=== PATIENT | male | born 1955 | race Caucasian/White ===

== ENCOUNTER 2021-01-30 14:49 | Emergency (ER) | payer BC, OTHER ==
--- OUTSIDE RECORDS SUMMARY | 2021-01-30 15:04 | XMS REPORT | Continuity of Care Document ---
:1955 Author Organization [facility] Address [address] [place] [address] Dr. Morelos. [address] [place] [address] Care Team Providers Name Role Phone Ethan Ellis MD Attending Clinician Problems This patient has no known problems. Allergies, Adverse Reactions, Alerts This patient has no known allergies or adverse reactions. Medications This patient has no known medications. Procedures This patient has no known procedures. Encounters Start End Encounter Admission Attending Care Care Encounter Source Date/Time Date/Time Type Type Clinicians Facility Department ID 2020-11-05 2020-11-05 Office JOYCE Ellis [id number] 09:14:24 10:44:16 Visit Sal Galvan [id number] Marie [id number] Ruy [id number] nal 092 Building Results This patient has no known results.
[2021-01-30 16:33] LABS: Absolute Lymphocytes (CBC) 1.1 K/uL (0.7-4.9); Basophils % 1.2 % (0-1.3); Hematocrit 33.5 % (39.6-49.0); Lymphocytes % 16.2 % (15.3-44.8); RBC Red Blood Cell Count 4.12 M/uL (4.33-5.43)
[2021-01-30 16:49] LABS: Bilirubin Direct 0.2 mg/dL (0-0.2); Bilirubin Total 0.4 mg/dL (0.2-1.0); Potassium 4.2 mmol/L (3.5-5.1); Protein, Total 7.8 g/dL (6.4-8.2)
[2021-01-30 17:05] LABS: Urine Blood Negative (Negative); Urine Glucose 2+ (Negative); Urine Protein 2+ (Negative); Urine Specific Gravity 1.015 (1.005-1.030)
--- NOTE | 2021-01-30 19:53 | RAD REPORT ---
EXAM DESCRIPTION: CT - Abdomen Pelvis Wo Contrast - 01/30/2021 6:47 pm CLINICAL HISTORY: ABD PAIN Left-side COMPARISON: CT CHEST ABD PELVIS W CONTRAST dated 11/21/2011 TECHNIQUE: Axial [address] imaging of the abdomen and pelvis was performed without IV contrast. No IV contrast was given because of allergy, abnormal renal function, patient refusal or physician re quest. Oral contrast was given. All CT scans are performed using dose optimization technique as appropriate and may include automated exposure control or mA/KV adjustment according to patient size. FINDINGS: No suspicious findings in the lung bases. The liver, spleen and pancreas show no suspicious findings on non-contrast imaging. Gallbladder and b iliary tree are also without suspicious finding. No hydronephrosis or suspicious mass of the right kidney. No right-sided calculi. A small cyst is pre sent posterior upper pole right kidney. Left kidney is grossly abnormal. There is a large 11 centimet er x 8 centimeter soft tissue mass along the medial margin of the liver with poor demarcation between this mass and the remaining normal renal parenchyma. Detail is limited in the absence of contrast. N o hydronephrosis or obstructing calculus. Single most likely etiology is a large renal cell carcinoma with bulky periaortic metastatic lymphadenopathy. Patient has numerous ipsilateral and contralateral periaortic lymph nodes at the renal vascular level. Perinephric stranding is present. Numerous lymph nodes are present along the anterior renal fascia on the left. No significant adrenal finding. The urinary bladder is without significant finding. No dilated bowel loops or bowel wall thickening. No free air, free fluid or pneumatosis. No hernia, mass or bulky lymphadenopathy. No suspicious bony findings. IMPRESSION: Large bulky 11 x 8 centimeter left renal mass most likely a primary renal cell carcinoma . There is abnormal ipsilateral and contralateral periaortic lymphadenopathy and numerous small abnorma l lymph nodes along the left anterior renal fascia. Full assessment is limited is the absence of IV contrast.
--- NOTE | 2021-01-30 21:30 | EDPHYS ---
Physician Documentation [facility] Name: Torey Pritchard Age: 65 yrs Sex: Male : 1955 Arrival Date: 01/30/2021 Time: 15:01 Bed 14 Private MD: ED Physician Lam Aleman HPI: 01/30 18:53 This 65 yrs old Male presents to ER via Ambulatory with complaints of jr8 Abdominal pain DRCarmen SIMONS FOR KIDNEY PAIN. 18:53 The patient presents with abdominal pain in the left upper quadrant, in the left lower jr8 quadrant. Onset: The symptoms/episode began/occurred gradually. The symptoms radiate to left back. Associated signs and symptoms: none. The symptoms are described as burning, steady. Modifying factors: The symptoms are alleviated by sitting up or laying supine. the symptoms are aggravated by rolling onto his sides. Severity of pain: At its worst the pain was moderate in the emergency department the pain has improved moderately. The patient has not experienced similar symptoms in the past. The patient has been recently seen by a physician: Saw his supervisor twisting department today and was referred to ED for further evaluation . Historical: - Allergies: 15:32 Haloperidol; ph - PMHx: 15:32 neuropathy; PVD; Diabetes - NIDDM; ph - Immunization history:: Client reports receiving the 2nd dose of the Covid vaccine. - Social history:: Smoking status: Patient denies any tobacco usage or history of. ROS: 18:53 Eyes: Negative for injury, pain, redness, and discharge, ENT: Negative for injury, jr8 pain, and discharge, Neck: Negative for injury, pain, and swelling, Cardiovascular: Negative for chest pain, palpitations, and edema, Respiratory: Negative for shortness of breath, cough, wheezing, and pleuritic chest pain, Back: Negative for injury and pain, MS/Extremity: Negative for injury and deformity, Skin: Negative for injury, rash, and discoloration, Neuro: Negative for headache, weakness, numbness, tingling, and seizure. 18:53 Abdomen/GI: Positive for abdominal pain, Negative for nausea, vomiting, and diarrhea, abdominal distension, hematemesis, black/tarry stool, rectal pain, rectal bleeding, bowel incontinence, flatulence. Exam: 18:53 Constitutional: This is a well developed, well nourished patient who is awake, alert, jr8 and in no acute distress. Cardiovascular: Regular rate and rhythm with a normal S1 and S2. No gallops, murmurs, or rubs. Normal PMI, no JVD. No pulse deficits. Respiratory: Lungs have equal breath sounds bilaterally, clear to auscultation and percussion. No rales, rhonchi or wheezes noted. No increased work of breathing, no retractions or nasal flaring. Abdomen/GI: Soft with mild tenderness to left mid abdomen with normal bowel sounds. No distension or tympany. No guarding or rebound. Back: No spinal tenderness. No costovertebral tenderness. Full range of motion. Skin: Warm, dry with normal turgor. Normal color with no rashes, no lesions, and no evidence of cellulitis. MS/ Extremity: Pulses equal, no cyanosis. Neurovascular intact. Full, normal range of motion. Neuro: Awake and alert, GCS 15, oriented to person, place, time, and situation. Cranial nerves II-XII grossly intact. Motor strength 5/5 in all extremities. Sensory grossly intact. Cerebellar exam normal. Normal gait. Vital Signs: 15:28 BP 161 / 84; Pulse 83; Resp 18; Temp 98.1; Pulse Ox 99% on R/A; ph 17:00 BP 139 / 97; tr6 21:02 BP 163 / 87; Pulse 88; Resp 16; Temp 98; Pulse Ox 100% on R/A; jm8 21:49 BP 132 / 98; Pulse 89; Resp 16; Pulse Ox 100% on R/A; jm8 MDM: 15:42 Patient medically screened. [facility] 21:12 Data reviewed: vital signs, nurses notes, lab test result(s), radiologic studies, [facility] scan. Data interpreted: Pulse oximetry: on room air is 100 %. Interpretation: normal. Counseling: I had a detailed discussion with the patient and/or guardian regarding: the historical points, exam findings, and any diagnostic results supporting the discharge/admit diagnosis, lab results, radiology results. ED course: Discussed findings with Dr. Petty. Would like to see if we could get him into [facility] for further evaluation . 21:26 ED course: MD Aleman contacted and cannot accept transfer as it is non emergent. I donnell was able to get a employment case manager number for patient to call tomorrow morning to start outpatient process. Was attempting [facility] as well but patient does not want to be transferred tonight due to family constraints. 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 21:31 ED course: Tx [employer] reviewed. No indication not to give pain meds . 8 01/30 16:03 Order name: Basic Metabolic Panel; Complete Time: 16:59 8 01/30 16:03 Order name: CBC with Diff; Complete Time: 16:59 8 01/30 16:03 Order name: Hepatic Function; Complete Time: 16:59 8 01/30 16:03 Order name: Lipase; Complete Time: 16:59 8 01/30 17:06 Order name: Urine Dipstick-Ancillary; Complete Time: 18:27 EDMS 01/30 16:03 Order name: IV Saline Lock; Complete Time: 16:35 01/30 16:03 Order name: Labs collected and sent; Complete Time: 16:35 8 01/30 17:22 Order name: Abdomen ; Complete Time: 19:54 EDMS Administered Medications: 21:26 Not Given (Patient Refused): morphine 4 mg IVP once; RASS on ADMIN: Combtv4, Very jm8 Agttd3, Agttd2, Rstlss1, AlertClm0, Drwsy-1, Lt Sdtn-2, Mod Sdtn-3, Dp Sdtn-4, UnArsble-5 21:26 Not Given (Patient Refused): Zofran (Ondansetron) 4 mg IVP once; over 2 minutes jm8 Disposition: 01/31 07:36 Co-signature as Attending Physician, Lam Aleman MD I agree with the assessment and roderick plan of care. 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 jr8 Followup: jr8 - With: Private Physician - When: 1 - 2 days - Reason: Recheck today's complaints, Continuance of care, Re-evaluation by your physician Discharge Instructions: - Discharge Summary Sheet jr8 - Kidney Cancer jr8 Forms: - Medication Reconciliation Form jr8 - Thank You Letter jr8 - Antibiotic Education jr8 - Prescription Opioid Use jr8 Prescriptions: - acetaminophen-codeine 300-15 mg Oral tablet - take 2 tablet by ORAL route every 4-6 hours As needed; 30 tablet; Refills: 0, jr8 Product Selection Permitted Signatures: Dispatcher [employer] EDMS Lam Aleman MD MD cha Roszak, Josh, PA PA jr8 Mima Arrieta RN RN Carlos Callahan RN jm8 Corrections: (The following items were deleted from the chart) 01/30 17:21 17:00 Abdomen Pelvis W Con+CT.RAD.BRZ ordered. EDWV EDWV
--- NOTE | 2021-01-30 21:30 | ER ---
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 Coronavirus screen: At this time, the client does not indicate any symptoms associated with coronavirus-19. Ebola Screen: No symptoms or risks identified at this time. Initial Sepsis Screen: Does the patient meet any 2 criteria? No. Patient's initial sepsis screen is negative. Does the patient have a suspected source of infection? No. Patient's initial sepsis screen is negative. Risk Assessment: Do you want to hurt yourself or someone else? Patient reports no desire to harm self or others. Onset of symptoms was January 30, 2021. 15:28 Method Of Arrival: Ambulatory ph 15:28 Acuity: MARNI 3 ph Historical: - Allergies: 15:32 Haloperidol; ph - PMHx: 15:32 neuropathy; PVD; Diabetes - NIDDM; ph - Immunization history:: Client reports receiving the 2nd dose of the Covid vaccine. - Social history:: Smoking status: Patient denies any tobacco usage or history of. Screenin:00 Abuse screen: Denies threats or abuse. Denies injuries from another. Nutritional tr6 screening: No deficits noted. Tuberculosis screening: No symptoms or risk factors identified. Fall Risk None identified. Assessment: 16:57 General: Appears in no apparent distress. comfortable, Behavior is calm, cooperative, ph appropriate for age. Pain: Complains of pain in left sided abdomen pain. 16:57 Pain: Pain radiates to left lower back. Neuro: No deficits noted. Cardiovascular: No ph deficits noted. Respiratory: No deficits noted. GI: Abdomen is round distended, Bowel sounds Abd is soft Abd is non tender. : No deficits noted. EENT: No deficits noted. Derm: No deficits noted. Musculoskeletal: No deficits noted. 19:00 Reassessment: Patient appears in no apparent distress at this time. No changes from jm8 previously documented assessment. Patient and/or family updated on plan of care and expected duration. Pain level reassessed. Patient is alert, oriented x 3, equal unlabored respirations, skin warm/dry/pink. 20:00 Reassessment: Patient appears in no apparent distress at this time. No changes from jm8 previously documented assessment. Patient and/or family updated on plan of care and expected duration. Pain level reassessed. Patient is alert, oriented x 3, equal unlabored respirations, skin warm/dry/pink. 21:04 Reassessment: No changes from previously documented assessment. Patient and/or family jm8 updated on plan of care and expected duration. Pain level reassessed. Patient is alert, oriented x 3, equal unlabored respirations, skin warm/dry/pink. Vital Signs: 15:28 BP 161 / 84; Pulse 83; Resp 18; Temp 98.1; Pulse Ox 99% on R/A; ph 17:00 BP 139 / 97; tr6 21:02 BP 163 / 87; Pulse 88; Resp 16; Temp 98; Pulse Ox 100% on R/A; jm8 21:49 BP 132 / 98; Pulse 89; Resp 16; Pulse Ox 100% on R/A; jm8 ED Course: 15:01 Patient arrived in ED. wm 15:13 Dev Pinedo PA is PHCP. jr8 15:13 Lam Aleman MD is Attending Physician. jr8 15:32 Triage completed. ph 15:32 Arm band placed on. ph 15:40 Luisa Lopez, CHRISTIAN is Primary Nurse. tr6 16:35 Inserted saline lock: 18 gauge in right forearm, using aseptic technique. ph 17:00 Patient has correct armband on for positive identification. Bed in low position. Call tr6 light in reach. Side rails up X 1. 17:00 No provider procedures requiring assistance completed. tr6 18:47 Abdomen In Process Unspecified. EDMS 20:25 initiated a transfer with Vanessa from [facility]. mw2 21:16 connected Dev LYON with the Doctor at [facility]. mw2 21:49 IV discontinued, intact, bleeding controlled, No redness/swelling at site. jm8 Administered Medications: 21:26 Not Given (Patient Refused): morphine 4 mg IVP once; RASS on ADMIN: Combtv4, Very jm8 Agttd3, Agttd2, Rstlss1, AlertClm0, Drwsy-1, Lt Sdtn-2, Mod Sdtn-3, Dp Sdtn-4, UnArsble-5 21:26 Not Given (Patient Refused): Zofran (Ondansetron) 4 mg IVP once; over 2 minutes alex Outcome: 21:29 Discharge ordered by . donnell 21:49 Discharged to home ambulatory. alex 21:49 Condition: good 21:49 Discharge instructions given to patient, Instructed on discharge instructions, follow up and referral plans. medication usage, Demonstrated understanding of instructions, follow-up care, medications, Prescriptions given X 1. 21:50 Patient left the ED. alex Signatures: Dispatcher [employer] EDMS Dev Pinedo PA PA jr8 Mima Arrieta, RN RN Virgen Bradford 2 Carlos Callahan RN RN 8 Luisa Lopez, CHRISTIAN RN tr6 Lydia Norton
[2021-01-30] MEDS ORDERED: ONDANSETRON 4 MG/2 ML VIAL ONE (21:40)
[2021-01-30] MEDS ORDERED: MORPHINE 4 MG/ML SYR ONE (21:40)
[2021-01-30 22:20] VITALS: TEMP 98; O2SAT 100
[2021-01-30 22:22] VITALS: BP 132/98
== END 2021-01-30 21:50 | disposition home or self-care (01) ==
LOC: ER 14:49
DX: D41.12 Neoplasm of uncertain behavior of left renal pelvis (principal); Z88.8 Allergy status to other drugs, medicaments and biological substances
CPT/HCPCS: 85025; 80048; 36415; 80076; 81003; 83690; 74176; 99283; J2405

== ENCOUNTER 2021-08-05 13:45 | Observation (INO) | payer OTHER ==
--- OUTSIDE RECORDS SUMMARY | 2021-08-05 13:48 | XMS REPORT | Clinical Summary ---
:1955 Author Organization [facility] Address [facility] [place] [address] Care Team Providers Name Role Phone Unavailable Primary Care Provider Unavailable Allergies Not on File Medications Not on file Active Problems Not on file Encounters Date Type Specialty Care Team Description 02/07/2021 Travel after 08/05/2020 Social History Tobacco Use Types Packs/Day Years Used Date Never Assessed Sex Assigned at Date Recorded Not on file Job Start Date Occupation Industry Not on file Not on file Not on file Last Filed Vital Signs Not on file Plan of Treatment Not on file Results Not on fileafter 08/05/2020 Insurance Payer Benefit Plan / Subscriber ID Effective Dates Phone Addre ss Type Group [employer] MEDICARE AETNA MEDICARE [id number] 2020-Prese [id number] [place] [address]
--- OUTSIDE RECORDS SUMMARY | 2021-08-05 13:49 | XMS REPORT | Continuity of Care Document ---
:1955 Author Organization [facility] t Address [address] [place] [address] [address]. [address] [place] [address] Care Team Providers Name Role Phone MADHU Attending Clinician Unavailable ISABEL Attending Clinician Unavailable MD ISABEL Attending Clinician Unavailable MARSHALL Attending Clinician Unavailable ROD Attending Clinician Unavailable MD SRI Attending Clinician Unavailable MD ABBI EDMOND Attending Clinician Unavailable ARMAND GO Attending Clinician Unavailable MD ROMINA VELASCO Attending Clinician Unavailable SRI Attending Clinician Unavailable ROQUE Attending Clinician Unavailable Radha Ellis MD Attending Clinician RADHA ELLIS Attending Clinician Unavailable RADHA ELLIS Attending Clinician Unavailable ISABEL Admitting Clinician Unavailable MD ISABEL Admitting Clinician Unavailable SRI Admitting Clinician Unavailable MD SRI Admitting Clinician Unavailable ROD Admitting Clinician Unavailable MD ROMINA VELASCO Admitting Clinician Unavailable Payers Payer Name Policy Type Policy Effective Date Expiration Date Sour ce Number AETNA MEDICAREAETNA [id number] 2020 MD Aleman MEDICARE 00:00:00 [id number], [place] [address]Medicare Problems Condition Condition Condition Status Onset Resolution Last Treating Co mments Source Name Details Category Date Date Treatment Clinician Date No known No known Disease Unive rs active active ity of problems problems [facility] Allergies, Adverse Reactions, Alerts Allergy Allergy Status Severity Reaction(s) Onset Inactive Treating Comm ents Source Name Type Date Date Clinician [place] Drug Active Anaphylaxis 2014-08 Cardiac Un olvin dol Allergy 08-22 arrestcod ity of 00:00: ed [address] HALOPERI DRUG Active High Anaphylaxis 2014-08 Uni vers DOL INGREDI 08-22 ity of 00:00: [address] CEFTRIAX DRUG Active Low N/V 2014-08 Univers ONE INGREDI 08-22 ity of 00:00: [address] Ceftriax Propensi Active Nausea 2014-08 High Univer s one ty to and/or 08-22 blood ity of adverse Vomiting 00:00: sugar, [place] reaction blacked [facility] ed by other hospital. Per patient his blood glucose "went alice high" NO KNOWN Drug Active Univers ALLERGIE Class ity of [facility] Social History Social Habit Start Date Stop Date Quantity Comments Source Exposure to Not sure [facility] SARS-CoV-2 (event) [facility] Sex Assigned At [birth year] MD Morgan on 00:00:00 00:00:00 Smoking Status Start Date Stop Date Source Unknown if ever smoked [facility] Medications Ordered Filled Start Stop Current Ordering Indication Dosage Frequency Signature Comments Components Source Medication Medication Date Date Medication? Clinician (SIG) Name Name Chromium Yes 800mg Take 800 Univ ers Picolinate 4-06 mg by ity of 400 mcg Tab 15:00: mouth. [address] Cinnamon Yes 1000mg Take 1,000 U nivers Bark 500 mg 4-06 mg by ity of Cap 15:00: mouth. [address] Garlic Yes 1{capsu Take 1 Univer s (GARLIC 4-06 le} capsule by ity of OIL) 1,000 15:00: mouth. [place] mg [address] Chromium Yes 800mg Take 800 Univ ers Picolinate 4-06 mg by ity of 400 mcg Tab 15:00: mouth. [address] Cinnamon Yes 1000mg Take 1,000 U nivers Bark 500 mg 4-06 mg by ity of Cap 15:00: mouth. [address] Garlic Yes 1{capsu Take 1 Univer s (GARLIC 4-06 le} capsule by ity of OIL) 1,000 15:00: mouth. [place] mg Cap 42 [facility] metoprolol Yes Univers succinate 4-05 ity of XL 50 mg 24 00:00: [place] hr tablet 00 Medical [facility] metoprolol 0 Yes Univers succinate 4-05 ity of XL 50 mg 24 00:00: [place] hr tablet 00 [facility] Yes Univers mg tablet 3-31 ity of 00:00: [place] 00 Medical Branch [facility] 10 0 Yes Univers mg tablet 3-31 ity of 00:00: [place] 00 Medical Branch metformin 0 Yes 750mg Take 750 Uni vers ER 750 mg 3-26 mg by ity of 24 hr 00:00: mouth 2 [place] tablet 00 (two) Medical times Branch daily. metformin Yes 750mg Take 750 Uni vers ER 750 mg 3-26 mg by ity of 24 hr 00:00: mouth 2 [place] tablet 00 (two) Medical times Branch daily. VASCEPA 1 Yes TAKE 2 Univer s gram 3-08 CAPSULES ity of capsule 00:00: BY MOUTH [place] 00 TWICE A Medical DAY Branch VASCEPA 1 Yes TAKE 2 Univer s gram 3-08 CAPSULES ity of capsule 00:00: BY MOUTH [place] 00 TWICE A Medical DAY Branch atorvastati Yes 80mg Take 80 mg Univers n 80 mg 2-08 by mouth ity of tablet 00:00: every [place] 00 evening. Medical Branch clopidogreL Yes 75mg Take 75 mg Univers 75 mg 2-08 by mouth ity of tablet 00:00: every [place] 00 morning. Medical Branch losartan 25 Yes 25mg Take 25 mg Univers mg tablet 2-08 by mouth ity of 00:00: every [place] 00 morning. Medical Branch atorvastati Yes 80mg Take 80 mg Univers n 80 mg 2-08 by mouth ity of tablet 00:00: every [place] 00 evening. Medical Branch clopidogreL 0 Yes 75mg Take 75 mg Univers 75 mg 2-08 by mouth ity of tablet 00:00: every [place] 00 morning. Medical Branch losartan 25 0 Yes 25mg Take 25 mg Univers mg tablet 2-08 by mouth ity of 00:00: every [place] 00 morning. Medical Branch gabapentin 0 Yes 600mg Take 600 Un olvin 600 mg 1-14 mg by ity of tablet 00:00: mouth at [place] 00 bedtime. Medical Branch gabapentin 2020- Yes 600mg Take 600 Un olvin 600 mg 1-14 mg by ity of tablet 00:00: mouth at [place] [address] bedtime. Medical Branch Vital Signs Vital Name Observation Time Observation Value Comments Source Systolic blood 2020-11-05 15:00:00 170 mm[Hg] Univer sity [facility] Diastolic blood 2020-11-05 15:00:00 68 [facility] 2020-11-05 15:00:00 70 /min Universi ty [facility] Body height 2020-11-05 14:58:00 182.9 cm [address]i [address] [facility] Body weight 2020-11-05 14:58:00 91.[address] [facility] BMI 2020-11-05 14:58:00 27.40 kg/m2 Universi ty [facility] Oxygen saturation 2020-11-05 14:58:00 100 /min Uni versity of [place] in Arterial blood Medical Br anch by Pulse oximetry Systolic blood 2020-11-05 15:00:00 170 [facility]Hg[facility] 2020-11-05 15:00:00 68 mm[facility]Hg[facility] 2020-11-05 15:00:00 70 /min Universi ty [facility] Body height 2020-11-05 14:58:00 182.9 cm [address]i [address] [facility] Body weight 2020-11-05 14:58:00 91.627 [address] [facility] BMI 2020-11-05 14:58:00 27.40 kg/m2 Universi ty [facility] Oxygen saturation 2020-11-05 14:58:00 100 /min Uni versity [facility] in Arterial blood Medical Br anch by Pulse oximetry Procedures This patient has no known procedures. Encounters Start End Encounter Admission Attending Care Care Encounter Source Date/Time Date/Time Type Type Clinicians Facility Department ID 2021-07-09 2021-07-09 Outpatient MADHU [facility] [id number] [place] 00:00:00 00:00:00 FREDI [address] 2021-07-09 2021-07-09 Outpatient MADHU, [facility] [id number] [place] 00:00:00 00:00:00 FREDI [address] 2021-07-09 2021-07-09 Outpatient MADHU, [facility] [id number] [place] 00:00:00 00:00:00 FREDI [address] 2021-06-19 2021-06-20 Outpatient NUNU HALL [facility] [id number] [place] 00:00:00 00:00:[address] 2021-06-19 2021-06-19 Outpatient MADHU, [facility] [id number] [place] 00:00:00 00:00:00 FREDI 176 Met [facility] 2021-06-10 2021-06-10 Outpatient OLIVARES, [facility] [id number] [place] 00:00:00 00:00:00 SHILPAN [address] 2021-06-05 2021-06-05 Outpatient OLIVARES, [facility] [id number] [place] 00:00:00 00:00:00 SHILPAN 014 Method i 2021-05-29 2021-05-31 Inpatient DINAKAR, [facility] [id number] [place] 00:00:00 00:00:00 SUAD [address] 2021-05-29 2021-05-29 Outpatient MADHU, [facility] [id number] [place] 00:00:00 00:00:00 FREDI 946 Met [facility] 2021-05-29 2021-05-29 Outpatient MAHDU, [facility] [id number] [place] 00:00:00 00:00:00 FREDI 043 Met [facility] 2021-05-22 2021-05-22 Outpatient MADHU, [facility] [id number] [place] 00:00:00 00:00:00 FREDI [address] 2021-05-08 2021-05-16 Inpatient ARMAND [facility] [id number] [place] 00:00:00 00:00:00 Seda GO Method i QING 2021-05-012021-05-01 Outpatient MADHU, [facility] [id number] [place] 00:00:00 00:00:00 FREDI 114 Met [facility] 2021-05-01 2021-05-01 Outpatient MADHU, [facility] [id number] [place] 00:00:00 00:00:00 FREDI 925 Met [facility] 2021-04-24 2021-04-24 Outpatient MADHU, [facility] [id number] [place] 00:00:00 00:00:00 FREDI 743 Met [facility] 2021-04-24 2021-04-24 Outpatient MADHU, [facility] [id number] [place] 00:00:00 00:00:00 FREDI 572 Met [facility] 2021-04-17 2021-04-18 Outpatient ARMAND [facility] [id number] [place] 00:00:00 00:00:00 ABBI, 669 Method i [facility] 2021-04-10 2021-04-10 Outpatient MADHU, [facility] [id number] [place] 00:00:00 00:00:00 FREDI 343 Met [facility] 2021-04-10 2021-04-10 Outpatient MADHU, [facility] [id number] [place] 00:00:00 00:00:00 FREDI 045 Met [facility] 2021-04-10 2021-04-10 Outpatient MADHU, [facility] [id number] [place] 00:00:00 00:00:00 FREDI 574 Met [facility] 2021-04-03 2021-04-03 Outpatient OLIVARES, [facility] [id number] [place] 00:00:00 00:00:00 SHILPAN [address] 2021-04-03 2021-04-03 Outpatient MADHU, [facility] [id number] [place] 00:00:00 00:00:00 FREDI 526 Met [facility] 2021-03-27 2021-03-30 Inpatient NUNU HALL [facility] [id number] [place] 00:00:00 00:00:[address] 2021-03-20 2021-03-20 Outpatient MADHU, [facility] [id number] [place] 00:00:00 00:00:00 FREDI 141 Met hodi 2021-02-25 2021-03-14 Inpatient SRI, [facility] [id number] [place] 00:00:00 00:00:00 PONCHO 559 Method i 2021-02-25 2021-02-25 Outpatient JILL NEVAREZ [facility] [id number] [place] 00:00:00 00:00:00 967 Method i 2021-02-25 2021-02-25 Outpatient ROQUE COUNT [facility] [id number] [place] 00:00:00 00:00:00 970 Method i 2021-02-25 2021-02-25 Outpatient ROQUE COUNT INCLUDES THE [facility] [id number] [place] 00:00:00 00:00:00 183 Method i 2021-02-25 2021-02-25 Outpatient ROQUE COUNT INCLUDES THE [facility] [id number] [place] 00:00:00 00:00:00 964 Method i 2021-02-19 2021-02-19 Outpatient ROQUE COUNT INCLUDES THE [facility] [id number] [place] 00:00:00 00:00:00 211 Method i 2021-02-18 2021-02-18 Outpatient ROQUE COUNT INCLUDES THE [facility] [id number] [place] 00:00:00 00:00:00 562 Method i 2021-02-18 2021-02-18 Outpatient ROQUE COUNT INCLUDES THE [facility] [id number] [place] 00:00:00 00:00:00 323 Method i 2020-11-05 2020-11-05 Office [facility] [id number] [facility] 09:14:24 10:44:16 Visit Sal Galvan [id number] Sina [id number] Mic sims Professio [id number] Nd dical [address] 2020-11-05 2020-11-05 [facility] [id number] 09:14:24 10:44:16 Visit Sal Galvan [id number] Marie [id number] Ruy [id number] nal 092 [facility] 2020-11-05 2020-11-05 Outpatient SAL [facility] [id number] [facility] 10:00:00 10:00:00 SAL ELLIS [facility] Results Test Description Test Time Test Comments Results Result Comments Source SARS-CoV-2 (COVID-19) RNA [Presence] in Respiratory sp ecimen by 2021-06-19 20:30:15 ELDA with probe detection Test Item Value Reference Range Interpretation Comme nts SARS-CoV-2 (COVID-19) RNA [Presence] in Respiratory Not detected No t-Detected specimen by ELDA with probe detection (test code = 60767-3) Whether patient is employed in a healthcare setting (test code = 44181-3) Whether the patient has symptoms related to condition of interest (test code = 53625-3) Patient was hospitalized because of this condition (test code = 68436-0) Whether the patient was admitted to intensive care unit (ICU) for condition of interest (test code = 33366-5) Whether patient resides in a congregate care setting (test code = 41235-1) SARS-CoV-2 (COVID-19) RNA [Presence] in Respiratory specimen by ELDA with probe [id number] 20:44:43 Test Item Value Reference Range Interpretation Comments SARS-CoV-2 (COVID-19) RNA Not detected Not-Detected [Presence] in Respiratory specimen by ELDA with probe detection (test code = 78901-0) Whether patient is employed in a healthcare setting (test code = 46008-2) Whether the patient has symptoms related to condition of interest (test code = 37020-0) Patient was hospitalized because of this condition (test code = 59745-6) Whether the patient was admitted to intensive care unit (ICU) for condition of interest (test code = 43519-8) Whether patient resides in a congregate care setting (test code = 72441-9) SARS-CoV-2 (COVID-19) RNA [Presence] in Respiratory specimen by ELDA with probe [id number] 19:51:11 Test Item Value Reference Range Interpretation Comments SARS-CoV-2 (COVID-19) RNA Not detected Not-Detected [Presence] in Respiratory specimen by ELDA with probe detection (test code = 58479-5) Whether patient is employed in a healthcare setting (test code = 64403-6) Whether the patient has symptoms related to condition of interest (test code = 45878-0) Patient was hospitalized because of this condition (test code = 68160-8) Whether the patient was admitted to intensive care unit (ICU) for condition of interest (test code = 39638-8) Whether patient resides in a congregate care setting (test code = 08109-6) SARS-CoV-2 (COVID-19) RNA [Presence] in Respiratory specimen by ELDA with probe [id number] 20:11:44 Test Item Value Reference Range Interpretation Comments SARS-CoV-2 (COVID-19) RNA Not detected Not-Detected [Presence] in Respiratory specimen by ELDA with probe detection (test code = 03669-0) Whether patient is employed in a healthcare setting (test code = 42320-5) Whether the patient has symptoms related to condition of interest (test code = 91606-1) Patient was hospitalized because of this condition (test code = 58981-1) Whether the patient was admitted to intensive care unit (ICU) for condition of interest (test code = 82827-8) Whether patient resides in a congregate care setting (test code = 99205-8) SARS-CoV-2 (COVID-19) RNA [Presence] in Respiratory specimen by ELDA with probe [id number] 14:04:47 Test Item Value Reference Range Interpretation Comments SARS-CoV-2 (COVID-19) RNA Not detected Not-Detected [Presence] in Respiratory specimen by ELDA with probe detection (test code = 77157-1) Whether patient is employed in a healthcare setting (test code = 82275-6) Whether the patient has symptoms related to condition of interest (test code = 01245-6) Patient was hospitalized because of this condition (test code = 14377-4) Whether the patient was admitted to intensive care unit (ICU) for condition of interest (test code = 86459-5) Whether patient resides in a congregate care setting (test code = 02300-2) SARS-CoV-2 (COVID-19) RNA [Presence] in Respiratory specimen by ELDA with probe [id number] 17:43:38 Test Item Value Reference Range Interpretation Comments SARS-CoV-2 (COVID-19) RNA Not detected Not-Detected [Presence] in Respiratory specimen by ELDA with probe detection (test code = 64110-1) Whether patient is employed in a healthcare setting (test code = 11512-1) Whether the patient has symptoms related to condition of interest (test code = 25312-2) Patient was hospitalized because of this condition (test code = 90954-2) Whether the patient was admitted to intensive care unit (ICU) for condition of interest (test code = 46977-1) Whether patient resides in a congregate care setting (test code = 25804-2) SARS-CoV-2 (COVID-19) RNA [Presence] in Respiratory specimen by ELDA with probe [id number] 17:43:48 Test Item Value Reference Range Interpretation Comments SARS-CoV-2 (COVID-19) RNA Not detected Not-Detected [Presence] in Respiratory specimen by ELDA with probe detection (test code = 02115-5) Whether patient is employed in a healthcare setting (test code = 25225-1) Whether the patient has symptoms related to condition of interest (test code = 31189-7) Patient was hospitalized because of this condition (test code = 43542-5) Whether the patient was admitted to intensive care unit (ICU) for condition of interest (test code = 57534-0) Whether patient resides in a congregate care setting (test code = 53665-6) SARS-CoV-2 (COVID-19) RNA [Presence] in Respiratory specimen by ELDA with probe [id number] 21:23:33 Test Item Value Reference Range Interpretation Comments SARS-CoV-2 (COVID-19) RNA Not detected Not-Detected [Presence] in Respiratory specimen by ELDA with probe detection (test code = 02402-6) Whether patient is employed in a healthcare setting (test code = 91093-9) Whether the patient has symptoms related to condition of interest (test code = 48662-5) Patient was hospitalized because of this condition (test code = 25938-0) Whether the patient was admitted to intensive care unit (ICU) for condition of interest (test code = 59988-1) Whether patient resides in a congregate care setting (test code = 37246-1)
--- NOTE | 2021-08-05 14:50 | RAD REPORT ---
EXAM DESCRIPTION: RAD - Chest Single View - 08/05/2021 2:41 pm CLINICAL HISTORY: SOB COMPARISON: CHEST PA AND LAT 2 VIEW dated 08/07/2014; CHEST SINGLE VIEW dated 11/21/2011 FINDINGS: Lines: None. Lungs: No evidence of edema or pneumonia. Pleural: No significant pleural effusions or pneumothorax. Cardiac: The heart size is within normal limits. Bones: No acute fractures. Other: IMPRESSION: No acute cardiopulmonary disease.
[2021-08-05] MEDS ORDERED: FUROSEMIDE 20 MG/ 2ML VIAL ONE (15:09)
[2021-08-05 15:11] LABS: Absolute Lymphocytes (CBC) 0.9 K/uL (0.7-4.9); Hematocrit 34.8 % (39.6-49.0); Lymphocytes % 14.3 % (15.3-44.8); MPV 8.4 fL (7.6-11.3); RBC Red Blood Cell Count 4.15 M/uL (4.33-5.43)
[2021-08-05 15:13] LABS: Protime INR 1.09
[2021-08-05 15:31] LABS: Albumin 3.3 g/dL (3.4-5.0); Bilirubin Direct 0.2 mg/dL (0-0.2); Bilirubin Total 0.4 mg/dL (0.2-1.0); Magnesium 2.6 mg/dL (1.8-2.4); Potassium 4.1 mmol/L (3.5-5.1); Troponin (Emerg Dept Use Only) 0.06 ng/mL (0.0-0.045)
[2021-08-05] MEDS ORDERED: FUROSEMIDE 40 MG TABLET ONE (17:17)
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
--- NOTE | 2021-08-05 17:20 | ER ---
Nurse's Notes [facility] Name: Torey Pritchard Age: 66 yrs Sex: Male : 1955 Arrival Date: 08/05/2021 Time: 13:49 Bed 23 Private MD: Elbert Pang T Diagnosis: Unspecified combined systolic (congestive) and diastolic (congestive) heart failure;Dyspnea Presentation: 08/05 13:57 Chief complaint: Patient states: SOB since last night. States he has been retaining ll1 more fluid than usual. no fevers. Coronavirus screen: Vaccine status: Patient reports receiving the 2nd dose of the covid vaccine. Client denies travel out of the [place] in the last 14 days. difficulty breathing, shortness of breath, Client presents with at least one sign or symptom that may indicate coronavirus-19. Standard/surgical mask placed on the client. Ebola Screen: Patient denies travel to an Ebola-affected area in the 21 days before illness onset. Initial Sepsis Screen: Does the patient meet any 2 criteria? No. Patient's initial sepsis screen is negative. Risk Assessment: Do you want to hurt yourself or someone else? Patient reports no desire to harm self or others. Onset of symptoms was August 04, 2021. 13:57 Method Of Arrival: Wheelchair ll1 13:57 Acuity: MARNI 3 ll1 15:51 Initial Sepsis Screen: Does the patient have a suspected source of infection? No. jd3 Patient's initial sepsis screen is negative. Historical: - Allergies: 13:57 Haloperidol; ll1 - Home Meds: 15:37 gabapentin 300 mg oral cap [Active]; allopurinol 300 mg Oral tab [Active]; hydralazine jd3 100 mg Oral tab [Active]; nifedipine 30 mg Oral TbER [Active]; atorvastatin 80 mg oral tab [Active]; pantoprazole 40 mg oral TbEC [Active]; 19:19 insulin glargine 100 unit/mL (3 mL) subcutaneous inpn 24 units BID PRN (per pt if BG is mk above 110 in the AM or 'very high' in the PM but is unable to state a cut off) [Active]; - PMHx: 13:57 Diabetes - NIDDM; neuropathy; PVD; ll1 - Immunization history:: Client reports receiving the 2nd dose of the Covid vaccine. - Social history:: Smoking status: Patient denies any tobacco usage or history of. Screenin:51 Abuse screen: Denies threats or abuse. Nutritional screening: No deficits noted. jd3 Tuberculosis screening: No symptoms or risk factors identified. Fall Risk Ambulatory Aid- None/Bed Rest/Nurse Assist (0 pts). Gait- Normal/Bed Rest/Wheelchair (0 pts) Mental Status- Oriented to own ability (0 pts). Total Turner Fall Scale indicates No Risk (0-24 pts). Assessment: 15:44 General: Appears in no apparent distress. uncomfortable, Behavior is calm, cooperative, jd3 appropriate for age. Pain: Complains of pain in chest Quality of pain is described as aching, tender. Neuro: Level of Consciousness is awake, alert, obeys commands, Oriented to person, place, time, situation. Cardiovascular: Capillary refill < 3 seconds Patient's skin is warm and dry. Edema is 3+ to FRANKLIN legs Rhythm is regular. Respiratory: Reports shortness of breath at rest Airway is patent Respiratory effort is even, unlabored, Respiratory pattern is regular, symmetrical. GI: No signs and/or symptoms were reported involving the gastrointestinal system. : No signs and/or symptoms were reported regarding the genitourinary system. EENT: No signs and/or symptoms were reported regarding the EENT system. Derm: No signs and/or symptoms reported regarding the dermatologic system. 16:43 Reassessment: Patient appears in no apparent distress at this time. Patient and/or jd3 family updated on plan of care and expected duration. Pain level reassessed. Patient is alert, oriented x 3, equal unlabored respirations, skin warm/dry/pink. Patient states feeling better. 17:10 Reassessment: pt reporting to want to leave AMA. jd3 17:10 Reassessment: pt decided to stay in hospital. provider notified. AMA to be canceled. jd3 18:30 Reassessment: Patient appears in no apparent distress at this time. Patient and/or jd3 family updated on plan of care and expected duration. Pain level reassessed. Patient is alert, oriented x 3, equal unlabored respirations, skin warm/dry/pink. awaiting admission. 19:30 General: Appears in no apparent distress. Behavior is calm, cooperative, appropriate mk for age. Pain: Denies pain. Neuro: Level of Consciousness is awake, alert, obeys commands, Oriented to person, place, time, situation. Cardiovascular: Capillary refill < 3 seconds Clubbing of nail beds is absent JVD is absent Patient's skin is warm and dry. Pulses are 2+ in right radial artery, right dorsalis pedis artery, left radial artery and left dorsalis pedis artery Edema is 2+ to left midcalf, left ankle, right midcalf and right ankle Rhythm is sinus rhythm. Respiratory: Airway is patent Respiratory effort is even, unlabored, Respiratory pattern is regular, symmetrical, Breath sounds are clear. GI: Abdomen is distended, Bowel sounds. : Urine is. Derm: Skin is intact, is healthy with good turgor. Musculoskeletal: Capillary refill < 3 seconds, Range of motion: intact in all extremities. 20:30 Reassessment: Patient appears in no apparent distress at this time. Patient and/or mk family updated on plan of care and expected duration. Pain level reassessed. Patient is alert, oriented x 3, equal unlabored respirations, skin warm/dry/pink. 21:30 Reassessment: No changes from previously documented assessment. Patient and/or family mk updated on plan of care and expected duration. Pain level reassessed. Patient is alert, oriented x 3, equal unlabored respirations, skin warm/dry/pink. 08/06 02:00 Reassessment: Received the patient no acute distress noted. The patient is voiding sv1 well. . Vital Signs: 08/05 13:57 BP 158 / 68; Pulse 105; Resp 22; Temp 97.4; Pulse Ox 100% ; Weight 88.45 kg; Height 5 ll1 ft. 11 in. (180.34 cm); Pain 0/10; 19:00 Pulse 100; Resp 20 S; Pulse Ox 100% on R/A; jd3 19:30 BP 143 / 87; Pulse 87; Resp 18; Pulse Ox 98% on R/A; mk 20:32 BP 147 / 76; Pulse 88; Resp 18; Pulse Ox 98% on R/A; mk 13:57 Body Mass Index 27.20 (88.45 kg, 180.34 cm) ll1 Sha Coma Score: 19:30 Eye Response: spontaneous(4). Verbal Response: oriented(5). Motor Response: obeys commands(6). Total: 15. 20:32 Eye Response: spontaneous(4). Verbal Response: oriented(5). Motor Response: obeys mk commands(6). Total: 15. ED Course: 13:49 Patient arrived in ED. mr 13:49 Elbert Pang MD is Private Physician. mr 13:57 Arm band placed on. ll1 14:00 Triage completed. ll1 14:01 Duke Garcia RN is Primary Nurse. jd3 14:07 Trell Raya NP is PHCP. pm1 14:07 Francisco Monique MD is Attending Physician. pm1 14:41 XRAY Chest (1 view) In Process Unspecified. EDMS 15:51 Patient has correct armband on for positive identification. Bed in low position. Call jd3 light in reach. Side rails up X 1. Adult w/ patient. regional account executive on. Pulse ox on. NIBP on. 17:23 Rony Dey MD is Hospitalizing Provider. pm1 19:54 Troponin I Sent. mk 19:54 Troponin I Sent. mk 19:54 Magnesium Sent. mk 19:54 Magnesium Sent. mk 19:54 Magnesium Sent. mk 19:54 CBC with Automated Diff Sent. mk 19:54 Comprehensive Metabolic Panel Sent. mk 19:54 Comprehensive Metabolic Panel Sent. mk 19:54 Magnesium Sent. mk 19:54 Thyroid Stimulating Hormone Sent. mk 19:54 UR CREAT Sent. mk 19:54 UR SODIUM Sent. mk 19:55 CBC with Automated Diff Sent. mk 21:34 No provider procedures requiring assistance completed. Patient admitted, IV remains in mk place. Administered Medications: 15:10 Drug: Lasix (furosemide) 20 mg Route: IVP; Site: left antecubital; jd3 16:10 Follow up: Response: No adverse reaction jd3 17:21 Not Given (Patient Refused): Lasix (furosemide) 40 mg IVP once; give over 2 minutes jd3 17:21 Drug: LaSIX (furosemide) 40 mg Route: PO; jd3 19:55 Follow up: Response: No adverse reaction Outcome: 17:26 Decision to Hospitalize by Provider. pm1 08/06 14:21 Patient left the ED. Signatures: Dispatcher [facility] Betzaida Enriquez mr Yadi Briones RN RN ss Trell Raya NP SUPERVISOR DIE CASTING pm1 Duke Garcia RN RN jd3 Renea Medina RN RN ll1 Robbie Perez RN RN sv1 Staci Laureano RN RN mk Corrections: (The following items were deleted from the chart) 08/05 15:50 15:44 Cardiovascular: Capillary refill < 3 seconds Patient's skin is warm and dry. jd3 Rhythm is regular jd3 19:19 15:37 Home Meds: doxycycline hyclate 100 mg Oral cap 1 cap every 12 hours [Inactive]; jd3 jd3 19:19 15:37 Home Meds: [place] 10-325 mg Oral tab 1 tab every 6 hours [Inactive]; jd3 jd3
--- NOTE | 2021-08-05 19:09 | P.HP ---
Certification for Inpatient Patient admitted to: Observation With expected LOS: <2 Midnights Patient will require the following post-hospital care: None Practitioner: I am a practitioner with admitting privileges, knowledge of patient current condition, hospital course, and medical plan of care. Services: Services provided to patient in accordance with Admission requirements found in Title 42 Section 412.3 of the Code of Federal Regulations Patient History Date of Service: 08/05/21 Reason for admission: Shortness of breath History of Present Illness: 6-year-old male with past medical history of hypertension, diabetes mellitus, PVD, chronic lower extremity edema with leg wounds on outpatient wound care, recent diagnosis of right perinephric cancer causing right obstruction treated with ablation and chemo at [facility] but developed prolonged acute kidney injury requiring dialysis use for about 3 months before being weaned off dialysis about 4 weeks ago. He is unsure what his creatinine was at the time of being weaned off dialysis. He states he was having recurrent fluid retention during the time of dialysis. Since of dialysis he was not started on any diuretics. He admits to increasing lower extremity swelling as well as increasing abdominal gait. He developed shortness of breath last p.m. while at rest associated with exertional dyspnea. Presents on to the emergency room today he was reportedly markedly dyspneic initially. He was given IV Lasix 40 mg with subsequent diuresis of about 1 L and improvement in patient shortness of breath. He feels much better now. He is ambulating around the room without oxygen. She denies any chest pain no palpitation. EKG shows diffuse T wave inversion in lateral leads, chest x-ray shows no acute pulmonary edema or pleural effusion. His BNP was elevated at 1152 and creatinine of 2.02. He has been admitted for overnight stay for presumed CHF in setting of renal impairment Allergies haloperidol Allergy (Severe, Verified 11/21/11 12:00) Shortness of breath Home Medications: Acyclovir 200 mg PO BID 05/10/21 Atorvastatin Calcium [Lipitor] 80 mg PO BEDTIME 05/10/21 Clotrimazole [Mycelex Yassine] 10 mg MM TID 05/10/21 Doxycycline Hyclate 100 mg PO BID 05/10/21 Entecavir 0.5 mg PO EVERY 7TH DAY 05/10/21 Gabapentin 100 mg PO BEDTIME 05/10/21 Hydralazine HCl 50 mg PO TID 05/10/21 Insulin Glargine,Hum.rec.anlog [Lantus] 12 unit SQ BID 05/10/21 Ondansetron [Ondansetron Odt] 4 mg PO Q8HP PRN 05/10/21 Pantoprazole [Protonix Tab] 40 mg PO DAILY 05/10/21 Trazodone [Desyrel] 50 mg PO BEDTIME 05/10/21 - Past Medical/Surgical History Diabetic: Yes -: Melanoma -: HTN -: DM -: Hyperlipidemia -: Depression -: GERD -: Neuropathy -: Prolonged acute kidney failure in setting of chemo -: Right perinephric mass status post treated with chemo/ablation -: History of TIA -: History of chronic lower extremity edema with recurrent wounds -: Status post right toe amputation - Family History Mother -: Cancer (breast) - Social History Smoking Status: Never smoker Smoking therapy provided: No Alcohol use: No Place of Residence: Home Review of Systems 10-point ROS is otherwise unremarkable Respiratory: Shortness of Breath Cardiovascular: Edema Physical Examination - Physical Exam General: Alert, In no apparent distress, Oriented x3, Cooperative HEENT: Atraumatic, Normocephalic, PERRLA Neck: Supple, 2+ carotid pulse no bruit, JVD not distended Respiratory: Clear to auscultation bilaterally, Normal air movement Cardiovascular: Regular rate/rhythm, Normal S1 S2, Edema Capillary refill: <2 Seconds Gastrointestinal: Normal bowel sounds, Soft and benign, Distended Musculoskeletal: Swelling (KWAME wraps in place b/l LE ) Neurological: Normal speech, Normal strength at 5/5 x4 extr, Normal tone, Sensation intact, Cranial nerves 3-12 intact External genitalia: No edema, No lesions - Studies Laboratory Data (last 24 hrs) 08/05/21 15:02: PT 12.6 H, INR 1.09 08/05/21 15:02: WBC 6.20, Hgb 11.5 L, Hct 34.8 L, Plt Count 123 L 08/05/21 15:02: Sodium 139, Potassium 4.1, BUN 50 H, Creatinine 2.02 H, Glucose 196 H, Magnesium 2.6 H, Total Bilirubin 0.4, AST 22, ALT 37, Alkaline Phosphatase 336 H Imagings Data: Chest x-ray independently reviewed by margy significant pulmonary congestion, no pleural effusion Assessment and Plan - Problems (Diagnosis) (1) ARF (acute renal failure) Current Visit: Yes Status: Acute (2) CHF (congestive heart failure) Current Visit: Yes Status: Acute (3) Hyperlipidemia Current Visit: No Status: Acute (4) Hypertension Current Visit: No Status: Acute (5) Diabetic ulcer of right foot Current Visit: No Status: Chronic (6) Lymphedema Current Visit: No Status: Chronic - Plan Presumed CHF with exacerbationlikely diastolic dysfunction Acute kidney injurydue to resolving probable obstructive uropathyoff dialysis now Hypertension Diabetes mellitus Chronic lower extremity edema-on LE wraps History of PVD History of neuropathy Plan -Unclear etiology for acute dyspnea, may be due to fluid overload status given body swelling -Possibility of PE given recent tessie-renal cancer considered but patient is non- tachycardic at this time and improvement of symptoms with Lasix We will admit patient to observation Continue IV Lasix to continue diuresis Will need discharge home with diuretic since he is slowly recovering renal function We will obtain echocardiogram in a.m. to assess for diastolic dysfunction prior to discharge Continue blood pressure regimen with hydralazine/nifedipine Continue insulin regimenresume Levemir 24 units twice daily with insulin sliding scale DVT prophylaxis with Lovenox Advanced directive discussed with patientfull code - Advance Directives Does patient have a Living Will: No Does patient have a Durable POA for Healthcare: No Physician Review: Patient Assessed, Agree with Above Assessment and Plan Time Spent Managing Pts Care (In Minutes): 65
[2021-08-05] MEDS ORDERED: ACETAMINOPHEN 500 MG TAB PO PRN (19:14)
[2021-08-05] MEDS ORDERED: ALBUTEROL 2.5 MG/3 ML NEB SOL NEB PRN (19:14)
[2021-08-05] MEDS ORDERED: MORPHINE 2 MG/ML SYR IV PRN (19:14)
[2021-08-05] MEDS ORDERED: HYDRALAZINE HCL 20 MG/ML VIAL IV PRN (19:15)
[2021-08-05] MEDS: INSULIN GLARGINE 100 UNIT/ML SQ SCH (20:00)
[2021-08-05 20:26] LABS: Absolute Lymphocytes (CBC) 0.9 K/uL (0.7-4.9); Hematocrit 35.9 % (39.6-49.0); Lymphocytes % 13.9 % (15.3-44.8); MPV 8.5 fL (7.6-11.3); RBC Red Blood Cell Count 4.31 M/uL (4.33-5.43)
[2021-08-05 20:59] LABS: Magnesium 2.6 mg/dL (1.8-2.4); Thyroid Stimulating Hormone 2.74 uIU/mL (0.360-3.740)
[2021-08-05] MEDS: BUMETANIDE 1 MG/4 ML VIAL IV SCH (21:00)
[2021-08-05] MEDS: INSULIN -REGULAR HUMAN 50 UNIT/0.5 ML ML SQ SCH (21:00)
[2021-08-05] MEDS ORDERED: ATORVASTATIN 80 MG TAB PO SCH (21:00)
[2021-08-05 21:18] LABS: Albumin 3.4 g/dL (3.4-5.0); Bilirubin Total 0.4 mg/dL (0.2-1.0); Potassium 3.9 mmol/L (3.5-5.1); Protein, Total 7.2 g/dL (6.4-8.2); Troponin (Emerg Dept Use Only) 0.06 ng/mL (0.0-0.045)
[2021-08-06] MEDS ORDERED: ATORVASTATIN 20 MG TAB ONE (00:19)
[2021-08-06] MEDS ORDERED: INSULIN GLARGINE 100 UNIT/ML SQ ONE ×2 (00:19→11:30)
[2021-08-06] MEDS ORDERED: BUMETANIDE 1 MG/4 ML VIAL ONE (00:56)
[2021-08-06 02:55] LABS: Absolute Lymphocytes (CBC) 0.9 K/uL (0.7-4.9); Hematocrit 34.9 % (39.6-49.0); Lymphocytes % 17.8 % (15.3-44.8); MPV 8.6 fL (7.6-11.3); RBC Red Blood Cell Count 4.15 M/uL (4.33-5.43)
[2021-08-06 03:10] LABS: Albumin 3.2 g/dL (3.4-5.0); Bilirubin Total 0.4 mg/dL (0.2-1.0); Potassium 3.8 mmol/L (3.5-5.1); Protein, Total 6.8 g/dL (6.4-8.2); Troponin I 0.06 ng/mL (0.0-0.045)
[2021-08-06 04:09] VITALS: TEMP 98.4
[2021-08-06] MEDS ORDERED: METOPROLOL TAR 25 MG TAB PO SCH ×2 (06:00→18:00)
[2021-08-06] MEDS ORDERED: METOPROLOL TAR 25 MG TAB ONE ×3 (06:05→11:31)
--- NOTE | 2021-08-06 06:17 | P.PN ---
Subjective Date of Service: 08/06/21 Chief Complaint: Shortness of breath Subjective: Other (History of melanoma, treated at [facility]. Told cancer free. Has follow up next week on Wednesday. Will need repeat PET scan as an outpatient. Edema to lower extremity improved and better.) Physical Examination - Vital Signs Temperature: 98.4 F Blood Pressure: 142/81 Pulse: 117 Respirations: 20 Pulse Ox (%): 98 - Studies Laboratory Data (last 24 hrs) 08/05/21 19:41: Sodium 140, Potassium 3.9, BUN 48 H, Creatinine 1.92 H, Glucose 112 H, Total Bilirubin 0.4, AST 24, ALT 38, Alkaline Phosphatase 328 H 08/05/21 19:41: WBC 6.40, Hgb 11.8 L, Hct 35.9 L, Plt Count 138 L 08/05/21 19:13: Magnesium 2.6 H 08/05/21 15:02: PT 12.6 H, INR 1.09 08/05/21 15:02: WBC 6.20, Hgb 11.5 L, Hct 34.8 L, Plt Count 123 L 08/05/21 15:02: Sodium 139, Potassium 4.1, BUN 50 H, Creatinine 2.02 H, Glucose 196 H, Magnesium 2.6 H, Total Bilirubin 0.4, AST 22, ALT 37, Alkaline Phosphatase 336 H Assessment & Plan Discharge Plan: Home Plan to discharge in: 24 Hours Physician Review Additional Text: COVID: negative CXR: COMPARISON: CHEST PA AND LAT 2 VIEW dated 08/07/2014; CHEST SINGLE VIEW dated 11/21/2011 FINDINGS: Lines: None. Lungs: No evidence of edema or pneumonia. Pleural: No significant pleural effusions or pneumothorax. Cardiac: The heart size is within normal limits. Bones: No acute fractures. IMPRESSION: No acute cardiopulmonary disease. Physical exam: General: Alert, In no apparent distress, Oriented x3, Cooperative HEENT: Atraumatic, Normocephalic, PERRLA Neck: Supple, 2+ carotid pulse no bruit, JVD not distended Respiratory: Clear to auscultation bilaterally, Normal air movement Cardiovascular: Regular rate/rhythm, Normal S1 S2, Edema Capillary refill: <2 Seconds Gastrointestinal: Obese Musculoskeletal: No significant swelling to the lower extremities. Overall swelling improved. Compression bandages in place. Neurological: Normal speech, Normal strength at 5/5 x4 extr, Normal tone, Sen sation intact, Cranial nerves 3-12 intact External genitalia: No edema, No lesions Impression: Edema to the lower extremity secondary to chronic lymphedema and chronic diastolic CHF Chronic renal failure stage III with prior end-stage renal disease on hemodialysis due to obstructive uropathy related to melanoma of the left kidney Hypertension History of melanoma to the left kidney GERD Diabetes mellitus type 2 insulin-dependent Diabetic neuropathy Plan: Edema to the lower extremity secondary to chronic lymphedema and chronic diastolic CHF: Patient has done well with diuresis. Room air saturations within normal range. Chest x-ray unremarkable. Lower extremity edema improved. Will plan for discharge today. We will continue with Lasix 40 mg 1 pill twice daily at home. Continue 1500 cc/day fluid restriction and low-salt diet. Recommend to monitor his weight daily. Will discuss with nephrology who sees the patient to follow-up and adjust medication accordingly. Patient is seen at the wound care center. Patient will continue with wound care center follow-up. 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 Recommend no further use of nonsteroidal anti- inflammatories. Patient previously on dialysis due to obstructive uropathy related to melanoma. Patient is seen by specialist up in [facility]. He was told that he is cancer free. No longer on dialysis. Patient has follow-up with [facility] on Wednesday. Patient to have repeat PET CT scan to monitor his progress. Hypertension: Obtain and verify home medication. We will continue with metoprolol 25 mg 1 pill twice daily for now. 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 Patient received treatment at [facility]. Patient is followed by [facility]. Patient reports that he is cancer free. He has follow-up soon with [facility] on Wednesday. Patient will have repeat PET CT scan to monitor his progress. GERD: Continue with Protonix 40 mg daily. Diabetes mellitus type 2 insulin-dependent: We will need to verify home medication. Continue current medication. Diabetic neuropathy: Verify home medication Time Spent Managing Pts Care (In Minutes): 55
[2021-08-06] MEDS ORDERED: PANTOPRAZOLE 40MG TABLET PO SCH (07:30)
[2021-08-06] MEDS: INSULIN -REGULAR HUMAN 50 UNIT/0.5 ML ML SQ SCH ×2 (07:30→11:30)
[2021-08-06] MEDS ORDERED: HYDROCODONE/APAP 7.5/325 MG TAB PO PRN (08:20)
[2021-08-06] MEDS ORDERED: TRAMADOL HCL 50 MG TAB PO PRN (08:20)
--- NOTE | 2021-08-06 08:31 | P.DS ---
Admission Date: 08/05/21 Discharge Date: 08/06/21 Primary Care Provider: Dr. Pang; Nephrology-Dr. Ivey; Wounds-Dr. Ortega; [facility] Oncology Disposition: ROUTINE DISCHARGE Discharge Condition: GOOD Reason for Admission: Shortness of breath Consultations: Nephrology-Dr. Ivey Procedures: COVID: negative CXR: COMPARISON: CHEST PA AND LAT 2 VIEW dated 08/07/2014; CHEST SINGLE VIEW dated 11/21/2011 FINDINGS: Lines: None. Lungs: No evidence of edema or pneumonia. Pleural: No significant pleural effusions or pneumothorax. Cardiac: The heart size is within normal limits. Bones: No acute fractures. IMPRESSION: No acute cardiopulmonary disease. ECHO: MEASUREMENTS (cm) DIASTOLIC (NORMALS) SYSTOLIC (NORMALS) IVSd 0.9 (0.6-1.2) LA Diam 3.2 (1.9-4.0) LVEF 45-50% LVIDd 4.1 (3.5-5.7) LVIDs 3.1 (2.0-3.5) %FS % LVPWd 1.1 (0.6-1.2) Ao Diam 2.8 (2.0-3.7) 2 DIMENSIONAL ASSESSMENT: RIGHT ATRIUM: NORMAL LEFT ATRIUM: NORMAL RIGHT VENTRICLE: NORMAL LEFT VENTRICLE: NORMAL TRICUSPID VALVE: NORMAL MITRAL VALVE: NORMAL PULMONIC VALVE: NORMAL AORTIC VALVE: NORMAL PERICARDIAL EFFUSION: NONE AORTIC ROOT: NORMAL LEFT VENTRICULAR WALL MOTION: MILD GLOBAL HYPOKINESIS DOPPLER/COLOR FLOW: NORMAL COMMENTS: MILD GLOBAL HYPOKINESIS. EJECTION FRACTION 45-50%. NO EFFUSION. NO VEGETATION OR THOMBUS. 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 Patient also has a history of melanoma to the left kidney causing obstruction. Patient was seen at [facility] required dialysis. Patient has been weaned off dialysis. He came to the ER due to increase edema to the lower extremity. Minimal shortness of breath noted. Chest x-ray unremarkable. Patient was admitted for treatment. Patient received IV Lasix. Hospital Course: Patient presented with edema to the lower extremities secondary to chronic lymphedema and chronic diastolic CHF. 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 Patient has received therapy at [facility] oncology. Patient reports that he is cancer free. Patient was weaned off dialysis recently. He had not been restarted on his diuretic therapy. Patient received dialysis with improvement. Patient on room air. Fluid restriction education with the patient. Echocardiogram shows normal ejection fraction 45 to 50%. At discharge the patient will continue with a 1500 cc/day fluid restriction and low-salt diet. Recommend to monitor his weight daily. If his weight increases by more than 5 pounds he is to contact nephrology for further recommendation. Nephrology was consulted to help monitor his care. At discharge the patient will continue with Bumex 1 mg 1 pill twice daily and Aldactone 25 mg daily. Adjustment in medication can be done with the help of nephrology as his edema improves. Recommend follow-up with PCP within 1 week to follow up the hospitalization. Recommend to recheck labBMP in 1 week to monitor his progress. Patient with chronic renal failure stage III. 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 Patient had been diagnosed with a large bulky 11 x 8 cm renal mass in the past. He has since seen [facility] oncology. Patient received treatment. Patient reports that he is cancer free. He has a follow-up with oncology on Wednesday. Patient to have CT PET scan to monitor his progress. As mentioned above continue with recommendations. Recommend recheck labBMP in 1 week. Follow-up with nephrology in 1 week to follow his care. Patient with hypertension. Medications have been adjusted. Patient previously on hydralazine and Procardia. Both was discontinued. This was changed to metoprolol. BP stable at discharge on Metoprolol. At discharge patient will continue with metoprolol 25 mg 1 pill twice daily. Recommend to monitor blood pressure daily. Recommend to maintain blood pressure less than 130/80. Further adjustment can be done by his PCP if blood pressure remains elevated greater than 140/90. If blood pressure remains above 140/90 further adjustment in metoprolol may be required or additional medication hydralazine 25 mg 1 pill twice daily can be added. I will provide a prescription for hydralazine in the event that he requires this medication. Follow-up with PCP to further address and monitor. Patient with GERD. At discharge patient will continue with Protonix 40 mg daily. Patient with diabetes mellitus type 2 insulin-dependent. At discharge patient will continue with his current medication-Lantus 24 unit sc twice daily. Recommend to maintain blood sugar less than 140 fasting and less than 200 for meals. Recommend to recheck hemoglobin A1c every 3 months to monitor his progress. Follow-up with PCP in 1 week to follow his care. Patient with diabetic neuropathy. At discharge patient may continue with the current medication Neurontin 300 mg 1 pill twice daily. Patient with chronic lymphedema. He is seen at the wound care center. Recommend follow-up at the wound care center in 1 to 2 weeks to monitor his care. Continue with above recommendations. Patient with GERD. At discharge patient will continue with Protonix 40 mg daily. Patient with gout. At discharge patient will continue with allopurinol 300 mg daily. Patient with hyperlipidemia. At discharge patient will continue with Lipitor 80 mg daily. Vital Signs/Physical Exam: Temp Pulse Resp BP Pulse Ox 98.4 F 117 H 20 142/81 H 98 08/06/21 08:29 08/06/21 08:29 08/06/21 08:29 08/06/21 08:29 08/06/21 08:29 General: Alert, In no apparent distress, Oriented x3, Cooperative HEENT: Atraumatic Neck: Supple Respiratory: Clear to auscultation bilaterally, Normal air movement Cardiovascular: Normal pulses, Regular rate/rhythm Gastrointestinal: Normal bowel sounds, No ascites, No tenderness, No masses, No rebound, No guarding Musculoskeletal: No tenderness, No warmth Integumentary: Other (No significant edema to the lower extremities. Compressio n bandages in place) Neurological: Normal speech, Normal strength at 5/5 x4 extr, Normal tone, Normal affect Laboratory Data at Discharge: WBC 5.30 K/uL (4.3-10.9) D 08/06/21 02:24 Hgb 11.4 g/dL (13.6-17.9) L 08/06/21 02:24 Hct 34.9 % (39.6-49.0) L 08/06/21 02:24 Plt Count 133 K/uL (152-406) L 08/06/21 02:24 PT 12.6 SECONDS (9.5-12.5) H 08/05/21 15:02 INR 1.09 08/05/21 15:02 Sodium 142 mmol/L (136-145) 08/06/21 02:24 Potassium 3.8 mmol/L (3.5-5.1) 08/06/21 02:24 BUN 46 mg/dL (7-18) H 08/06/21 02:24 Creatinine 1.77 mg/dL (0.55-1.3) H 08/06/21 02:24 Glucose 70 mg/dL (74-106) L 08/06/21 02:24 Magnesium 2.6 mg/dL (1.8-2.4) H 08/05/21 19:13 Total Bilirubin 0.4 mg/dL (0.2-1.0) 08/06/21 02:24 AST 22 U/L (15-37) 08/06/21 02:24 ALT 36 U/L (12-78) 08/06/21 02:24 Alkaline Phosphatase 304 U/L (45-117) H 08/06/21 02:24 Troponin I 0.06 ng/mL (0.0-0.045) H 08/06/21 02:24 Home Medications: Atorvastatin Calcium [Lipitor] 80 mg PO BEDTIME 05/10/21 Gabapentin 300 mg PO BID 05/10/21 Insulin Glargine,Hum.rec.anlog [Lantus] 24 unit SQ BID PRN 05/10/21 Allopurinol 300 mg PO DAILY 08/06/21 Bumetanide [Bumex] 1 mg PO BID #60 tab 08/06/21 Hydralazine HCl 25 mg PO BID #60 tablet 08/06/21 Metoprolol Tartrate [Lopressor*] 25 mg PO BID 6AM 6PM #60 tab 08/06/21 Pantoprazole [Protonix Tab*] 40 mg PO DAILY 08/06/21 Spironolactone [Aldactone*] 25 mg PO DAILY #30 tab 08/06/21 New Medications: Spironolactone [Aldactone*] 25 mg PO DAILY #30 tab Bumetanide [Bumex] 1 mg PO BID #60 tab Hydralazine HCl 25 mg PO BID #60 tablet Metoprolol Tartrate [Lopressor*] 25 mg PO BID 6AM 6PM #60 tab Physician Discharge Instructions: Patient presented with edema to the lower extremities secondary to chronic lymp hedema and chronic diastolic CHF. 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 Patient has received therapy at [facility] oncology. Patient reports that he is cancer free. Patient was weaned off dialysis recently. He had not been restarted on his diuretic therapy. Patient received dialysis with improvement. Patient on room air. Fluid restriction education with the patient. Echocardiogram shows normal ejection fraction 45 to 50%. At discharge the patient will continue with a 1500 cc/day fluid restriction and low-salt diet. Recommend to monitor his weight daily. If his weight increases by more than 5 pounds he is to contact nephrology for further recommendation. Nephrology was consulted to help monitor his care. At discharge the patient will continue with Bumex 1 mg 1 pill twice daily and Aldactone 25 mg daily. Adjustment in medication can be done with the help of nephrology as his edema improves. Recommend follow-up with PCP within 1 week to follow up the hospitalization. Recommend to recheck labBMP in 1 week to monitor his progress. Patient with chronic renal failure stage III. 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 Patient had been diagnosed with a large bulky 11 x 8 cm renal mass in the past. He has since seen [facility] oncology. Patient received treatment. Patient reports that he is cancer free. He has a follow-up with oncology on Wednesday. Patient to have CT PET scan to monitor his progress. As mentioned above continue with recommendations. Recommend recheck labBMP in 1 week. Follow-up with nephrology in 1 week to follow his care. Patient with hypertension. Medications have been adjusted. Patient previously on hydralazine and Procardia. Both was discontinued. This was changed to metoprolol. BP stable at discharge on Metoprolol. At discharge patient will continue with metoprolol 25 mg 1 pill twice daily. Recommend to monitor blood pressure daily. Recommend to maintain blood pressure less than 130/80. Further adjustment can be done by his PCP if blood pressure remains elevated greater than 140/90. If blood pressure remains above 140/90 further adjustment in metoprolol may be required or additional medication hydralazine 25 mg 1 pill twice daily can be added. I will provide a prescription for hydralazine in the event that he requires this medication. Follow-up with PCP to further address and monitor. Patient with GERD. At discharge patient will continue with Protonix 40 mg daily. Patient with diabetes mellitus type 2 insulin-dependent. At discharge patient will continue with his current medication-Lantus 24 unit sc twice daily. Recommend to maintain blood sugar less than 140 fasting and less than 200 for meals. Recommend to recheck hemoglobin A1c every 3 months to monitor his progress. Follow-up with PCP in 1 week to follow his care. Patient with diabetic neuropathy. At discharge patient may continue with the current medication Neurontin 300 mg 1 pill twice daily. Patient with chronic lymphedema. He is seen at the wound care center. Recommend follow-up at the wound care center in 1 to 2 weeks to monitor his care. Continue with above recommendations. Patient with GERD. At discharge patient will continue with Protonix 40 mg daily. Patient with gout. At discharge patient will continue with allopurinol 300 mg daily. Patient with hyperlipidemia. At discharge patient will continue with Lipitor 80 mg daily. Diet: ADA Activity: Ad roberto Followup: Elbert Pang MD [Primary Care Provider] - Time spent managing pt's care (in minutes): 55
[2021-08-06] MEDS ORDERED: ENOXAPARIN 40 MG/0.4 ML SQ SCH (09:00)
[2021-08-06] MEDS: BUMETANIDE 1 MG/4 ML VIAL IV SCH (09:00)
[2021-08-06] MEDS: INSULIN GLARGINE 100 UNIT/ML SQ SCH (09:00)
[2021-08-06 09:03] VITALS: O2SAT 100
--- NOTE | 2021-08-06 09:58 | P.CNS ---
Date of Consult: 08/06/21 Reason for Consult: JAISON/ CKD Requesting Physician: Fletcher Yi Primary Care Provider: Dr. Pang; Nephrology-Dr. Ivey; Wounds-Dr. Ortega; [facility] Chief Complaint: Shortness of breath History of Present Illness: 66-year-old male with past medical history of hypertension, diabetes mellitus, PVD, chronic lower extremity edema with leg wounds on outpatient wound care, recent diagnosis of right perinephric cancer causing right obstruction treated with ablation and chemo at [facility] but developed prolonged acute kidney injury requiring dialysis use for about 3 months before being weaned off dialysis about 4 weeks ago. He is unsure what his creatinine was at the time of being weaned off dialysis. He states he was having recurrent fluid retention during the time of dialysis. Since of dialysis he was not started on any diuretics. He admits to increasing lower extremity swelling as well as increasing abdominal gait. He developed shortness of breath last p.m. while at rest associated with exertional dyspnea. Presents on to the emergency room today he was reportedly markedly dyspneic initially. He was given IV Lasix 40 mg with subsequent diuresis of about 1 L and improvement in patient shortness of breath. He feels much better now. He is ambulating around the room without oxygen. She denies any chest pain no palpitation. EKG shows diffuse T wave inversion in lateral leads, chest x-ray shows no acute pulmonary edema or pleural effusion. His BNP was elevated at 1152 and creatinine of 2.02. He has been admitted for overnight stay for presumed CHF in setting of renal impairment. 14:19 This 66 yrs old Male presents to ER via Wheelchair with complaints of Shortness Of pm1 Breath, Dizziness. 14:19 The patient has shortness of breath at rest. Onset: The symptoms/episode began/occurred pm1 yesterday. Duration: The symptoms are continuous. The patient's shortness of breath is aggravated by nothing, is alleviated by nothing. Associated signs and symptoms: Pertinent positives: dizziness, Pertinent negatives: chest pain, non-pr oductive cough, productive cough, fever, nausea, vomiting. Severity of symptoms: in the emergency department the symptoms are worse. The patient has not experienced similar symptoms in the past. The patient has not recently seen a physician. Patient with diagnose of kidney cancer that was treated with chemotherapy but he required dialysis. Received dialysis for 4-5 months and then it was discontinued when he decided he did not want it any further after there was a disagreement between two of his physicians if dialysis required. Patient with continued fluid retention but it was expected to resolve once his kidney healed. Patient is not taking any diuretics since discontinuation of his dialysis. Allergies haloperidol Allergy (Severe, Verified 11/21/11 12:00) Shortness of breath Home medications list reviewed: Yes Home Medications: Atorvastatin Calcium [Lipitor] 80 mg PO BEDTIME 05/10/21 Gabapentin 300 mg PO BID 05/10/21 Insulin Glargine,Hum.rec.anlog [Lantus] 24 unit SQ BID PRN 05/10/21 Allopurinol 300 mg PO DAILY 08/06/21 Bumetanide [Bumex] 1 mg PO BID #60 tab 08/06/21 Hydralazine HCl 25 mg PO BID #60 tablet 08/06/21 Metoprolol Tartrate [Lopressor*] 25 mg PO BID 6AM 6PM #60 tab 08/06/21 Pantoprazole [Protonix Tab*] 40 mg PO DAILY 08/06/21 Spironolactone [Aldactone*] 25 mg PO DAILY #30 tab 08/06/21 - Past Medical/Surgical History Diabetic: Yes -: Melanoma -: HTN -: DM -: Hyperlipidemia -: Depression -: GERD -: Neuropathy -: Prolonged acute kidney failure in setting of chemo -: Right perinephric mass status post treated with chemo/ablation -: History of TIA -: History of chronic lower extremity edema with recurrent wounds -: Status post right toe amputation - Family History Mother Medical History: Cancer (breast) - Social History Alcohol use: No Place of Residence: Home Review of Systems 10-point ROS is otherwise unremarkable Respiratory: SOB with Excertion Cardiovascular: Edema Physical Examination Temp Pulse Resp BP Pulse Ox 98.4 F 117 H 20 142/81 H 98 08/06/21 08:29 08/06/21 08:29 08/06/21 08:29 08/06/21 08:29 08/06/21 08:29 General: In no apparent distress, Oriented x3, Cooperative HEENT: Atraumatic Neck: Supple Respiratory: Clear to auscultation bilaterally Cardiovascular: Regular rate/rhythm, Edema Gastrointestinal: Soft and benign, Non-distended Musculoskeletal: No clubbing, No contractures Integumentary: No rashes, No cyanosis Neurological: Normal speech Laboratory Data (last 24 hrs) 08/05/21 19:41: Sodium 140, Potassium 3.9, BUN 48 H, Creatinine 1.92 H, Glucose 112 H, Total Bilirubin 0.4, AST 24, ALT 38, Alkaline Phosphatase 328 H 08/05/21 19:41: WBC 6.40, Hgb 11.8 L, Hct 35.9 L, Plt Count 138 L 08/05/21 19:13: Magnesium 2.6 H 08/05/21 15:02: PT 12.6 H, INR 1.09 08/05/21 15:02: WBC 6.20, Hgb 11.5 L, Hct 34.8 L, Plt Count 123 L 08/05/21 15:02: Sodium 139, Potassium 4.1, BUN 50 H, Creatinine 2.02 H, Glucose 196 H, Magnesium 2.6 H, Total Bilirubin 0.4, AST 22, ALT 37, Alkaline Phos phatase 336 H Imagings Data: EXAM DESCRIPTION: RAD - Chest Single View - 08/05/2021 2:41 pm CLINICAL HISTORY: SOB COMPARISON: CHEST PA AND LAT 2 VIEW dated 08/07/2014; CHEST SINGLE VIEW dated 11/21/2011 FINDINGS: Lines: None. Lungs: No evidence of edema or pneumonia. Pleural: No significant pleural effusions or pneumothorax. Cardiac: The heart size is within normal limits. Bones: No acute fractures. Other: IMPRESSION: No acute cardiopulmonary disease. Conclusions/Impression: JAISON likely CRS CKD III -No NSAIDs -Continue Bumex -Start spironolactone HTN with CKD/CHF -Continue Metoprolol -Consider increasing metoprolol for tachycardia Diastolic CHF, A/C -Continue Metoprolol -Continue Bumex -Start Spironolactone DM II with CKD -Continue Lantus Anemia in chronic illness Thrombocytopenia -Monitor H&H Thank you kindly for the consultation. Case reviewed with Dr. Yi.
[2021-08-06] MEDS ORDERED: SPIRONOLACTONE 25 MG TABLET PO SCH (10:15)
--- NOTE | 2021-08-06 11:24 | EKG ---
Test Date: 2021-08-05 Test Time: 15:33:32 Equity Holder: MANDIE MEASUREMENT RESULTS: Intervals: Rate: 103 NM: 120 QRSD: 82 QT: 424 QTc: 555 [place]: P: 60 NM: 120 QRS: -8 T: 106 INTERPRETIVE STATEMENTS: Sinus tachycardia Nonspecific T wave abnormality Abnormal ECG Compared to ECG 11/21/2011 13:18:04 T-wave abnormality now present Sinus rhythm no longer present Electronically Signed On 08-06-21 11:22:20 [employer]IST[employer] by Sergo Ward
[2021-08-06] MEDS ORDERED: PANTOPRAZOLE 40MG TABLET PO ONE (11:31)
[2021-08-06] MEDS ORDERED: ENOXAPARIN 40 MG/0.4 ML SQ ONE (11:31)
[2021-08-06] MEDS ORDERED: SPIRONOLACTONE 25 MG TABLET ONE (11:36)
--- NOTE | 2021-08-06 11:40 | ECHO ---
HEIGHT: ft in WEIGHT: lb oz DATE OF STUDY: 08/06/[address]: Rony Dey MD 2-DIMENSIONAL: YES M.MODE: YES DOPPLER: YES COLOR FLOW: YES TDS: YES PORTABLE: DEFINITY: BUBBLE STUDY: DIAGNOSIS: CEREBRAL VASCULAR ACCIDENT CARDIAC HISTORY: CATHERIZATION: SURGERY: PROSTHETIC VALVE: PACEMAKER: MEASUREMENTS (cm) DIASTOLIC (NORMALS) SYSTOLIC (NORMALS) IVSd 0.9 (0.6-1.2) LA Diam 3.2 (1.9-4.0) LVEF 45-50% LVIDd 4.1 (3.5-5.7) LVIDs 3.1 (2.0-3.5) %FS % LVPWd 1.1 (0.6-1.2) Ao Diam 2.8 (2.0-3.7) 2 DIMENSIONAL ASSESSMENT: RIGHT ATRIUM: NORMAL LEFT ATRIUM: NORMAL RIGHT VENTRICLE: NORMAL LEFT VENTRICLE: NORMAL TRICUSPID VALVE: NORMAL MITRAL VALVE: NORMAL PULMONIC VALVE: NORMAL AORTIC VALVE: NORMAL PERICARDIAL EFFUSION: NONE AORTIC ROOT: NORMAL LEFT VENTRICULAR WALL MOTION: MILD GLOBAL HYPOKINESIS DOPPLER/COLOR FLOW: NORMAL COMMENTS: MILD GLOBAL HYPOKINESIS. EJECTION FRACTION 45-50%. NO EFFUSION. NO VEGETATION OR THOMBUS. TECHNOLOGIST: MANOLO CAPELLAN
[2021-08-06 14:37] VITALS: BP 141/81
== END 2021-08-06 13:58 | disposition home or self-care (01) ==
LOC: ER 13:45 → ERHOLD 19:59
PROVIDERS: ADMIT Internal Medicine; ATTEND Family Medicine
DX: I13.0 Hypertensive heart and chronic kidney disease with heart failure and stage 1 through stage 4 chronic kidney disease, or unspecified chronic kidney disease (principal); I50.32 Chronic diastolic (congestive) heart failure; N18.30 Chronic kidney disease, stage 3 unspecified; E11.22 Type 2 diabetes mellitus with diabetic chronic kidney disease; N17.9 Acute kidney failure, unspecified; D63.1 Anemia in chronic kidney disease; I89.0 Lymphedema, not elsewhere classified; E11.40 Type 2 diabetes mellitus with diabetic neuropathy, unspecified; E11.621 Type 2 diabetes mellitus with foot ulcer; M10.9 Gout, unspecified; E78.5 Hyperlipidemia, unspecified; I73.9 Peripheral vascular disease, unspecified; D69.6 Thrombocytopenia, unspecified; K21.9 Gastro-esophageal reflux disease without esophagitis; F32.A Depression, unspecified; Z85.528 Personal history of other malignant neoplasm of kidney; Z86.73 Personal history of transient ischemic attack (TIA), and cerebral infarction without residual deficits; Z79.4 Long term (current) use of insulin; Z88.8 Allergy status to other drugs, medicaments and biological substances; Z89.421 Acquired absence of other right toe(s); Z20.822 Contact with and (suspected) exposure to COVID-19; Z80.3 Family history of malignant neoplasm of breast
CPT/HCPCS: 93005; 93306; 85025 ×3; 80048; 36415; 83735 ×2; 85610; 82947 ×3; 80076; 84443; 84484 ×3; 80053 ×2; 83880; 71045; 94760; 96374; 99284; U0003; J1940; J1650; G0378 ×3

== ENCOUNTER 2022-01-20 18:19 | Inpatient (IN) | payer OTHER ==
--- OUTSIDE RECORDS SUMMARY | 2022-01-20 18:22 | XMS REPORT | Continuity of Care Document ---
:1955 Author Organization [facility] t Address [address] [place] [address] Care Team Providers Name Role Phone MADHU Attending Clinician Unavailable ZACHARY Attending Clinician Unavailable ARMAND GO Attending Clinician Unavailable MITCHELL Attending Clinician Unavailable ROD Attending Clinician Unavailable ISABEL Attending Clinician Unavailable MD ISABEL Attending Clinician Unavailable MARSHALL Attending Clinician Unavailable MD SRI Attending Clinician Unavailable MD ABBI EDMOND Attending Clinician Unavailable MD ROMINA VELASCO Attending Clinician Unavailable SRI Attending Clinician Unavailable ROQUE Attending Clinician Unavailable Radha Ellis MD Attending Clinician RADHA ELLIS Attending Clinician Unavailable RADHA ELLIS Attending Clinician Unavailable ROD Admitting Clinician Unavailable ISABEL Admitting Clinician Unavailable MD ISABEL Admitting Clinician Unavailable SRI Admitting Clinician Unavailable MD SRI Admitting Clinician Unavailable MD ROMINA VELASCO Admitting Clinician Unavailable Payers Payer Name Policy Type Policy Number Effective Date Expiration Date S ource Problems Condition Condition Condition Status Onset Resolution Last Treating Co mments Source Name Details Category Date Date Treatment Clinician Date No known No known Disease Unive rs active active ity of problems problems [facility] Allergies, Adverse Reactions, Alerts Allergy Allergy Status Severity Reaction(s) Onset Inactive Treating Comm ents Source Name Type Date Date Clinician [place] Drug Active Anaphylaxis 2014-08 Cardiac Un olvin dol Allergy 08-22 arrestcod ity of 00:00: ed [address] HALOPERI DRUG Active High Anaphylaxis 2014-08 Uni vers DOL INGREDI 08-22 ity of 00:00: [address] CEFTRIAX DRUG Active Low N/V 2014-08 Univers ONE INGREDI 08-22 ity of 00:00: [address] Ceftriax Propensi Active Nausea 2014-08 High Univer s one ty to and/or 08-22 blood ity of adverse Vomiting 00:00: sugar, [place] reaction 00 blacked [facility] ed by other hospital. Per patient his blood glucose "went alice high" NO KNOWN Drug Active Univers ALLERGIE Class ity of [facility] Social History Social Habit Start Date Stop Date Quantity Comments Source Exposure to Not sure [facility] SARS-CoV-2 (event) Medica l [place] Sex Assigned At [birth year] [facility] 00:00:00 00:00:00 MD Aleman [facility] Smoking Status Start Date Stop Date Source Unknown if ever smoked [facility] Medications Ordered Filled Start Stop Current Ordering Indication Dosage Frequency Signature Comments Components Source Medication Medication Date Date Medication? Clinician (SIG) Name Name Chromium Yes 800mg Take 800 Univ ers Picolinate 4-06 mg by ity of 400 mcg Tab 15:00: mouth. [address] Cinnamon Yes 1000mg Take 1,000 U nivers Bark 500 mg 4-06 mg by ity of Cap 15:00: mouth. [address] Garlic Yes 1{capsu Take 1 Univer s (GARLIC 4-06 le} capsule by ity of OIL) 1,000 15:00: mouth. [address] Chromium Yes 800mg Take 800 Univ ers Picolinate 4-06 mg by ity of 400 mcg Tab 15:00: mouth. [address] Cinnamon Yes 1000mg Take 1,000 U nivers Bark 500 mg 4-06 mg by ity of Cap 15:00: mouth. [address] Garlic Yes 1{capsu Take 1 Univer s (GARLIC 4-06 le} capsule by ity of OIL) 1,000 15:00: mouth. [address] metoprolol Yes Univers succinate 4-05 ity of XL 50 mg 24 00:00: [place] hr tablet 00 [facility] metoprolol Yes Univers succinate 4-05 ity of XL 50 mg 24 00:00: [place] hr tablet 00 Medical Branch MARGEGA 10 0 Yes Univers mg tablet 3-31 ity of 00:00: [place] 00 Medical Branch RAQUELGA 10 0 Yes Univers mg tablet 3-31 ity of 00:00: [place] 00 Medical Branch metformin 2020-0 Yes 750mg Take 750 Uni vers ER 750 mg 3-26 mg by ity of 24 hr 00:00: mouth 2 [place] tablet 00 (two) Medical times Branch daily. metformin 2020-0 Yes 750mg Take 750 Uni vers ER 750 mg 3-26 mg by ity of 24 hr 00:00: mouth 2 [place] tablet 00 (two) Medical times Branch daily. VASCEPA 1 Yes TAKE 2 Univer s gram 3-08 CAPSULES ity of capsule 00:00: BY MOUTH [place] [address] TWICE A Medical DAY Branch VASCEPA 1 Yes TAKE 2 Univer s gram 3-08 CAPSULES ity of capsule 00:00: BY MOUTH [place] [address] TWICE A Medical DAY Branch atorvastati Yes 80mg Take 80 mg Univers n 80 mg 2-08 by mouth ity of tablet 00:00: every [place] 00 evening. Medical Branch clopidogreL 0 Yes 75mg Take 75 mg Univers 75 mg 2-08 by mouth ity of tablet 00:00: every [place] 00 morning. Medical Branch losartan 25 Yes 25mg Take 25 mg Univers mg tablet 2-08 by mouth ity of 00:00: every [place] 00 morning. Medical Branch atorvastati 0 Yes 80mg Take 80 mg Univers n 80 mg 2-08 by mouth ity of tablet 00:00: every [place] 00 evening. Medical Branch clopidogreL 0 Yes 75mg Take 75 mg Univers 75 mg 2-08 by mouth ity of tablet 00:00: every [place] 00 morning. Medical Branch losartan 25 0 Yes 25mg Take 25 mg Univers mg tablet 2-08 by mouth ity of 00:00: every [place] 00 morning. Medical Branch gabapentin 0 Yes 600mg Take 600 Un olvin 600 mg 1-14 mg by ity of tablet 00:00: mouth at [place] 00 bedtime. Medical Branch gabapentin 2020-0 Yes 600mg Take 600 Un olvin 600 mg 1-14 mg by ity of tablet 00:00: mouth at [place] 00 bedtime. Medical Branch Vital Signs Vital Name Observation Time Observation Value Comments Source Systolic blood 2020-11-05 15:00:00 170 mm[Hg] [facility] Diastolic blood 2020-11-05 15:00:00 68 mm[Hg] Unive [facility] Heart rate 2020-11-05 15:00:00 70 /min Universi ty [facility] Body height 2020-11-05 14:58:00 182[facility]9 [facility] Body weight 2020-11-05 14:58:00 91.627 kg Universi [facility] BMI 2020-11-05 14:58:00 27.40 kg/m2 Universi [facility] Oxygen saturation 2020-11-05 14:58:00 100 /min Uni versity [facility] in Arterial blood Medical Br anch by Pulse oximetry Systolic blood 2020-11-05 15:00:00 170 mm[Hg] [facility] Diastolic blood 2020-11-05 15:00:00 68 mm[Hg] Unive [facility] Heart rate 2020-11-05 15:00:00 70 /min Universi ty [facility] Body height 2020-11-05 14:58:00 182.9 cm [facility] Body weight 2020-11-05 14:58:00 91.627 [facility] 2020-11-05 14:58:00 27.40 kg/m2 [facility] Oxygen saturation 2020-11-05 14:58:00 100 /min Uni versity [facility] in Arterial blood Medical Br anch by Pulse oximetry Procedures This patient has no known procedures. Encounters Start End Encounter Admission Attending Care Care Encounter Source Date/Time Date/Time Type Type Clinicians Facility Department ID 2022-01-05 2022-01-05 [id number] 00:00:00 00:00:00 FREDI [address] 2022-01-05 2022-01-05 Outpatient [facility] [id number] [place] 00:00:00 00:00:00 FREDI [facility] 2021-11-03 2021-11-03 Outpatient MADHU, [facility] [id number] [place] 00:00:00 00:00:00 FREDI [address] [facility] 2021-11-03 2021-11-03 Outpatient MADHU, [facility] [id number] [place] 00:00:00 00:00:00 FREDI 360 Met [facility] 2021-10-29 2021-10-29 Outpatient ZACHARY, [facility] [id number] [place] 00:00:00 00:00:00 EDD 305 [address] 2021-10-14 2021-10-17 Inpatient ARMAND [facility] [id number] [place] 00:00:00 00:00:00 Ginette GO [facility] 2021-10-09 2021-10-09 Outpatient [facility] [id number] [place] 00:00:00 00:00:00 577 Method i 2021-10-09 2021-10-09 Outpatient [facility] [id number] [place] 00:00:00 00:00:[address] 2021-10-08 2021-10-08 Outpatient [facility] [id number] [place] 00:00:00 00:00:[address] 2021-10-08 2021-10-08 Outpatient [facility] [id number] [place] 00:00:00 00:00:[address] 2021-10-07 2021-10-07 Outpatient [facility] [id number] [place] 00:00:00 00:00:[address] 2021-10-07 2021-10-07 Outpatient RAQUELACH, [facility] [id number] [place] 00:00:00 00:00:00 NATALIIA [address] 2021-10-07 2021-10-07 Outpatient FARACH, [facility] [id number] [place] 00:00:00 00:00:00 NATALIIA [address] 2021-10-07 2021-10-07 Outpatient [facility] [id number] [place] 00:00:00 00:00:[address] 2021-10-06 2021-10-06 Outpatient [facility] [id number] [place] 00:00:00 00:00:[address] 2021-10-06 2021-10-06 Outpatient [facility] [id number] [place] 00:00:00 00:00:[address] 2021-10-03 2021-10-03 Outpatient [facility] [id number] [place] 00:00:00 00:00:[address] 2021-10-03 2021-10-03 Outpatient [facility] [id number] [place] 00:00:00 00:00:[address] 2021-10-02 2021-10-02 Outpatient [facility] [id number] [place] 00:00:00 00:00:[address] 2021-10-02 2021-10-02 Outpatient FARACH, [facility] [id number] [place] 00:00:00 00:00:00 NATALIIA [address] 2021-10-02 2021-10-02 Outpatient FARACH, [facility] [id number] [place] 00:00:00 00:00:00 NATALIIA Hickman[address] [facility] 2021-10-02 2021-10-02 Outpatient [facility] [id number] [place] 00:00:00 00:00:[address] 2021-10-01 2021-10-01 Outpatient [facility] [id number] [place] 00:00:00 00:00:[address] 2021-10-01 2021-10-01 Outpatient [facility] [id number] [place] 00:00:00 00:00:[address] 2021-09-30 2021-10-01 Outpatient FARACH, [facility] [id number] [place] 00:00:00 00:00:00 NATALIIA [address] 2021-09-30 2021-09-30 Outpatient [facility] [id number] [place] 00:00:00 00:00:[address] 2021-09-30 2021-09-30 Outpatient FARACH, [facility] [id number] [place] 00:00:00 00:00:00 NATALIIA [address] 2021-09-30 2021-09-30 Outpatient [facility] [id number] [place] 00:00:00 00:00:[address] 2021-09-29 2021-09-29 Outpatient [facility] [id number] [place] 00:00:00 00:00:[address] 2021-09-29 2021-09-29 Outpatient MITCHELL, [facility] [id number] [place] 00:00:00 00:00:00 NATALIIA [address] 2021-09-29 2021-09-29 Outpatient [facility] [id number] [place] 00:00:00 00:00:[address] 2021-09-23 2021-09-27 Inpatient DINAKAR, [facility] [id number] [place] 00:00:00 00:00:00 SUAD [address] 2021-09-26 2021-09-26 Outpatient [facility] [id number] [place] 00:00:00 00:00:[address] 2021-09-26 2021-09-26 Outpatient MITCHELL, [facility] [id number] [place] 00:00:00 00:00:00 NATALIIA [address] 2021-09-23 2021-09-23 Outpatient [facility] [id number] [place] 00:00:00 00:00:[address] 2021-09-23 2021-09-23 Outpatient MITCHELL, [facility] [id number] [place] 00:00:00 00:00:00 NATALIIA [address] 2021-09-23 2021-09-23 Outpatient [facility] [id number] [place] 00:00:00 00:00:[address] 2021-09-22 2021-09-22 Outpatient [facility] [id number] [place] 00:00:00 00:00:[address] 2021-09-22 2021-09-22 Outpatient [facility] [id number] [place] 00:00:00 00:00:[address] 2021-09-19 2021-09-19 Outpatient [facility] [id number] [place] 00:00:00 00:00:[address] 2021-09-19 2021-09-19 Outpatient [facility] [id number] [place] 00:00:00 00:00:[address] 2021-09-18 2021-09-18 Outpatient [facility] H [id number] [place] 00:00:00 00:00:[address] 2021-09-18 2021-09-18 Outpatient FARACH, [facility] [id number] [place] 00:00:00 00:00:00 NATALIIA [address] 2021-09-18 2021-09-18 Outpatient [facility] H [id number] [place] 00:00:00 00:00:[address] 2021-09-18 2021-09-18 Outpatient FARACH, [facility] [id number] [place] 00:00:00 00:00:00 NATALIIA [address] 2021-09-17 2021-09-17 Outpatient [facility] H [id number] [place] 00:00:00 00:00:[address] 2021-09-17 2021-09-17 Outpatient [facility] H [id number] [place] 00:00:00 00:00:[address] 2021-09-16 2021-09-17 Outpatient FARACH, H [facility] [id number] [place] 00:00:00 00:00:00 NATALIIA [address] 2021-09-16 2021-09-16 Outpatient FARACH, [facility] H [id number] [place] 00:00:00 00:00:00 NATALIIA [address] 2021-09-16 2021-09-16 Outpatient [facility] [id number] [place] 00:00:00 00:00:[address] 2021-09-16 2021-09-16 Outpatient FARACH, [facility] [id number] [place] 00:00:00 00:00:00 NATALIIA [address] 2021-09-02 2021-09-02 Outpatient FARACH, HM [facility] [id number] [place] 00:00:00 00:00:00 NATALIIA [address] 2021-09-02 2021-09-02 Outpatient FARACH, [facility] [id number] [place] 00:00:00 00:00:00 NATALIIA [address] 2021-09-02 2021-09-02 Outpatient FARACH, [facility] [id number] [place] 00:00:00 00:00:00 NATALIIA [address] 2021-08-26 2021-08-26 Outpatient FARACH, [facility] [id number] [place] 00:00:00 00:00:00 NATALIIA [address] 2021-08-12 2021-08-12 Outpatient FARACH, [facility] [id number] [place] 00:00:00 00:00:00 NATALIIA [address] 2021-08-11 2021-08-11 Outpatient MADHU, [facility] [id number] [place] 00:00:00 00:00:00 FREDI [address] 2021-08-11 2021-08-11 Outpatient MADHU, [facility] [id number] [place] 00:00:00 00:00:00 FREDI [facility] [address] [facility] 2021-07-09 2021-07-09 Outpatient MADHU, [facility] [id number] [place] 00:00:00 00:00:00 FREDI [address] 2021-07-09 2021-07-09 Outpatient MADHU, [facility] [id number] [place] 00:00:00 00:00:00 FREDI [address] 2021-07-09 2021-07-09 Outpatient MADHU, [facility] [id number] [place] 00:00:00 00:00:00 FREDI [address] 2021-06-19 2021-06-20 Outpatient [facility] [id number] [place] 00:00:00 00:00:[address] 2021-06-19 2021-06-19 Outpatient MADHU, [facility] [id number] [place] 00:00:00 00:00:00 FREDI [address] 2021-06-10 2021-06-10 Outpatient OLIVARES, [facility] [id number] [place] 00:00:00 00:00:00 SHILPAN [address] 2021-06-05 2021-06-05 Outpatient OLIVARES, [facility] [id number] [place] 00:00:00 00:00:00 SHILPAN [address] 2021-05-29 2021-05-31 Inpatient DINAKAR, [facility] [id number] [place] 00:00:00 00:00:00 SUAD [address] 2021-05-29 2021-05-29 Outpatient MADHU, [facility] [id number] [place] 00:00:00 00:00:00 FREDI [address] 2021-05-29 2021-05-29 Outpatient MADHU, [facility] [id number] [place] 00:00:00 00:00:00 FREDI [address] 2021-05-22 2021-05-22 Outpatient MADHU, [facility] [id number] [place] 00:00:00 00:00:00 FREDI [facility] 2021-05-08 2021-05-16 Inpatient ARMAND [facility] [id number] [place] 00:00:00 00:00:00 ABBI 534 Method i [facility] 2021-05-01 2021-05-01 Outpatient MADHU, [facility] [id number] [place] 00:00:00 00:00:00 FREDI [facility] 2021-05-01 2021-05-01 Outpatient MADHU, [facility] [id number] [place] 00:00:00 00:00:00 FREDI [facility] 2021-04-24 2021-04-24 Outpatient MADHU, [facility] [id number] [place] 00:00:00 00:00:00 FREDI [address] 2021-04-24 2021-04-24 Outpatient MADHU, [facility] [id number] [place] 00:00:00 00:00:00 FREDI [facility] [facility] 2021-04-17 2021-04-18 Outpatient ARMAND [facility] [id number] [place] 00:00:00 00:00:00 ABBI 669 Method i [facility] 2021-04-10 2021-04-10 Outpatient MADHU, [facility] [id number] [place] 00:00:00 00:00:00 FREDI [address] 2021-04-10 2021-04-10 Outpatient MADHU, [facility] [id number] [place] 00:00:00 00:00:00 FREDI [facility] 2021-04-10 2021-04-10 Outpatient MADHU, [facility] [id number] [place] 00:00:00 00:00:00 FREDI 574 Met [facility] 2021-04-03 2021-04-03 Outpatient MARSHALL, [facility] [id number] [place] 00:00:00 00:00:00 SHILPAN [address] 2021-04-03 2021-04-03 Outpatient MADHU, [facility] [id number] [place] 00:00:00 00:00:00 FREDI 526 Met [facility] 2021-03-27 2021-03-30 Inpatient [facility] [id number] [place] 00:00:00 00:00:00 850 Method i 2021-03-20 2021-03-20 Outpatient MADHU, [facility] [id number] [place] 00:00:00 00:00:00 FREDI 141 Met [facility] 2021-02-25 2021-03-14 Inpatient FIERRO, [facility] [id number] [place] 00:00:00 00:00:00 PONCHO [address] 2021-02-25 2021-02-25 Outpatient ROQUE JILL [facility] [id number] [place] 00:00:00 00:00:[address] 2021-02-25 2021-02-25 Outpatient ROQUE JILL [facility] [id number] [place] 00:00:00 00:00:00 970 Method i 2021-02-25 2021-02-25 Outpatient ROQUE JILL [facility] [id number] [place] 00:00:00 00:00:[address] 2021-02-25 2021-02-25 Outpatient ROQUEJILL [facility] [id number] [place] 00:00:00 00:00:[address] 2021-02-19 2021-02-19 Outpatient ROQUE JILL [facility] [id number] [place] 00:00:00 00:00:[address] 2021-02-18 2021-02-18 Outpatient JILL NEVAREZ [facility] [id number] [place] 00:00:00 00:00:00 562 Method i 2021-02-18 2021-02-18 Outpatient JILL NEVAREZ [facility] [id number] [place] 00:00:00 00:00:00 323 Method i 2021-02-07 2021-02-07 Travel 1.2.840.1 [id number] [facility] 00:00:00 00:00:00 [id number] [id number] ity of 3.412.2.7 2.[place].3.698 [place] .3.030465 084.8 MD .8 [facility] 2020-11-05 2020-11-05 Office Rhonda [facility] [id number] [id number] [facility] 09:14:24 10:44:16 Visit Sal Galvan [id number] ity Era 4.2.7.2.686 Mic s Professio [phone] Ak dical [address] 2020-11-05 2020-11-05 Office Rhonda [facility] 1.2.840.114 [id number] [facility] 09:14:24 10:44:16 Visit Sal Galvan [id number] Era 4.2.7.2.686 Professio [id number] [address] 2020-11-05 2020-11-05 Outpatient SAL GARBER [facility] [id number] [facility] 10:00:00 10:00:00 SAL ELLIS naz [facility] Results Test Description Test Time Test Comments Results Result Comments Source SARS-CoV-2 (COVID-19) RNA [Presence] in Respiratory sp ecimen by 2021-10-14 20:44:16 ELDA with probe detection Test Item Value Reference Range Interpretation Comme nts SARS-CoV-2 (COVID-19) RNA [Presence] in Respiratory specimen by Not detected ELDA with probe detection (test code = 69122-9) Whether patient is employed in a healthcare setting (test code = Un known 22004-5) Whether the patient has symptoms related to condition of interest U nknown (test code = 53081-5) Whether the patient was hospitalized for condition of interest Unkn own (test code = 93348-3) Whether the patient was admitted to intensive care unit (ICU) for U nknown condition of interest (test code = 61740-6) Whether patient resides in a congregate care setting (test code = U nknown 13014-8) status (test code = 47295-1) Unknown Date and time of symptom onset (test code = 82239-7) Unknown SARS-CoV-2 (COVID-19) RNA [Presence] in Respiratory specimen by ELDA with probe [id number] 20:30:15 Test Item Value Reference Range Interpretation Comments SARS-CoV-2 (COVID-19) RNA Not detected Not-Detected [Presence] in Respiratory specimen by ELDA with probe detection (test code = 05861-6) Whether patient is employed in a healthcare setting (test code = 52375-3) Whether the patient has symptoms related to condition of interest (test code = 39819-8) Patient was hospitalized because of this condition (test code = 77498-7) Whether the patient was admitted to intensive care unit (ICU) for condition of interest (test code = 48716-5) Whether patient resides in a congregate care setting (test code = 97623-2) SARS-CoV-2 (COVID-19) RNA [Presence] in Respiratory specimen by ELDA with probe [id number] 20:44:43 Test Item Value Reference Range Interpretation Comments SARS-CoV-2 (COVID-19) RNA Not detected Not-Detected [Presence] in Respiratory specimen by ELDA with probe detection (test code = 37165-6) Whether patient is employed in a healthcare setting (test code = 75922-5) Whether the patient has symptoms related to condition of interest (test code = 42678-2) Patient was hospitalized because of this condition (test code = 78137-7) Whether the patient was admitted to intensive care unit (ICU) for condition of interest (test code = 77127-9) Whether patient resides in a congregate care setting (test code = 20949-4) SARS-CoV-2 (COVID-19) RNA [Presence] in Respiratory specimen by ELDA with probe [id number] 19:51:11 Test Item Value Reference Range Interpretation Comments SARS-CoV-2 (COVID-19) RNA Not detected Not-Detected [Presence] in Respiratory specimen by ELDA with probe detection (test code = 62839-4) Whether patient is employed in a healthcare setting (test code = 52268-0) Whether the patient has symptoms related to condition of interest (test code = 83500-4) Patient was hospitalized because of this condition (test code = 14655-2) Whether the patient was admitted to intensive care unit (ICU) for condition of interest (test code = 12578-9) Whether patient resides in a congregate care setting (test code = 92703-6) SARS-CoV-2 (COVID-19) RNA [Presence] in Respiratory specimen by ELDA with probe [id number] 20:11:44 Test Item Value Reference Range Interpretation Comments SARS-CoV-2 (COVID-19) RNA Not detected Not-Detected [Presence] in Respiratory specimen by ELDA with probe detection (test code = 87225-0) Whether patient is employed in a healthcare setting (test code = 32535-7) Whether the patient has symptoms related to condition of interest (test code = 67480-1) Patient was hospitalized because of this condition (test code = 36214-6) Whether the patient was admitted to intensive care unit (ICU) for condition of interest (test code = 03587-3) Whether patient resides in a congregate care setting (test code = 02651-1) SARS-CoV-2 (COVID-19) RNA [Presence] in Respiratory specimen by ELDA with probe [id number] 14:04:47 Test Item Value Reference Range Interpretation Comments SARS-CoV-2 (COVID-19) RNA Not detected Not-Detected [Presence] in Respiratory specimen by ELDA with probe detection (test code = 31493-1) Whether patient is employed in a healthcare setting (test code = 02252-3) Whether the patient has symptoms related to condition of interest (test code = 36186-3) Patient was hospitalized because of this condition (test code = 22639-9) Whether the patient was admitted to intensive care unit (ICU) for condition of interest (test code = 12456-7) Whether patient resides in a congregate care setting (test code = 88607-4) SARS-CoV-2 (COVID-19) RNA [Presence] in Respiratory specimen by ELDA with probe [id number] 17:43:38 Test Item Value Reference Range Interpretation Comments SARS-CoV-2 (COVID-19) RNA Not detected Not-Detected [Presence] in Respiratory specimen by ELDA with probe detection (test code = 66671-8) Whether patient is employed in a healthcare setting (test code = 75063-1) Whether the patient has symptoms related to condition of interest (test code = 27339-1) Patient was hospitalized because of this condition (test code = 12905-8) Whether the patient was admitted to intensive care unit (ICU) for condition of interest (test code = 98504-4) Whether patient resides in a congregate care setting (test code = 14625-8) SARS-CoV-2 (COVID-19) RNA [Presence] in Respiratory specimen by ELDA with probe [id number] 17:43:48 Test Item Value Reference Range Interpretation Comments SARS-CoV-2 (COVID-19) RNA Not detected Not-Detected [Presence] in Respiratory specimen by ELDA with probe detection (test code = 50007-9) Whether patient is employed in a healthcare setting (test code = 95852-8) Whether the patient has symptoms related to condition of interest (test code = 43900-4) Patient was hospitalized because of this condition (test code = 90215-5) Whether the patient was admitted to intensive care unit (ICU) for condition of interest (test code = 34828-8) Whether patient resides in a congregate care setting (test code = 59861-7) SARS-CoV-2 (COVID-19) RNA [Presence] in Respiratory specimen by ELDA with probe [id number] 21:23:33 Test Item Value Reference Range Interpretation Comments SARS-CoV-2 (COVID-19) RNA Not detected Not-Detected [Presence] in Respiratory specimen by ELDA with probe detection (test code = 37626-0) Whether patient is employed in a healthcare setting (test code = 46133-2) Whether the patient has symptoms related to condition of interest (test code = 45460-2) Patient was hospitalized because of this condition (test code = 75927-5) Whether the patient was admitted to intensive care unit (ICU) for condition of interest (test code = 71317-6) Whether patient resides in a congregate care setting (test code = 09591-8)
--- OUTSIDE RECORDS SUMMARY | 2022-01-20 18:22 | XMS REPORT | Clinical Summary ---
:1955 Author Organization [facility] MD [facility] Address [facility] [place] [address] Care Team Providers Name Role Phone Unavailable Primary Care Provider Unavailable Allergies Not on File Medications Not on file Active Problems Not on file Encounters Date Type Specialty Care Team Description 02/07/2021 Travel after 01/20/2021 Social History Tobacco Use Types Packs/Day Years Used Date Never Assessed Sex Assigned at Date Recorded Not on file Job Start Date Occupation Industry Not on file Not on file Not on file Last Filed Vital Signs Not on file Plan of Treatment Not on file Results Not on fileafter 01/20/2021 Insurance Payer Benefit Plan / Subscriber ID Effective Dates Phone Addre ss Type Group AETNA MEDICARE AETNA MEDICARE [id number] 2020-Prese [id number] [place] [address]
[2022-01-20 19:03] LABS: Absolute Lymphocytes (CBC) 0.6 K/uL (0.7-4.9); Hematocrit 29.8 % (39.6-49.0); Lymphocytes % 12.3 % (15.3-44.8); MCV 88.1 fL (80-100); MPV 8.5 fL (7.6-11.3); RBC Red Blood Cell Count 3.38 M/uL (4.33-5.43)
[2022-01-20 19:05] LABS: Protime INR 1.16
[2022-01-20 19:20] LABS: Albumin 3.5 g/dL (3.4-5.0); Bilirubin Direct 0.1 mg/dL (0-0.2); Bilirubin Total 0.4 mg/dL (0.2-1.0); Magnesium 2.7 mg/dL (1.8-2.4); Potassium 4.2 mmol/L (3.5-5.1); Troponin High Sensitivity 18.4 pg/mL (<58.9)
[2022-01-20] MEDS ORDERED: FUROSEMIDE 20 MG/ 2ML VIAL ONE (19:20)
--- NOTE | 2022-01-20 19:21 | EDPHYS ---
Physician Documentation [facility] Name: Torey Pritchard Age: 66 yrs Sex: Male : 1955 Arrival Date: 01/20/2022 Time: 18:20 Bed 19 Private MD: Elbert Pang T ED Physician Lam Aleman HPI: 01/20 19:03 This 66 yrs old Male presents to ER via Wheelchair with complaints of roderick Breathing Difficulty. 19:03 The patient has shortness of breath at rest, with light activity. Onset: The roderick symptoms/episode began/occurred 2 day(s) ago. Duration: The symptoms are continuous, and are steadily getting worse. The patient's shortness of breath is aggravated by exertion, light activity, supine position, walking. Associated signs and symptoms: The patient has no apparent associated signs or symptoms. Severity of symptoms: At their worst the symptoms were mild moderate in the emergency department the symptoms are unchanged. The patient has experienced similar episodes in the past, a few times. Historical: - Allergies: 18:36 Haloperidol; iw - Home Meds: 18:52 allopurinol 300 mg Oral tab [Active]; atorvastatin 80 mg Oral tab [Active]; gabapentin shelby 300 mg Oral cap [Active]; hydralazine 100 mg Oral tab [Active]; insulin glargine 100 unit/mL (3 mL) Sub-Q inpn 24 units BID PRN (per pt if BG is above 110 in the AM or 'very high' in the PM but is unable to state a cut off) [Active]; nifedipine 30 mg Oral TbER [Active]; pantoprazole 40 mg Oral TbEC [Active]; - PMHx: 18:36 Diabetes - NIDDM; neuropathy; PVD; CVA; CHF; lymphedema; iw - Immunization history:: Adult Immunizations. - Social history:: Smoking status: Patient denies any tobacco usage or history of. ROS: 19:04 Constitutional: Negative for fever, chills, and weight loss, Eyes: Negative for injury, roderick pain, redness, and discharge, ENT: Negative for injury, pain, and discharge, Neck: Negative for injury, pain, and swelling, Cardiovascular: Negative for chest pain, palpitations, and edema, Abdomen/GI: Negative for abdominal pain, nausea, vomiting, diarrhea, and constipation, Back: Negative for injury and pain, : Negative for injury, bleeding, discharge, and swelling, MS/Extremity: Negative for injury and deformity, Neuro: Negative for headache, weakness, numbness, tingling, and seizure, Psych: Negative for depression, anxiety, suicide ideation, homicidal ideation, and hallucinations, Allergy/Immunology: Negative for hives, rash, and allergies, Endocrine: Negative for neck swelling, polydipsia, polyuria, polyphagia, and marked weight changes, Hematologic/Lymphatic: Negative for swollen nodes, abnormal bleeding, and unusual bruising. 19:04 Respiratory: Positive for cough, dyspnea on exertion, shortness of breath, on exertion. 19:04 MS/extremity: Positive for swelling, tenderness, of the right leg and left leg. Exam: 19:04 Constitutional: This is a well developed, well nourished patient who is awake, alert, roderick and in no acute distress. Head/Face: Normocephalic, atraumatic. Eyes: Pupils equal round and reactive to light, extra-ocular motions intact. Lids and lashes normal. Conjunctiva and sclera are non-icteric and not injected. Cornea within normal limits. Periorbital areas with no swelling, redness, or edema. ENT: Nares patent. No nasal discharge, no septal abnormalities noted. Tympanic membranes are normal and external auditory canals are clear. Oropharynx with no redness, swelling, or masses, exudates, or evidence of obstruction, uvula midline. Mucous membranes moist. Neck: Trachea midline, no thyromegaly or masses palpated, and no cervical lymphadenopathy. Supple, full range of motion without nuchal rigidity, or vertebral point tenderness. No Meningismus. Chest/axilla: Normal chest wall appearance and motion. Nontender with no deformity. No lesions are appreciated. Cardiovascular: Regular rate and rhythm with a normal S1 and S2. No gallops, murmurs, or rubs. Normal PMI, no JVD. No pulse deficits. Back: No spinal tenderness. No costovertebral tenderness. Full range of motion. Male : Normal genitalia with no discharge or lesions. Skin: Warm, dry with normal turgor. Normal color with no rashes, no lesions, and no evidence of cellulitis. Neuro: Awake and alert, GCS 15, oriented to person, place, time, and situation. Cranial nerves II-XII grossly intact. Motor strength 5/5 in all extremities. Sensory grossly intact. Cerebellar exam normal. Normal gait. Psych: Awake, alert, with orientation to person, place and time. Behavior, mood, and affect are within normal limits. 19:04 Cardiovascular: Rate: normal, Rhythm: regular, Pulses: Pulses are 4+ in right femoral artery, right posterior tibial artery, left femoral artery and left posterior tibial artery. Heart sounds: normal, normal S1and S2, no S3 or S4, no murmur, no rub, no gallop, Edema: is not appreciated, JVD: is noted bilaterally, to 3 cm. 19:04 ECG was reviewed by the Attending Physician. 19:04 Respiratory: the patient does not display signs of respiratory distress, Respirations: normal, Breath sounds: rales, that are mild, are located in both bases, are heard in the left posterior lower lobe, right posterior middle lobe and right posterior lower lobe, rhonchi, that are mild, stridor, is not appreciated. Vital Signs: 18:34 BP 141 / 63; Pulse 76; Resp 22 S; Pulse Ox 99% on R/A; Weight 88.45 kg; Height 5 ft. 11 iw in. (180.34 cm); 19:26 BP 138 / 61; Pulse 74; Resp 17 S; Pulse Ox 99% on R/A; lg3 18:34 Body Mass Index 27.20 (88.45 kg, 180.34 cm) iw MDM: 18:35 Patient medically screened. roderick 19:15 Differential diagnosis: Anemia Bronchitis CHF exacerbation, pulmonary edema, reactive roderick airway disease. Antibiotic administration: Not indicated. The patient's Wells Deep Vein Thrombosis Score was calculated as follows: Malignancy Total Score: 0-2 Pts- Low Risk. The patient's pulmonary embolism risk score was calculated as follows: malignancy Total Score: 0-2 points. This patient was found to be at low risk for a pulmonary embolism by using the Well's assessment criteria. Immunization status: Pneumococcal vaccine: Influenza vaccine: Data reviewed: vital signs, nurses notes, lab test result(s), EKG, radiologic studies, plain films. Data interpreted: chancellor: rate is 76 beats/min, rhythm is regular, Pulse oximetry: on room air is 99 %. Test interpretation: by ED physician or midlevel provider: ECG, plain radiologic studies. Counseling: I had a detailed discussion with the patient and/or guardian regarding: the historical points, exam findings, and any diagnostic results supporting the discharge/admit diagnosis, lab results, radiology results, the need for further work-up and treatment in the hospital. 01/20 18:36 Order name: Basic Metabolic Panel; Complete Time: 19:21 [facility] 01/20 18:36 Order name: CBC with Diff; Complete Time: 19:21 [facility] 01/20 18:36 Order name: D-Dimer; Complete Time: 19:21 [facility] 01/20 18:36 Order name: LFT's; Complete Time: 19:21 [facility] 01/20 18:36 Order name: Magnesium; Complete Time: 19:21 [facility] 01/20 18:36 Order name: NT PRO-BNP; Complete Time: :21 [facility] 01/20 18:36 Order name: PT-INR; Complete Time: 19:21 [facility] 01/20 18:36 Order name: Troponin HS; Complete Time: 19:21 [facility] 01/20 18:36 Order name: XRAY Chest (1 view); Complete Time: 20:35 [facility] 01/20 18:36 Order name: Blood Culture Adult (2) 01/20 18:36 Order name: Lactate; Complete Time: 19:21 [facility] 01/20 18:36 Order name: Flu; Complete Time: 20:05 [facility] 01/20 18:36 Order name: SARS-COV-2 RT PCR (Document "Date of Onset" if Symptomatic); Complete Time: [facility] 20:16 01/20 19:21 Order name: US Extremity Venous W Compression Hugo; Complete Time: 20:35 [facility] 01/20 18:36 Order name: EKG; Complete Time: 18:37 [facility] 01/20 18:36 Order name: Cardiac monitoring; Complete Time: 18:47 [facility] 01/20 18:36 Order name: EKG - Nurse/Tech; Complete Time: 19:02 [facility] 01/20 18:36 Order name: IV Saline Lock; Complete Time: 18:47 [facility] 01/20 18:36 Order name: Labs collected and sent; Complete Time: 18:47 [facility] 01/20 18:36 Order name: O2 Per Protocol; Complete Time: 18:47 [facility] 01/20 18:36 Order name: O2 Sat Monitoring; Complete Time: 18:47 [facility] 01/20 19:21 Order name: CT Stone Protocol 01/20 19:25 Order name: Stone Protocol EDGA EC:04 Rate is 76 beats/min. Rhythm is regular. QRS [place] is Normal. CO interval is normal. QRS roderick interval is normal. QT interval is normal. No Q waves. T waves are Inverted in leads I, II, aVL. ST Segment is depressed in leads V2, V4, V5, V6. Clinical impression: NSR w/ Non-specific ST/T Changes and No evidence of ischemia. Interpreted by me. Reviewed by me. Administered Medications: : Drug: Lasix (furosemide) 40 mg Route: IVP; Site: left forearm; lg3 19:26 Follow up: Response: No adverse reaction lg3 Disposition Summary: 01/20/22 19:20 Hospitalization Ordered Hospitalization Status: Observation roderick Provider: Tapan Monique cha Location: Telemetry/MedSurg (observation) roderick Condition: Fair roderick Problem: new roderick Symptoms: have improved roderick Bed/Room Type: Standard roderick Room Assignment: 405(01/20/22 21:19) mw Diagnosis - Dyspnea roderick - Lymphedema, not elsewhere classified roderick - Type 2 diabetes mellitus with hyperglycemia roderick - Acute kidney failure, unspecified roderick - Abnormal levels of other serum enzymes - d-dIMER roderick Forms: - Medication Reconciliation Form roderick - SBAR form roderick Signatures: Dispatcher [employer] EDGA Olga Schumacher RN RN mw Anderson, Corey, MD MD cha Williams, Irene RN Ryan Cornelius, CUSTOMER QUALITY SPECIALIST-C CUSTOMER QUALITY SPECIALIST-Cla1 Jazmyne Reyna RN RN lg3 Angela Frias RN RN shelby Corrections: (The following items were deleted from the chart) 19:20 roderick calvin
--- NOTE | 2022-01-20 19:21 | ER ---
Nurse's Notes [facility] Name: Torey Pritchard Age: 66 yrs Sex: Male : 1955 Arrival Date: 01/20/2022 Time: 18:20 Bed 19 Private MD: Elbert Pang T Diagnosis: Dyspnea;Lymphedema, not elsewhere classified;Type 2 diabetes mellitus with hyperglycemia;Acute kidney failure, unspecified;Abnormal levels of other serum [id number] Presentation: 01/20 18:34 Chief complaint: Patient states: SOB on exertion X 2 days, denies chest pain. iw Coronavirus screen: At this time, the client does not indicate any symptoms associated with coronavirus-19. Ebola Screen: Patient negative for fever greater than or equal to 101.5 degrees Fahrenheit, and additional compatible Ebola Virus Disease symptoms Patient denies exposure to infectious person. Patient denies travel to an Ebola-affected area in the 21 days before illness onset. No symptoms or risks identified at this time. Initial Sepsis Screen: Does the patient meet any 2 criteria? No. Patient's initial sepsis screen is negative. Does the patient have a suspected source of infection? No. Patient's initial sepsis screen is negative. Risk Assessment: Do you want to hurt yourself or someone else? Patient reports no desire to harm self or others. Onset of symptoms was January 18, 2022. 18:34 Method Of Arrival: Wheelchair 18:34 Acuity: MARNI 3 iw Triage Assessment: 18:52 General: Appears in no apparent distress. Behavior is calm, cooperative. Respiratory: shelby Reports shortness of breath Onset: The symptoms/episode began/occurred gradually, the patient has moderate shortness of breath. Historical: - Allergies: 18:36 Haloperidol; iw - Home Meds: 18:52 allopurinol 300 mg Oral tab [Active]; atorvastatin 80 mg Oral tab [Active]; gabapentin shelby 300 mg Oral cap [Active]; hydralazine 100 mg Oral tab [Active]; insulin glargine 100 unit/mL (3 mL) Sub-Q inpn 24 units BID PRN (per pt if BG is above 110 in the AM or 'very high' in the PM but is unable to state a cut off) [Active]; nifedipine 30 mg Oral TbER [Active]; pantoprazole 40 mg Oral TbEC [Active]; - PMHx: 18:36 Diabetes - NIDDM; neuropathy; PVD; CVA; CHF; lymphedema; iw - Immunization history:: Adult Immunizations. - Social history:: Smoking status: Patient denies any tobacco usage or history of. Screenin:51 Abuse screen: Denies threats or abuse. Denies injuries from another. Nutritional shelby screening: No deficits noted. Tuberculosis screening: No symptoms or risk factors identified. Fall Risk None identified. Assessment: 18:51 Pain: Denies pain. Cardiovascular: Reports shortness of breath, Rhythm is regular. shelby Respiratory: Airway is patent Respiratory effort is even, unlabored, Breath sounds are diminished bilaterally. 19:26 General: Appears in no apparent distress. comfortable, Behavior is calm, cooperative. lg3 Pain: Denies pain. Neuro: No deficits noted. Ponce Agitation-Sedation Scale (RASS): 0 - Alert and Calm Level of Consciousness is awake, alert, obeys commands, Oriented to person, place, time, situation. Cardiovascular: Reports shortness of breath, Capillary refill < 3 seconds Clubbing of nail beds is absent JVD is absent Patient's skin is warm and dry. Rhythm is sinus rhythm. Respiratory: Airway is patent Trachea midline Respiratory effort is even, unlabored, Respiratory pattern is regular, symmetrical, Breath sounds are diminished bilaterally. Parent/caregiver reports the patient having shortness of breath. GI: No deficits noted. Abdomen is round non-distended. : No deficits noted. No signs and/or symptoms were reported regarding the genitourinary system. EENT: No deficits noted. No signs and/or symptoms were reported regarding the EENT system. Derm: No deficits noted. No signs and/or symptoms reported regarding the dermatologic system. Skin is intact, is healthy with good turgor, Skin is dry, Skin temperature is warm. Musculoskeletal: No deficits noted. No signs and/or symptoms reported regarding the musculoskeletal system. Circulation, motion, and sensation intact. Range of motion: intact in all extremities, Reports weakness in left leg and right leg. 21:05 Reassessment: Patient appears in no apparent distress at this time. No changes from lg3 previously documented assessment. Patient and/or family updated on plan of care and expected duration. Pain level reassessed. Patient is alert, oriented x 3, equal unlabored respirations, skin warm/dry/pink. Vital Signs: 18:34 BP 141 / 63; Pulse 76; Resp 22 S; Pulse Ox 99% on R/A; Weight 88.45 kg; Height 5 ft. 11 iw in. (180.34 cm); 19:26 BP 138 / 61; Pulse 74; Resp 17 S; Pulse Ox 99% on R/A; lg3 18:34 Body Mass Index 27.20 (88.45 kg, 180.34 cm) iw ED Course: 18:20 Patient arrived in ED. rg4 18:20 Elbert Pang MD is Private Physician. rg4 18:28 Angela Frias, RN is Primary Nurse. shelby 18:35 Lam Aleman MD is Attending Physician. roderick 18:36 Triage completed. iw 18:36 Arm band placed on. iw 18:51 Patient has correct armband on for positive identification. Bed in low position. shelby 18:51 SARS-COV-2 RT PCR (Document "Date of Onset" if Symptomatic) Sent. shelby 18:51 Flu Sent. shelby 18:51 Lactate Sent. shelby 18:51 Blood Culture Adult (2) Sent. shelby 18:51 No provider procedures requiring assistance completed. Inserted saline lock: 20 gauge shelby in left forearm, using aseptic technique. 19:14 Primary Nurse role handed off by Angela Frias, CHRISTIAN mw2 19:18 Jazmyne Reyna, CHRISTIAN is Primary Nurse. lg3 19:18 Tapan Monique MD is Hospitalizing Provider. roderick 19:34 XRAY Chest (1 view) In Process Unspecified. EDMS 19:39 SARS-COV-2 RT PCR (Document "Date of Onset" if Symptomatic) Sent. lg3 19:39 Blood Culture Adult (2) Sent. lg3 20:04 US Extremity Venous W Compression Hugo In Process Unspecified. EDMS 20:20 Stone Protocol In Process Unspecified. EDMS 21:58 Patient admitted, IV remains in place. intact, No redness/swelling at site. lg3 Administered Medications: 19:26 Drug: Lasix (furosemide) 40 mg Route: IVP; Site: left forearm; lg3 19:26 Follow up: Response: No adverse reaction lg3 Medication: 18:51 VIS not applicable for this client. shelby Outcome: 19:20 Decision to Hospitalize by Provider. roderick 21:58 Admitted to Med/surg via wheelchair, room 405, with chart, Report called to Gena tsang 21:58 Condition: stable 21:58 Instructed on the need for admit, Demonstrated understanding of instructions. 22:20 Patient left the ED. lg3 Signatures: Dispatcher [employer] EDLam Combs MD MD cha Williams, Irene, RN RN Mildred Sena rg4 Virgen Bradford mw2 Jazmyne Reyna RN RN lg3 Au-StagerAngela RN RN shelby Corrections: (The following items were deleted from the chart) 18:40 18:34 Pulse 76bpm; Resp 22bpm; Spontaneous; Pulse Ox 99% RA; 88.45 kg; Height 5 ft. 11 iw in.; BMI: 27.2; iw
--- NOTE | 2022-01-20 20:17 | RAD REPORT ---
EXAM DESCRIPTION: US - Extrem Venous W Compress Hugo - 01/20/2022 8:02 pm CLINICAL HISTORY: SWELLING COMPARISON: Extremity Venous Uni Ltd dated 08/22/2021 TECHNIQUE: Real-time sonographic evaluation of the lower extremity deep venous systems was performed using color Doppler, grayscale, and compression. FINDINGS: Bilateral lower extremities. Normal compressibility, flow augmentation, phasic flow and spontaneous flow is identified in both the left and right lower extremity deep venous systems. No intraluminal filling defects seen. IMPRESSION: No DVT in either lower extremity.
--- NOTE | 2022-01-20 20:18 | RAD REPORT ---
EXAM DESCRIPTION: RAD - Chest Single View - 01/20/2022 7:32 pm CLINICAL HISTORY: COUGH COMPARISON: Chest Single View dated 08/05/2021; CHEST PA AND LAT 2 VIEW dated 08/07/2014; CHEST SINGLE V IEW dated 11/21/2011 FINDINGS: Lines: None. Lungs: No evidence of edema or pneumonia. Pleural: No significant pleural effusions or pneumothorax. Cardiac: The heart size is within normal limits. Bones: No acute fractures. Other: IMPRESSION: No acute cardiopulmonary disease.
--- NOTE | 2022-01-20 20:36 | RAD REPORT ---
EXAM DESCRIPTION: CTStone Protocol - 01/20/2022 8:18 pm CLINICAL HISTORY: Flank pain, kidney stone suspected COMPARISON: Abdomen Pelvis Wo Contrast dated 01/30/2021; Chest Single View dated 01/20/2022; Extrem V enous W Compress Hugo dated 01/20/2022 TECHNIQUE: CT of the abdomen and pelvis was performed. All CT scans are performed using dose optimization technique as appropriate and may include automated exposure control or mA/KV adjustment according to patient size. FINDINGS: Lower chest: Small moderate bilateral pleural effusions. Underlying atelectasis . Small pe ricardial effusion. Liver: No acute abnormality or suspicious lesions. Biliary: No biliary ductal dilatation. Stomach: No significant focal abnormality. Duodenum: No significant focal abnormality. Pancreas: No significant abnormality. Spleen: No significant abnormality. Adrenal: No suspicious lesions. Kidney/ureter: Previous identified mass associated with the left kidney has decreased in size however there is fluid attenuation material which extends from the left kidney into the renal hilum and arou nd the aorta. Soft tissue has decreased from prior. Left-sided hydronephrosis. Simple appearing right renal cyst. Punctate stone versus renal vascular calcifications right kidney. Retroperitoneum: No retroperitoneal adenopathy. Vascular: Atherosclerosis. Bowel: Large colonic stool burden.. Peritoneum: Fluid in the right inguinal canal. Ascites is present. Small fat containing inguinal ana m ias. Bladder: Grossly unremarkable. Reproductive: No adnexal masses. Bones: No acute fracture. Other: Body wall edema. IMPRESSION: 1. Anasarca including moderate pleural effusions, ascites, and body wall edema. 2. The bulky soft tissue mass associated with the left kidney on the prior CT from 01/30/2021 has dec reased in size and is now more similar to fluid attenuation. This may have represented a renal cell c arcinoma, urothelial neoplasm, or lymphoma. Correlate with patient's history. It has decreased in siz e. 3. Left-sided hydronephrosis presumably due to the residual or treated mass associated with the left kidney.
--- NOTE | 2022-01-20 21:15 | P.HP ---
Certification for Inpatient Patient admitted to: Observation With expected LOS: <2 Midnights Patient will require the following post-hospital care: None Practitioner: I am a practitioner with admitting privileges, knowledge of patient current condition, hospital course, and medical plan of care. Services: Services provided to patient in accordance with Admission requirements found in Title 42 Section 412.3 of the Code of Federal Regulations Patient History Date of Service: 01/20/22 Reason for admission: Dyspnea History of Present Illness: 66-year-old male history of diabetes mellitus type 2insulin-dependent, CKD 3, chronic diastolic congestive heart failure presents emerged department for dyspnea. He typically takes Bumex at home for the past 4 days he is also been taking spironolactone which was given to him by his staffing executive as he reported some edema in his legs, he reports the swelling in his legs is gotten slightly better but he has been having significant shortness of breath over the course of the last 1 to 2 days especially with exertion. He was evaluated in the emergency department his labs were significant for stable CKD, elevated BNP and elevated D-dimer ultrasound of the lower extremities bilaterally negative for DVT chest x-ray was unremarkable CT of the abdomen without contrast was performed which revealed anasarca including moderate pleural effusions, ascites and body wall edema as well as findings from his previous left-sided renal mass. ED prior wishes to admit for further evaluation and management of acute on chronic diastolic just heart failure, dyspnea. He was given IV Lasix in the emergency department. Allergies haloperidol Allergy (Severe, Verified 11/21/11 12:00) Shortness of breath Home Medications: Atorvastatin Calcium [Lipitor] 80 mg PO BEDTIME 05/10/21 Gabapentin 300 mg PO BID 05/10/21 Insulin Glargine,Hum.rec.anlog [Lantus] 24 unit SQ BID PRN 05/10/21 Allopurinol 300 mg PO DAILY 08/06/21 Bumetanide [Bumex] 1 mg PO BID #60 tab 08/06/21 Hydralazine HCl 25 mg PO BID #60 tablet 08/06/21 Metoprolol Tartrate [Lopressor*] 25 mg PO BID 6AM 6PM #60 tab 08/06/21 Pantoprazole [Protonix Tab*] 40 mg PO DAILY 08/06/21 Spironolactone [Aldactone*] 25 mg PO DAILY #30 tab 08/06/21 - Past Medical/Surgical History Diabetic: Yes -: Melanoma -: HTN -: DM -: Hyperlipidemia -: Depression -: GERD -: Neuropathy -: Prolonged acute kidney failure in setting of chemo -: perinephric mass status post treated with chemo/ablation -: History of TIA -: History of chronic lower extremity edema with recurrent wounds -: Status post right toe amputation Psychosocial/ Personal History: Lives at home with - Family History Mother -: Cancer (breast) - Social History Smoking Status: Never smoker Alcohol use: No CD- Drugs: No Caffeine use: Yes Place of Residence: Home Review of Systems 10-point ROS is otherwise unremarkable Respiratory: Cough, Dry, Shortness of Breath, SOB with Excertion Cardiovascular: Orthopnea, Edema Physical Examination - Physical Exam General: Alert, In no apparent distress, Oriented x3 HEENT: Atraumatic, PERRLA, Mucous membr. moist/pink, EOMI, Sclerae nonicteric Neck: Supple, 2+ carotid pulse no bruit, No LAD, Without JVD or thyroid abnormality Respiratory: Normal air movement, Crackles/rales Cardiovascular: Regular rate/rhythm, Normal S1 S2, Edema Capillary refill: <2 Seconds Gastrointestinal: Normal bowel sounds, No tenderness Musculoskeletal: No tenderness Integumentary: No rashes Neurological: Normal speech, Normal strength at 5/5 x4 extr, Normal tone, Normal affect - Studies Laboratory Data (last 24 hrs) 01/20/22 18:45: PT 12.8 H, INR 1.16 01/20/22 18:45: WBC 4.9, Hgb 10.2 L, Hct 29.8 L, Plt Count 122 L 01/20/22 18:45: Sodium 142, Potassium 4.2, BUN 56 H, Creatinine 1.81 H, Glucose 172 H, Magnesium 2.7 H, Total Bilirubin 0.4, AST 27, ALT 46, Alkaline Phosphatase 278 H Microbiology Data (last 24 hrs): 01/20/22 18:50 Nasopharnyx Influenza Type A Antigen Screen - Final 01/20/22 18:50 Nasopharnyx Influenza Type B Antigen Screen - Final Assessment and Plan - Plan Assessment: Dyspnea secondary to acute on chronic diastolic congestive heart failure with anasarca/moderate pleural effusions CKD 3 Hypertension Hyperlipidemia History of 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 Last echocardiogram shows mild global hypokinesis ejection fraction between 45 due to recent. Cardiology and nephrology consults in place for assistance with diuresis and further management. CKD 3: Stable, nephrology consult in place given need for significant diuresis with underlying CKD and history of requirement for dialysis. Hypertension: Obtain and continue home medications. Hyperlipidemia:Obtain and continue home medications. 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 DVT PPX: Heparin Code status: Full Discharge Plan: Home Plan to discharge in: 24 Hours - Advance Directives Does patient have a Living Will: No Does patient have a Durable POA for Healthcare: No - Code Status/Comfort Care Code Status Assessed: Yes (Full code) Critical Care: No Time Spent Managing Pts Care (In Minutes): 70
[2022-01-20] MEDS ORDERED: ONDANSETRON 4 MG/2 ML VIAL IV PRN (21:57)
[2022-01-20 22:47] VITALS: BMI 28.2
[2022-01-21] MEDS ORDERED: BISACODYL 10 MG RECTAL SUPP RC PRN (00:10)
[2022-01-21] MEDS: GABAPENTIN 100 MG CAP PO SCH ×2 (00:29→20:18)
[2022-01-21 01:31] LABS: Urine Appearance Clear (Clear); Urine Bilirubin Negative (Negative); Urine Blood Negative (Negative); Urine Color Yellow (Yellow); Urine Glucose Negative (Negative); Urine Protein 2+ (Negative); Urine Specific Gravity 1.015 (1.005-1.030); Urine Urobilinogen 0.2 mg/dL (0.2-1.0)
[2022-01-21 01:43] LABS: Urine Microscopic Reflex ORDER UMIC
[2022-01-21 01:53] LABS: Urine Bacteria <20 /HPF (NONE SEEN); Urine RBC NONE SEEN /HPF (NONE SEEN); Urine Urothelial Cells <5 /HPF (NONE SEEN)
[2022-01-21 03:48] LABS: Absolute Lymphocytes (CBC) 0.5 K/uL (0.7-4.9); Hematocrit 27.9 % (39.6-49.0); Lymphocytes % 11.9 % (15.3-44.8); MCV 89.2 fL (80-100); MPV 8.4 fL (7.6-11.3); RBC Red Blood Cell Count 3.13 M/uL (4.33-5.43)
[2022-01-21 04:07] LABS: Albumin 3.3 g/dL (3.4-5.0); Bilirubin Total 0.4 mg/dL (0.2-1.0); Protein, Total 6.5 g/dL (6.4-8.2)
[2022-01-21] MEDS: METOPROLOL TAR 25 MG TAB PO SCH ×2 (05:52→17:06)
--- NOTE | 2022-01-21 06:57 | P.PN ---
Date of Service: 01/21/22 Subjective: slight improvement, but still with significant peripheral edema / anasarca with dyspnea on exertion feels like just started urinating more after 2nd dose of lasix ROS: 10 point ROS as noted above, otherwise negative Physical exam GEN: Alert, oriented HEENT: Normal conjunctiva, sclera anicteric CV: Regular rate and rhythm, +anasarca, edema in b/l legs, abdomen, hands Pulm: mild labored respirations on room air ABD: Soft, nontender, nondistended Integumentary: No rashes Neuro: Normal speech, normal affect Problem List dyspnea secondary to acute on chronic diastolic CHF exacerbation with anasarca moderate pleural effusions CKD3 HTN HLD 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 patient now seems to be diuresing Strict I's and O's Patient with chronic diastolic CHF Nephrology consulted, renal function near baseline, previously required dialysis Confirm home medications, restart as appropriate echo ordered, cardio consulted reports compliance with bumex at home, feels he has been less responsive to it lately VTE: heparin Code: full Dispo: home, ~1-2 days
--- NOTE | 2022-01-21 07:18 | EKG ---
Test Date: 2022-01-20 Test Time: 18:56:12 Expedition Supervisor: DAVID MEASUREMENT RESULTS: Intervals: Rate: 76 VA: 128 QRSD: 84 QT: 400 QTc: 450 [place]: P: -5 VA: 128 QRS: -2 T: 250 INTERPRETIVE STATEMENTS: Normal sinus rhythm Nonspecific T wave abnormality Abnormal ECG Compared to ECG 08/05/2021 15:33:32 Sinus tachycardia no longer present T-wave abnormality still present Electronically Signed On 01-21-22 07:17:13 CDT by Sergo Ward
[2022-01-21] MEDS: INSULIN -REGULAR HUMAN 50 UNIT/0.5 ML ML SQ SCH ×4 (07:30→20:18)
--- NOTE | 2022-01-21 08:19 | P.CNS ---
Date of Consult: 01/21/22 Reason for Consult: JAISON/ CKD Requesting Physician: Tapan Monique Chief Complaint: Dyspnea History of Present Illness: 66-year-old male history of diabetes mellitus type 2insulin-dependent, CKD 3, chronic diastolic congestive heart failure presents emerged department for dyspnea. He typically takes Bumex at home for the past 4 days he is also been taking spironolactone which was given to him by his extension service specialist in charge as he reported some edema in his legs, he reports the swelling in his legs is gotten slightly better but he has been having significant shortness of breath over the course of the last 1 to 2 days especially with exertion. He was evaluated in the emergency department his labs were significant for stable CKD, elevated BNP and elevated D-dimer ultrasound of the lower extremities bilaterally negative for DVT chest x-ray was unremarkable CT of the abdomen without contrast was performed which revealed anasarca including moderate pleural effusions, ascites and body wall edema as well as findings from his previous left-sided renal mass. ED prior wishes to admit for further evaluation and management of acute on chronic diastolic just heart failure, dyspnea. He was given IV Lasix in the emergency department. 19:03 This 66 yrs old Male presents to ER via Wheelchair with complaints of roderick Breathing Difficulty. 19:03 The patient has shortness of breath at rest, with light activity. Onset: The roderick symptoms/episode began/occurred 2 day(s) ago. Duration: The symptoms are continuous, and are steadily getting worse. The patient's shortness of breath is aggravated by exertion, light activity, supine position, walking. Associated signs and symptoms: The patient has no apparent associated signs or symptoms. Severity of symptoms: At their worst the symptoms were mild moderate in the emergency department the symptoms are unchanged. The patient has experienced similar episodes in the past, a few times. Allergies haloperidol Allergy (Severe, Verified 11/21/11 12:00) Shortness of breath Home medications list reviewed: Yes Home Medications: Atorvastatin Calcium [Lipitor] 80 mg PO DAILY 05/10/21 Gabapentin 300 mg PO BEDTIME 05/10/21 Allopurinol 300 mg PO DAILY 08/06/21 Metoprolol Tartrate [Lopressor*] 25 mg PO BID 6AM 6PM #60 tab 08/06/21 Pantoprazole [Protonix Tab*] 40 mg PO DAILY 08/06/21 Spironolactone [Aldactone*] 25 mg PO DAILY #30 tab 08/06/21 Acetaminophen/Diphenhydramine [Tylenol Pm Ex-Strength Caplet] 2 each PO BEDTIME PRN PRN 01/20/22 Bisacodyl [Dulcolax] 10 mg RC DAILY PRN 01/20/22 Hydralazine HCl 100 mg PO BID 01/20/22 Insulin Glargine,Hum.rec.anlog [Basaglar Kwikpen U-100] 24 unit SQ BEDTIME 01/20/22 Insulin Glargine,Hum.rec.anlog [Basaglar Kwikpen U-100] 24 unit SQ DAILY 01/20/22 Bumetanide [Bumex] 1 mg PO DAILY 01/21/22 - Past Medical/Surgical History Diabetic: Yes -: PVD -: HTN -: DM with neuropathy and CKD -: Hyperlipidemia -: Depression -: GERD -: CKD III followed by Dr. Ivey. Hx of HD. -: Prolonged acute kidney failure in setting of chemo -: perinephric mass status post treated with chemo/ablation -: History of TIA -: History of chronic lower extremity edema with recurrent wounds -: Status post right 5th toe amputation -: partial right great toe amputation Psychosocial/ Personal History: Lives at home with - Family History Mother Medical History: Cancer Father Medical History: Lung disease - Social History Alcohol use: No CD- Drugs: No Caffeine use: Yes Place of Residence: Home Review of Systems 10-point ROS is otherwise unremarkable General: Weakness, Malaise Respiratory: SOB with Excertion Cardiovascular: Edema Physical Examination Temp Pulse Resp BP Pulse Ox 97.5 F 87 19 147/69 H 95 01/21/22 04:00 01/21/22 05:52 01/21/22 04:00 01/21/22 05:52 01/21/22 04:00 General: In no apparent distress, Oriented x3, Cooperative HEENT: Atraumatic Neck: Supple Respiratory: Diminished Cardiovascular: Normal pulses, Edema Gastrointestinal: Soft and benign, Non-distended Musculoskeletal: No clubbing, No contractures Integumentary: No rashes, No cyanosis Neurological: Normal speech Laboratory Data (last 24 hrs) 01/20/22 18:45: PT 12.8 H, INR 1.16 01/20/22 18:45: WBC 4.9, Hgb 10.2 L, Hct 29.8 L, Plt Count 122 L 01/20/22 18:45: Sodium 142, Potassium 4.2, BUN 56 H, Creatinine 1.81 H, Glucose 172 H, Magnesium 2.7 H, Total Bilirubin 0.4, AST 27, ALT 46, Alkaline Phosphatase 278 H Imagings Data: EXAM DESCRIPTION: RAD - Chest Single View - 01/20/2022 7:32 pm CLINICAL HISTORY: COUGH COMPARISON: Chest Single View dated 08/05/2021; CHEST PA AND LAT 2 VIEW dated 08/07/2014; CHEST SINGLE VIEW dated 11/21/2011 FINDINGS: Lines: None. Lungs: No evidence of edema or pneumonia. Pleural: No significant pleural effusions or pneumothorax. Cardiac: The heart size is within normal limits. Bones: No acute fractures. Other: IMPRESSION: No acute cardiopulmonary disease. EXAM DESCRIPTION: CTStone Protocol - 01/20/2022 8:18 pm CLINICAL HISTORY: Flank pain, kidney stone suspected COMPARISON: Abdomen Pelvis Wo Contrast dated 01/30/2021; Chest Single View dated 01/20/2022; Extrem Venous W Compress Hugo dated 01/20/2022 TECHNIQUE: CT of the abdomen and pelvis was performed. All CT scans are performed using dose optimization technique as appropriate and may include automated exposure control or mA/KV adjustment according to patient size. FINDINGS: Lower chest: Small moderate bilateral pleural effusions. Underlying atelectasis . Small pericardial effusion. Liver: No acute abnormality or suspicious lesions. Biliary: No biliary ductal dilatation. Stomach: No significant focal abnormality. Duodenum: No significant focal abnormality. Pancreas: No significant abnormality. Spleen: No significant abnormality. Adrenal: No suspicious lesions. Kidney/ureter: Previous identified mass associated with the left kidney has decreased in size however there is fluid attenuation material which extends from the left kidney into the renal hilum and around the aorta. Soft tissue has decreased from prior. Left-sided hydronephrosis. Simple appearing right renal cyst. Punctate stone versus renal vascular calcifications right kidney. Retroperitoneum: No retroperitoneal adenopathy. Vascular: Atherosclerosis. Bowel: Large colonic stool burden.. Peritoneum: Fluid in the right inguinal canal. Ascites is present. Small fat containing inguinal hernias. Bladder: Grossly unremarkable. Reproductive: No adnexal masses. Bones: No acute fracture. Other: Body wall edema. IMPRESSION: 1. Anasarca including moderate pleural effusions, ascites, and body wall edema. 2. The bulky soft tissue mass associated with the left kidney on the prior CT from 01/30/2021 has decreased in size and is now more similar to fluid attenuation. This may have represented a renal cell carcinoma, urothelial neoplasm, or lymphoma. Correlate with patient's history. It has decreased in size. 3. Left-sided hydronephrosis presumably due to the residual or treated mass associated with the left kidney. EXAM DESCRIPTION: US - Extrem Venous W Compress Hugo - 01/20/2022 8:02 pm CLINICAL HISTORY: SWELLING COMPARISON: Extremity Venous Uni Ltd dated 08/22/2021 TECHNIQUE: Real-time sonographic evaluation of the lower extremity deep venous systems was performed using color Doppler, grayscale, and compression. FINDINGS: Bilateral lower extremities. Normal compressibility, flow augmentation, phasic flow and spontaneous flow is identified in both the left and right lower extremity deep venous systems. No intraluminal filling defects seen. IMPRESSION: No DVT in either lower extremity. Conclusions/Impression: JAISON likely CRS CKD III with proteinuria -No NSAIDs -Continue diuresis HTN with CKD/ CHF -Continue Metoprolol and Hydralazine Diastolic CHF, A/C Anasarca -Low sodium diet -Continue Furosemide and Spironolactone -Metolazone X1 dose (Give potassium) -Daily weight DM II with CKD & Polyneuropathy -RISS Anemia in chronic illness -Retacrit X1 CKD MBD -Start Vitamin D Case reviewed with Dr. Monique Thank you kindly for the consultation.
[2022-01-21] MEDS: HEPARIN 5000 UNIT/ML 1 ML VIAL SQ SCH ×2 (08:30→20:55)
[2022-01-21] MEDS: SPIRONOLACTONE 25 MG TABLET PO SCH (08:36)
[2022-01-21] MEDS: HYDRALAZINE HCL 25 MG TABLET PO SCH ×2 (08:36→20:18)
[2022-01-21] MEDS: PANTOPRAZOLE 40MG TABLET PO SCH (08:36)
[2022-01-21] MEDS: allopurinoL 300 MG TAB PO SCH (08:37)
[2022-01-21] MEDS: FUROSEMIDE 40 MG/4 ML VIAL IV SCH ×2 (08:37→17:06)
[2022-01-21] MEDS: ATORVASTATIN 80 MG TAB PO SCH (08:37)
[2022-01-21] MEDS ORDERED: METOLAZONE 5 MG TABLET PO ONE (10:19)
[2022-01-21] MEDS ORDERED: POTASSIUM CL SA 10 MEQ TAB PO ONE (10:20)
[2022-01-21] MEDS ORDERED: EPOETIN ALFA-EPBX 10,000 UNIT/ML VIAL SQ ONE (10:30)
--- NOTE | 2022-01-21 14:18 | ECHO ---
HEIGHT: 5 ft 11 in WEIGHT: 199 lb 1 oz DATE OF STUDY: 01/21/[address]: Sergo Ward MD 2-DIMENSIONAL: YES M.MODE: YES DOPPLER: YES COLOR FLOW: YES TDS: PORTABLE: YES DEFINITY: BUBBLE STUDY: DIAGNOSIS: DYSPNEA CARDIAC HISTORY: CATHERIZATION: SURGERY: PROSTHETIC VALVE: PACEMAKER: MEASUREMENTS (cm) DIASTOLIC (NORMALS) SYSTOLIC (NORMALS) IVSd 1.2 (0.6-1.2) LA Diam 4.1 (1.9-4.0) LVEF 52% LVIDd 4.6 (3.5-5.7) LVIDs 3.3 (2.0-3.5) %FS 27% LVPWd 1.2 (0.6-1.2) Ao Diam 2.6 (2.0-3.7) 2 DIMENSIONAL ASSESSMENT: RIGHT ATRIUM: NORMAL LEFT ATRIUM: DILATED RIGHT VENTRICLE: NORMAL LEFT VENTRICLE: NORMAL TRICUSPID VALVE: NORMAL MITRAL VALVE: NORMAL PULMONIC VALVE: NORMAL AORTIC VALVE: NORMAL PERICARDIAL EFFUSION: NONE AORTIC ROOT: NORMAL LEFT VENTRICULAR WALL MOTION: NORMAL DOPPLER/COLOR FLOW: NORMAL COMMENTS: NORMAL 2-DIMENSIONAL ECHOCARDIOGRAM WITH DOPPLER. NO WALL MOTION ABNORMALITY. NO EFFUSION. TECHNOLOGIST: MANOLO CAPELLAN
[2022-01-21] MEDS: DOCUSATE NA 100 MG CAP PO SCH (20:18)
[2022-01-22 04:51] LABS: Absolute Lymphocytes (CBC) 0.6 K/uL (0.7-4.9); Hematocrit 28.7 % (39.6-49.0); Lymphocytes % 16.2 % (15.3-44.8); MCV 88.1 fL (80-100); MPV 8.3 fL (7.6-11.3); RBC Red Blood Cell Count 3.26 M/uL (4.33-5.43)
[2022-01-22 05:18] LABS: Albumin 3.3 g/dL (3.4-5.0); Bilirubin Total 0.4 mg/dL (0.2-1.0); Potassium 3.8 mmol/L (3.5-5.1); Protein, Total 6.5 g/dL (6.4-8.2)
[2022-01-22] MEDS: METOPROLOL TAR 25 MG TAB PO SCH (06:27)
[2022-01-22] MEDS: INSULIN -REGULAR HUMAN 50 UNIT/0.5 ML ML SQ SCH (07:30)
[2022-01-22] MEDS: SPIRONOLACTONE 25 MG TABLET PO SCH (08:45)
[2022-01-22] MEDS: PANTOPRAZOLE 40MG TABLET PO SCH (08:45)
--- NOTE | 2022-01-22 08:45 | P.DS ---
Admission Date: 01/21/22 Discharge Date: 01/22/22 Disposition: ROUTINE DISCHARGE Discharge Condition: GOOD Reason for Admission: Dyspnea Consultations: Nephrology - Dr. Ivey Brief History of Present Illness: 66-year-old male history of diabetes mellitus type 2insulin-dependent, CKD 3, chronic diastolic congestive heart failure presents emerged department for dyspnea. He typically takes Bumex at home for the past 4 days he is also been taking spironolactone which was given to him by his occupational therapy co director as he reported some edema in his legs, he reports the swelling in his legs is gotten slightly better but he has been having significant shortness of breath over the course of the last 1 to 2 days especially with exertion. He was evaluated in the emergency department his labs were significant for stable CKD, elevated BNP and elevated D-dimer ultrasound of the lower extremities bilaterally negative for DVT chest x-ray was unremarkable CT of the abdomen without contrast was performed which revealed anasarca including moderate pleural effusions, ascites and body wall edema as well as findings from his previous left-sided renal mass. ED prior wishes to admit for further evaluation and management of acute on chronic diastolic just heart failure, dyspnea. He was given IV Lasix in the emergency department. 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 Nephrology was consulted He responded well to IV diuretics and was feeling much better / breathing comfortably on room air. Renal function remained stable. Discharged home to increase bumex from 1mg daily to 2mg daily, continue spironolactone 25mg daily. continue other home medications as prescribed. Follow up with Nephrology as scheduled Vital Signs/Physical Exam: Temp Pulse Resp BP Pulse Ox 97.3 F 80 19 155/64 H 95 01/22/22 04:00 01/22/22 06:27 01/22/22 04:00 01/22/22 06:27 01/22/22 04:00 General: Alert, In no apparent distress, Oriented x3 HEENT: Mucous membr. moist/pink, Sclerae nonicteric Neck: Supple, No LAD Respiratory: Clear to auscultation bilaterally, Normal air movement Cardiovascular: Regular rate/rhythm, Edema (mild bilateral lower extremity) Gastrointestinal: Soft and benign, Non-distended, No tenderness Musculoskeletal: No contractures, No tenderness Integumentary: No rashes, No breakdown, No significant lesion Neurological: Normal speech, Normal affect Laboratory Data at Discharge: WBC 3.9 K/uL (4.3-10.9) L 01/22/22 04:21 Hgb 10.0 g/dL (13.6-17.9) L 01/22/22 04:21 Hct 28.7 % (39.6-49.0) L 01/22/22 04:21 Plt Count 111 K/uL (152-406) L 01/22/22 04:21 PT 12.8 SECONDS (9.5-12.5) H 01/20/22 18:45 INR 1.16 01/20/22 18:45 Sodium 141 mmol/L (136-145) 01/22/22 04:21 Potassium 3.8 mmol/L (3.5-5.1) 01/22/22 04:21 BUN 48 mg/dL (7-18) H 01/22/22 04:21 Creatinine 1.72 mg/dL (0.55-1.3) H 01/22/22 04:21 Glucose 110 mg/dL (74-106) H 01/22/22 04:21 Magnesium 2.7 mg/dL (1.8-2.4) H 01/20/22 18:45 Total Bilirubin 0.4 mg/dL (0.2-1.0) 01/22/22 04:21 AST 19 U/L (15-37) 01/22/22 04:21 ALT 32 U/L (12-78) 01/22/22 04:21 Alkaline Phosphatase 268 U/L (45-117) H 01/22/22 04:21 Home Medications: Atorvastatin Calcium [Lipitor] 80 mg PO DAILY 05/10/21 Gabapentin 300 mg PO BEDTIME 05/10/21 Allopurinol 300 mg PO DAILY 08/06/21 Metoprolol Tartrate [Lopressor*] 25 mg PO BID 6AM 6PM #60 tab 08/06/21 Pantoprazole [Protonix Tab*] 40 mg PO DAILY 08/06/21 Spironolactone [Aldactone*] 25 mg PO DAILY #30 tab 08/06/21 Acetaminophen/Diphenhydramine [Tylenol Pm Exstr 500-25Mg Cplt] 2 each PO BEDTIME PRN PRN 01/20/22 Bisacodyl [Dulcolax*] 10 mg RC DAILY PRN 01/20/22 Hydralazine HCl 100 mg PO BID 01/20/22 Insulin Glargine,Hum.rec.anlog [Basaglar Kwikpen U-100] 24 unit SQ BEDTIME 01/20/22 Insulin Glargine,Hum.rec.anlog [Basaglar Kwikpen U-100] 24 unit SQ DAILY 01/20/22 Bumetanide [Bumex] 1 tab PO DAILY 30 Days #30 tablet 01/22/22 New Medications: Bumetanide [Bumex] 1 tab PO DAILY 30 Days #30 tablet Followup: Cb Ivey DO [ACTIVE - CAN ADMIT] - Elbert Pang MD [Primary Care Provider] - Time spent managing pt's care (in minutes): 40
[2022-01-22] MEDS: HYDRALAZINE HCL 25 MG TABLET PO SCH (08:46)
[2022-01-22] MEDS: FUROSEMIDE 40 MG/4 ML VIAL IV SCH (08:46)
[2022-01-22] MEDS: allopurinoL 300 MG TAB PO SCH (08:46)
[2022-01-22] MEDS: HEPARIN 5000 UNIT/ML 1 ML VIAL SQ SCH (08:46)
[2022-01-22] MEDS: DOCUSATE NA 100 MG CAP PO SCH (08:46)
[2022-01-22] MEDS: ATORVASTATIN 80 MG TAB PO SCH (08:46)
[2022-01-22] MEDS ORDERED: VITAMIN D 5,000 UNIT CAP PO SCH (09:00)
[2022-01-22] MEDS ORDERED: COENZYME Q10- 200 MG CAP PO SCH (09:00)
[2022-01-22 09:04] VITALS: BP 148/72; TEMP 97.9
--- NOTE | 2022-01-22 13:34 | CON ---
Date of Consultation: 01/21/2022 Reason For Consultation: Shortness of breath. History Of Present Illness: Mr. Pritchard is a 66-year-old male with history of diabetes, hypertensi on, neuropathy, peripheral vascular disease, CVA, lymphedema, and congestive heart failure. He was a dmitted with shortness of breath for about 2 days' duration that has been worse. His symptoms are wo rse on exertion. He did not have any chest pain, nausea, vomiting, diaphoresis. He did not have any nausea or vomiting. He did not have any fever or chills, but has had PND, orthopnea, pedal edema. No palpitations or syncope. Allergies: HE IS ALLERGIC TO HALDOL. Past Medical History: As stated above. Review of Systems: Negative. Social History: Negative. Family History: Negative. Medications: At home include Protonix, allopurinol, Lipitor, hydralazine, insulin, nifedipine. Physical Examination: Vital Signs: When I saw him; his vital signs were stable, afebrile. HEENT: Negative. Neck: Supple with no bruit. Chest: Revealed some rales both bases. Cardiac: Revealed a regular rhythm and rate with S4 gallops. No murmurs or rubs. Abdomen: Benign. Extremities: Revealed no clubbing, cyanosis. He had trace edema. Diagnostic Data: Creatinine is 1.66. His hemoglobin was 10.2. His D-dimer was 599. His BNP was 20 10. Chest x-ray was normal. EKG showed normal sinus rhythm with nonspecific changes. Abdominal CT showed anasarca with mild pleural effusion, ascites, and body wall edema. Venous Doppler was normal. Echocardiogram showed an ejection fraction of 52% without any wall motion abnormalities. Nephrolog y had seen the patient because he has chronic renal disease, stage 3. He has a left renal hydronephr osis secondary to prior surgery and recommended diuresis, metoprolol, hydralazine, low sodium, furose mide, spironolactone. Metolazone was given for 1 dose. Vitamin D was started. Impression And Plan: Anasarca secondary to chronic renal disease and hypertension, diastolic congest elisa heart failure, diabetes, anemia. He also has a history of cerebrovascular accident, peripheral v ascular disease, lymphedema, neuropathy as well as diabetes. I agree with his present regimen right now. I think he needs to follow up with us as an outpatient. He should probably have a stress test sometime in the near future. He can go home whenever it is okay with Dr. Monique. KYLAH/SALAZAR Voice ID: [id number] Report ID: [id number]
== END 2022-01-22 09:42 | disposition home or self-care (01) | DRG 291 ==
LOC: ER 18:19 → ERHOLD 21:07 → 4TH 21:37 → OBSVTOIN 01-21 13:09
PROVIDERS: ADMIT Hospitalist; ATTEND Hospitalist
DX: I13.0 Hypertensive heart and chronic kidney disease with heart failure and stage 1 through stage 4 chronic kidney disease, or unspecified chronic kidney disease (principal); I50.33 Acute on chronic diastolic (congestive) heart failure; N17.9 Acute kidney failure, unspecified; N13.30 Unspecified hydronephrosis; E11.22 Type 2 diabetes mellitus with diabetic chronic kidney disease; E11.65 Type 2 diabetes mellitus with hyperglycemia; N18.30 Chronic kidney disease, stage 3 unspecified; Z79.4 Long term (current) use of insulin; Z86.73 Personal history of transient ischemic attack (TIA), and cerebral infarction without residual deficits; K21.9 Gastro-esophageal reflux disease without esophagitis; D63.1 Anemia in chronic kidney disease; F32.A Depression, unspecified; E78.5 Hyperlipidemia, unspecified; N28.89 Other specified disorders of kidney and ureter; Z85.820 Personal history of malignant melanoma of skin; E11.42 Type 2 diabetes mellitus with diabetic polyneuropathy
CPT/HCPCS: 36415; 71045; 74176; 76377; 80048; 80053; 80076; 81003; 81015; 82947; 83605; 83735; 83880; 84484; 85025; 85379; 85610; 87040; 87804; 93005; 93306; 93970; 96374; 99285; G0378; J1644; J1815; J1940; Q5106; U0003

== ENCOUNTER 2022-01-27 20:37 | Emergency (ER) | payer OTHER ==
--- OUTSIDE RECORDS SUMMARY | 2022-01-27 20:54 | XMS REPORT | Clinical Summary ---
:1955 Author Organization [facility] Address [facility] [place] [address] Care Team Providers Name Role Phone Unavailable Primary Care Provider Unavailable Allergies Not on File Medications Not on file Active Problems Not on file Encounters Date Type Specialty Care Team Description 02/07/2021 Travel after 01/27/2021 Social History Tobacco Use Types Packs/Day Years Used Date Never Assessed Sex Assigned at Date Recorded Not on file Job Start Date Occupation Industry Not on file Not on file Not on file Last Filed Vital Signs Not on file Plan of Treatment Not on file Results Not on fileafter 01/27/2021 Insurance Payer Benefit Plan / Subscriber ID Effective Dates Phone Addre ss Type Group [employer]NA MEDICARE AETNA MEDICARE [id number] 2020-Prese [address] [place] [address]
[2022-01-27 21:42] LABS: Absolute Lymphocytes (CBC) 0.8 K/uL (0.7-4.9); Hematocrit 31.1 % (39.6-49.0); Lymphocytes % 12.1 % (15.3-44.8); RBC Red Blood Cell Count 3.47 M/uL (4.33-5.43)
[2022-01-27 22:00] LABS: Albumin 3.6 g/dL (3.4-5.0); Bilirubin Total 0.4 mg/dL (0.2-1.0); Potassium 4.1 mmol/L (3.5-5.1); Protein, Total 7.1 g/dL (6.4-8.2)
[2022-01-27] MEDS ORDERED: MORPHINE 2 MG/ML SYR ONE (22:46)
[2022-01-27] MEDS ORDERED: NA CHLORIDE 0.9% 100 ML ONE (22:47)
[2022-01-27] MEDS ORDERED: METHOCARBAMOL 1,000 MG/10 ML VIAL IV ONE (22:47)
--- NOTE | 2022-01-28 00:44 | ER ---
Nurse's Notes [facility] Name: Torey Pritchard Age: 66 yrs Sex: Male : 1955 Arrival Date: 01/27/2022 Time: 20:37 Bed 15 Private MD: Diagnosis: Right Flank Pain Presentation: 01/27 21:02 Chief complaint: Patient states: last night I could not lay down at all because my kd3 right ribs feel like im being stabbed. it hurts so bad. it has gotten worse today. i have not injured myself at all. Coronavirus screen: Vaccine status: Patient reports receiving the 2nd dose of the covid vaccine. Ebola Screen: No symptoms or risks identified at this time. Initial Sepsis Screen: Does the patient meet any 2 criteria? No. Patient's initial sepsis screen is negative. Does the patient have a suspected source of infection? No. Patient's initial sepsis screen is negative. Risk Assessment: Do you want to hurt yourself or someone else? Patient reports no desire to harm self or others. Onset of symptoms was January 27, 2022. 21:02 Method Of Arrival: Wheelchair kd3 21:02 Acuity: MARNI 3 kd3 Triage Assessment: 21:02 General: Appears uncomfortable, ill, Behavior is calm, cooperative. Pain: Complains of kd3 pain in right upper quadrant, right ribs. Historical: - Allergies: 21:01 Haloperidol; kd3 - PMHx: 21:01 CHF; CVA; Diabetes - NIDDM; lymphedema; neuropathy; PVD; Kidney disease; cancer; kd3 - Immunization history:: Adult Immunizations up to date. - Social history:: Smoking status: Patient denies any tobacco usage or history of. Screenin:05 Abuse screen: Denies threats or abuse. Denies injuries from another. Nutritional kd3 screening: No deficits noted. Tuberculosis screening: No symptoms or risk factors identified. Fall Risk Gait- Weak (10 pts.). Assessment: 21:33 General: Appears in no apparent distress. Behavior is appropriate for age. Pain: ke1 Complains of pain in right flank Pain currently is 3 out of 10 on a pain scale. at worst was 10 out of 10 on a pain scale. Quality of pain is described as aching, Aggravated by exercise, increased activity, repositioning. Neuro: Level of Consciousness is awake, alert, Oriented to person, place, time, situation. GI: Bowel sounds present X 4 quads. Abd is soft Abd is non tender X 4 quads. 01/28 00:39 Reassessment: Patient able to ambulate safely in hallway. no sign of dizziness nor ke1 lower extremities weaknesss. Vital Signs: 01/27 21:02 Resp 18; Weight 88.45 kg; Height 5 ft. 11 in. (180.34 cm); Pain 5/10; kd3 21:06 BP 132 / 55; Pulse 73; Resp 17; Temp 97.9; Pulse Ox 100% ; kd3 23:30 Pain 2/10; ke1 21:02 Body Mass Index 27.20 (88.45 kg, 180.34 cm) kd3 ED Course: 20:37 Patient arrived in ED. as 21:02 Arm band placed on right wrist. kd3 21:04 Brandan Doe MD is Attending Physician. kdr 21:04 Triage completed. kd3 21:05 Patient has correct armband on for positive identification. kd3 21:13 Madelyn Berrios, CHRISTIAN is Primary Nurse. ke1 21:31 Inserted saline lock: 20 gauge in right forearm, using aseptic technique. ke1 22:27 Abdomen In Process Unspecified. EDMS 01/28 00:52 No provider procedures requiring assistance completed. IV discontinued. ke1 Administered Medications: 01/27 22:28 CANCELLED (Physician Discretion): bebtelovimab 1 vials IV at calculated rate once bb 22:51 Drug: Robaxin (methocarbamol) 1 grams Route: IVPB; Infused Over: 1 hrs; Site: right ke1 forearm; 01/28 00:53 Follow up: Response: No adverse reaction; IV Status: Completed infusion ke1 01/27 22:51 Drug: morphine 2 mg Route: IVP; Infused Over: 4 mins; Site: right forearm; ke1 23:30 Follow up: Pain 2/10 Adult; Response: Marked relief of symptoms ke1 Medication: 01/28 00:53 VIS not applicable for this client. ke1 Outcome: 00:43 Discharge ordered by . kdr 00:52 Discharged to home ambulatory. ke1 00:52 Condition: good 00:52 Discharge instructions given to patient. 00:54 Patient left the ED. ke1 Signatures: Dispatcher [employer] Brandan Richmond MD MD kdr Martinez, Amelia as Doucette, Kyli, RN RN kd3 Madelyn Berrios RN RN ke1 Arelis Longo RN bb Corrections: (The following items were deleted from the chart) 01/27 21:04 21:00 Chief complaint: [email or web address] clark3
--- NOTE | 2022-01-28 00:44 | EDPHYS ---
Physician Documentation [facility] Name: Torey Pritchard Age: 66 yrs Sex: Male : 1955 Arrival Date: 01/27/2022 Time: 20:37 Bed 15 Private MD: ED Physician Brandan Doe HPI: 01/28 19:33 This 66 yrs old Male presents to ER via Wheelchair with complaints of Flank Pain, kdr Abdominal Pain. 19:33 The patient c/o pain to the right flank and lateral thorax. It began last night and kdr persisted through today becoming somewhat worse. He denies injury. Onset: The symptoms/episode began/occurred yesterday. Severity of symptoms: At their worst the symptoms were mild moderate just prior to arrival, in the emergency department the symptoms are unchanged. The patient has not experienced similar symptoms in the past. The patient has not recently seen a physician. Historical: - Allergies: 01/27 21:01 Haloperidol; kd3 - PMHx: 21:01 CHF; CVA; Diabetes - NIDDM; lymphedema; neuropathy; PVD; Kidney disease; cancer; kd3 - Immunization history:: Adult Immunizations up to date. - Social history:: Smoking status: Patient denies any tobacco usage or history of. ROS: 01/28 19:33 Constitutional: Negative for fever, chills, and weight loss, Eyes: Negative for injury, kdr pain, redness, and discharge, Neck: Negative for injury, pain, and swelling, Respiratory: Negative for shortness of breath, cough, wheezing, and pleuritic chest pain, Back: Negative for injury and pain, : Negative for injury, bleeding, discharge, and swelling, MS/Extremity: Negative for injury and deformity, Skin: Negative for injury, rash, and discoloration, Neuro: Negative for headache, weakness, numbness, tingling, and seizure activity. Psych: Negative for depression, anxiety, suicide ideation, homicidal ideation, and hallucinations, Allergy/Immunology: Negative for hives, rash, and allergies, Endocrine: Negative for neck swelling, polydipsia, polyuria, polyphagia, and marked weight changes, Hematologic/Lymphatic: Negative for swollen nodes, abnormal bleeding, and unusual bruising. Cardiovascular: Positive for chest pain, with cough, with movement, of the right lateral anterior chest and right lateral posterior chest, Negative for edema, orthopnea, palpitations. Abdomen/GI: Positive for abdominal pain, of the anterior aspect of right lateral abdomen and posterior aspect of right lateral abdomen. Exam: 19:33 Constitutional: This is a well developed, well nourished patient who is awake, alert, kdr and in no acute distress. Head/Face: Normocephalic, atraumatic. Eyes: Pupils equal round and reactive to light, extra-ocular motions intact. Lids and lashes normal. Conjunctiva and sclera are non-icteric and not injected. Cornea within normal limits. Periorbital areas with no swelling, redness, or edema. Neck: Trachea midline, no thyromegaly or masses palpated, and no cervical lymphadenopathy. Supple, full range of motion without nuchal rigidity, or vertebral point tenderness. No Meningismus. Chest/axilla: Normal chest wall appearance and motion. Nontender with no deformity. No lesions are appreciated. Cardiovascular: Regular rate and rhythm with a normal S1 and S2. No gallops, murmurs, or rubs. Normal PMI, no JVD. No pulse deficits. Respiratory: Lungs have equal breath sounds bilaterally, clear to auscultation and percussion. No rales, rhonchi or wheezes noted. No increased work of breathing, no retractions or nasal flaring. Abdomen/GI: Soft, non-tender, with normal bowel sounds. No distension or tympany. No guarding or rebound. No evidence of tenderness throughout. Back: No spinal tenderness. No costovertebral tenderness. Full range of motion. Skin: Warm, dry with normal turgor. Normal color with no rashes, no lesions, and no evidence of cellulitis. MS/ Extremity: Pulses equal, no cyanosis. Neurovascular intact. Full, normal range of motion. Neuro: Awake and alert, GCS 15, oriented to person, place, time, and situation. Cranial nerves II-XII grossly intact. Motor strength 5/5 in all extremities. Sensory grossly intact. Cerebellar exam normal. Normal gait. Psych: Awake, alert, with orientation to person, place and time. Behavior, mood, and affect are within normal limits. Vital Signs: 01/27 21:02 Resp 18; Weight 88.45 kg; Height 5 ft. 11 in. (180.34 cm); Pain 5/10; kd3 21:06 BP 132 / 55; Pulse 73; Resp 17; Temp 97.9; Pulse Ox 100% ; kd3 23:30 Pain 2/10; ke1 21:02 Body Mass Index 27.20 (88.45 kg, 180.34 cm) kd3 MDM: 01/28 00:13 ED course: Patient was stable in the ED. I reviewed all laboratory data with him. We kdr specifically discussed the conflict between the CT report showing pancreatitis versus his exam which was negative for left upper quadrant pain as well as his lipase which was low. Patient has a history of chronic kidney issues and his BUN/creatinine were not a surprise to the patient. He otherwise was did not appear in any acute distress and was able to ambulate in the department without difficulty. 00:43 Patient medically screened. kdr 19:33 Data reviewed: vital signs, nurses notes, lab test result(s), radiologic studies. kdr Counseling: I had a detailed discussion with the patient and/or guardian regarding: the historical points, exam findings, and any diagnostic results supporting the discharge/admit diagnosis, lab results, radiology results, the need for outpatient follow up. 01/27 21:04 Order name: CBC with Diff; Complete Time: 22:04 kdr 01/27 21:04 Order name: CMP; Complete Time: 22:12 kdr 01/27 21:04 Order name: Lipase; Complete Time: 22:12 kdr 01/27 21:57 Order name: CT Abd/Pelvis - IV Contrast Only kdr 01/27 22:15 Order name: Abdomen EDMS 01/27 21:04 Order name: IV Saline Lock; Complete Time: 21:31 kdr 01/27 21:04 Order name: Labs collected and sent; Complete Time: 21:31 kdr Administered Medications: 01/27 22:28 CANCELLED (Physician Discretion): bebtelovimab 1 vials IV at calculated rate once bb 22:51 Drug: Robaxin (methocarbamol) 1 grams Route: IVPB; Infused Over: 1 hrs; Site: right ke1 forearm; 01/28 00:53 Follow up: Response: No adverse reaction; IV Status: Completed infusion ke1 01/27 22:51 Drug: morphine 2 mg Route: IVP; Infused Over: 4 mins; Site: right forearm; ke 23:30 Follow up: Pain 2/10 Adult; Response: Marked relief of symptoms ke1 Disposition Summary: 01/28/22 00:43 Discharge Ordered Location: Home kdr Problem: new kdr Symptoms: have improved kdr Condition: Stable kdr Diagnosis - Right Flank Pain kdr Followup: kdr - With: Private Physician - When: 2 - 3 days - Reason: If symptoms return, Further diagnostic work-up, Recheck today's complaints, Continuance of care, Re-evaluation by your physician Discharge Instructions: - Discharge Summary Sheet kdr - Flank Pain, Adult, [id number] kdr Forms: - Medication Reconciliation Form kdr - Thank You Letter kdr - Prescription Opioid Use kdr Prescriptions: - Tramadol 50 mg Oral Tablet - take 1 tablet by ORAL route every 8 hours as needed; 12 tablet; Refills: 0, kdr Product Selection Permitted Signatures: Dispatcher [employer] EDMS Brandan Doe MD MD kdr Doucette, Kyli RN RN kd3 Madelyn Berrios RN RN ke1 Arelis Longo RN bb Corrections: (The following items were deleted from the chart) 22:15 22:01 Abdomen ordered. EDMS EDMS 22:28 22:27 bebtelovimab 1 vials IV at calculated rate once ordered. kdr bb
[2022-01-28 02:16] VITALS: BP 132/55; TEMP 97.9; O2SAT 100
--- NOTE | 2022-01-28 13:52 | RAD REPORT ---
EXAM DESCRIPTION: CT - Abdomen Pelvis Wo Contrast - 01/28/2022 6:34 am CLINICAL HISTORY: Flank pain COMPARISON: CT abdomen and pelvis without contrast 01/20/2022. TECHNIQUE: Axial unenhanced CT imaging of the abdomen and pelvis performed. Reformatted coronal and sagittal images reviewed. A dose reduction technique was utilized with automated exposure control acc ording to patient size. FINDINGS: Small layering bilateral pleural effusions. 3 mm calcified right lower lobe lung nodule co mpatible with granuloma. Heart is normal in size. There is small pericardial effusion. There are zenaida nary artery calcifications. Unremarkable liver. No biliary dilatation or mass. Minimal pericholecysti c edema. The gallbladder wall appears mildly thickened. Spleen is minimally enlarged. There is genera lized pancreatic atrophy. Mild diffuse peripancreatic edema. No duct dilatation or mass. Normal adren al glands. Lateral right renal 3 cm simple appearing cysts. There is a confluent soft tissue collecti on along the medial aspect of the left kidney extending from the left renal pelvis and medial left re nal cortex of the left periaortic soft tissues, contiguous with the aorta. This measures approximatel y 7.3 x 7.8 x 11.2 cm. This has increased since reference exam. There are aortocaval enlarged lymph n odes also present without interval change. There is significant abdominal aorta atherosclerosis. No a neurysm. Normal caliber inferior vena cava. Unremarkable stomach. Normal small bowel loops. Normal ap pendix in the right lower quadrant. Unremarkable colon. There is no free air. There is mild perihepat ic perisplenic ascites. Unremarkable bladder. Normal prostate. Minimal pelvic free fluid. No pelvic a denopathy. Minimally enlarged bilateral pleural effusions with preserved fatty hilum, likely reactive . There is moderate lower thoracic and lumbar spondylosis. Bony pelvis and hips appear normal. IMPRESSION: 1. Mild generalized pancreatitis. No mass, necrosis or pseudocyst evident. 2. Small laye ring bilateral pleural effusions. Minimal pericardial effusion. 3. Mild generalized ascites. 4. Large confluent medial left retroperitoneal soft tissue collection along the medial left kidney to the lef t periaortic space, slightly increased. Differential includes lymphoma, renal or urothelial neoplasm. Fungal disease can also have this appearance. 5. Right renal cyst. No follow-up needed. Electronically signed by: Emiliana Booth DO 01/27/2022 10:57 PM CDT Due to temporary technical issues with the PACS/Fluency reporting system, reports are being signed by the in house radiologist without review as a courtesy to ensure prompt reporting. The interpreting r adiologist is fully responsible for the content of the report.
== END 2022-01-28 00:54 | disposition home or self-care (01) ==
LOC: ER 20:37
DX: R10.9 Unspecified abdominal pain (principal); E11.22 Type 2 diabetes mellitus with diabetic chronic kidney disease; N18.9 Chronic kidney disease, unspecified; Z88.5 Allergy status to narcotic agent
CPT/HCPCS: 85025; 36415; 83690; 80053; 74176; J2270; J2800

== ENCOUNTER 2022-04-13 23:10 | Emergency (ER) | payer OTHER ==
--- OUTSIDE RECORDS SUMMARY | 2022-04-13 23:12 | XMS REPORT | Clinical Summary ---
:1955 Author Organization [facility] Address [address] [place] [id number] Care Team Providers Name Role Phone Unavailable Primary Care Provider Unavailable Allergies Not on File Medications Not on file Active Problems Not on file Social History Tobacco Use Types Packs/Day Years Used Date Never Assessed Sex Assigned at Date Recorded Not on file Job Start Date Occupation Industry Not on file Not on file Not on file Last Filed Vital Signs Not on file Plan of Treatment Not on file Results Not on fileafter 04/13/2021 Insurance Payer Benefit Plan / Subscriber ID Effective Dates Phone Addre ss Type Group [employer] MEDICARE A[employer]NA MEDICARE [id number] 2020-Prese [id number] [place] [address]
--- OUTSIDE RECORDS SUMMARY | 2022-04-13 23:13 | XMS REPORT | Continuity of Care Document ---
:1955 Author Organization [facility] t Address [address] [place] [address] Care Team Providers Name Role Phone NUNU HALL Attending Clinician Unavailable FREDI LEUNG Attending Clinician Unavailable EDD SHARMA Attending Clinician Unavailable QING EDMOND Attending Clinician Unavailable NATALIIA MEDRANO Attending Clinician Unavailable SUAD VELASCO Attending Clinician Unavailable MD NUNU HALL Attending Clinician Unavailable VAUGHN OLIVARES Attending Clinician Unavailable MD PONCHO FIERRO Attending Clinician Unavailable MD QING EDMOND Attending Clinician Unavail able MD SUAD VELASCO Attending Clinician Unavailable PONCHO FIERRO Attending Clinician Unavailable JILL NEVAREZ Attending Clinician Unavailable Sal Ellis MD Attending Clinician SAL ELLIS Attending Clinician Unavailable SAL ELLIS Attending Clinician Unavailable DEA ENNIS Admitting Clinician Unavailable SUAD VELASCO Admitting Clinician Unavailable NUNU HALL Admitting Clinician Unavailable MD NUNU HALL Admitting Clinician Unavailable PONCHO FIERRO Admitting Clinician Unavailable MD PONCHO FIERRO Admitting Clinician Unavailable MD SUAD VELASCO Admitting Clinician Unavailable Payers Payer Name Policy Type Policy Number Effective Date Expiration Date S ource Problems Condition Condition Condition Status Onset Resolution Last Treating Co mments Source Name Details Category Date Date Treatment Clinician Date No known No known Disease Unive rs active active ity of problems problems [facility] Allergies, Adverse Reactions, Alerts Allergy Allergy Status Severity Reaction(s) Onset Inactive Treating Comm ents Source Name Type Date Date Clinician [place] Drug Active Anaphylaxis 2014-08 Cardiac Un olvin dol Allergy 08-22 arrestcod ity of 00:00: ed [address] HALOPERI DRUG Active High Anaphylaxis 2014-08 Uni vers DOL INGREDI 08-22 ity of 00:00: [address] CEFTRIAX DRUG Active Low N/V 2014-08 Univers ONE INGREDI 08-22 ity of 00:00: [address] Ceftriax Propensi Active Nausea 2014-08 High Univer s one ty to and/or 08-22 blood ity of adverse Vomiting 00:00: sugar, [place] reaction 00 [facility] ed by other hospital. Per patient his blood glucose "went alice high" NO KNOWN Drug Active Univers ALLERGIE Class ity of [facility] Social History Social Habit Start Date Stop Date Quantity Comments Source Exposure to Not sure [facility] SARS-CoV-2 (event) Medica Branch Sex Assigned At [birth year] [facility] 00:00:00 00:00:00 MD Aleman [facility] Smoking Status Start Date Stop Date Source Unknown if ever smoked [facility] Medications Ordered Filled Start Stop Current Ordering Indication Dosage Frequency Signature Comments Components Source Medication Medication Date Date Medication? Clinician (SIG) Name Name Chromium Yes 800mg Take 800 Univ ers Picolinate 4-06 mg by ity of 400 mcg Tab 15:00: mouth. [address] Cinnamon Yes 1000mg Take 1,000 U nivers Bark 500 mg 4-06 mg by ity of Cap 15:00: mouth. [address] Garlic Yes 1{capsu Take 1 Univer s (GARLIC 4-06 le} capsule by ity of OIL) 1,000 15:00: mouth. [address] Chromium Yes 800mg Take 800 Univ ers Picolinate 4-06 mg by ity of 400 mcg Tab 15:00: mouth. [address] Cinnamon Yes 1000mg Take 1,000 U nivers Bark 500 mg 4-06 mg by ity of Cap 15:00: mouth. [address] Garlic Yes 1{capsu Take 1 Univer s (GARLIC 4-06 le} capsule by ity of OIL) 1,000 15:00: mouth. [place] mg Cap 42 Medical Branch metoprolol Yes Univers succinate 4-05 ity of XL 50 mg 24 00:00: [place] hr tablet 00 Medical [facility] metoprolol Yes Univers succinate 4-05 ity of XL 50 mg 24 00:00: [place] hr tablet 00 Medical Branch [facility] 10 Yes Univers mg tablet 3-31 ity of 00:00: [place] 00 Medical Branch [facility] 10 Yes Univers mg tablet 3-31 ity of 00:00: [place] 00 Medical Branch metformin Yes 750mg Take 750 Uni vers [...] CAPSULES ity of capsule 00:00: BY MOUTH [place] 00 TWICE A Medical DAY Branch VASCEPA 1 Yes TAKE 2 Univer s gram 3-08 CAPSULES ity of capsule 00:00: BY MOUTH [place] 00 TWICE A Medical DAY Branch atorvastati [...] every [place] 00 morning. Medical Branch gabapentin 2020-0 Yes 600mg Take 600 Un olvin 600 mg 1-14 mg by ity of tablet 00:00: mouth at [place] 00 bedtime. Medical Branch gabapentin 2020-0 Yes 600mg Take 600 Un olvin 600 mg 1-14 mg by ity of tablet 00:00: mouth at [place] 00 bedtime. Medical Branch Vital Signs Vital Name Observation Time Observation Value Comments Source Systolic blood 2020-11-05 15:00:00 170 mm[Hg] Univer [facility] Diastolic blood 2020-11-05 15:00:00 68 mm[Hg] Unive [facility] Heart rate 2020-11-05 15:00:00 70 /min Universi ty [facility] Body height 2020-11-05 14:58:00 182.9 cm Universi ty [facility] Body weight 2020-11-05 14:58:00 91.627 kg Universi ty [facility] BMI 2020-11-05 14:58:00 27.40 kg/m2 Universi ty [facility] Oxygen saturation 2020-11-05 14:58:00 100 /min Uni versity of [place] in Arterial blood Medical Br anch by Pulse oximetry Systolic blood 2020-11-05 15:00:00 170 mm[Hg] Univer [facility] Diastolic blood 2020-11-05 15:00:00 68 mm[Hg] Unive [facility] Heart rate 2020-11-05 15:00:00 70 /min Universi ty [facility] Body height 2020-11-05 14:58:00 182.9 cm Universi ty [facility] Body weight 2020-11-05 14:58:00 91.627 kg Universi ty [facility] BMI 2020-11-05 14:58:00 27.40 kg/m2 Universi ty [facility] Oxygen saturation 2020-11-05 14:58:00 100 /min Uni versity of [place] in Arterial blood Medical Br anch by Pulse oximetry Procedures This patient has no known procedures. Encounters Start End Encounter Admission Attending Care Care Encounter Source Date/Time Date/Time Type Type Clinicians Facility Department ID 2022-03-18 2022-03-20 Inpatient NUNU HALL [facility] [id number] [place] 00:00:00 00:00:[address] 2022-03-18 2022-03-18 Outpatient MADHU, [facility] [id number] [place] 00:00:00 00:00:00 FREDI 282 Met [facility] 2022-03-18 2022-03-18 Outpatient MADHU, [facility] [id number] [place] 00:00:00 00:00:00 FREDI 497 Met [facility] 2022-01-05 2022-01-05 Outpatient MADHU, [facility] [id number] [place] 00:00:00 00:00:00 FREDI 301 Met [facility] 2022-01-05 2022-01-05 Outpatient MADHU, [facility] [id number] [place] 00:00:00 00:00:00 FREDI 535 Met [facility] 2021-11-03 2021-11-03 Outpatient MADHU, [facility] [id number] [place] 00:00:00 00:00:00 FREDI 170 Met [facility] 2021-11-03 2021-11-03 Outpatient MADHU, [facility] [id number] [place] 00:00:00 00:00:00 FREDI 360 Met [facility] 2021-10-29 2021-10-29 Outpatient ZACHARY, [facility] [id number] [place] 00:00:00 00:00:00 EDD 305 Metho di 2021-10-14 2021-10-17 Inpatient ARMAND [facility] [id number] [place] 00:00:00 00:00:00 ABBI, [address] 2021-10-09 2021-10-09 Outpatient [facility] [id number] [place] 00:00:00 00:00:[address] 2021-10-09 2021-10-09 Outpatient [facility] [id number] [place] 00:00:00 00:00:[address] 2021-10-08 2021-10-08 Outpatient [facility] [id number] [place] 00:00:00 00:00:[address] 2021-10-08 2021-10-08 [facility] [id number] [place] 00:00:00 00:00:[address] 2021-10-07 2021-10-07 Outpatient [facility] [id number] [place] 00:00:00 00:00:[address] 2021-10-07 2021-10-07 [facility] [id number] [place] 00:00:00 00:00:00 NATALIIA [address] 2021-10-07 2021-10-07 [facility] [id number] [place] 00:00:00 00:00:00 NATALIIA [address] 2021-10-07 2021-10-07 [facility] [id number] [place] 00:00:00 00:00:[address] 2021-10-06 2021-10-06 [facility] [id number] [place] 00:00:00 00:00:[address] 2021-10-06 2021-10-06 Outpatient [facility] H [id number] [place] 00:00:00 00:00:[address] 2021-10-03 2021-10-03 [facility] [id number] [place] 00:00:00 00:00:[address] 2021-10-03 2021-10-03 Outpatient [facility] H [id number] [place] 00:00:00 00:00:[address] 2021-10-02 2021-10-02 [facility] [id number] [place] 00:00:00 00:00:[address] 2021-10-02 2021-10-02 [facility] [id number] [place] 00:00:00 00:00:00 NATALIIA [address] 2021-10-02 2021-10-02 Outpatient FARACH, [facility] [id number] [place] 00:00:00 00:00:00 NATALIIA [address] 2021-10-02 2021-10-02 [facility] [id number] [place] 00:00:00 00:00:[address] 2021-10-01 2021-10-01 Outpatient [facility] [id number] [place] 00:00:00 00:00:[address] 2021-10-01 2021-10-01 Outpatient [facility] [id number] [place] 00:00:00 00:00:[address] 2021-09-30 2021-10-01 Outpatient FARACH, [facility] [id number] [place] 00:00:00 00:00:00 NATALIIA [address] 2021-09-30 2021-09-30 Outpatient [facility] [id number] [place] 00:00:00 00:00:[address] 2021-09-30 2021-09-30 Outpatient FARACH, H [facility] [id number] [place] 00:00:00 00:00:00 NATALIIA [address] 2021-09-30 2021-09-30 Outpatient [facility] [id number] [place] 00:00:00 00:00:00 547 Method i 2021-09-29 2021-09-29 Outpatient [facility] [id number] [place] 00:00:00 00:00:00 305 Method i 2021-09-29 2021-09-29 Outpatient FARACH, H [facility] [id number] [place] 00:00:00 00:00:00 NATALIIA 802 Method i 2021-09-29 2021-09-29 Outpatient [facility] [id number] [place] 00:00:00 00:00:00 546 [facility] i 2021-09-23 2021-09-27 Inpatient DINAKAR, [facility] [id number] [place] 00:00:00 00:00:00 SUAD 381 [facility] i 2021-09-26 2021-09-26 Outpatient [facility] [id number] [place] 00:00:00 00:00:00 304 Method i 2021-09-26 2021-09-26 Outpatient RAQUELACH, [facility] [id number] [place] 00:00:00 00:00:00 NATALIIA 545 Method i 2021-09-23 2021-09-23 Outpatient [facility] [id number] [place] 00:00:00 00:00:[address] 2021-09-23 2021-09-23 Outpatient FARACH, H [facility] [id number] [place] 00:00:00 00:00:00 NATALIIA [address] 2021-09-23 2021-09-23 Outpatient [facility] [id number] [place] 00:00:00 00:00:[address] 2021-09-22 2021-09-22 Outpatient [facility] [id number] [place] 00:00:00 00:00:[address] 2021-09-22 2021-09-22 Outpatient [facility] [id number] [place] 00:00:00 00:00:[address] 2021-09-19 2021-09-19 Outpatient [facility] [id number] [place] 00:00:00 00:00:[address] 2021-09-19 2021-09-19 Outpatient [facility] [id number] [place] 00:00:00 00:00:[address] 2021-09-18 2021-09-18 Outpatient [facility] [id number] [place] 00:00:00 00:00:[address] 2021-09-18 2021-09-18 Outpatient FARACH, [facility] [id number] [place] 00:00:00 00:00:00 NATALIIA [address] 2021-09-18 2021-09-18 Outpatient [facility] [id number] [place] 00:00:00 00:00:[address] 2021-09-18 2021-09-18 Outpatient FARACH, [facility] [id number] [place] 00:00:00 00:00:00 NATALIIA [address] 2021-09-17 2021-09-17 Outpatient [facility] [id number] [place] 00:00:00 00:00:[address] 2021-09-17 2021-09-17 Outpatient [facility] [id number] [place] 00:00:00 00:00:[address] 2021-09-16 2021-09-17 Outpatient FARACH, [facility] [id number] [place] 00:00:00 00:00:00 NATALIIA [address] 2021-09-16 2021-09-16 Outpatient FARACH, [facility] [id number] [place] 00:00:00 00:00:00 NATALIIA [address] 2021-09-16 2021-09-16 Outpatient [facility] [id number] [place] 00:00:00 00:00:[address] 2021-09-16 2021-09-16 Outpatient FARACH, [facility] [id number] [place] 00:00:00 00:00:00 NATALIIA [address] 2021-09-02 2021-09-02 Outpatient FARACH, [facility] [id number] [place] 00:00:00 00:00:00 NATALIIA [address] 2021-09-02 2021-09-02 Outpatient FARACH, [facility] [id number] [place] 00:00:00 00:00:00 NATALIIA [address] 2021-09-02 2021-09-02 Outpatient FARACH, [facility] [id number] [place] 00:00:00 00:00:00 NATALIIA [address] 2021-08-26 2021-08-26 Outpatient FARACH, [facility] [id number] [place] 00:00:00 00:00:00 NATALIIA [address] 2021-08-12 2021-08-12 Outpatient FARACH, [facility] [id number] [place] 00:00:00 00:00:00 NATALIIA [address] 2021-08-11 2021-08-11 Outpatient MADHU, [facility] [id number] [place] 00:00:00 00:00:00 FREDI [address] 2021-08-11 2021-08-11 Outpatient MADHU, [facility] [id number] [place] 00:00:00 00:00:00 FREDI 495 Met hodi 2021-07-09 2021-07-09 Outpatient MADHU, [facility] [id number] [place] 00:00:00 00:00:00 FRDEI 572 Met hodi 2021-07-09 2021-07-09 Outpatient MADHU, [facility] [id number] [place] 00:00:00 00:00:00 FREDI 321 Met hodi 2021-07-09 2021-07-09 Outpatient MADHU, [facility] [id number] [place] 00:00:00 00:00:00 FREDI [address] 2021-06-19 2021-06-20 Outpatient NUNU HALL [facility] [id number] [place] 00:00:00 00:00:[address] 2021-06-19 2021-06-19 Outpatient MADHU, [facility] [id number] [place] 00:00:00 00:00:00 FREDI [address] 2021-06-10 2021-06-10 Outpatient OLIVARES, [facility] [id number] [place] 00:00:00 00:00:00 SHILPAN [address] 2021-06-05 2021-06-05 Outpatient OLIVARES, [facility] [id number] [place] 00:00:00 00:00:00 SHILPAN 014 Method i 2021-05-29 2021-05-31 Inpatient DINAKAR, [facility] [id number] [place] 00:00:00 00:00:00 SUAD [address] 2021-05-29 2021-05-29 Outpatient MADHU, [facility] [id number] [place] 00:00:00 00:00:00 FREDI 946 Met [facility] 2021-05-29 2021-05-29 Outpatient MADHU, [facility] [id number] [place] 00:00:00 00:00:00 FREDI 043 Met [facility] 2021-05-22 2021-05-22 Outpatient MADHU, [facility] [id number] [place] 00:00:00 00:00:00 FREDI 817 Met hodi 2021-05-08 2021-05-16 Inpatient ARMAND [facility] [id number] [place] 00:00:00 00:00:00 ABBI, Femi4 Method i QING 2021-05-01 2021-05-01 Outpatient MADHU, [facility] [id number] [place] 00:00:00 00:00:00 FREDI 114 Met hodi 2021-05-01 2021-05-01 Outpatient MADHU, [facility] [id number] [place] 00:00:00 00:00:00 FREDI 925 Met [facility] 2021-04-24 2021-04-24 Outpatient MADHU, [facility] [id number] [place] 00:00:00 00:00:00 FREDI 743 Met [facility] 2021-04-24 2021-04-24 Outpatient MADHU, [facility] [id number] [place] 00:00:00 00:00:00 FREDI 572 Met [facility] 2021-04-17 2021-04-18 Outpatient ARMAND [facility] [id number] [place] 00:00:00 00:00:00 GO, [address] 2021-04-10 2021-04-10 Outpatient MADHU, [facility] [id number] [place] 00:00:00 00:00:00 FREDI 343 Met [facility] 2021-04-10 2021-04-10 Outpatient MADHU, [facility] [id number] [place] 00:00:00 00:00:00 FREDI 045 Met [facility] 2021-04-10 2021-04-10 Outpatient MADHU, [facility] [id number] [place] 00:00:00 00:00:00 FREDI 574 Met [facility] 2021-04-03 2021-04-03 Outpatient OLIVARES, [facility] [id number] [place] 00:00:00 00:00:00 SHILPAN [address] 2021-04-03 2021-04-03 Outpatient MADHU, [facility] [id number] [place] 00:00:00 00:00:00 FREDI 526 Met [facility] 2021-03-27 2021-03-30 Inpatient LI, NUNU [facility] [id number] [place] 00:00:00 00:00:[address] 2021-03-20 2021-03-20 Outpatient MADHU, [facility] [id number] [place] 00:00:00 00:00:00 FREDI 141 Met [facility] 2021-02-25 2021-03-14 Inpatient FIERRO, [facility] [id number] [place] 00:00:00 00:00:00 PONCHO [address] 2021-02-25 2021-02-25 Outpatient JILL NEVAREZ [facility] [id number] [place] 00:00:00 00:00:[address] 2021-02-25 2021-02-25 Outpatient JILL NEVAREZ [facility] [id number] [place] 00:00:00 00:00:[address] 2021-02-25 2021-02-25 Outpatient JILL NEVAREZ [facility] [id number] [place] 00:00:00 00:00:00 183 Method i 2021-02-25 2021-02-25 Outpatient JILL NEVAREZ [facility] [id number] [place] 00:00:00 00:00:[address] 2021-02-19 2021-02-19 Outpatient JILL NEVAREZ [facility] [id number] [place] 00:00:00 00:00:00 211 Method i 2021-02-18 2021-02-18 Outpatient JILL NEVAREZ [facility] [id number] [place] 00:00:00 00:00:[address] 2021-02-18 2021-02-18 Outpatient JILL NEVAREZ [facility] [id number] [place] 00:00:00 00:00:00 323 Method i 2021-02-07 2021-02-07 Travel 1.2.840.1 [id number] [facility] [place] 00:00:00 00:00:00 08238.1.1 350.1.13.41 ity of 3.412.2.7 2.[place].3.698 [place] .[id number] 084.8 MD .8 [facility] 2020-11-05 2020-11-05 Office Rhonda [facility] [id number] [id number] [facility] [place] 09:14:24 10:44:16 Visit Sal Galvan [id number] ity of [place] 4.2.7.2.686 Mic [place] [phone] [place] [id number] [facility] 2020-11-05 2020-11-05 Office Rhonda [facility] 1.2.840.114 [id number] 09:14:24 10:44:16 Visit Sal Galvan [id number] [place] 4.2.7.2.686 Ruy [id number] [address] 2020-11-05 2020-11-05 Outpatient R RHONDA SAL [facility] [id number] Univers 10:00:00 10:00:00 SAL ELLIS [facility] Results Test Description Test Time Test Comments Results Result Comments Source SARS-CoV-2 (COVID-19) RNA [Presence] in Respiratory sp ecimen by 2021-10-14 20:44:16 ELDA with probe detection Test Item Value Reference Range Interpretation Comme nts SARS-CoV-2 (COVID-19) RNA [Presence] in Respiratory specimen by Not detected ELDA with probe detection (test code = 31284-3) Whether patient is employed in a healthcare setting (test code = Un known 23405-2) Whether the patient has symptoms related to condition of interest U nknown (test code = 24133-5) Whether the patient was hospitalized for condition of interest Unkn own (test code = 60504-9) Whether the patient was admitted to intensive care unit (ICU) for U nknown condition of interest (test code = 32112-0) Whether patient resides in a congregate care setting (test code = U nknown 55070-9) status (test code = 46707-9) Unknown Date and time of symptom onset (test code = 83499-7) Unknown SARS-CoV-2 (COVID-19) RNA [Presence] in Respiratory specimen by ELDA with probe [id number] 20:30:15 Test Item Value Reference Range Interpretation Comments SARS-CoV-2 (COVID-19) RNA Not detected Not-Detected [Presence] in Respiratory specimen by ELDA with probe detection (test code = 42933-4) Whether patient is employed in a healthcare setting (test code = 93981-6) Whether the patient has symptoms related to condition of interest (test code = 82435-8) Patient was hospitalized because of this condition (test code = 60883-9) Whether the patient was admitted to intensive care unit (ICU) for condition of interest (test code = 50808-0) Whether patient resides in a congregate care setting (test code = 90985-0) SARS-CoV-2 (COVID-19) RNA [Presence] in Respiratory specimen by ELDA with probe [id number] 20:44:43 Test Item Value Reference Range Interpretation Comments SARS-CoV-2 (COVID-19) RNA Not detected Not-Detected [Presence] in Respiratory specimen by ELDA with probe detection (test code = 25115-8) Whether patient is employed in a healthcare setting (test code = 76621-3) Whether the patient has symptoms related to condition of interest (test code = 74137-9) Patient was hospitalized because of this condition (test code = 43435-7) Whether the patient was admitted to intensive care unit (ICU) for condition of interest (test code = 93225-8) Whether patient resides in a congregate care setting (test code = 52102-7) SARS-CoV-2 (COVID-19) RNA [Presence] in Respiratory specimen by ELDA with probe [id number] 19:51:11 Test Item Value Reference Range Interpretation Comments SARS-CoV-2 (COVID-19) RNA Not detected Not-Detected [Presence] in Respiratory specimen by ELDA with probe detection (test code = 35095-8) Whether patient is employed in a healthcare setting (test code = 14151-2) Whether the patient has symptoms related to condition of interest (test code = 64863-2) Patient was hospitalized because of this condition (test code = 48734-0) Whether the patient was admitted to intensive care unit (ICU) for condition of interest (test code = 44691-4) Whether patient resides in a congregate care setting (test code = 93763-5) SARS-CoV-2 (COVID-19) RNA [Presence] in Respiratory specimen by ELDA with probe [id number] 20:11:44 Test Item Value Reference Range Interpretation Comments SARS-CoV-2 (COVID-19) RNA Not detected Not-Detected [Presence] in Respiratory specimen by ELDA with probe detection (test code = 48124-7) Whether patient is employed in a healthcare setting (test code = 59493-0) Whether the patient has symptoms related to condition of interest (test code = 20441-1) Patient was hospitalized because of this condition (test code = 70108-2) Whether the patient was admitted to intensive care unit (ICU) for condition of interest (test code = 50853-0) Whether patient resides in a congregate care setting (test code = 17575-4) SARS-CoV-2 (COVID-19) RNA [Presence] in Respiratory specimen by ELDA with probe [id number] 14:04:47 Test Item Value Reference Range Interpretation Comments SARS-CoV-2 (COVID-19) RNA Not detected Not-Detected [Presence] in Respiratory specimen by ELDA with probe detection (test code = 32941-6) Whether patient is employed in a healthcare setting (test code = 96831-9) Whether the patient has symptoms related to condition of interest (test code = 44825-0) Patient was hospitalized because of this condition (test code = 91398-6) Whether the patient was admitted to intensive care unit (ICU) for condition of interest (test code = 72652-5) Whether patient resides in a congregate care setting (test code = 14459-8) SARS-CoV-2 (COVID-19) RNA [Presence] in Respiratory specimen by ELDA with probe [id number] 17:43:38 Test Item Value Reference Range Interpretation Comments SARS-CoV-2 (COVID-19) RNA Not detected Not-Detected [Presence] in Respiratory specimen by ELDA with probe detection (test code = 01195-6) Whether patient is employed in a healthcare setting (test code = 75606-3) Whether the patient has symptoms related to condition of interest (test code = 34933-3) Patient was hospitalized because of this condition (test code = 47456-5) Whether the patient was admitted to intensive care unit (ICU) for condition of interest (test code = 96356-6) Whether patient resides in a congregate care setting (test code = 74053-6) SARS-CoV-2 (COVID-19) RNA [Presence] in Respiratory specimen by ELDA with probe [id number] 17:43:48 Test Item Value Reference Range Interpretation Comments SARS-CoV-2 (COVID-19) RNA Not detected Not-Detected [Presence] in Respiratory specimen by ELDA with probe detection (test code = 78212-6) Whether patient is employed in a healthcare setting (test code = 92225-1) Whether the patient has symptoms related to condition of interest (test code = 31058-3) Patient was hospitalized because of this condition (test code = 63992-7) Whether the patient was admitted to intensive care unit (ICU) for condition of interest (test code = 01628-3) Whether patient resides in a congregate care setting (test code = 79703-9) SARS-CoV-2 (COVID-19) RNA [Presence] in Respiratory specimen by ELDA with probe [id number] 21:23:33 Test Item Value Reference Range Interpretation Comments SARS-CoV-2 (COVID-19) RNA Not detected Not-Detected [Presence] in Respiratory specimen by ELDA with probe detection (test code = 37183-6) Whether patient is employed in a healthcare setting (test code = 64495-2) Whether the patient has symptoms related to condition of interest (test code = 65238-6) Patient was hospitalized because of this condition (test code = 49514-1) Whether the patient was admitted to intensive care unit (ICU) for condition of interest (test code = 18214-3) Whether patient resides in a congregate care setting (test code = 62181-7)
[2022-04-14 00:08] LABS: Absolute Lymphocytes (CBC) 0.7 K/uL (0.7-4.9); Hematocrit 30.4 % (39.6-49.0); Lymphocytes % 9.1 % (15.3-44.8); MCV 87.7 fL (80-100); MPV 8.1 fL (7.6-11.3); RBC Red Blood Cell Count 3.46 M/uL (4.33-5.43)
[2022-04-14 00:21] LABS: Magnesium 2.9 mg/dL (1.8-2.4); Potassium 5.2 mmol/L (3.5-5.1); Troponin High Sensitivity 14.6 pg/mL (<58.9)
[2022-04-14 01:54] LABS: Urine Blood Negative (Negative); Urine Glucose Negative (Negative); Urine Protein 2+ (Negative)
[2022-04-14] MEDS ORDERED: FUROSEMIDE 20 MG/ 2ML VIAL ONE (02:04)
[2022-04-14 02:13] LABS: Calcium Oxalate Crystals- Ur Few /HPF (None Seen); Urine Bacteria <20 /HPF (<20); Urine Mucus Slight /HPF (None Seen); Urine RBC <5 /HPF (None Seen)
--- NOTE | 2022-04-14 02:40 | EDPHYS ---
Physician Documentation [facility] Name: Torey Pritchard Age: 66 yrs Sex: Male : 1955 Arrival Date: 04/13/2022 Time: 23:20 Bed 25 Private MD: ED Physician Brandan Doe HPI: 04/13 23:50 This 66 yrs old Male presents to ER via Wheelchair with complaints of Breathing cp Difficulty. 23:50 The patient has shortness of breath with light activity. Onset: The symptoms/episode cp began/occurred gradually. Duration: The symptoms are continuous, and are steadily getting worse. 23:50 Associated signs and symptoms: Pertinent negatives: chest pain, productive cough, cp diaphoresis, fever, nausea, vomiting. Severity of symptoms: in the emergency department the symptoms are unchanged despite home interventions. Historical: - Allergies: 23:41 Haloperidol; aa9 - Home Meds: 23:41 allopurinol 100 mg oral tab [Active]; atorvastatin 80 mg Oral tab [Active]; gabapentin aa9 300 mg Oral cap [Active]; hydralazine 100 mg Oral tab [Active]; nifedipine 30 mg Oral TbER [Active]; pantoprazole 40 mg Oral TbEC [Active]; insulin glargine 100 unit/mL (3 mL) Sub-Q inpn 24 units BID PRN (per pt if BG is above 110 in the AM or 'very high' in the PM but is unable to state a cut off) [Active]; - PMHx: 23:41 Cancer; kidney disease; CHF; CVA; Diabetes - NIDDM; lymphedema; neuropathy; PVD; aa9 - PSHx: 23:41 Vasectomy; aa9 - Immunization history:: Client reports receiving the 1st dose of the Covid vaccine, Flu vaccine is not up to date. - Social history:: Smoking status: Patient denies any tobacco usage or history of. ROS: 23:55 Constitutional: Negative for body aches, chills, fever, poor PO intake. cp 23:55 Eyes: Negative for injury, pain, redness, and discharge. cp 23:55 ENT: Negative for drainage from ear(s), ear pain, sore throat, difficulty swallowing, difficulty handling secretions. 23:55 Cardiovascular: Positive for edema, Negative for chest pain, palpitations. 23:55 Respiratory: Positive for cough, with no reported sputum, shortness of breath, on exertion. Negative for wheezing. 23:55 Abdomen/GI: Negative for abdominal pain, vomiting, diarrhea, constipation. 23:55 : Negative for urinary symptoms. 23:55 Neuro: Positive for weakness, Negative for altered mental status, dizziness, headache. 23:55 All other systems are negative. Exam: 23:58 Head/Face: Normocephalic, atraumatic. cp 23:58 Constitutional: The patient appears in no acute distress, alert, awake, non-diaphoretic, non-toxic, well developed, well nourished. 23:58 Eyes: Periorbital structures: appear normal, Conjunctiva: normal, no exudate, no injection, Sclera: no appreciated abnormality, Lids and lashes: appear normal, bilaterally. 23:58 ENT: External ear(s): are unremarkable, Nose: is normal, Mouth: Lips: moist, Oral mucosa: pink and intact, moist, Posterior pharynx: Airway: no evidence of obstruction, patent. 23:58 Neck: ROM/movement: is normal, is supple, without pain, no range of motions limitations. 23:58 Chest/axilla: Inspection: normal. 23:58 Cardiovascular: Rate: normal, Rhythm: regular, Edema: ankle edema, that is mild, JVD: is not appreciated. 23:58 Respiratory: the patient does not display signs of respiratory distress, Respirations: normal, no use of accessory muscles, no retractions, labored breathing, is not present, Breath sounds: are clear throughout, no decreased breath sounds, no stridor, no wheezing. 23:58 Abdomen/GI: Inspection: abdomen appears normal, Palpation: abdomen is soft and non-tender, in all quadrants. 23:58 Back: CVA tenderness, is absent. 23:58 Skin: cellulitis, is not appreciated, no rash present. 23:58 Neuro: Orientation: to person, place \T\ time. Mentation: is normal, Motor: moves all fours, strength is normal, Sensation: is normal. Vital Signs: 23:40 BP 105 / 60; Pulse 62; Resp 15 S; Temp 98(O); Pulse Ox 100% on R/A; Weight 95.25 kg aa9 (R); Height 5 ft. 11 in. (180.34 cm) (R); Pain 0/10; 23:46 BP 105 / 60; Pulse 60; Resp 18; Pulse Ox 100% on R/A; Pain 0/10; ld1 04/14 01:45 BP 122 / 52; Pulse 64; Resp 16; Pulse Ox 99% on R/A; jb4 02:15 BP 121 / 52; Pulse 67; Resp 18; Pulse Ox 100% on R/A; jb4 04/13 23:40 Body Mass Index 29.29 (95.25 kg, 180.34 cm) aa9 MDM: 04/13 23:55 Patient medically screened. cp 04/14 00:00 Differential diagnosis: Bronchitis CHF exacerbation, pneumonia, Pneumothorax pulmonary cp edema, Pulmonary Embolism Unstable Angina. 02:40 Data reviewed: vital signs, nurses notes, lab test result(s), EKG, radiologic studies, cp plain films. 02:40 Test interpretation: by ED physician or midlevel provider: ECG, plain radiologic cp studies. Counseling: I had a detailed discussion with the patient and/or guardian regarding: the historical points, exam findings, and any diagnostic results supporting the discharge/admit diagnosis, lab results, radiology results, the need for outpatient follow up, a family practitioner, to return to the emergency department if symptoms worsen or persist or if there are any questions or concerns that arise at home. ED course: VSS. Patient reports symptoms improved. No signs of respiratory distress. Oxygen sats remain wnl with patient ambulating, gait steady. Will discharge to home for continued monitoring. 04/13 23:46 Order name: Basic Metabolic Panel; Complete Time: 01:04/14 01:31 Interpretation: Normal except: NA 135; K 5.2; GLUC 151; BUN 79; CRE 2.37; GFR 29. cp 04/13 23:46 Order name: CBC with Diff; Complete Time: 01:31 04/14 01:32 Interpretation: Normal except: RBC 3.46; HGB 10.6; HCT 30.4; PLT 113; DOMINGA% 78.1; LYM% cp 9.1. 04/13 23:46 Order name: Troponin HS; Complete Time: 01:31 ld04/13 23:56 Order name: Urine Microscopic Only; Complete Time: 02:16 cp 04/13 23:46 Order name: XRAY Chest (1 view) 04/13 23:46 Order name: EKG; Complete [facility]: 23:46 [facility] 04/13 23:46 Order name: Cardiac monitoring; Complete Time: 23:46 [facility] 04/14 00:13 Order name: NT PRO-BNP; Complete Time: 01:31 EDAL 04/14 02:10 Interpretation: Abnormal: NT PRO-BNP 3051. cp 04/14 00:13 Order name: Magnesium; Complete Time: 01:31 EDAL 04/14 02:11 Interpretation: Abnormal: MG 2.9. cp 04/14 01:54 Order name: Urine Dipstick-Ancillary; Complete Time: 01:56 EDAL 04/13 23:46 Order name: EKG - Nurse/Tech; Complete Time: 23:46 [facility] 04/13 23:46 Order name: IV Saline Lock; Complete Time: 23:46 [facility] 04/13 23:46 Order name: Labs collected and sent; Complete Time: 23:46 [facility] 04/13 23:46 Order name: O2 Per Protocol; Complete Time: 23:46 [facility] 04/13 23:46 Order name: O2 Sat Monitoring; Complete Time: 23:46 [facility] 04/13 23:56 Order name: Urine Dipstick-Ancillary (obtain specimen); Complete Time: 02:23 cp Administered Medications: 01:34 CANCELLED (Physician Discretion): NS 0.9% 250 ml IV at bolus once cp 02:00 Drug: Lasix (furosemide) 20 mg Route: IVP; Site: right forearm; jb4 02:18 Follow up: Response: No adverse reaction jb4 Disposition: 05:52 Co-signature as Attending Physician, Brandan Doe MD I agree with the assessment and kdr plan of care. Disposition Summary: 04/14/22 02:40 Discharge Ordered Location: Home cp Problem: an acute exacerbation cp Symptoms: have improved cp Condition: Stable cp Diagnosis - Unspecified combined systolic (congestive) and diastolic (congestive) heart failure cp - Muscle weakness (generalized) cp Followup: cp - With: Private Physician - When: 2 - 3 days - Reason: Recheck today's complaints Discharge Instructions: - Discharge Summary Sheet cp - Heart Failure, Diagnosis cp - Weakness cp - How to Use a Walker cp Forms: - Medication Reconciliation Form cp - Thank You Letter cp - Antibiotic Education cp - Prescription Opioid Use cp Prescriptions: - Lasix 20 mg Oral Tablet - take 1 tablet by ORAL route once daily for 3 days; 3 tablet; Refills: 0, cp Product Selection Permitted Signatures: Dispatcher [employer] [facility] rBandan Doe MD MD kdr Attema, Lee, PRECISION ASSEMBLER-C PRECISION ASSEMBLER-Cla1 Lam Valera PA PA cp Mukesh Blackburn, CHRISTIAN RN jb4 Aminata Subramanian RN RN ld1 Анна Roman RN RN aa9 Corrections: (The following items were deleted from the chart) 00:04/13 23:57 MAGNESIUM+C.LAB.BRZ ordered. EDAL EDAL 04/14 00:04/13 23:57 PROBNP+C.LAB.BRZ [facility] 01:34 01:33 NS 0.9% 250 ml IV at bolus once ordered. cp 04/15 01:04/14 23:58 Constitutional: The patient appears in no acute distress, alert, awake, cp non-diaphoretic, non-toxic, well developed, well nourished, cp 04/15 01:04/14 23:58 Head/Face: Normocephalic, atraumatic. cp 04/15 01:04/14 23:58 Eyes: Periorbital structures: appear normal, Conjunctiva: normal, no cp exudate, no injection, Sclera: no appreciated abnormality, Lids and lashes: appear normal, bilaterally, cp 04/15 01:04/14 23:58 ENT: External ear(s): are unremarkable, Nose: is normal, Mouth: Lips: cp moist, Oral mucosa: pink and intact, moist, Posterior pharynx: Airway: no evidence of obstruction, patent, cp 04/15 01:04/14 23:58 Neck: ROM/movement: is normal, is supple, without pain, no range of motions cp limitations, cp 04/15 01:04/14 23:58 Chest/axilla: Inspection: normal, cp 04/15 01:04/14 23:58 Cardiovascular: Rate: normal, Rhythm: regular, Edema: ankle edema, that is cp mild, JVD: is not appreciated, cp 04/15 01:04/14 23:58 Respiratory: the patient does not display signs of respiratory distress, cp Respirations: normal, no use of accessory muscles, no retractions, labored breathing, is not present, Breath sounds: are clear throughout, no decreased breath sounds, no stridor, no wheezing, cp 04/15 01:04/14 23:58 Abdomen/GI: Inspection: abdomen appears normal, Palpation: abdomen is soft cp and non-tender, in all quadrants, cp 04/15 01:04/14 23:58 Back: CVA tenderness, is absent, cp cp 04/15 01:04/14 23:58 Skin: cellulitis, is not appreciated, no rash present. cp cp 04/15 01:04/14 23:58 Neuro: Orientation: to person, place \T\ time. Mentation: is normal, Motor: cp moves all fours, strength is normal, Sensation: is normal, cp
--- NOTE | 2022-04-14 02:40 | ER ---
Nurse's Notes [facility] Name: Torey Pritchard Age: 66 yrs Sex: Male : 1955 Arrival Date: 04/13/2022 Time: 23:20 Bed 25 Private MD: Diagnosis: Unspecified combined systolic (congestive) and diastolic (congestive) heart failure;Muscle weakness (generalized) Presentation: 04/13 23:40 Chief complaint: Patient states: I feel really weak on my feet. Everything hurts when I aa9 walk. I feel like I cant catch my breath. Coronavirus screen: Vaccine status: Patient reports receiving the 1st dose of the Covid vaccine. Ebola Screen: No symptoms or risks identified at this time. Initial Sepsis Screen: Does the patient meet any 2 criteria? No. Patient's initial sepsis screen is negative. Does the patient have a suspected source of infection? No. Patient's initial sepsis screen is negative. Risk Assessment: Do you want to hurt yourself or someone else? Patient reports no desire to harm self or others. Onset of symptoms was April 13, 2022. 23:40 Method Of Arrival: Wheelchair aa9 23:40 Acuity: MARNI 3 aa9 Triage Assessment: 23:42 General: Appears uncomfortable, ill, Behavior is cooperative, anxious. Pain: Denies aa9 pain. Respiratory: Reports shortness of breath on exertion Airway is patent Trachea midline Respiratory effort is even, Onset: The symptoms/episode began/occurred gradually, the patient has moderate shortness of breath. Historical: - Allergies: 23:41 Haloperidol; aa9 - Home Meds: 23:41 allopurinol 100 mg oral tab [Active]; atorvastatin 80 mg Oral tab [Active]; gabapentin aa9 300 mg Oral cap [Active]; hydralazine 100 mg Oral tab [Active]; nifedipine 30 mg Oral TbER [Active]; pantoprazole 40 mg Oral TbEC [Active]; insulin glargine 100 unit/mL (3 mL) Sub-Q inpn 24 units BID PRN (per pt if BG is above 110 in the AM or 'very high' in the PM but is unable to state a cut off) [Active]; - PMHx: 23:41 Cancer; kidney disease; CHF; CVA; Diabetes - NIDDM; lymphedema; neuropathy; PVD; aa9 - PSHx: 23:41 Vasectomy; aa9 - Immunization history:: Client reports receiving the 1st dose of the Covid vaccine, Flu vaccine is not up to date. - Social history:: Smoking status: Patient denies any tobacco usage or history of. Screenin:46 Abuse screen: Denies threats or abuse. Denies injuries from another. Nutritional aa9 screening: No deficits noted. Tuberculosis screening: No symptoms or risk factors identified. 23:46 Fall Risk None identified. ld1 Assessment: 23:46 General: Appears in no apparent distress. comfortable, Behavior is calm, cooperative, ld1 appropriate for age. Pain: Denies pain. Neuro: Level of Consciousness is awake, alert, obeys commands, Oriented to person, place, time, situation. Cardiovascular: Capillary refill < 3 seconds Patient's skin is warm and dry. Rhythm is sinus rhythm. Respiratory: Airway is patent Respiratory effort is even, unlabored, Respiratory pattern is regular, symmetrical, Breath sounds are clear bilaterally. GI: Abdomen is flat, non-distended. : No signs and/or symptoms were reported regarding the genitourinary system. EENT: No signs and/or symptoms were reported regarding the EENT system. Derm: No signs and/or symptoms reported regarding the dermatologic system. Musculoskeletal: No signs and/or symptoms reported regarding the musculoskeletal system. 04/14 02:00 Reassessment: Patient appears in no apparent distress at this time. Patient and/or jb4 family updated on plan of care and expected duration. Pain level reassessed. Patient is alert, oriented x 3, equal unlabored respirations, skin warm/dry/pink. 02:47 Reassessment: Pt ambulated in the ER approximately 50 feet. Pt has impaired gait. jb4 Reports intermittent episode of feeling a burning sensation in the neck causing both pain and dizziness. Reports feeling safe enough to go home and still wanting to be discharged. Provider notified. Provider continues to want to d/c pt home. 03:00 Reassessment: Patient appears in no apparent distress at this time. Patient and/or jb4 family updated on plan of care and expected duration. Pain level reassessed. Patient is alert, oriented x 3, equal unlabored respirations, skin warm/dry/pink. Vital Signs: 04/13 23:40 BP 105 / 60; Pulse 62; Resp 15 S; Temp 98(O); Pulse Ox 100% on R/A; Weight 95.25 kg aa9 (R); Height 5 ft. 11 in. (180.34 cm) (R); Pain 0/10; 23:46 BP 105 / 60; Pulse 60; Resp 18; Pulse Ox 100% on R/A; Pain 0/10; ld1 09 01:45 BP 122 / 52; Pulse 64; Resp 16; Pulse Ox 99% on R/A; jb4 02:15 BP 121 / 52; Pulse 67; Resp 18; Pulse Ox 100% on R/A; jb4 04/13 23:40 Body Mass Index 29.29 (95.25 kg, 180.34 cm) aa9 ED Course: 04/13 23:20 Patient arrived in ED. bp1 23:32 Shante Arrieta, RN is Primary Nurse. eh3 23:41 Triage completed. aa9 23:44 Lam Valera PA is PHCP. cp 23:44 Brandan Doe MD is Attending Physician. cp 23:45 Arm band placed on. aa9 23:46 Patient has correct armband on for positive identification. Placed in gown. Bed in low ld1 position. Call light in reach. Side rails up X2. ekg monitor on. Pulse ox on. NIBP on. Door closed. Noise minimized. 23:46 Inserted saline lock: 20 gauge in right forearm, using aseptic technique. Blood ld1 collected. 23:46 No provider procedures requiring assistance completed. ld1 04/14 00:01 XRAY Chest (1 view) In Process Unspecified. EDMS 03:15 IV discontinued, intact, bleeding controlled, No redness/swelling at site. Pressure jb4 dressing applied. Administered Medications: 01:34 CANCELLED (Physician Discretion): NS 0.9% 250 ml IV at bolus once cp 02:00 Drug: Lasix (furosemide) 20 mg Route: IVP; Site: right forearm; jb4 02:18 Follow up: Response: No adverse reaction jb4 Medication: 04/13 23:46 VIS not applicable for this client. ld1 Outcome: 04/14 02:40 Discharge ordered by . cp 03:14 Discharged to home via wheelchair. jb4 03:14 Condition: stable 03:14 Discharge instructions given to patient, Instructed on discharge instructions, follow up and referral plans. medication usage, Demonstrated understanding of instructions, follow-up care, medications, Prescriptions given X 2. 03:15 Patient left the ED. jb4 Signatures: Dispatcher [employer] EDMS Lam Valera PA PA cp Bryson, James, RN RN jb4 Angela Chen Lauren, RN RN ld1 Shante Arrieta RN RN eh3 Анна Roman RN RN aa9
[2022-04-14 04:51] VITALS: TEMP 98
[2022-04-14 05:12] VITALS: BP 122/52; O2SAT 99
--- NOTE | 2022-04-14 13:23 | RAD REPORT ---
EXAM DESCRIPTION: RAD - Chest Single View - 04/13/2022 11:59 pm CLINICAL HISTORY: 58 years Female shortness of breath, diarrhea TECHNIQUE: Contiguous axial images obtained through the chest, abdomen, and pelvis without IV contra st administration. Coronal and sagittal reformatted images provided. This CT exam was performed according to our departmental dose-optimization program, which includes on e or more of the following dose reduction techniques: automated exposure control, adjustment of the m A and/or kV according to patient size, and/or use of iterative reconstruction technique. COMPARISON: CT scan of the abdomen and pelvis dated 12/12/2020 FINDINGS: Increased interstitial markings in the lungs congested with chronic lung disease. No focal airspace infiltrate, pleural effusion, or pneumothorax. The central airways are patent. The heart is normal in size without pericardial effusion. The aorta and central pulmonary vasculature are normal in caliber. No lymphadenopathy in the chest. The unenhanced liver, biliary tree, gallbladder, pancreas, spleen, adrenal glands, kidneys, urinary b ladder, and osseous structures demonstrate no acute findings. Prior hysterectomy. There is mild diffuse inflammation of the cecum and ascending colon. No evidence of acute appendiciti s. No bowel obstruction, pneumatosis, free intraperitoneal air, or abscess. Trace fluid in the right paracolic gutter. IMPRESSION: Findings the lungs suggestive of chronic lung disease. No focal airspace infiltrate. Mild proximal colitis could be infectious or inflammatory. No bowel obstruction or perforation. No other acute findings in the chest, abdomen, or pelvis. Electronically signed by: Nicolette Barrientos MD 04/14/2022 12:46 AM CDT Due to temporary technical issues with the PACS/Fluency reporting system, reports are being signed by the in house radiologists without review as a courtesy to insure prompt reporting. The interpreting radiologist is fully responsible for the content of the report.
--- NOTE | 2022-04-15 17:14 | EKG ---
Test Date: 2022-04-13 Test Time: 23:32:04 Biology Adjunct Instructor: GIOVANNA MEASUREMENT RESULTS: Intervals: Rate: 61 NJ: 116 QRSD: 84 QT: 432 QTc: 434 [place]: P: 37 NJ: 116 QRS: -12 T: 156 INTERPRETIVE STATEMENTS: Normal sinus rhythm Septal infarct, age undetermined T wave abnormality, consider anterolateral ischemia Abnormal ECG Compared to ECG 01/20/2022 18:56:12 Myocardial infarct finding now present Possible ischemia now present T-wave abnormality still present Electronically Signed On 04-15-22 17:07:15 CDT by Sergo Ward
== END 2022-04-14 03:15 | disposition home or self-care (01) ==
LOC: ER 23:10
DX: I50.40 Unspecified combined systolic (congestive) and diastolic (congestive) heart failure (principal); M62.81 Muscle weakness (generalized); E11.22 Type 2 diabetes mellitus with diabetic chronic kidney disease; Z86.73 Personal history of transient ischemic attack (TIA), and cerebral infarction without residual deficits; Z79.4 Long term (current) use of insulin; Z88.5 Allergy status to narcotic agent
CPT/HCPCS: 93005; 85025; 80048; 36415; 83735; 84484; 83880; 71045; 96374; 99284; J1940; 81003; 81015

== ENCOUNTER 2022-04-20 14:00 | Emergency (ER) | payer OTHER ==
--- OUTSIDE RECORDS SUMMARY | 2022-04-20 14:07 | XMS REPORT | Clinical Summary ---
:1955 Author Organization [facility] Address [address] [place] [id number] Care Team Providers Name Role Phone Unavailable [...] Not on file Results Not on fileafter 04/20/2021 Insurance Payer Benefit Plan / Subscriber ID Effective Dates Phone Addre ss Type Group AETNA MEDICARE AETNA MEDICARE [id number] 2020-Prese [address] [place] [address]
--- OUTSIDE RECORDS SUMMARY | 2022-04-20 14:09 | XMS REPORT | Continuity of Care Document ---
:[address] [facility] t Address [address] [place] [address] Care Team Providers Name Role Phone NUNU [...] rs active active ity of problems problems [facility] Allergies, Adverse Reactions, Alerts Allergy Allergy Status Severity Reaction(s) Onset Inactive Treating Comm ents Source Name Type Date Date Clinician Haloperi Drug Active Anaphylaxis 2014-08 Cardiac Un olvin dol Allergy 08-22 arrestcod ity of 00:00: ed [address] HALOPERI DRUG Active High Anaphylaxis 2014-08 Uni vers DOL INGREDI 08-22 ity of 00:00: [address] CEFTRIAX DRUG Active Low N/V 2014-08 Univers ONE INGREDI 08-22 ity of 00:00: [address] Ceftriax Propensi Active Nausea 2014-08 High Univer s one ty to and/or 08-22 blood ity of adverse Vomiting 00:00: [place], [place] reaction 00 General acute hospital ed by other hospital. Per patient his blood glucose "went alice high" NO KNOWN Drug Active Univers ALLERGIE Class ity of [facility] Social History Social Habit Start Date Stop Date Quantity Comments Source Exposure to Not sure [facility] SARS-CoV-2 (event) Med[facility] Sex Assigned At [birth year] [facility] 00:00:00 00:00:00 MD Aleman [facility] Smoking Status Start Date Stop Date Source Unknown if ever smoked [facility] Medications Ordered Filled Start Stop Current Ordering Indication Dosage Frequency Signature Comments Components Source Medication Medication Date Date Medication? Clinician (SIG) Name Name Chromium Yes 800mg Take 800 Univ ers Picolinate 4-06 mg by ity of 400 mcg Tab 15:00: mouth. [address] Cinnamon Yes 1000mg Take 1,000 U nivers Bark 500 mg 4-06 mg by ity of Cap 15:00: mouth. [address] Garlic Yes 1{capsu Take 1 Univer s (GARLIC 4-06 le} capsule by ity of OIL) 1,000 15:00: mouth. [address] Chromium Yes 800mg Take 800 Univ ers Picolinate 4-06 mg by ity of 400 mcg Tab 15:00: mouth. [address] Cinnamon Yes 1000mg Take 1,000 U nivers Bark 500 mg 4-06 mg by ity of Cap 15:00: mouth. [address] Garlic Yes 1{capsu Take 1 Univer s (GARLIC 4-06 le} capsule by ity of OIL) 1,000 15:00: mouth. [place] mg Cap 42 Medical Branch metoprolol Yes Univers succinate 4-05 ity of XL 50 mg 24 00:00: [place] hr tablet 00 Medical [facility] metoprolol Yes Univers succinate 4-05 ity of XL 50 mg 24 00:00: [place] hr tablet 00 [facility] Yes Univers mg tablet 3-31 ity of 00:00: [place] 00 [facility] 10 Yes Univers mg tablet 3-31 ity [...] by mouth ity of tablet 00:00: every [place] 00 evening. Medical Branch clopidogreL Yes 75mg Take 75 mg Univers 75 mg 2-08 by mouth ity of tablet 00:00: every [place] 00 morning. Medical Branch losartan 25 Yes 25mg Take 25 mg Univers mg tablet 2-08 by mouth ity of 00:00: every [place] 00 morning. Medical Branch atorvastati Yes 80mg Take 80 mg Univers n 80 mg 2-08 by mouth ity of tablet 00:00: every [place] 00 evening. Medical Branch clopidogreL Yes 75mg Take 75 mg Univers 75 mg 2-08 by mouth ity of tablet 00:00: every [place] 00 morning. Medical Branch losartan 25 Yes 25mg Take 25 mg Univers mg tablet 2-08 by mouth ity of 00:00: every [place] 00 morning. Medical Branch gabapentin 2020-0 Yes 600mg Take 600 Un olvin 600 mg 1-14 mg by ity of tablet 00:00: mouth at [place] 00 bedtime. Medical Branch gabapentin 2020-0 Yes 600mg Take 600 Un olvin 600 mg 1-14 mg by ity of tablet 00:00: mouth at [place] 00 bedtime. Medical Branch Vital Signs Vital Name Observation Time Observation Value Comments Source Systolic blood 2020-11-05 15:00:00 170 mm[Hg] Univer [facility] Diastolic blood 2020-11-05 15:00:00 68 mm[Hg] Unive [facility] Heart rate 2020-11-05 15:00:00 70 /min Universi ty [facility] Body height 2020-11-05 14:58:00 182.9 cm Universi ty [facility] Body weight 2020-11-05 14:58:00 91.627 kg Universi ty [facility] BMI 2020-11-05 14:58:00 27.40 kg/m2 Universi ty [facility] Oxygen saturation 2020-11-05 14:58:00 100 /min Uni versity of [place] in Arterial blood Medical Br anch by Pulse oximetry Systolic blood 2020-11-05 15:00:00 170 mm[Hg] Univer [facility] Diastolic blood 2020-11-05 15:00:00 68 mm[Hg] Unive [facility] Heart rate 2020-11-05 15:00:00 70 /min Universi ty [facility] Body height 2020-11-05 14:58:00 182.9 cm Universi ty [facility] Body weight 2020-11-05 14:58:00 91.627 kg Universi ty [facility] BMI 2020-11-05 14:58:00 27.40 kg/m2 Universi ty [facility] Oxygen saturation 2020-11-05 14:58:00 100 /min Uni versity of [place] in Arterial blood Medical Br anch by Pulse oximetry Procedures This patient has no known procedures. Encounters Start End Encounter Admission Attending Care Care Encounter Source Date/Time Date/Time Type Type Clinicians Facility Department ID 2022-03-18 2022-03-20 Inpatient NUNU HALL [facility] [id number] [place] 00:00:00 00:00:[address] 2022-03-18 2022-03-18 Outpatient MADHU, [facility] [id number] [place] 00:00:00 00:00:00 FREDI [address] [facility] 2022-03-18 2022-03-18 Outpatient MADHU, [facility] [id number] [place] 00:00:00 00:00:00 FREDI [address] [facility] 2022-01-05 2022-01-05 Outpatient MADHU, [facility] [id number] [place] 00:00:00 00:00:00 FREDI [address] [facility] 2022-01-05 2022-01-05 Outpatient MADHU, [facility] [id number] [place] 00:00:00 00:00:00 FREDI [address] [facility] 2021-11-03 2021-11-03 Outpatient MADHU, [facility] [id number] [place] 00:00:00 00:00:00 FREDI [address] [facility] 2021-11-03 2021-11-03 Outpatient MADHU, [facility] [id number] [place] 00:00:00 00:00:00 FREDI [address] [facility] 2021-10-29 2021-10-29 Outpatient ZACHARY, [facility] [id number] [place] 00:00:00 00:00:00 EDD 305 Metho di 2021-10-14 2021-10-17 Inpatient ARMAND [facility] [id number] [place] 00:00:00 00:00:00 ABBI, [address] 2021-10-09 2021-10-09 Outpatient [facility] [id number] [place] 00:00:00 00:00:[address] 2021-10-09 2021-10-09 Outpatient [facility] [id number] [place] 00:00:00 00:00:[address] 2021-10-08 2021-10-08 Outpatient [facility] [id number] [place] 00:00:00 00:00:[address] 2021-10-08 2021-10-08 [facility] [id number] [place] 00:00:00 00:00:[address] 2021-10-07 2021-10-07 Outpatient [facility] [id number] [place] 00:00:00 00:00:[address] 2021-10-07 2021-10-07 [facility] [id number] [place] 00:00:00 00:00:00 NATALIIA [address] 2021-10-07 2021-10-07 Outpatient [facility], [facility] [id number] [place] 00:00:00 00:00:00 NATALIIA [address] 2021-10-07 2021-10-07 Outpatient [facility] [id number] [place] 00:00:00 00:00:[address] 2021-10-06 2021-10-06 Outpatient [facility] [id number] [place] 00:00:00 00:00:[address] 2021-10-06 2021-10-06 Outpatient [facility] H [id number] [place] 00:00:00 00:00:[address] 2021-10-03 2021-10-03 Outpatient [facility] [id number] [place] 00:00:00 00:00:[address] 2021-10-03 2021-10-03 Outpatient [facility] H [id number] [place] 00:00:00 00:00:[address] 2021-10-02 2021-10-02 Outpatient [facility] [id number] [place] 00:00:00 00:00:[address] 2021-10-02 2021-10-02 Outpatient FARACH, [facility] [id number] [place] 00:00:00 00:00:00 NATALIIA [address] 2021-10-02 2021-10-02 Outpatient FARACH, [facility] [id number] [place] 00:00:00 00:00:00 NATALIIA [address] 2021-10-02 2021-10-02 Outpatient [facility] [id number] [place] 00:00:00 00:00:[address] 2021-10-01 2021-10-01 Outpatient [facility] [id number] [place] 00:00:00 00:00:[address] 2021-10-01 2021-10-01 Outpatient [facility] [id number] [place] 00:00:00 00:00:[address] 2021-09-30 2021-10-01 Outpatient FARACH, [facility] [id number] [place] 00:00:00 00:00:00 NATALIIA [address] 2021-09-30 2021-09-30 Outpatient [facility] [id number] [place] 00:00:00 00:00:[address] 2021-09-30 2021-09-30 Outpatient FARACH, H [facility] [id number] [place] 00:00:00 00:00:00 NTAALIIA [address] 2021-09-30 2021-09-30 Outpatient [facility] [id number] [place] 00:00:00 00:00:00 547 Method i 2021-09-29 2021-09-29 Outpatient [facility] [id number] [place] 00:00:00 00:00:00 305 Method i 2021-09-29 2021-09-29 Outpatient FARACH, H [facility] [id number] [place] 00:00:00 00:00:00 NATALIIA 802 Method i 2021-09-29 2021-09-29 Outpatient [facility] [id number] [place] 00:00:00 00:00:00 546 Method i 2021-09-23 2021-09-27 Inpatient DINAKAR, [facility] [id number] [place] 00:00:00 00:00:00 SUAD 381 Method i 2021-09-26 2021-09-26 Outpatient [facility] [id number] [place] 00:00:00 00:00:00 304 Method i 2021-09-26 2021-09-26 Outpatient RAQUELACH, [facility] [id number] [place] 00:00:00 00:00:00 NATALIIA 545 Method i 2021-09-23 2021-09-23 Outpatient [facility] [id number] [place] 00:00:00 00:00:[address] 2021-09-23 2021-09-23 Outpatient FARACH, H [facility] [id number] [place] 00:00:00 00:00:00 NATALIIA [address] 2021-09-23 2021-09-23 Outpatient [facility] [id number] [place] 00:00:00 00:00:[address] 2021-09-22 2021-09-22 Outpatient [facility] [id number] [place] 00:00:00 00:00:[address] 2021-09-22 2021-09-22 Outpatient [facility] [id number] [place] 00:00:00 00:00:[address] 2021-09-19 2021-09-19 Outpatient [facility] [id number] [place] 00:00:00 00:00:[address] 2021-09-19 2021-09-19 Outpatient [facility] [id number] [place] 00:00:00 00:00:[address] 2021-09-18 2021-09-18 Outpatient [facility] [id number] [place] 00:00:00 00:00:[address] 2021-09-18 2021-09-18 Outpatient FARACH, [facility] [id number] [place] 00:00:00 00:00:00 NATALIIA [address] 2021-09-18 2021-09-18 Outpatient [facility] [id number] [place] 00:00:00 00:00:[address] 2021-09-18 2021-09-18 Outpatient FARACH, [facility] [id number] [place] 00:00:00 00:00:00 NATALIIA [address] 2021-09-17 2021-09-17 Outpatient [facility] [id number] [place] 00:00:00 00:00:[address] 2021-09-17 2021-09-17 Outpatient [facility] [id number] [place] 00:00:00 00:00:[address] 2021-09-16 2021-09-17 Outpatient FARACH, [facility] [id number] [place] 00:00:00 00:00:00 NATALIIA [address] 2021-09-16 2021-09-16 Outpatient FARACH, [facility] [id number] [place] 00:00:00 00:00:00 NATALIIA [address] 2021-09-16 2021-09-16 Outpatient [facility] [id number] [place] 00:00:00 00:00:[address] 2021-09-16 2021-09-16 Outpatient FARACH, [facility] [id number] [place] 00:00:00 00:00:00 NATALIIA [address] 2021-09-02 2021-09-02 Outpatient FARACH, [facility] [id number] [place] 00:00:00 00:00:00 NATALIIA [address] 2021-09-02 2021-09-02 Outpatient FARACH, [facility] [id number] [place] 00:00:00 00:00:00 NATALIIA [address] 2021-09-02 2021-09-02 Outpatient FARACH, [facility] [id number] [place] 00:00:00 00:00:00 NATALIIA [address] 2021-08-26 2021-08-26 Outpatient FARACH, [facility] [id number] [place] 00:00:00 00:00:00 NATALIIA [address] 2021-08-12 2021-08-12 Outpatient FARACH, [facility] [id number] [place] 00:00:00 00:00:00 NATALIIA [address] 2021-08-11 2021-08-11 Outpatient MADHU, [facility] [id number] [place] 00:00:00 00:00:00 FREDI [address] 2021-08-11 2021-08-11 Outpatient MADHU, [facility] [id number] [place] 00:00:00 00:00:00 FREDI 495 Met hodi 2021-07-09 2021-07-09 Outpatient MADHU, [facility] [id number] [place] 00:00:00 00:00:00 FREDI 572 Met hodi 2021-07-09 2021-07-09 Outpatient MADHU, [facility] [id number] [place] 00:00:00 00:00:00 FREDI 321 Met hodi 2021-07-09 2021-07-09 Outpatient MADHU, [facility] [id number] [place] 00:00:00 00:00:00 FREDI [address] 2021-06-19 2021-06-20 Outpatient NUNU HALL [facility] [id number] [place] 00:00:00 00:00:[address] 2021-06-19 2021-06-19 Outpatient MADHU, [facility] [id number] [place] 00:00:00 00:00:00 FREDI [address] 2021-06-10 2021-06-10 Outpatient OLIVARES, [facility] [id number] [place] 00:00:00 00:00:00 SHILPAN [address] 2021-06-05 2021-06-05 Outpatient OLIVARES, [facility] [id number] [place] 00:00:00 00:00:00 SHILPAN 014 Method i 2021-05-29 2021-05-31 Inpatient DINAKAR, [facility] [id number] [place] 00:00:00 00:00:00 SUAD [address] 2021-05-29 2021-05-29 Outpatient MADHU, [facility] [id number] [place] 00:00:00 00:00:00 FREDI [facility] 2021-05-29 2021-05-29 Outpatient MADHU, [facility] [id number] [place] 00:00:00 00:00:00 FREDI 043 [facility] 2021-05-22 2021-05-22 Outpatient MADHU, [facility] [id number] [place] 00:00:00 00:00:00 FREDI 817 Met hodi 2021-05-08 2021-05-16 Inpatient ARMAND [facility] [id number] [place] 00:00:00 00:00:00 ABBI, Femi4 Method i QING 2021-05-01 2021-05-01 Outpatient MADHU, [facility] [id number] [place] 00:00:00 00:00:00 FREDI 114 Met hodi 2021-05-01 2021-05-01 Outpatient MADHU, [facility] [id number] [place] 00:00:00 00:00:00 FREDI 925 [facility] 2021-04-24 2021-04-24 Outpatient MADHU, [facility] [id number] [place] 00:00:00 00:00:00 FREDI [facility] 2021-04-24 2021-04-24 Outpatient MADHU, [facility] [id number] [place] 00:00:00 00:00:00 FREDI [address] [facility] 2021-04-17 2021-04-18 Outpatient ARMAND [facility] [id number] [place] 00:00:00 00:00:00 GO, [address] 2021-04-10 2021-04-10 Outpatient MADHU, [facility] [id number] [place] 00:00:00 00:00:00 FREDI [address] [facility] 2021-04-10 2021-04-10 Outpatient MADHU, [facility] [id number] [place] 00:00:00 00:00:00 FREDI 045 [facility] 2021-04-10 2021-04-10 Outpatient MADHU, [facility] [id number] [place] 00:00:00 00:00:00 FREDI [address] [facility] 2021-04-03 2021-04-03 Outpatient OLIVARES, [facility] [id number] [place] 00:00:00 00:00:00 SHILPAN [address] 2021-04-03 2021-04-03 Outpatient MADHU, [facility] [id number] [place] 00:00:00 00:00:00 FREDI [facility] 2021-03-27 2021-03-30 Inpatient LI, NUNU [facility] [id number] [place] 00:00:00 00:00:[address] 2021-03-20 2021-03-20 Outpatient MADHU, [facility] [id number] [place] 00:00:00 00:00:00 FREDI [facility] 2021-02-25 2021-03-14 Inpatient FIERRO, [facility] [id number] [place] 00:00:00 00:00:00 PONCHO [address] 2021-02-25 2021-02-25 Outpatient JILL NEVAREZ [facility] [id number] [place] 00:00:00 00:00:[address] 2021-02-25 2021-02-25 Outpatient JILL NEVAREZ [facility] [id number] [place] 00:00:00 00:00:[address] 2021-02-25 2021-02-25 Outpatient JILL NEVAREZ [facility] [id number] [place] 00:00:00 00:00:00 183 Method i 2021-02-25 2021-02-25 Outpatient JILL NEVAREZ [facility] [id number] [place] 00:00:00 00:00:[address] 2021-02-19 2021-02-19 Outpatient JILL NEVAREZ [facility] [id number] [place] 00:00:00 00:00:00 211 Method i 2021-02-18 2021-02-18 Outpatient JILL NEVAREZ [facility] [id number] [place] 00:00:00 00:00:[address] 2021-02-18 2021-02-18 Outpatient JILL NEVAREZ [facility] [id number] [place] 00:00:00 00:00:00 323 Method i 2021-02-07 2021-02-07 Travel 1.2.840.1 [id number] [facility] 00:00:00 00:00:00 [id number] [id number] ity of 3.412.2.7 2.[place].7.3.698 [place] .[id number] 084.8 MD .8 [facility] 2020-11-05 2020-11-05 Office Rhonda [facility] [id number] [id number] [facility] 09:14:24 10:44:16 Visit Sal Galvan [id number] ity of [place] 4.2.7.2.686 Mic [place] [id number] [place] [id number] [facility] 2020-11-05 2020-11-05 Office Rhonda [facility] [id number] 09:14:24 10:44:16 Visit Sal Galvan [id number] [place] 4.2.7.2.686 Ruy [id number] [address] 2020-11-05 2020-11-05 Outpatient R RHONDA SAL [facility] [id number] Univers 10:00:00 10:00:00 SAL ELLIS [facility] Results Test Description Test Time Test Comments Results Result Comments Source SARS-CoV-2 (COVID-19) RNA [Presence] in Respiratory sp ecimen by 2021-10-14 20:44:16 ELDA with probe detection Test Item Value Reference Range Interpretation Comme nts SARS-CoV-2 (COVID-19) RNA [Presence] in Respiratory specimen by Not detected ELDA with probe detection (test code = 37298-3) Whether patient is employed in a healthcare setting (test code = Un known 26402-9) Whether the patient has symptoms related to condition of interest U nknown (test code = 20327-8) Whether the patient was hospitalized for condition of interest Unkn own (test code = 84436-2) Whether the patient was admitted to intensive care unit (ICU) for U nknown condition of interest (test code = 30176-3) Whether patient resides in a congregate care setting (test code = U nknown 02597-0) status (test code = 13602-2) Unknown Date and time of symptom onset (test code = 03499-9) Unknown SARS-CoV-2 (COVID-19) RNA [Presence] in Respiratory specimen by ELDA with probe [id number] 20:30:15 Test Item Value Reference Range Interpretation Comments SARS-CoV-2 (COVID-19) RNA Not detected Not-Detected [Presence] in Respiratory specimen by ELDA with probe detection (test code = 77072-7) Whether patient is employed in a healthcare setting (test code = 97399-9) Whether the patient has symptoms related to condition of interest (test code = 35551-0) Patient was hospitalized because of this condition (test code = 81117-8) Whether the patient was admitted to intensive care unit (ICU) for condition of interest (test code = 59965-5) Whether patient resides in a congregate care setting (test code = 26245-0) SARS-CoV-2 (COVID-19) RNA [Presence] in Respiratory specimen by ELDA with probe [id number] 20:44:43 Test Item Value Reference Range Interpretation Comments SARS-CoV-2 (COVID-19) RNA Not detected Not-Detected [Presence] in Respiratory specimen by ELDA with probe detection (test code = 43069-9) Whether patient is employed in a healthcare setting (test code = 57581-5) Whether the patient has symptoms related to condition of interest (test code = 95921-6) Patient was hospitalized because of this condition (test code = 02792-0) Whether the patient was admitted to intensive care unit (ICU) for condition of interest (test code = 84779-9) Whether patient resides in a congregate care setting (test code = 59220-9) SARS-CoV-2 (COVID-19) RNA [Presence] in Respiratory specimen by ELDA with probe [id number] 19:51:11 Test Item Value Reference Range Interpretation Comments SARS-CoV-2 (COVID-19) RNA Not detected Not-Detected [Presence] in Respiratory specimen by ELDA with probe detection (test code = 36692-1) Whether patient is employed in a healthcare setting (test code = 08153-7) Whether the patient has symptoms related to condition of interest (test code = 89766-3) Patient was hospitalized because of this condition (test code = 34615-1) Whether the patient was admitted to intensive care unit (ICU) for condition of interest (test code = 16008-1) Whether patient resides in a congregate care setting (test code = 04668-3) SARS-CoV-2 (COVID-19) RNA [Presence] in Respiratory specimen by ELDA with probe [id number] 20:11:44 Test Item Value Reference Range Interpretation Comments SARS-CoV-2 (COVID-19) RNA Not detected Not-Detected [Presence] in Respiratory specimen by ELDA with probe detection (test code = 98384-4) Whether patient is employed in a healthcare setting (test code = 17874-4) Whether the patient has symptoms related to condition of interest (test code = 91598-5) Patient was hospitalized because of this condition (test code = 39667-7) Whether the patient was admitted to intensive care unit (ICU) for condition of interest (test code = 44704-9) Whether patient resides in a congregate care setting (test code = 29286-6) SARS-CoV-2 (COVID-19) RNA [Presence] in Respiratory specimen by ELDA with probe [id number] 14:04:47 Test Item Value Reference Range Interpretation Comments SARS-CoV-2 (COVID-19) RNA Not detected Not-Detected [Presence] in Respiratory specimen by ELDA with probe detection (test code = 07660-9) Whether patient is employed in a healthcare setting (test code = 04738-2) Whether the patient has symptoms related to condition of interest (test code = 41675-5) Patient was hospitalized because of this condition (test code = 09323-5) Whether the patient was admitted to intensive care unit (ICU) for condition of interest (test code = 17387-0) Whether patient resides in a congregate care setting (test code = 33169-6) SARS-CoV-2 (COVID-19) RNA [Presence] in Respiratory specimen by ELDA with probe [id number] 17:43:38 Test Item Value Reference Range Interpretation Comments SARS-CoV-2 (COVID-19) RNA Not detected Not-Detected [Presence] in Respiratory specimen by ELDA with probe detection (test code = 66239-2) Whether patient is employed in a healthcare setting (test code = 61301-2) Whether the patient has symptoms related to condition of interest (test code = 87438-7) Patient was hospitalized because of this condition (test code = 98861-5) Whether the patient was admitted to intensive care unit (ICU) for condition of interest (test code = 13919-3) Whether patient resides in a congregate care setting (test code = 08033-5) SARS-CoV-2 (COVID-19) RNA [Presence] in Respiratory specimen by ELDA with probe [id number] 17:43:48 Test Item Value Reference Range Interpretation Comments SARS-CoV-2 (COVID-19) RNA Not detected Not-Detected [Presence] in Respiratory specimen by ELDA with probe detection (test code = 84416-9) Whether patient is employed in a healthcare setting (test code = 89631-9) Whether the patient has symptoms related to condition of interest (test code = 11760-5) Patient was hospitalized because of this condition (test code = 67400-0) Whether the patient was admitted to intensive care unit (ICU) for condition of interest (test code = 21781-9) Whether patient resides in a congregate care setting (test code = 28685-1) SARS-CoV-2 (COVID-19) RNA [Presence] in Respiratory specimen by ELDA with probe [id number] 21:23:33 Test Item Value Reference Range Interpretation Comments SARS-CoV-2 (COVID-19) RNA Not detected Not-Detected [Presence] in Respiratory specimen by ELDA with probe detection (test code = 27119-7) Whether patient is employed in a healthcare setting (test code = 58127-9) Whether the patient has symptoms related to condition of interest (test code = 98607-5) Patient was hospitalized because of this condition (test code = 53016-5) Whether the patient was admitted to intensive care unit (ICU) for condition of interest (test code = 20404-0) Whether patient resides in a congregate care setting (test code = 81084-9)
--- NOTE | 2022-04-20 14:57 | RAD REPORT ---
EXAM DESCRIPTION: USExtrem Venous W Compress Bil04/20/2022 2:50 pm CLINICAL HISTORY: Leg pain COMPARISON: August 2021 FINDINGS: The common femoral, superficial femoral, and popliteal tibial veins bilaterally are compre ssible and demonstrate augmentation. Doppler demonstrates good flow. Grayscale, color and spectral analysis performed on all vessels IMPRESSION: No evidence of deep venous thrombosis involving either lower extremity.
--- NOTE | 2022-04-20 15:11 | RAD REPORT ---
EXAM DESCRIPTION: Gustavo Single View04/20/2022 2:54 pm CLINICAL HISTORY: Chest pain COMPARISON: December 2021 FINDINGS: The lungs appear clear of acute infiltrate. The heart is normal size IMPRESSION: No acute abnormalities displayed
[2022-04-20 15:24] LABS: Absolute Lymphocytes (CBC) 0.7 K/uL (0.7-4.9); Hematocrit 28.9 % (39.6-49.0); Lymphocytes % 15.4 % (15.3-44.8); MCV 88.2 fL (80-100); MPV 7.7 fL (7.6-11.3); RBC Red Blood Cell Count 3.27 M/uL (4.33-5.43)
[2022-04-20 15:45] LABS: Potassium 4.7 mmol/L (3.5-5.1); Troponin High Sensitivity 15.3 pg/mL (<58.9)
[2022-04-20] MEDS ORDERED: HEPARIN 5000 UNIT/ML 1 ML VIAL SQ ONE (16:00)
--- NOTE | 2022-04-20 18:23 | ER ---
Nurse's Notes [facility] Name: Torey Pritchard Age: 66 yrs Sex: Male : 1955 Arrival Date: 04/20/2022 Time: 14:02 Bed 17 Private MD: Elbert Pang T Diagnosis: Chest pain, unspecified;Muscle spasm of calf Presentation: 04/20 14:05 Chief complaint: Patient states: L sided chest pain that started while at the [employer] office today, does not radiate, denies dizziness or nausea SOB that is baseline r/t hx of CHF, noted to be intermittently yelling out and jumping during triage, recently admitted for CHF. Coronavirus screen: Vaccine status: Patient reports receiving the 2nd dose of the covid vaccine. Ebola Screen: No symptoms or risks identified at this time. Initial Sepsis Screen: Does the patient meet any 2 criteria? No. Patient's initial sepsis screen is negative. Does the patient have a suspected source of infection? No. Patient's initial sepsis screen is negative. Risk Assessment: Do you want to hurt yourself or someone else? Patient reports no desire to harm self or others. Onset of symptoms was April 20, 2022. 14:05 Method Of Arrival: Wheelchair ph 14:05 Acuity: MARNI 3 ph Triage Assessment: 14:15 General: Appears in no apparent distress. Behavior is cooperative, appropriate for age, ph Denies fever. Pain: Complains of pain in anterior aspect of left upper chest Pain does not radiate. Pain began suddenly. Neuro: Level of Consciousness is awake, alert, obeys commands, Oriented to person, place, time, situation. Cardiovascular: Reports chest pain, shortness of breath. Derm: Skin is healthy with good turgor, Skin is pink, warm \T\ dry. Historical: - Allergies: 14:09 Haloperidol; ph 14:17 Rocephin; ph - Home Meds: 14:09 allopurinol 100 mg Oral tab [Active]; gabapentin 300 mg Oral cap [Active]; hydralazine ph 100 mg Oral tab [Active]; insulin glargine 100 unit/mL (3 mL) Sub-Q inpn 24 units BID PRN (per pt if BG is above 110 in the AM or 'very high' in the PM but is unable to state a cut off) [Active]; nifedipine 30 mg Oral TbER [Active]; pantoprazole 40 mg Oral TbEC [Active]; 14:22 spironolactone Oral [Active]; rosuvastatin oral [Active]; Metoprolol Tartrate Oral ph [Active]; Bumetanide Oral [Active]; - PMHx: 14:09 Cancer; CHF; CVA; Diabetes - NIDDM; kidney disease; lymphedema; neuropathy; PVD; ph - PSHx: 14:09 Vasectomy; ph - Immunization history:: Adult Immunizations up to date. - Social history:: Smoking status: Patient denies any tobacco usage or history of. Screenin:00 Abuse screen: Denies threats or abuse. Denies injuries from another. [facility] 18:02 Nutritional screening: No deficits noted. Tuberculosis screening: No symptoms or risk [facility] factors identified. Fall Risk None identified. Assessment: 15:00 General: Appears in no apparent distress. Behavior is calm, cooperative, pt placed into [facility] room 17 at this time. Pt placed on monitor and call light in reach,. . 15:00 Pain: Denies pain. [facility] 16:00 Reassessment: Patient and/or family updated on plan of care and expected duration. Pain jh6 level reassessed. Patient is alert, oriented x 3, equal unlabored respirations, skin warm/dry/pink. Patient denies pain at this time. 17:00 Reassessment: No changes from previously documented assessment. Patient is alert, jh6 oriented x 3, equal unlabored respirations, skin warm/dry/pink. pt sleeping when walked into room. nad noted. 18:01 Reassessment: Patient and/or family updated on plan of care and expected duration. Pain 6 level reassessed. Patient is alert, oriented x 3, equal unlabored respirations, skin warm/dry/pink. Patient denies pain at this time. Pain: Denies pain. Vital Signs: 14:05 BP 138 / 64; Pulse 81; Resp 18; Temp 98.0; Pulse Ox 100% on R/A; Weight 92.99 kg; ph Height 5 ft. 11 in. (180.34 cm); 15:00 BP 143 / 67; Pulse 74; Resp 18; Pulse Ox 100% ; Pain 0/10; jh6 16:00 BP 139 / 63; Pulse 76; Resp 17; Pulse Ox 99% ; Pain 0/10; jh6 17:00 BP 116 / 74; Pulse 76; Resp 16; Pulse Ox 98% ; Pain 0/10; jh6 14:05 Body Mass Index 28.59 (92.99 kg, 180.34 cm) ph ED Course: 14:02 Patient arrived in ED. mr 14:02 Elbert Pang MD is Private Physician. mr 14:09 Triage completed. ph 14:10 Lupis Lal FNP-C is PSYCHIATRICP. snw 14:10 Gena Garcia MD is Attending Physician. snw 14:10 Arm band placed on. ph 14:12 EKG done, by ED staff, reviewed by Gena Garcia MD. dh3 14:51 US Extremity Venous W Compression Hugo In Process Unspecified. EDMS 14:56 XRAY Chest (1 view) In Process Unspecified. EDMS 15:00 Placed in gown. Bed in low position. Side rails up X 1. Client placed on continuous jh6 cardiac and pulse oximetry monitoring. NIBP monitoring applied. 15:00 Inserted saline lock: 20 gauge in right antecubital area, using aseptic technique. jh6 Blood collected. 15:00 No provider procedures requiring assistance completed. Patient maintains SpO2 jh6 saturation greater than 95% on room air. 15:04 Margaret Henson, CHRISTIAN is Primary Nurse. jh6 18:16 Elbert Pang MD is Referral Physician. snw 19:22 IV discontinued, intact, bleeding controlled, No redness/swelling at site. Pressure ja4 dressing applied. Administered Medications: 15:27 Drug: HEParin 5000 units Route: Sub-Q; Site: left upper arm; jh6 19:22 Drug: Dicyclomine 10 mg Route: PO; ja4 Medication: 14:16 VIS not applicable for this client. ph Outcome: 18:23 Discharge ordered by . snw 19:22 Discharged to home ambulatory. ja4 19:22 Condition: stable 19:22 Discharge instructions given to patient, Instructed on discharge instructions, follow up and referral plans. medication usage, Demonstrated understanding of instructions, follow-up care, medications. 19:23 Patient left the ED. ja4 Signatures: Dispatcher [employer] EDUT Lupis Lal FNP-C SUPERVISOR [employer]-Csnbetsy Betzaida Enriquez Mima Mayo, RN RN Venancio, Flores dh3 Margaret Henson RN RN 6 Christos Aly RN RN ja4 Corrections: (The following items were deleted from the chart) 14:23 14:09 Home Meds: atorvastatin 80 mg Oral tab; ph ph 17:58 17:57 Inserted saline lock: 20 gauge in right antecubital area, using aseptic [facility] technique. Blood collected. [facility]
--- NOTE | 2022-04-20 18:23 | EDPHYS ---
Physician Documentation [facility] Name: Torey Pritchard Age: 66 yrs Sex: Male : 1955 Arrival Date: 04/20/2022 Time: 14:02 Bed 17 Private MD: Elbert Pang T ED Physician Gena Garcia HPI: 04/20 17:57 This 66 yrs old Male presents to ER via Wheelchair with complaints of Chest Pain. snw 17:57 Onset: The symptoms/episode began/occurred suddenly. Associated signs and symptoms: snw Pertinent positives: chest pain. Modifying factors: The patient symptoms are alleviated by nothing, the patient symptoms are aggravated by nothing. The patient has experienced similar episodes in the past. The patient has been recently seen by a physician: the patient's primary care provider, The patient has been recently seen at the [facility], this week, for similar complaints. Historical: - Allergies: 14:09 Haloperidol; ph 14:17 Rocephin; ph - Home Meds: 14:09 allopurinol 100 mg Oral tab [Active]; gabapentin 300 mg Oral cap [Active]; hydralazine ph 100 mg Oral tab [Active]; insulin glargine 100 unit/mL (3 mL) Sub-Q inpn 24 units BID PRN (per pt if BG is above 110 in the AM or 'very high' in the PM but is unable to state a cut off) [Active]; nifedipine 30 mg Oral TbER [Active]; pantoprazole 40 mg Oral TbEC [Active]; 14:22 spironolactone Oral [Active]; rosuvastatin oral [Active]; Metoprolol Tartrate Oral ph [Active]; Bumetanide Oral [Active]; - PMHx: 14:09 Cancer; CHF; CVA; Diabetes - NIDDM; kidney disease; lymphedema; neuropathy; PVD; ph - PSHx: 14:09 Vasectomy; ph - Immunization history:: Adult Immunizations up to date. - Social history:: Smoking status: Patient denies any tobacco usage or history of. ROS: 17:56 Constitutional: Negative for fever, chills, and weight loss, Eyes: Negative for injury, snw pain, redness, and discharge, ENT: Negative for injury, pain, and discharge, Neck: Negative for injury, pain, and swelling, Respiratory: Negative for shortness of breath, cough, wheezing, and pleuritic chest pain, Abdomen/GI: Negative for abdominal pain, nausea, vomiting, diarrhea, and constipation, Back: Negative for injury and pain, : Negative for injury, bleeding, discharge, and swelling, MS/Extremity: Negative for injury and deformity, Skin: Negative for injury, rash, and discoloration, Neuro: Negative for headache, weakness, numbness, tingling, and seizure, Psych: Negative for depression, anxiety, suicide ideation, homicidal ideation, and hallucinations. 17:56 Cardiovascular: Positive for chest pain, of the anterior aspect of right upper chest, anterior aspect of left upper chest and mid-sternal area. Exam: 17:56 Constitutional: This is a well developed, well nourished patient who is awake, alert, snw and in no acute distress. Head/Face: Normocephalic, atraumatic. Eyes: Pupils equal round and reactive to light, extra-ocular motions intact. Lids and lashes normal. Conjunctiva and sclera are non-icteric and not injected. Cornea within normal limits. Periorbital areas with no swelling, redness, or edema. ENT: Nares patent. No nasal discharge, no septal abnormalities noted. Tympanic membranes are normal and external auditory canals are clear. Oropharynx with no redness, swelling, or masses, exudates, or evidence of obstruction, uvula midline. Mucous membranes moist. Neck: Trachea midline, no thyromegaly or masses palpated, and no cervical lymphadenopathy. Supple, full range of motion without nuchal rigidity, or vertebral point tenderness. No Meningismus. Chest/axilla: Normal chest wall appearance and motion. Nontender with no deformity. No lesions are appreciated. Cardiovascular: Regular rate and rhythm with a normal S1 and S2. No gallops, murmurs, or rubs. Normal PMI, no JVD. No pulse deficits. Respiratory: Lungs have equal breath sounds bilaterally, clear to auscultation and percussion. No rales, rhonchi or wheezes noted. No increased work of breathing, no retractions or nasal flaring. Abdomen/GI: Soft, non-tender, with normal bowel sounds. No distension or tympany. No guarding or rebound. No evidence of tenderness throughout. Back: No spinal tenderness. No costovertebral tenderness. Full range of motion. Skin: Warm, dry with normal turgor. Normal color with no rashes, no lesions, and no evidence of cellulitis. MS/ Extremity: Pulses equal, no cyanosis. Neurovascular intact. Full, normal range of motion. Neuro: Awake and alert, GCS 15, oriented to person, place, time, and situation. Cranial nerves II-XII grossly intact. Motor strength 5/5 in all extremities. Sensory grossly intact. Cerebellar exam normal. Normal gait. Psych: Awake, alert, with orientation to person, place and time. Behavior, mood, and affect are within normal limits. Vital Signs: 14:05 BP 138 / 64; Pulse 81; Resp 18; Temp 98.0; Pulse Ox 100% on R/A; Weight 92.99 kg; ph Height 5 ft. 11 in. (180.34 cm); 15:00 BP 143 / 67; Pulse 74; Resp 18; Pulse Ox 100% ; Pain 0/10; jh6 16:00 BP 139 / 63; Pulse 76; Resp 17; Pulse Ox 99% ; Pain 0/10; jh6 17:00 BP 116 / 74; Pulse 76; Resp 16; Pulse Ox 98% ; Pain 0/10; jh6 14:05 Body Mass Index 28.59 (92.99 kg, 180.34 cm) ph MDM: 14:29 Patient medically screened. snw 17:59 Data reviewed: vital signs, nurses notes. Data interpreted: Pulse oximetry: on room air snw is 100 %. Interpretation: normal. Counseling: I had a detailed discussion with the patient and/or guardian regarding: the historical points, exam findings, and any diagnostic results supporting the discharge/admit diagnosis, the presence of at least one elevated blood pressure reading (>120/80) during this emergency department visit, lab results, radiology results, the need for outpatient follow up, for definitive care. Special discussion: I have referred the patient to see his PCP for further evaluation of high blood pressure. Based on the history and exam findings, there is no indication for further emergent testing or inpatient evaluation. I discussed with the patient/guardian the need to see the primary care provider for further evaluation of the symptoms. Nephrology. ED course: Pt in ED four days ago for the same s/s. Given lasix and discharged to f/u. Pt sees Dr. Ivey who told pt he is in End stage kidney disease. Pt declines dialysis at this time. Pt's creatinine 04/16/22 was 2.37, BUN 79, GFR 29. Today Creatinine 2.73, BUN 93, GFR 25.. ED course: Pt sleeping, no distress, no c/o chest pain. Will discharge to f/u 1-2 days with primary and specialty physicians. 18:14 Response to treatment: chest pain free. snw 18:14 ED course: Pt states he has an appointment with Dr. Ivey on the . . snw 04/20 14:24 Order name: Basic Metabolic Panel; Complete Time: 15:47 04/20 14:24 Order name: CBC with Diff; Complete Time: 15:43 04/20 14:24 Order name: US Extremity Venous W Compression Hugo; Complete Time: 15:01 04/20 14:24 Order name: Troponin HS; Complete Time: 15:47 04/20 14:24 Order name: XRAY Chest (1 view); Complete Time: 15:25 04/20 14:24 Order name: EKG; Complete Time: 14:25 w 04/20 14:24 Order name: Cardiac monitoring; Complete Time: 15:01 04/20 14:24 Order name: EKG - Nurse/Tech; Complete Time: 14:59 04/20 14:24 Order name: IV Saline Lock; Complete Time: 15:52 04/20 14:24 Order name: Labs collected and sent; Complete Time: 15:52 04/20 14:24 Order name: O2 Per Protocol; Complete Time: 15:02 04/20 14:24 Order name: O2 Sat Monitoring; Complete Time: 15:02 snw EC:10 Rate is 74 beats/min. Rhythm is regular. ST Segment is depressed in leads I, II, V4, snw V5. Clinical impression: NSR w/ Non-specific ST/T Changes. Administered Medications: 15:27 Drug: HEParin 5000 units Route: Sub-Q; Site: left upper arm; jh6 19:22 Drug: Dicyclomine 10 mg Route: PO; ja4 Disposition: 04/21 07:38 STAFF ATTESTATION: The patient's history, exam findings, diagnostics and a summary of sd2 any interventions or procedures was reviewed in detail with the ED FATOU. I confirm the diagnosis as documented by the FATOU and I agree with the care plan articulated in the disposition section with regards to our discussion of the patient's case. Patient has related a preference for outpatient follow up rather than admission at this time per TERADATA ARCHITECT report. Gena Garcia MD. Disposition Summary: 04/20/22 18:23 Discharge Ordered Location: Home snw Condition: Stable snw Diagnosis - Chest pain, unspecified snw - Muscle spasm of calf snw Followup: snw - With: Elbert Pang MD - When: Tomorrow - Reason: Recheck today's complaints, Continuance of care, Re-evaluation by your physician Followup: snw - With: Emergency Department - When: As needed - Reason: Worsening of condition Discharge Instructions: - Discharge Summary Sheet snw - Nonspecific Chest Pain, Adult snw - Leg Cramps snw - Chronic Kidney Disease, Adult snw Forms: - Medication Reconciliation Form snw - Thank You Letter snw - Antibiotic Education snw - Prescription Opioid Use snw Signatures: Dispatcher [employer] EDMS Lupis Lal, INSTRUCTOR [employer]-C [employer]STRUCTOR [employer]-Csnw Mima Arrieta RN RN Margaret Henson RN RN jh6 Gena Garcia MD MD sd2 Christos Aly RN RN ja4 Corrections: (The following items were deleted from the chart) 04/20 14:23 14:09 Home Meds: atorvastatin 80 mg Oral tab; ph
[2022-04-20] MEDS ORDERED: DICYCLOMINE HCL 10 MG CAP ONE (19:21)
[2022-04-22 00:28] VITALS: TEMP 98
[2022-04-22 00:35] VITALS: BP 116/74; O2SAT 98
--- NOTE | 2022-04-22 06:36 | EKG ---
Test Date: 2022-04-20 Test Time: 14:06:14 Hat Model: TAMMI MEASUREMENT RESULTS: Intervals: Rate: 74 WA: 166 QRSD: 84 QT: 404 QTc: 448 [place]: P: 90 WA: 166 QRS: -3 T: 211 INTERPRETIVE STATEMENTS: Normal sinus rhythm T wave abnormality, consider inferolateral ischemia Abnormal ECG Compared to ECG 04/13/2022 23:32:04 Myocardial infarct finding no longer present T-wave abnormality still present Possible ischemia still present Electronically Signed On 04-22-22 06:31:58 CDT by Sergo Ward
== END 2022-04-20 19:23 | disposition home or self-care (01) ==
LOC: ER 14:00
DX: R07.9 Chest pain, unspecified (principal); M62.831 Muscle spasm of calf; E11.22 Type 2 diabetes mellitus with diabetic chronic kidney disease; I50.9 Heart failure, unspecified
CPT/HCPCS: 93005; 85025; 80048; 36415; 84484; 71045; 93970; 96372; 99284; J1644

== ENCOUNTER 2022-07-18 10:42 | Emergency (ER) | payer OTHER ==
--- OUTSIDE RECORDS SUMMARY | 2022-07-18 10:45 | XMS REPORT | Clinical Summary ---
:1955 Author Organization [facility] MD [facility] Address [address] [place] [id number] Care Team Providers Name Role Phone Unavailable Primary Care Provider Unavailable Allergies Not on File Medications Not on file Active Problems Not on file Social History Tobacco Use Types Packs/Day Years Used Date Smoking Tobacco: Never Assessed Sex Assigned at Date Recorded Not on file Job Start Date Occupation Industry Not on file Not on file Not on file Last Filed Vital Signs Not on file Plan of Treatment Not on file Results Not on fileafter 07/18/2021 Insurance Payer Benefit Plan / Subscriber ID Effective Dates Phone Addre ss Type Group A[employer]NA MEDICARE AETNA MEDICARE [id number] 2020-Prese [address] [place] [address]
--- OUTSIDE RECORDS SUMMARY | 2022-07-18 10:49 | XMS REPORT | Continuity of Care Document ---
:1955 Author Organization [facility] t Address [address] [place] [address] Dr. Morelos. [address] [place] [address] Care Team Providers Name Role Phone NOAH SHELBY GIL Primary Care Physician Unavailable SALVADOR WILKINSON Attending Clinician Unavailable Marshall NGUYEN, Andrew Hook Attending Clinician Marine Pollock MA Attending Clinician Unavailable Madhu NGUYEN, Fredi Attending Clinician Sri NGUYEN, Adarsh Attending Clinician Dea Ndiaye MD Attending Clinician Farzana Hurtado MD Attending Clinician Юлия Carmona RN Attending Clinician Unavailable Loretta Prescott MA Attending Clinician Unavailable Nils Davis MD Attending Clinician Treasure NGUYEN, Alistair Mcpherson Attending Clinician [phone] Armand Pina MD, Qing Attending Clinician [phone] Angel NGUYEN, Selwyn Attending Clinician Mukesh Schwarz MD Attending Clinician David Driver DPM Attending Clinician Provider, Unknown Attending Clinician Unavailable Nataliia Martínez MD Attending Clinician Chanelle Prieto RN Attending Clinician Unavailable Sona Garcia MA Attending Clinician Unavailable Elda Arredondo RN Attending Clinician Unavailable Lay Ybarra Attending Clinician Unavailable Yenni Muro MA Attending Clinician Unavailable Jorge Root MD Attending Clinician Debora Petty MA Attending Clinician Unavailable MD FARZANA HURTADO Attending Clinician Unavailable VAUGHN OLIVARES Attending Clinician Unavailable MD ADARSH FIERRO Attending Clinician Unavailable MD QING TURNER Attending Clinician Unavail able MD ALISTAIR VELASCO Attending Clinician Unavailable JILL NEVAREZ Attending Clinician Unavailable Sal Ellis MD Attending Clinician SAL ELLIS Attending Clinician Unavailable SAL ELLIS Attending Clinician Unavailable SALVADOR WILKINSON Admitting Clinician Unavailable DEA NDIAYE Admitting Clinician Unavailable ALISTAIR VELASCO Admitting Clinician Unavailable FARZANA HURTADO Admitting Clinician Unavailable MD FARZANA HURTADO Admitting Clinician Unavailable ADARSH FIERRO Admitting Clinician Unavailable MD ADARSH FIERRO Admitting Clinician Unavailable MD ALISTAIR VELASCO Admitting Clinician Unavailable Payers Payer Name Policy Type Policy Number Effective Date Expiration Date Sheila JOSE MEDICARE OUT [id number] 2020 OF [facility] 00:00:00 Problems Condition Condition Condition Status Onset Resolution Last Treating Co mments Source Name Details Category Date Date Treatment Clinician Date Encounter Encounter Disease Active Met hodi for for 04-27 follow-up follow-up 00:00: Hosp tash examinatio examinatio 00 l n after n after completed completed treatment treatment for cancer for cancer Decubitus Decubitus Disease Active Met hodi ulcer of ulcer of 3-15 st left lower left lower 00:00: Ho spita extremity extremity 00 l CKD CKD Disease Active Methodi (chronic (chronic 09-24 kidney kidney 00:00: Hospita disease) disease) 00 l stage 3, stage 3, GFR 30-59 GFR 30-59 ml/min ml/min Chest pain Chest pain Disease Active 2022-0 M ethodi 09-24 00:00: Hospita 00 l Shortness Shortness Disease Active Met hodi of breath of breath 09-23 00:00: Hospita 00 l Fluid Fluid Disease Active 2020-08 Methodi overload overload 00:00: Hospita 00 l Venous Venous Disease Active 2020-[address] ulcers of ulcers of 00:00: Hosp tash both lower both lower 00 l extremitie extremitie s s Pancytopen Pancytopen Disease Active M ethodi ia due to ia due to 04-24 antineopla antineopla 00:00: Ho spita stic stic 00 l chemothera chemothera py py 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 04-17 diabetes diabetes 00:00: Hospit a mellitus mellitus 00 l with with diabetic diabetic nephropath nephropath y, with y, with long-term long-term current current use of use of insulin insulin Peripheral Peripheral Disease Active M ethodi edema edema 04-03 00:00: Hospita 00 l Other Other Disease Active Methodi hyperlipid hyperlipid 03-28 emia emia 00:00: Hospita 00 l History of History of Disease Active M ethodi CVA CVA 03-28 (cerebrova (cerebrova 00:00: Ho spita scular scular 00 l accident) accident) DLBCL DLBCL Disease Active 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 00:00: Hospita cell cell 00 l lymphoma) lymphoma) Lymphoma, Lymphoma, Disease Active Met hodi large cell large cell 03-27 00:00: Hospita 00 l Pancytopen Pancytopen Disease Active M ethodi ia ia 03-27 00:00: Hospita 00 l Essential Essential Disease Active Met hodi hypertensi hypertensi 03-27 on on 00:00: Hospita 00 l Hyperglyce Hyperglyce Disease Active M ethodi matteo due to matteo due to 03-20 diabetes diabetes 00:00: Hospit a mellitus mellitus 00 l H/O type B H/O type B Disease Active M ethodi viral viral 03-20 hepatitis hepatitis 00:00: Hosp tash 00 l 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 00:00: Ho spita a a 00 l 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 03-04 00:00: Hospita 00 l Anemia Anemia Disease Active Methodi 02-28 st 00:00: Hospita 00 l Chronic Chronic Disease Active Methodi hypertensi hypertensi 02-28 st on on 00:00: Hospita 00 l Nausea Nausea Disease Active Methodi 02-25 st 00:00: Hospita 00 l Cancer Cancer Disease Active Methodi related related 02-25 pain pain 00:00: Hospita 00 l No known No known Disease Unive rs active active ity of problems problems [facility] Allergies, Adverse Reactions, Alerts Allergy Allergy Status Severity Reaction(s) Onset Inactive Treating Comm ents Source Name Type Date Date Clinician Luann Velezensi Active Other (See 2014-08 High Me thodi one ty to Comments) 08-[address] adverse 00:00: sugar, Hospita reaction 00 blacked l s to outReport drug ed by other hospital. Per patient his blood glucose "went alice high"Repo rted by other hospital. Per patient his blood glucose "went alice high"Repo rted by other hospital. Per patient his blood glucose "went alice high"High blood sugar, blacked outReport ed by other hospital. Per patient his blood glucose "went alice high"High blood sugar, blacked outHigh blood sugar, blacked out [place] Propensi Active Anaphylaxis 2014-08 Heart M ethodi dol ty to 08-[address] adverse 00:00: iac Hospita reaction 00 arrestcod l s to edcodedCa drug rdiac arrest [place] Drug Active Anaphylaxis 2014-08 Cardiac Un olvin dol Allergy 08-22 arrestcod ity of 00:00: ed [address] HALOPERI DRUG Active High Anaphylaxis 2014-08 Uni vers DOL INGREDI 08-22 ity of 00:00: [address] CEFTRIAX DRUG Active Low N/V 2014-08 Univers ONE INGREDI 1-21 ity of 00:00: [place] 00 [facility] Ceftriax Propensi Active Nausea 2015- High Univer s one ty to and/or 1 blood ity of adverse Vomiting 00:00: [facility] [place] reaction 00 [facility] ed by other hospital. Per patient his blood glucose "went alice high" NO KNOWN Drug Active Univers ALLERGIE Class ity of S [facility] Social History Social Habit Start Date Stop Date Quantity Comments Source Exposure to Not sure University SARS-CoV-2 [facility] (event) [place] Alcohol intake 2022-04-28 2022-04-28 Current drinker [facility] 00:00:00 00:00:00 of alcohol (finding) Tobacco use and 2022-03-18 2022-03-18 Smokeless tobacco [facility] exposure 00:00:00 00:00:00 non-user Alcohol Comment 2021-05-29 2021-05-29 monthly, quit 4 [facility] 00:00:00 00:00:00 months ago. Sex Ass[birth year] [facility] 00:00:00 00:00:00 Smoking Status Start Date Stop Date Source Unknown if ever smoked [facility] Never smoked tobacco [facility] ospital Medications Ordered Filled Start Stop Current Ordering Indication Dosage Frequency Signature Comments Components Source Medication Medication Date Date Medication? Clinician (SIG) Name Name bart 40mg QD Take 40 mg Methodi n (LIPITOR) 04-[address] 80 MG 12:37: 00:00 daily. Hospita tablet 40 :00 l NIFEdipine Yes 30mg Q.5D Take 30 mg M ethodi ER 04-[address] (PROCARDIA- 11:52: (two) Hospi ta XL) 30 MG 02 times a l 24 hr day. tablet metoprolol Yes 25mg Q.5D Take 25 mg M ethodi tartrate 04-[address] (LOPRESSOR) 11:52: (two) Hospi ta 25 mg 02 times a l tablet day. pantoprazol Yes 40mg QD Take 40 mg Methodi e 04-[address] (PROTONIX) 11:52: daily. Hospi ta 40 MG EC 02 l tablet allopurinoL 2022-0 Yes 300mg QD Take 300 M ethodi (ZYLOPRIM) 9-[address] 300 MG 11:52: mouth Hospita tablet 02 daily. l aspirin 0 Yes 81mg QD Take 81 mg Meth ben (ECOTRIN) 9-[address] 81 MG 11:52: daily. Hospita enteric 02 l coated tablet hydrALAZINE 0 Yes 25mg Q.5D Take 25 mg Methodi (APRESOLINE -[address] ) 25 MG 11:52: (two) Hospita tablet 02 times a l day. cholecalcif 0 Yes 2000U QD Take 2,000 Methodi iris, 9-[address] vitamin D3, 11:52: mouth Hospi ta 50 mcg 02 daily. l (2,000 unit) capsule capsule mecobalamin Yes 1{tbl} QD Take 1 Me thodi (B12 ACTIVE -[address] ORAL) 11:52: mouth Hospita 02 daily. l vit A/vit 0 Yes 1{tbl} Q.5D Take 1 Meth ben C/vit - tablet by st E/zinc/ely 11:52: mouth 2 Hos adrien er 02 (two) l (PRESERVISI times a ON AREDS day. ORAL) insulin 0 Yes 24U Q.5D Inject 24 Metho di GLARGINE 9-[address] (Basaglar 11:52: under the Hos adrien KwikPen 02 skin 2 l U-100 (two) Insulin) times a 100 unit/mL day. injection (pen) spironolact 0 Yes 25mg Q.5D Take 1 Meth ben one -27 tablet (25 st (ALDACTONE) 11:52: mg total) H ospita 25 MG 02 by mouth 2 l tablet (two) times a day. rosuvastati 0 Yes 40mg QD Take 1 Meth ben n (CRESTOR) 9-27 tablet (40 st 40 MG 11:52: mg total) Hospita tablet 02 by mouth l daily. rivaroxaban 0 Yes 2.5mg Q.5D Take 1 Met hodi (Xarelto) -[address] 2.5 mg 00:00: (2.5 mg Hospita tablet 00 total) by l tablet mouth 2 (two) times a day. acyclovir 2021- No 200mg Q.5D Take 200 Me thodi (ZOVIRAX) 03-20-[address] 200 MG 19:06: 00:00 mouth 2 Hospita capsule 49 :00 (two) l times a day. BUMETanide 2021- No 1mg QD Take 1 mg M ethodi (BUMEX) 1 03-[address] MG tablet 15:43: 00:00 daily. Hospi ta 10 :00 l spironolact 2021- No 25mg QD Take 1 Met hodi one 03-20 tablet (25 st (ALDACTONE) 15:43: 00:00 mg total) Hospita 25 MG 10 :00 by mouth l tablet daily. BUMETanide 2021- No 1mg QD Take 1 Meth ben (BUMEX) 1 03-20 tablet (1 st MG tablet 00:00: 04:59 mg total) Ho spita 00 :00 by mouth l daily for 30 days. spironolact 2021- No 25mg QD Take 1 Met hodi one 03-20 tablet (25 st (ALDACTONE) 00:00: 04:59 mg total) Hospita 25 MG 00 :00 by mouth l tablet daily for 30 days. HYDROcodone 2021- No [id number] 1{tbl} Q6H Take 1 Methodi -acetaminop 03-[address] hen (NORCO) 00:00: 04:59 mouth Hosp tash 5-325 mg 00 :00 every 6 l per tablet (six) hours as needed for moderate pain for up to 10 days .acute pain. Max Daily Amount: 4 tablets gabapentin Yes TAKE ONE Met hodi (NEURONTIN) 7-11 (1) st 300 mg 00:00: CAPSULE(S) Hospi ta capsule 00 BY MOUTH l EVERY NIGHT. gabapentin 2021- No 300mg QD Take 300 M ethodi (NEURONTIN) 3-30 03-[address] 300 mg 10:29: 00:00 mouth Hospita capsule 36 :00 nightly. l gabapentin 2021- No TAKE ONE Me thodi (NEURONTIN) 30 -30 (1) st 300 mg 00:00: 04:59 CAPSULE(S) Hosp tash capsule 00 :00 BY MOUTH l EVERY NIGHT. polyethylen 2021- No 17g Q.5D Take 17 g Methodi e glycol 18 -[address] (MIRALAX) 00:00: 04:59 (two) Hospit a 17 gram 00 :00 times a l packet day as needed for constipati on for up to 30 days. cephalexin 2021- No 500mg Q.5D Take 1 Met hodi (Keflex) 10-17- capsule st 500 MG 00:00: 04:59 (500 mg Hospita capsule 00 :00 total) by l mouth 2 (two) times a day for 14 days. HYDROcodone 2021- No [id number] 1{tbl} Q6H Take 1 Methodi -acetaminop 10-17- tablet by st hen (NORCO) 00:00: 04:59 mouth Hosp tash 10-325 mg 00 :00 every 6 l per tablet (six) hours as needed for severe pain for up to 7 days .acute pain. Max Daily Amount: 4 tablets cephalexin No 500mg Q.5D Take 500 M ethodi (KEFLEX) 09-28 02-[address] 500 MG 15:09: 00:00 mouth 2 Hospita capsule 01 :00 (two) l times a day. X 14 days, started on 09/10/21 spironolact 2021- No 25mg QD Take 1 Met hodi one 09-28- tablet (25 st (ALDACTONE) 00:00: 04:59 mg total) Hospita 25 MG 00 :00 by mouth l tablet daily for 30 days. spironolact 2021- No 25mg QD Take 25 mg Methodi one 09-27- by mouth st (ALDACTONE) 15:09: 00:00 daily. Hos adrien 25 MG 21 :00 l tablet BUMETanide 2021- No 1mg QD Take 1 mg M ethodi (BUMEX) 1 09-27- by mouth st MG tablet 13:59: 00:00 daily. Hospi ta 24 :00 l BUMETanide 2021- No 1mg QD Take 1 Meth ben (BUMEX) 1 09-27 tablet (1 st MG tablet 00:00: 04:59 mg total) Ho spita 00 :00 by mouth l daily for 30 days. insulin 2021- No 24U Q.5D Inject 24 Meth ben GLARGINE 09-[address] (LANTUS) 07:38: 00:00 under the Hos adrien 100 unit/mL 35 :00 skin 2 l injection (two) (vial) times a day. gabapentin 2021- No TAKE ONE Me thodi (NEURONTIN) 08-28 (1) st 300 mg 00:00: 00:00 CAPSULE(S) Hosp tash capsule 00 :00 BY MOUTH l EVERY NIGHT. gabapentin 2020-08 No TAKE ONE Me thodi (NEURONTIN) 08-23 (1) st 300 mg 00:00: 00:00 CAPSULE BY Hosp tash capsule 00 :00 MOUTH l NIGHTLY FOR 30 DAYS. atorvastati 2020-08 No 80mg QD Take 1 Met hodi n (LIPITOR) 08-04 tablet (80 s t 80 MG 00:00: 00:00 mg total) Hospit a tablet 00 :00 by mouth l daily. entecavir 2020-08- No [id number] .5mg Q7D Take 1 Methodi (BARACLUDE) 009-[address] 0.5 MG 00:00: 00:00 (0.5 mg Hospita tablet 00 :00 total) by l mouth once a week. acyclovir 2021- No 200mg Q.5D Take 1 Meth ben (ZOVIRAX) 03-[address] 200 MG 00:00: 00:00 (200 mg Hospita capsule 00 :00 total) by l mouth 2 (two) times a day for 180 days. doxycycline 2021- No 100mg Q.5D Take 1 Me thodi (VIBRAMYCIN 03-[address] ) 100 MG 00:00: 05:59 (100 mg Hospi ta capsule 00 :00 total) by l mouth 2 (two) times a day for 180 days. Chromium Yes 800mg Take 800 Univ ers Picolinate 4-06 mg by ity of 400 mcg Tab 15:00: mouth. [address] Cinnamon Yes 1000mg Take 1,000 U nivers Bark 500 mg 4-06 mg by ity of Cap 15:00: mouth. [address] Garlic Yes 1{capsu Take 1 Univer s (GARLIC 4-06 le} capsule by ity of OIL) 1,000 15:00: mouth. [address] Chromium Yes 800mg Take 800 Univ ers Picolinate 4-06 mg by ity of 400 mcg Tab 15:00: mouth. [address] Cinnamon Yes 1000mg Take 1,000 U nivers Bark 500 mg 4-06 mg by ity of Cap 15:00: mouth. [address] Garlic Yes 1{capsu Take 1 Univer s (GARLIC 4-06 le} capsule by ity of OIL) 1,000 15:00: mouth. [place] [address] metoprolol Yes Univers succinate 4-05 ity of XL 50 mg 24 00:00: [place] hr tablet 00 [facility] metoprolol Yes Univers succinate 4-05 ity of XL 50 mg 24 00:00: [place] hr tablet 00 [facility] 10 Yes Univers mg tablet 3-31 ity of 00:00: [address] 10 Yes Univers mg tablet 3-31 ity of 00:00: [address] metformin 2020-0 Yes 750mg Take 750 Uni vers ER 750 mg 3-26 mg by ity of 24 hr 00:00: mouth 2 [place] tablet 00 (two) Medical times [place] daily. metformin 0 Yes 750mg Take 750 Uni vers ER 750 mg 3-26 mg by ity of 24 hr 00:00: mouth 2 [place] tablet 00 (two) Medical times [place] daily. VASCEPA 1 Yes TAKE 2 Univer s gram 3-08 CAPSULES ity of capsule 00:00: BY MOUTH [place] [address] TWICE A Medical DAY Branch VASCEPA 1 2021-0 Yes TAKE 2 Univer s gram 3-08 CAPSULES ity of capsule 00:00: BY MOUTH [place] 00 TWICE A Medical DAY Branch atorvastati Yes 80mg Take 80 mg Univers n 80 mg 2-08 by mouth ity of tablet 00:00: every [place] [address] evening. Medical Branch clopidogreL 0 Yes 75mg Take 75 mg Univers 75 mg 2-08 by mouth ity of tablet 00:00: every [place] [address] morning. Medical Branch losartan 25 0 Yes 25mg Take 25 mg Univers mg tablet 2-08 by mouth ity of 00:00: every [place] [address] morning. Medical Branch atorvastati Yes 80mg Take 80 mg Univers n 80 mg 2-08 by mouth ity of tablet 00:00: every [place] 00 evening. Medical Branch clopidogreL Yes 75mg Take 75 mg Univers 75 mg 2-08 by mouth ity of tablet 00:00: every [place] [address] morning. Medical Branch losartan 25 Yes 25mg Take 25 mg Univers mg tablet 2-08 by mouth ity of 00:00: every [place] [address] morning. Medical Branch gabapentin Yes 600mg Take 600 Un olvin 600 mg 1-14 mg by ity of tablet 00:00: mouth at [place] [address] bedtime. Medical Branch gabapentin 0 Yes 600mg Take 600 Un olvin 600 mg 1-14 mg by ity of tablet 00:00: mouth at [place] [address] bedtime. Medical Branch Vital Signs Vital Name Observation Time Observation Value Comments Source Systolic blood 2020-11-05 15:00:00 170 mm[Hg] Univer sity of pressure [facility] Diastolic blood 2020-11-05 15:00:00 68 mm[Hg] Unive rsity of pressure [facility] Heart rate 2020-11-05 15:00:00 70 /min [facility] Body height 2020-11-05 14:58:00 182.9 cm [facility] Body weight 2020-11-05 14:58:00 91.627 kg [facility] BMI 2020-11-05 14:58:00 27.40 kg/m2 [facility] Oxygen saturation in 2020-11-05 14:58:00 100 /min [facility] blood by [facility] Pulse oximetry Branch Systolic blood 2020-11-05 15:00:00 170 mm[Hg] Univer sity of pressure [facility] Diastolic blood 2020-11-05 15:00:00 68 mm[Hg] Unive rsity of pressure [facility] Heart rate 2020-11-05 15:00:00 70 /min [facility] Body height 2020-11-05 14:58:00 182.9 cm [facility] Body weight 2020-11-05 14:58:00 91.627 kg [facility] BMI 2020-11-05 14:58:00 27.40 kg/m2 [facility] Oxygen saturation in 2020-11-05 14:58:00 100 /min University Arterial blood by [facility] Pulse oximetry Branch Systolic blood 2022-04-28 16:48:00 131 mm[Hg] [facility] pressure Diastolic blood 2022-04-28 16:48:00 63 mm[Hg] [facility] pressure Heart rate 2022-04-28 16:48:00 65 /min [facility] Body height 2022-04-28 16:48:00 180.3 cm [facility] Body weight 2022-04-28 16:48:00 84.369 kg [facility] BMI 2022-04-28 16:48:00 25.94 kg/m2 [facility] Body temperature 2022-04-27 14:34:00 36.61 Rhonda [facility] Respiratory rate 2022-04-27 14:34:00 18 /min [facility] Oxygen saturation in 2022-04-27 14:34:00 99 /min [facility] Arterial blood by Pulse oximetry Procedures Procedure Date / Time Performing Clinician Source Performed ECG 12-LEAD 2022-04-28 16:48:45 Andrew Olivares Ho spital CBC WITH PLATELET AND 2022-04-27 13:44:00 MadhuFredi mao [facility] DIFFERENTIAL COMPREHENSIVE METABOLIC 2022-04-27 13:44:00 [facility] PANEL LDH 2022-04-27 13:44:00 [facility] ESTIMATED GFR 2022-04-27 13:44:00 Fredi Alexander [facility] POC GLUCOSE 2022-03-20 17:44:00 Farzana Hurtado spital POC GLUCOSE 2022-03-20 14:27:00 Farzana Hurtado spital TTE COMPLETE, W CONTRAST, 2022-03-20 14:00:00 Zelda, Dea Tubbs [facility] W DOPPLER ([id number]) CBC WITH PLATELET AND 2022-03-20 08:46:00 Zelda, [facility] DIFFERENTIAL COMPREHENSIVE METABOLIC 2022-03-20 08:46[facility] 2022-03-20 08:46:00 Zelad, [facility] POC GLUCOSE 2022-03-20 01:04:00 Zelda, [facility] POC GLUCOSE 2022-03-19 22:35:00 Zelda, [facility] POC GLUCOSE 2022-03-19 17:36:00 Zelda, [facility] US RENAL 2022-03-19 15:15:[address] [facility] [address] CHEST WO CONTRAST 2022-03-19 14:39:[facility] PELVIS WO CONTRAST POC GLUCOSE 2022-03-19 13:37:00 Zelda, [facility] BLOOD CULTURE, AEROBIC & 2022-03-19 09:10[facility] WITH PLATELET AND 2022-03-19 09:09[facility]OLIC 2022-03-19 09:09:00 [facility] GFR 2022-03-19 09:09[facility] 2022-03-19 02:35:00 [facility] URINALYSIS SCREEN AND 2022-03-19 02:35:00 [facility] MICROSCOPY, WITH REFLEX TO CULTURE POC GLUCOSE 2022-03-19 01:51:00 [facility] & 2022-03-18 23:11:00 ZeldaDea [facility] ANAEROBIC ZZCOVID-19 ANTI-SPIKE IGG 2022-03-18 23:10:00 Zelda Dea Tubbs [facility] ANTIBODY TITER ZZCOVID-19 SEROLOGY 2022-03-18 23:10:[address] [facility] PATIENT SURVEILLANCE LACTIC ACID LEVEL 2022-03-18 23:09:00 [facility]IR[facility]EN 2022-03-18 22:55:00 Zelda [facility] PANEL WITH COVID-19 RT-PCR POC GLUCOSE 2022-03-18 22:40:00 Zelda [facility] CBC WITH PLATELET AND 2022-03-18 13:58:00 [facility] DIFFERENTIAL COMPREHENSIVE METABOLIC 2022-03-18 13:58:00 [facility] PANEL [facility] 2022-03-18 13:58:00 [facility] ESTIMATED GFR 2022-03-18 13:58:00 [facility] CBC WITH PLATELET AND 2022-01-05 13:58:00 [facility] DIFFERENTIAL COMPREHENSIVE METABOLIC 2022-01-05 13:58:00 [facility] PANEL LDH 2022-01-05 13:58:00 [facility] ESTIMATED GFR 2022-01-05 13:58:00 [facility] CBC WITH PLATELET AND 2021-11-03 15:19:00 [facility] DIFFERENTIAL COMPREHENSIVE METABOLIC 2021-11-03 15:19:00 [facility] PANEL ESTIMATED GFR 2021-11-03 15:19:00 [facility] POC GLUCOSE 2021-10-17 13:28:00 Estefani Turner CBC WITH PLATELET AND 2021-10-17 09:14:00 Dinakar, [facility] DIFFERENTIAL [place] BASIC METABOLIC PANEL 2021-10-17 09:14:00 Dinakar, [facility] MAGNESIUM LEVEL 2021-10-17 09:14:00 Dinakar, [facility] PHOS[facility]US [facility] 2021-10-17 09:14:00 Dinakar, [facility] Estefani Gates ospital [place] ESTIMATED GFR 2021-10-17 09:14:00 Dinakar, [facility] Estefani cal[place]on [place] POC GLUCOSE 2021-10-17 02:13:00 [facility] 2021-10-17 00:00:00 Estefani Turner ANAEROBIC CULTURE 2021-10-16 23:22:00 David Driver [facility] FUNGUS CULTURE 2021-10-16 23:22:00 [facility] AFB STAIN 2021-10-16 23:22:00 David Driverist H ospital AFB CULTURE 2021-10-16 23:22:00 David Driverist H [facility]spital FUNGUS SMEAR 2021-10-16 23:22:00 David Driverist H [facility]spital TISSUE CULTURE 2021-10-16 23:22:00 David Driverist H ospital ANAEROBIC CULTURE 2021-10-16 23:19:00 David Driver [facility] FUNGUS CULTURE 2021-10-16 23:19:00 David Driverist H ospital AEROBIC CULTURE 2021-10-16 23:19:00 [facility] AFB CULTURE 2021-10-16 23:19:00 David [facility] AMPUTATION, TOE 2021-10-16 22:41:00 [facility] POC GLUCOSE 2021-10-16 20:36:00 Estefani Turner spital Qing POC GLUCOSE 2021-10-16 18:16:00 Estefani Turner spital Qing POC GLUCOSE 2021-10-16 13:09:00 Estefani Turner Ho spital Qing SURGICAL PATHOLOGY 2021-10-16 13:05:00 Estefani Turner [facility] REQUEST Qing CBC WITH PLATELET AND 2021-10-16 09:28:00 Dinakar, [facility] DIFFERENTIAL [place] BASIC METABOLIC PANEL 2021-10-16 09:28:00 Dinakar, [facility] MAGNESIUM LEVEL 2021-10-16 09:28:00 Dinakar, [facility] PHOSPHORUS LEVEL 2021-10-16 09:28:00 Dinakar, [facility] WITH INR 2021-10-16 09:28:00 David Driver [facility] TYPE AND SCREEN 2021-10-16 09:28:00 David Driver ospital ESTIMATED GFR 2021-10-16 09:28:00 [facility]air [facility]SE 2021-10-16 02:24:00 [facility] POC GLUCOSE 2021-10-15 23:20:[address] 2021-10-15 17:28:00 Estefani Turner [facility] AFB CULTURE 2021-10-15 16:57:00 David Driver ospital FUNGUS CULTURE 2021-10-15 16:57:00 David Driver ospital ANAEROBIC CULTURE 2021-10-15 16:57:00 [facility] 2021-10-15 16:57:00 David Driver ospital AFB STAIN 2021-10-15 16:57:00 David Driver ospital FUNGUS SMEAR 2021-10-15 16:57:00 David Driver ospital US ANKLE BRACHIAL INDEX 2021-10-15 16:30:[address] [facility] US DUPLEX ARTERIAL LOWER 2021-10-15 15:50:00 David Drievr [facility] EXTREMITY BILATERAL POC GLUCOSE 2021-10-15 13:17:00 [facility] WO CONTRAST 2021-10-15 12:20:00 Armand Yovani [facility] RIGHT [facility] HC COMPLETE BLD COUNT 2021-10-15 09:44:00 Dinakar, [facility] W/AUTO DIFF Ky BASIC METABOLIC PANEL 2021-10-15 09:44:00 Dinakar, [facility] MAGNESIUM LEVEL 2021-10-15 09:44:00 Dinakar, [facility] PHOSPHORUS LEV[facility] 2021-10-15 09:44:00 Dinakar, Alistair Jara osmateo Mcpherson ESTIMATED GFR 2021-10-15 09:44:00 Dinakar, [facility] POC GLUCOSE 2021-10-15 02:24:00 Estefani Turner XR FOOT 3+ VW RIGHT 2021-10-15 02:04:37 [facility] URINE CULTURE 2021-10-15 01:03:00 Dintessyr, [facility]air [facility] URINALYSIS SCREEN AND 2021-10-15 01:03:00 Dinakar, [facility] MICROSCOPY, WITH REFLEX Ky TO CULTURE COVID-19 QUALITATIVE 2021-10-14 19:59:00 Dinakar, [facility] RT-PCR Ky BLOOD CULTURE, AEROBIC & 2021-10-14 19:50:00 Dinakar, Alistair Conley [facility] ANAEROBIC [facility] HC COMPLETE BLD COUNT 2021-10-14 19:50:00 Dinakar, [facility] W/AUTO DIFF Ky FIBRINOGEN 2021-10-14 19:50:00 Dinakar, Alistair Quirogaist Ho spital Ky PARTIAL THROMBOPLASTIN 2021-10-14 19:50:00 Dinakar, [facility] TIME (PTT) [facility] PROTHROMBIN TIME WITH INR 2021-10-14 19:50:00 Dinakar, [facility] BASIC METABOLIC PANEL 2021-10-14 19:50:00 Dinakar, [facility] HEPATIC FUNCTION PANEL 2021-10-14 19:50:00 Dinakar, [facility] MAGNESIUM LEVEL 2021-10-14 19:50:00 Dinakar, [facility] PHOSPHORUS LEVEL 2021-10-14 19:50:00 Dinakar, [facility] URIC ACID LEVEL 2021-10-14 19:50:00 [facility] ESTIMATED GFR 2021-10-14 19:50:00 Dinakar, [facility] POC GLUCOSE 2021-10-14 18:58:00 [facility] RAD ONC COURSE SUMMARY 2021-10-10 21:33:41 Provider, Unknown [facility] RAD ONC DAILY TREATMENT 2021-10-09 21:14:39 Provider, Unknown [facility] RAD ONC DAILY TREATMENT 2021-10-09 14:57:00 Provider, Unknown [facility] RAD ONC DAILY TREATMENT 2021-10-08 21:56:06 Provider, Unknown [facility] RAD ONC DAILY TREATMENT 2021-10-08 15:53:44 Provider, Unknown [facility] RAD ONC DAILY TREATMENT 2021-10-07 21:52:05 Provider, Unknown [facility] RAD ONC DAILY TREATMENT 2021-10-07 15:55:54 Provider, Unknown [facility] RAD ONC DAILY TREATMENT 2021-10-06 20:44:38 Provider, Unknown [facility] RAD ONC DAILY TREATMENT 2021-10-06 14:59:06 Provider, Unknown [facility] RAD ONC DAILY TREATMENT 2021-10-03 21:43:17 Provider, Unknown [facility] RAD ONC DAILY TREATMENT 2021-10-03 14:33:22 Provider, Unknown [facility] RAD ONC DAILY TREATMENT 2021-10-02 21:40:11 Provider, Unknown [facility] RAD ONC DAILY TREATMENT 2021-10-02 15:43:23 Provider, Unknown [facility] RAD ONC DAILY TREATMENT 2021-10-01 21:53:05 Provider, Unknown [facility] RAD ONC DAILY TREATMENT 2021-10-01 15:35:40 Provider, Unknown [facility] RAD ONC DAILY TREATMENT 2021-09-30 22:39:47 Provider, Unknown [facility] RAD ONC DAILY TREATMENT 2021-09-30 15:46:43 Provider, Unknown [facility] RAD ONC DAILY TREATMENT 2021-09-29 21:24:42 Provider, Unknown [facility] RAD ONC DAILY TREATMENT 2021-09-29 15:04:20 Provider, Unknown [facility] POC GLUCOSE 2021-09-27 17:25:00 Alistair Velasco [place] POC GLUCOSE 2021-09-27 13:48:00 Dea Ndiaye [facility] HC COMPLETE BLD COUNT 2021-09-27 12:13:00 [facility] BASIC METABOLIC PANEL 2021-09-27 12:13:00 [facility] MAGNESIUM LEVEL 2021-09-27 12:13:00 Farzana Hurtado spital PHOSPHORUS LEVEL 2021-09-27 12:13:00 Farzana Hurtado H ospital URIC ACID LEVEL 2021-09-27 12:13:00 Farzana Hurtado spital LDH 2021-09-27 12:13:00 Farzana Hurtado Ho spital ESTIMATED GFR 2021-09-27 12:13:00 Farzana Hurtado spital POC GLUCOSE 2021-09-27 01:31:00 Dea Ndiaye [facility] POC GLUCOSE 2021-09-27 00:20:00 Dea Ndiaye [facility] RAD ONC DAILY TREATMENT 2021-09-26 23:35:11 Provider, Unknown [facility] POC GLUCOSE 2021-09-26 18:57:00 Dea Ndiaye [facility] RAD ONC DAILY TREATMENT 2021-09-26 17:11:08 Provider, Unknown [facility] POC GLUCOSE 2021-09-26 13:24:00 EzldaDea [facility] HC COMPLETE BLD COUNT 2021-09-26 12:14:00 Farzana Hurtado [facility] W/AUTO DIFF BASIC METABOLIC PANEL 2021-09-26 12:14:00 Farzana Hurtado [facility] MAGNESIUM LEVEL 2021-09-26 12:14:00 Farzana Hurtado Ho spital PHOSPHORUS LEVEL 2021-09-26 12:14:00 Farzana Hurtado H ospital URIC ACID LEVEL 2021-09-26 12:14:00 Farzana Hurtado spital LDH 2021-09-26 12:14:00 Farzana Hurtado spital ESTIMATED GFR 2021-09-26 12:14:00 Farzana Hurtado spital POC GLUCOSE 2021-09-26 02:24:00 ZeldaDea [facility] POC GLUCOSE 2021-09-25 22:39:00 Zelda [facility] POC GLUCOSE 2021-09-25 17:27:00 Zelda [facility] POC GLUCOSE 2021-09-25 13:50:00 Farzana Hurtado spital HC COMPLETE BLD COUNT 2021-09-25 11:53:00 Farzana Hurtado [facility] W/AUTO DIFF BASIC METABOLIC PANEL 2021-09-25 11:53:00 Farzana Hurtado [facility] MAGNESIUM LEVEL 2021-09-25 11:53:00 Farzana Hurtado Ho spital PHOSPHORUS LEVEL 2021-09-25 11:53:00 Farzana Hurtado H ospital URIC ACID LEVEL 2021-09-25 11:53:00 Farzana Hurtado spital LDH 2021-09-25 11:53:00 Farzana Hurtado spital B NATRIURETIC PEPTIDE 2021-09-25 11:53:00 Thania Mata [facility] ESTIMATED GFR 2021-09-25 11:53:00 Farzana Hurtado spital POC GLUCOSE 2021-09-25 03:00:00 Farzana Hurtado spital NM LUNG PERFUSION IMAGING 2021-09-24 18:30:00 [facility] TROPONIN T 2021-09-24 13:39:00 WallisAzael reyes [facility] POC GLUCOSE 2021-09-24 13:37:00 Farzana Hurtado Ho spital HC COMPLETE BLD COUNT 2021-09-24 10:40:00 [facility]FF BASIC METABOLIC PANEL 2021-09-24 10:40:00 Genesis [facility] MAGNESIUM LEVEL 2021-09-24 10:40:00 Farzana Hurtado spital PHOSPHORUS LEVEL 2021-09-24 10:40:00 Farzana Hurtado H ospital HEPATIC FUNCTION PANEL 2021-09-24 10:40:00 [facility] URIC ACID LEVEL 2021-09-24 10:40:00 Farzana Hurtado spital LDH 2021-09-24 10:40:00 Farzana Hurtado spital TROPONIN T 2021-09-24 10:40:00 Farzana Hurtado spital ESTIMATED GFR 2021-09-24 10:40:00 Farzana Hurtado spital US DUPLEX VENOUS LOWER 2021-09-24 06:14:00 [facility] EXTREMITY RIGHT RESPIRATORY PATHOGEN 2021-09-24 02:45:00 [facility] PANEL WITH COVID-19 RT-PCR ECG ED PRELIMINARY 2021-09-24 01:52:08 [facility] INTERPRETATION POC GLUCOSE 2021-09-24 01:35:00 [facility] URINE CULTURE 2021-09-24 01:19:00 WallisAzael [facility] HC COMPLETE BLD COUNT 2021-09-24 01:07:00 [facility] W/AUTO DIFF COMPREHENSIVE METABOLIC 2021-09-24 01:07:00 Azael Wallis [facility] PANEL TROPONIN T 2021-09-24 01:07:00 Kadi [facility] B NATRIURETIC PEPTIDE 2021-09-24 01:07:[address] [facility] PARTIAL THROMBOPLASTIN 2021-09-24 01:07:00 Azael Wallis [facility] TIME (PTT) PROTHROMBIN TIME WITH INR 2021-09-24 01:07:00 Kadi [facility] URINALYSIS SCREEN AND 2021-09-24 01:07:[address] [facility] MICROSCOPY, WITH REFLEX TO CULTURE ESTIMATED GFR 2021-09-24 01:07:00 Kadi [facility] XR CHEST 2 VW 2021-09-23 23:12:46 Kadi [facility] ECG 12-LEAD 2021-09-23 22:28:05 Kadi [facility] RAD ONC DAILY TREATMENT 2021-09-23 21:51:02 Provider, Unknown [facility] RAD ONC DAILY TREATMENT 2021-09-23 16:02:25 Provider, Unknown [facility] RAD ONC DAILY TREATMENT 2021-09-22 22:01:04 Provider, Unknown [facility] RAD ONC DAILY TREATMENT 2021-09-22 15:39:51 Provider, Unknown [facility] RAD ONC DAILY TREATMENT 2021-09-19 20:04:30 Provider, Unknown [facility] RAD ONC DAILY TREATMENT 2021-09-19 13:54:24 Provider, Unknown [facility] RAD ONC DAILY TREATMENT 2021-09-18 21:51:57 Provider, Unknown [facility] RAD ONC DAILY TREATMENT 2021-09-18 15:45:23 Provider, Unknown [facility] RAD ONC DAILY TREATMENT 2021-09-17 21:45:16 Provider, Unknown [facility] RAD ONC DAILY TREATMENT 2021-09-17 15:53:36 Provider, Unknown [facility] RAD ONC DAILY TREATMENT 2021-09-16 22:16:48 Provider, Unknown [facility] RAD ONC DAILY TREATMENT 2021-09-16 16:08:36 Provider, [facility] HC COMPLETE BLD COUNT 2021-08-11 15:55:00 Fredi Alexander [facility] W/AUTO DIFF COMPREHENSIVE METABOLIC 2021-08-11 15:55:00 [facility] PANEL ESTIMATED GFR 2021-08-11 15:55:00 [facility] Fredi [facility] Plan of Care Planned Activity Planned Date Details Comments Source Future Scheduled 2022-07-16 65+ PNEUMOCOCC[address] [facility]i [facility] Test 10:04:11 VACCINE (1 - PCV) [code = 65+ PNEUMOCOCCAL VACCINE (1 - PCV)] Future Scheduled 2022-07-16 DIABETES: RETINAL EYE [facility] Test 10:04:11 EXAM [code = DIABETES: RETINAL EYE EXAM] Future Scheduled 2022-07-16 SHINGLES VACCINES ([address] [facility] Test 10:04:11 of 2) [code = SHINGLES VACCINES (1 of 2)] Future Scheduled 2022-07-16 COLONOSCOPY SCREENING [facility] Test 10:04:11 [code = COLONOSCOPY SCREENING] Future Scheduled 2022-07-16 HEPATITIS B VACCINES Met [facility] Test 10:04:11 (1 of 3 - Risk 3-dose series) [code = HEPATITIS B VACCINES (1 of 3 - Risk 3-dose series)] Future Scheduled 2022-07-16 COVID-19 VACCINE (4 - [facility] Test 10:04:11 Booster for Moderna series) [code = COVID-19 VACCINE (4 - Booster for Moderna series)] Future Scheduled 2022-07-16 INFLUENZA VACCINE [facility] 10:04:11 [code = INFLUENZA VACCINE] Future Scheduled 2022-07-16 DIABETIC FOOT EXAM [facility] Test 10:04:11 [code = DIABETIC FOOT EXAM] Encounters Start End Encounter Admission Attending Care Care Encounter Source Date/Time Date/Time Type Type Clinicians Facility Department ID 2022-06-24 Outpatient R COLLIN [facility] [id number] 14:15:07 SALVADOR Green [facility] 2022-04-28 2022-04-28 Office Janna Olivares2.840.1 [id number] Methodi 11:40:00 15:51:09 Visit Andrew Hook 18821.1.[address] 3.430.2.7 Hospit a .3.267079 l .8 2022-04-28 2022-04-28 Orders Phill, 1.2.840.1 [id number] Methodi 00:00:00 00:00:00 Only Marine [address]135.1.[address] 3.430.2.7 Hospit a .3.603863 l .8 2022-04-28 2022-04-[address] [facility] [id number] Inez 00:00:00 00:00:00 ANDREW [address] 2022-04-27 2022-04-27 Office Madhu, 1.2.840.1 [id number] Methodi 10:00:00 10:20:00 Visit Fredi 69644.1.1 404 s t 3.430.2.7 Hospit a .3.187224 l .8 2022-04-27 2022-04-27 Lab Madhu, 1.2.840.1 [id number] Methodi 09:05:00 09:10:00 Fredi 93761.1.1 622 s t 3.430.2.7 Hospit a .3.679761 l .8 2022-04-27 2022-04-27 Travel 1.2.840.1 1.2.310.748 4125 [id number] Methodi 00:00:00 00:00:[address] 3.430.2.7 0.2.7.3.698 spita .3.407177 084.8 l .8 2022-04-27 2022-04-27 Outpatient [facility] [id number] Inez 00:00:00 00:00:00 FREDI [address] 2022-04-27 2022-04-27 Outpatient [facility] [id number] Inez 00:00:00 00:00:00 FREDI [address] 2022-04-21 2022-04-21 Orders Phill, 1.2.840.1 [id number] 2100 [id number] Methodi 00:00:00 00:00:00 Only Marine 66367.1.[address] 3.430.2.7 Hospit a .3.791152 l .8 2022-04-20 2022-04-20 Telephone Madhu, 1.2.840.1 [id number] Methodi 00:00:00 00:00:00 Fredi 46282.1.1 518 s t 3.430.2.7 Hospit a .3.350000 l .8 2022-03-18 2022-03-[facility] 1.2.840.1 [id number] Methodi 13:38:00 19:06:00 Encounter Dea Ndiaye 03009.1.[address] Farzana Hurtado 3.430.2.7 Hos adrien .3.421134 l .8 2022-03-18 2022-03-20 [facility] FARZANA [facility] [id number] Inez 00:00:00 00:00:[address] 2022-03-18 2022-03-18 Office Mdahu, 1.2.840.1 [id number] [id number] Methodi 10:00:00 10:20:00 Visit Fredi 53182.1.1 497 s t 3.430.2.7 Hospit a .3.380459 l .8 2022-03-18 2022-03-18 Lab Madhu, 1.2.840.1 [id number] Methodi 09:00:00 09:05:00 Fredi 10604.1.1 282 s t 3.430.2.7 Hospit a .3.484443 l .8 2022-03-18 2022-03-18 Orders White, 1.2.840.1 [id number] Methodi 00:00:00 00:00:00 Only Юлия 51861.1.[address] 3.430.2.7 Hospit a .3.037959 l .8 2022-03-18 2022-03-18 Travel 1.2.840.1 1.2.440.203 0691 [id number] Methodi 00:00:00 00:00:[address] 3.430.2.7 0.2.7.3.698 [facility] .3.574426 084.8 l .8 2022-03-18 2022-03-18 Outpatient MADHU, [facility] [id number] Inez 00:00:00 00:00:00 FREDI 282 Met [facility] 2022-03-18 2022-03-18 Outpatient MADHU, [facility] [id number] Inez 00:00:00 00:00:00 FREDI 497 Met [facility] 2022-02-16 2022-02-16 Telephone Madhu, 1.2.840.1 [id number] Methodi 00:00:00 00:00:00 Fredi 29182.1.1 525 s t 3.430.2.7 Hospit a .3.032294 l .8 2022-02-05 2022-02-05 Refill Madhu, 1.2.840.1 [id number] Methodi 00:00:00 00:00:00 Fredi 78677.1.1 884 s t 3.430.2.7 Hospit a .3.026638 l .8 2022-01-05 2022-01-05 Office Madhu, 1.2.840.1 [id number] Methodi 10:20:00 10:20:00 Visit Fredi 29418.1.1 535 s t 3.430.2.7 Hospit a .3.465478 l .8 2022-01-05 2022-01-05 Lab Madhu, 1.2.840.1 [id number] Methodi 09:20:00 09:25:00 Fredi 81388.1.1 301 s t 3.430.2.7 Hospit a .3.669014 l .8 2022-01-05 2022-01-05 Orders Phill, 1.2.840.1 [id number] 2100 [id number] Methodi 00:00:00 00:00:00 Only Marine 56728.1.[address] 3.430.2.7 Hospit a .3.261155 l .8 2022-01-05 2022-01-05 Travel 1.2.840.1 1.2.650.186 7043 [id number] Methodi 00:00:00 00:00:[address] 3.430.2.7 0.2.7.3.698 Ho spita .3.105988 084.8 l .8 2022-01-05 2022-01-05 Outpatient MADHU, [facility] [id number] Inez 00:00:00 00:00:00 FREDI 301 Met [facility] 2022-01-05 2022-01-05 Outpatient [facility] [id number] Inez 00:00:00 00:00:00 FREDI [facility] 2021-11-05 2021-11-05 Orders Kenyon, Loretta 1.2.840.1 [id number] Methodi 00:00:00 00:00:[address] 3.430.2.7 Hospit a .3.407091 l .8 2021-11-03 2021-11-03 Office Madhu, 1.2.840.1 [id number] Methodi 13:00:00 13:20:00 Visit Fredi 80582.1.1 360 s t 3.430.2.7 Hospit a .3.170097 l .8 2021-11-03 2021-11-03 Lab Madhu, 1.2.840.1 [id number] Methodi 12:05:00 12:10:00 Fredi 22659.1.1 170 s t 3.430.2.7 Hospit a .3.638556 l .8 2021-11-03 2021-11-03 Travel 1.2.840.1 1.2.742.653 0932 [id number] Methodi 00:00:00 00:00:[address] 3.430.2.7 0.2.7.3.698 spita .3.933922 084.8 l .8 2021-11-03 2021-11-03 Outpatient MADHU, [facility] [id number] Inez 00:00:00 00:00:00 FREDI 170 Met [facility] 2021-11-03 2021-11-03 Outpatient MADHU, [facility] [id number] Inez 00:00:00 00:00:00 FREDI 360 Met [facility] 2021-10-31 2021-10-31 Orders Loretta Prescott 1.2.840.1 [id number] Methodi 00:00:00 00:00:[address] 3.430.2.7 Hospit a .3.068793 l .8 2021-10-31 2021-10-31 Telephone Madhu, 1.2.840.1 [id number] [id number] Methodi 00:00:00 00:00:00 Fredi 20763.1.1 861 s t 3.430.2.7 Hospit a .3.754299 l .8 2021-10-29 2021-10-29 Office Ryan, 1.2.840.9 [id number] Methodi 11:45:00 12:49:16 Visit Nils 12107.1.[address] [facility] 3.430.2.7 Hospit a .3.660557 l .8 2021-10-29 2021-10-29 Refill Madhu, 1.2.840.1 [id number] Methodi 00:00:00 00:00:00 Fredi 38592.1.1 524 s t 3.430.2.7 Hospit a .3.731039 l .8 2021-10-29 2021-10-29 Travel 1.2.840.1 1.2.718.940 0463 [id number] Methodi 00:00:00 00:00:[address] 3.430.2.7 0.2.7.3.698 spita .3.219999 084.8 l .8 2021-10-29 2021-10-29 Outpatient RYAN, [facility] [id number] Inez 00:00:00 00:00:00 NILS 305 Sara taylor 2021-10-14 2021-10-17 [facility] 1.2.840.1 [id number] Methodi 13:37:00 12:45:00 Encounter Qing Turner 21096.1.[address] 3.430.2.7 Hospit a .3.112581 l .8 2021-10-17 2021-10-17 Telephone Madhu, 1.2.840.1 [id number] Methodi 00:00:00 00:00:00 Fredi 41366.1.1 444 s t 3.430.2.7 Hospit a .3.034851 l .8 2021-10-14 2021-10-17 Inpatient [facility] [id number] 44 Inez 00:00:00 00:00:00 YOVANI AdielZarina Method i QING 2021-10-16 2021-10-16 Anesthesia AngelGauravmalloryfaisal 1.2.840.1 1 [id number] Methodi 17:40:00 18:59:00 Event Mukesh Schwarz 25403.1.[address] 3.430.2.7 Hospit a .3.907000 l .8 2021-10-16 2021-10-16 Surgery Neisha, 1.2.840.1 [id number] Methodi 16:30:00 17:50:00 David Simpson 56212.1.[address] 3.430.2.7 Hospit a .3.478454 l .8 2021-10-14 2021-10-14 Travel 1.2.840.1 1.2.742.957 5782 [id number] Methodi 00:00:00 00:00:[address] 3.430.2.7 0.2.7.3.698 Ho spita .3.326892 084.8 l .8 2021-10-09 2021-10-09 [facility] 1.2.840.1 [id number] Methodi 13:21:06 15:14:[address] 3.430.2.7 Hospit a .3.350873 l .8 2021-10-09 2021-10-09 [facility] 1.2.840.1 [id number] Methodi 08:43:00 08:56:[address] 3.430.2.7 Hospit a .3.883027 l .8 2021-10-09 2021-10-09 Orders Provider, 1.2.840.1 [id number] Methodi 00:00:00 00:00:00 Only Unknown 86843.1.[address] 3.430.2.7 Hospit a .3.074413 l .8 2021-10-09 2021-10-09 Orders Provider, 1.2.840.1 2099 [id number] Methodi 00:00:00 00:00:00 Only Unknown 62496.1.[address] 3.430.2.7 Hospit a .3.282734 l .8 2021-10-09 2021-10-09 Outpatient [facility] [id number] Inez 00:00:00 00:00:[address] 2021-10-09 2021-10-09 Outpatient [facility] [id number] Inez 00:00:00 00:00:[address] 2021-10-08 2021-10-08 [facility] 1.2.840.1 [id number] Methodi 13:57:36 15:56:[address] 3.430.2.7 Hospit a .3.422785 l .8 2021-10-08 2021-10-08 [facility] 1.2.840.1 [id number] Methodi 08:52:58 09:53:[address] 3.430.2.7 Hospit a .3.297998 l .8 2021-10-08 2021-10-08 Orders Provider, 1.2.840.1 [id number] Methodi 00:00:00 00:00:00 Only Unknown 88356.1.[address] 3.430.2.7 Hospit a .3.485798 l .8 2021-10-08 2021-10-08 Orders Provider, 1.2.840.1 [id number] [id number] Methodi 00:00:00 00:00:00 Only Unknown 55758.1.[address] 3.430.2.7 Hospit a .3.944489 l .8 2021-10-08 2021-10-08 Outpatient [facility] [id number] Inez 00:00:00 00:00:[address] 2021-10-08 2021-10-08 Outpatient [facility] [id number] Inez 00:00:00 00:00:[address] 2021-10-07 2021-10-07 [facility] Nataliia Martínez 1.2.840.1 [id number] Methodi 09:59:40 16:41:27 Encounter Chanelle Prieto 00829.1.[address] 3.430.2.7 Hospit a .3.368655 l .8 2021-10-07 2021-10-07 [facility] 1.2.840.1 [id number] Methodi 14:49:12 15:52:[address] 3.430.2.7 Hospit a .3.013075 l .8 2021-10-07 2021-10-07 [place] 23628.2.840.1 [id number] Methodi 12:59:58 15:21:38 Encounter Nataliia Olivas 78649.1.[address] 3.430.2.7 Hospit a .3.453632 l .8 2021-10-072021-10-07 [facility] 1.2.840.1 [id number] Methodi 09:43:26 09:55:[address] 3.430.2.7 Hospit a .3.046748 l .8 2021-10-07 2021-10-07 Orders Provider, 1.2.840.1 [id number] 2099 [id number] Methodi 00:00:00 00:00:00 Only Unknown 00949.1.[address] 3.430.2.7 Hospit a .3.684424 l .8 2021-10-07 2021-10-07 Orders Provider, 1.2.840.1 [id number] 2099 [id number] Methodi 00:00:00 00:00:00 Only Unknown 89893.1.[address] 3.430.2.7 Hospit a .3.642301 l .8 2021-10-07 2021-10-07 Outpatient [facility] [id number] [place] 00:00:00 00:00:[address] 2021-10-07 2021-10-07 Outpatient [facility] [id number] [address] 00:00:00 00:00:00 NATALIIA [address] 2021-10-07 2021-10-07 Outpatient [facility] [id number] [address] [place] 00:00:00 00:00:00 NATALIIA [address] 2021-10-07 2021-10-07 Outpatient [facility] [id number] [place] 00:00:00 00:00:[address] 2021-10-06 2021-10-06 [facility] 1.2.840.1 [id number] Methodi 14:10:20 14:44:[address] 3.430.2.7 Hospit a .3.297705 l .8 2021-10-06 2021-10-06 [facility] 1.2.840.1 [id number] Methodi 08:23:30 08:59:[address] 3.430.2.7 Hospit a .3.855209 l .8 2021-10-06 2021-10-06 Travel 1.2.840.1 1.2.364.155 [id number] Methodi 00:00:00 00:00:[address] 3.430.2.7 0.2.7.3.698 Ho spita .3.129275 084.8 l .8 2021-10-06 2021-10-06 Orders Garcia, 1.2.840.3 [id number] Methodi 00:00:00 00:00:00 Only Sona 45349.1.[address] 3.430.2.7 Hospit a .3.424239 l .8 2021-10-06 2021-10-06 Orders Provider, 1.2.840.1 [id number] 2099 [id number] Methodi 00:00:00 00:00:00 Only Unknown 59116.1.[address] 3.430.2.7 Hospit a .3.936519 l .8 2021-10-06 2021-10-06 Orders Provider, 1.2.840.1 [id number] 2099 [id number] Methodi 00:00:00 00:00:00 Only Unknown 24739.1.[address] 3.430.2.7 Hospit a .3.404371 l .8 2021-10-06 2021-10-06 Outpatient [facility] [id number] 7[address] 00:00:00 00:00:[address] 2021-10-06 2021-10-06 Outpatient [facility] [id number] [address] [place] [address] 00:00:00 00:00:[address] 2021-10-03 2021-10-03 [facility] 1.2.840.1 [id number] 71242 Methodi 13:47:44 15:43:[address] 3.430.2.7 Hospit a .3.524097 l .8 2021-10-03 2021-10-03 [facility] 1.2.840.1 [id number] Methodi 08:05:58 08:33:[address] 3.430.2.7 Hospit a .3.373859 l .8 2021-10-03 2021-10-03 Orders Provider, 1.2.840.1 [id number] 2099 [id number] Methodi 00:00:00 00:00:00 Only Unknown 0[address]69.1.[address] 3.430.2.7 Hospit a .3.181783 l .8 2021-10-03 2021-10-03 Orders Provider, 1.2.840.1 [id number] 2099 [id number] Methodi 00:00:00 00:00:00 Only Unknown 34800.1.[address] 3.430.2.7 Hospit a .3.991156 l .8 2021-10-03 2021-10-03 Outpatient [facility] [id number] [address] [place] [address] 00:00:00 00:00:[address] 2021-10-03 2021-10-03 Outpatient [facility] [id number] [address] [place] [address] 00:00:00 00:00:[address] 2021-10-02 2021-10-02 [facility] 1.2.840.1 [id number] 21001 28447 Methodi 15:10:41 15:40:[address] 3.430.2.7 Hospit a .3.412713 l .8 2021-10-02 2021-10-02 [facility], 1.2.840.1 [id number] 65867 23395 Methodi 11:08:17 15:09:00 Encounter Nataliia Olivas 64241.1.[address] 3.430.2.7 Hospit a .3.592125 l .8 2021-10-02 2021-10-02 [facility] Nataliia Martínez 1.2.840.1 82247 1011 [id number] Methodi 09:45:59 12:39:26 Encounter Elda Arredondo 13610.1.[address] 3.430.2.7 Hospit a .3.050026 l .8 2021-10-02 2021-10-02 [facility] 1.2.840.1 [id number] 21001 00693 Methodi 08:36:26 09:43:[address] 3.430.2.7 Hospit a .3.828711 l .8 2021-10-02 2021-10-02 Orders Provider, 1.2.840.1 [id number] 2099 [id number] Methodi 00:00:00 00:00:00 Only Unknown 26103.1.[address] 3.430.2.7 Hospit a .3.492456 l .8 2021-10-02 2021-10-02 Travel 1.2.840.1 1.2.778.715 4512 883987 Methodi 00:00:00 00:00:[address] 3.430.2.7 0.2.7.3.698 Ho spita .3.042545 084.8 l .8 2021-10-02 2021-10-02 Orders Provider, 1.2.840.1 [id number] 2099 [id number] Methodi 00:00:00 00:00:00 Only Unknown 60901.1.[address] 3.430.2.7 Hospit a .3.288296 l .8 2021-10-02 2021-10-02 Outpatient [facility] [id number] 883 [place] 00:00:00 00:00:[address] 2021-10-02 2021-10-02 Outpatient [facility] [id number] [address] [place] 00:00:00 00:00:00 NATALIIA [address] 2021-10-02 2021-10-02 Outpatient [facility] [id number] [address] [place] 00:00:00 00:00:00 NATALIIA [address] 2021-10-02 2021-10-02 Outpatient [facility] [id number] 883 [place] 00:00:00 00:00:[address] 2021-10-01 2021-10-01 Hospital 1.2.840.1 [id number] 15092 21376 Methodi 15:07:03 15:53:[address] 3.430.2.7 Hospit a .3.434193 l .8 2021-10-012021-10-01 [facility] 1.2.840.1 [id number] 59396 46567 Methodi 08:25:07 09:35:[address] 3.430.2.7 Hospit a .3.112437 l .8 2021-09-30 2021-10-01 [facility]Nataliia krishnamurthy 1.2.840.1 42163 1011 [id number] Methodi 15:45:00 07:51:39 Encounter Elda Arredondo 34910.1.[address] 3.430.2.7 Hospit a .3.434678 l .8 2021-10-01 2021-10-01 Orders Provider, 1.2.840.1 [id number] 2100 [id number] Methodi 00:00:00 00:00:00 Only Unknown 35396.1.[address] 3.430.2.7 Hospit a .3.852211 l .8 2021-10-01 2021-10-01 Orders Provider, 1.2.840.1 [id number] 2099 [id number] Methodi 00:00:00 00:00:00 Only Unknown 67207.1.[address] 3.430.2.7 Hospit a .3.095103 l .8 2021-10-01 2021-10-01 Outpatient [facility] [id number] [address] [place] [address] 00:00:00 00:00:[address] 2021-10-01 2021-10-01 Outpatient [facility] [id number] [address] [place] [address] 00:00:00 00:00:[address] 2021-09-30 2021-10-01 [facility] [id number] 144 [place] 00:00:00 00:00:00 NATALIIA 06[place] [facility] 2021-09-30 2021-09-30 [facility] 1.2.840.1 [id number] 26624 32690 Methodi 15:30:00 16:39:[address] 3.430.2.7 Hospit a .3.725310 l .8 2021-09-30 2021-09-30 [facility] 1.2.840.1 [id number] Methodi 08:30:00 14:50:32 Encounter Nataliia JanellCarmen 68639.1.[address] 3.430.2.7 Hospit a .3.200697 l .8 2021-09-30 2021-09-30 [facility] 1.2.840.1 [id number] 82586 39578 Methodi 08:34:54 09:46:[address] 3.430.2.7 Hospit a .3.354891 l .8 2021-09-30 2021-09-30 Orders Provider, 1.2.840.1 [id number] 2099 [id number] Methodi 00:00:00 00:00:00 Only Unknown 67215.1.[address] 3.430.2.7 Hospit a .3.483142 l .8 2021-09-30 2021-09-30 Orders Provider, 1.2.840.1 [id number] 2100 [id number] Methodi 00:00:00 00:00:00 Only Unknown 35226.1.[address] 3.430.2.7 Hospit a .3.279834 l .8 2021-09-30 2021-09-30 Outpatient [facility] [id number] 883 [place] 00:00:00 00:00:[address] 2021-09-30 2021-09-30 Outpatient [facility] [id number] 140 [place] 00:00:00 00:00:00 NATALIIA [address] 2021-09-30 2021-09-30 Outpatient [facility] [id number] [address] [place] [address] 00:00:00 00:00:[address] 2021-09-29 2021-09-29 [facility] 1.2.840.1 [id number] Methodi 13:37:05 15:24:[address] 3.430.2.7 Hospit a .3.871564 l .8 2021-09-29 2021-09-29 [facility] Nataliia MartínezCarmen 1.2.840.1 82480 1011 [id number] Methodi 09:07:35 14:48:40 Encounter Lay Ybarra 04455.1.[address] 3.430.2.7 Hospit a .3.201677 l .8 2021-09-29 2021-09-29 Hospital 1.2.840.1 [id number] 05729 Methodi 08:25:08 09:04:[address] 3.430.2.7 Hospit a .3.519415 l .8 2021-09-29 2021-09-29 Orders Provider, 1.2.840.1 [id number] 2099 [id number] Methodi 00:00:00 00:00:00 Only Unknown 17199.1.[address] 3.430.2.7 Hospit a .3.385516 l .8 2021-09-29 2021-09-29 Orders Bhaskar, 1.2.840.0 [id number] 832 [id number] Methodi 00:00:00 00:00:00 Only Yenni L 55648.1.[address] 3.430.2.7 Hospit a .3.029343 l .8 2021-09-29 2021-09-29 Travel 1.2.840.1 1.2.195.174 7152 010583 Methodi 00:00:00 00:00:[address] 3.430.2.7 0.2.7.3.698 Ho spita .3.504610 084.8 l .8 2021-09-29 2021-09-29 Orders Provider, 1.2.840.1 [id number] 2099 [id number] Methodi 00:00:00 00:00:00 Only Unknown 70801.1.[address] 3.430.2.7 Hospit a .3.691978 l .8 2021-09-29 2021-09-29 Outpatient [facility] [id number] 883 [place] 00:00:00 00:00:[address] 2021-09-29 2021-09-29 Outpatient RAQUELANAHI, [facility] [id number] 620 [place] 00:00:00 00:00:00 NATALIIA [address] 2021-09-29 2021-09-29 Outpatient [facility] [id number] [address] [place] [address] 00:00:00 00:00:[address] 2021-09-23 2021-09-27 [facility] Jorge Root 1.2.840.1 55187 1001 [id number] Methodi 16:41:00 15:09:00 Encounter Farzana Hurtado 91043.1.[address] Dea Ndiaye [facility].7 [facility] .[facility] 2021-09-23 2021-09-27 Inpatient [facility] 979 [id number] 677 [place] 00:00:00 00:00:00 [facility] [address] 2021-09-26 2021-09-26 [place] 23628.2.840.1 [id number] 08344 Methodi 16:30:51 17:35:11 Encounter Nataliia Olivas 02816.1.[address] 3.430.2.7 Hospit a .3.923350 l .8 2021-09-26 2021-09-26 [place] 99291.2.840.1 [id number] Methodi 10:30:00 11:11:[address] 3.430.2.7 Hospit a .3.063158 l .8 2021-09-26 2021-09-26 Outpatient [facility] [id number] 883 [place] 00:00:00 00:00:[address] 2021-09-26 2021-09-26 Outpatient [facility] [id number] [address] [place] [address] 00:00:00 00:00:00 NATALIIA [address] 2021-09-26 2021-09-26 Orders Provider, 1.2.840.1 [id number] 2099 [id number] Methodi 00:00:00 00:00:00 Only Unknown 54357.1.[address] 3.430.2.7 Hospit a .3.527791 l .8 2021-09-26 2021-09-26 Orders Provider, 1.2.840.1 [id number] 2099 745810 Methodi 00:00:00 00:00:00 Only Unknown 71649.1.[address] 3.430.2.7 Hospit a .3.756501 l .8 2021-09-23 2021-09-23 [facility] 1.2.840.1 [id number] 29714 12939 Methodi 15:07:44 15:51:[address] 3.430.2.7 Hospit a .3.394739 l .8 2021-09-23 2021-09-23 [facility] 1.2.840.1 [id number] Methodi 09:45:00 10:02:[address] 3.430.2.7 Hospit a .3.581973 l .8 2021-09-23 2021-09-23 [facility] Mauricio Nataliia MacielCarmen 1.2.840.1 93449 1011 [id number] Methodi 08:48:08 09:34:23 Encounter Chanelle Prieto 85670.1.[address] 3.430.2.7 Hospit a .3.461292 l .8 2021-09-23 2021-09-23 Outpatient [facility] [id number] 883 [place] 00:00:00 00:00:[address] 2021-09-23 2021-09-23 Outpatient [facility] [id number] 121 [place] 00:00:00 00:00:00 NATALIIA [address] 2021-09-23 2021-09-23 Outpatient [facility] [id number] [address] [place] [address] 00:00:00 00:00:[address] 2021-09-23 2021-09-23 Orders Provider, 1.2.840.1 [id number] 2099 [id number] Methodi 00:00:00 00:00:00 Only Unknown 74321.1.[address] 3.430.2.7 Hospit a .3.798133 l .8 2021-09-23 2021-09-23 Orders Provider, 1.2.840.1 [id number] 2099 [id number] Methodi 00:00:00 00:00:00 Only Unknown 17322.1.[address] 3.430.2.7 Hospit a .3.313853 l .8 2021-09-23 2021-09-23 Travel 1.2.840.1 1.2.842.463 7898 898919 Methodi 00:00:00 00:00:[address] 3.430.2.7 0.2.7.3.698 spita .3.558032 084.8 l .8 2021-09-22 2021-09-22 [facility] 1.2.840.1 [id number] Methodi 13:11:48 16:01:[address] 3.430.2.7 Hospit a .3.263559 l .8 2021-09-22 2021-09-22 [facility] 1.2.840.1 [id number] Methodi 09:39:52 13:10:[address] 3.430.2.7 Hospit a .3.968564 l .8 2021-09-22 2021-09-22 Outpatient [facility] [id number] [address] [place] [address] 00:00:00 00:00:[address] 2021-09-22 2021-09-[address] 00:00:00 00:00:[address] 2021-09-22 2021-09-22 Orders Provider, 1.2.840.1 [id number] 2100 [id number] Methodi 00:00:00 00:00:00 Only Unknown 39588.1.[address] 3.430.2.7 Hospit a .3.530174 l .8 2021-09-22 2021-09-22 Orders Provider, 1.2.840.1 [id number] 2099 [id number] Methodi 00:00:00 00:00:00 Only Unknown 69626.1.[address] 3.430.2.7 Hospit a .3.353079 l .8 2021-09-19 2021-09-19 [facility] 1.2.840.1 [id number] 83 Methodi 13:03:02 14:04:[address] 3.430.2.7 Hospit a .3.163219 l .8 2021-09-19 2021-09-19 [facility] 1.2.840.1 [id number] 18740 Methodi 07:26:49 07:54:[address] 3.430.2.7 Hospit a .3.854998 l .8 2021-09-19 2021-09-19 Outpatient [facility] [id number] 883 [place] 00:00:00 00:00:[address] 2021-09-19 2021-09-19 Outpatient [facility] [id number] [address] [place] [address] 00:00:00 00:00:[address] 2021-09-19 2021-09-19 Orders Provider, 1.2.840.1 [id number] 2099 [id number] Methodi 00:00:00 00:00:00 Only Unknown 31011.1.[address] 3.430.2.7 Hospit a .3.962772 l .8 2021-09-19 2021-09-19 Orders Provider, 1.2.840.1 [id number] 2100 987239 Methodi 00:00:00 00:00:00 Only Unknown 32140.1.[address] 3.430.2.7 Hospit a .3.437735 l .8 2021-09-18 2021-09-[address]1 [id number] 50196 56614 Methodi 23:59:00 23:59:00 Encounter Nataliia Olivas 29347.1.[address] 3.430.2.7 Hospit a .3.710801 l .8 2021-09-18 2021-09-18 [facility] 12.840.1 [id number] 77593 00153 Methodi 14:40:37 15:51:[address] 3.430.2.7 Hospit a .3.419125 l .8 2021-09-18 2021-09-18 [facility] Nataliia Martínez 1.2.840.1 34075 1011 [id number] Methodi 09:59:32 11:01:56 Encounter Elda Arredondo 41763.1.[address] 3.430.2.7 Hospit a .3.031295 l .8 2021-09-18 2021-09-18 [facility] 1.2.840.1 [id number] 14121 46943 Methodi 08:51:13 09:45:[address] 3.430.2.7 Hospit a .3.442405 l .8 2021-09-18 2021-09-18 Outpatient [facility] [id number] 883 [place] 00:00:00 00:00:[address] 2021-09-18 2021-09-18 Outpatient [facility] [id number] 320 [place] 00:00:00 00:00:00 NATALIIA [address] 2021-09-18 2021-09-18 Outpatient [facility] [id number] 883 [place] 00:00:00 00:00:[address] 2021-09-18 2021-09-18 Outpatient [facility] [id number] 094 [place] 00:00:00 00:00:00 NATALIIA [address] 2021-09-18 2021-09-18 Orders Provider, 1.2.840.1 [id number] 2099 [id number] Methodi 00:00:00 00:00:00 Only Unknown 20883.1.[address] 3.430.2.7 Hospit a .3.517087 l .8 2021-09-18 2021-09-18 Orders Provider, 1.2.840.1 [id number] 2099 647736 Methodi 00:00:00 00:00:00 Only Unknown 87638.1.[address] 3.430.2.7 Hospit a .3.432174 l .8 2021-09-18 2021-09-18 Travel 1.2.840.1 1.2.765.850 4585 809780 Methodi 00:00:00 00:00:[address] 3.430.2.7 0.2.7.3.698 spita .3.988447 084.8 l .8 2021-09-17 2021-09-17 [facility] 1.2.840.1 [id number] 14629 70065 Methodi 15:28:31 15:45:[address] 3.430.2.7 Hospit a .3.928419 l .8 2021-09-17 2021-09-17 [facility] 1.2.840.1 [id number] 72536 79853 Methodi 09:05:05 09:53:[address] 3.430.2.7 Hospit a .3.714513 l .8 2021-09-16 2021-09-17 [facility] Nataliia Martínez 1.2.840.1 63650 1011 [id number] Methodi 16:00:00 08:15:00 Encounter Chanelle Prieto 78909.1.[address] 3.430.2.7 Hospit a .3.006783 l .8 2021-09-17 2021-09-17 Outpatient [facility] [id number] [address] [place] [address] 00:00:00 00:00:[address] 2021-09-17 2021-09-17 Outpatient [facility] [id number] [address] [place] [address] 00:00:00 00:00:[address] 2021-09-17 2021-09-17 Orders Provider, 1.2.840.1 [id number] 2100 [id number] Methodi 00:00:00 00:00:00 Only Unknown 99673.1.[address] 3.430.2.7 Hospit a .3.186680 l .8 2021-09-17 2021-09-17 Orders Provider, 1.2.840.1 [id number] 2100 798269 Methodi 00:00:00 00:00:00 Only Unknown 20353.1.[address] 3.430.2.7 Hospit a .3.448108 l .8 2021-09-16 2021-09-17 Outpatient [facility] [id number] 190 [place] 00:00:00 00:00:00 NATALIIA Zarate [facility] 2021-09-16 2021-09-16 [facility] 1.2.840.1 [id number] 98118 95937 Methodi 15:45:00 16:16:[address] 3.430.2.7 Hospit a .3.392391 l .8 2021-09-16 2021-09-16 [facility], 1.2.840.1 [id number] 21001 03939 Methodi 15:45:00 15:45:00 Encounter Nataliia Olivas 29408.1.[address] 3.430.2.7 Hospit a .3.312031 l .8 2021-09-16 2021-09-16 [facility], 1.2.840.1 [id number] 21001 19304 Methodi 08:49:07 10:08:34 Encounter Nataliia Olivas 01851.1.[address] 3.430.2.7 Hospit a .3.533011 l .8 2021-09-16 2021-09-16 Outpatient [facility] [id number] 883 [place] 00:00:00 00:00:00 NATALIIA [address] 2021-09-16 2021-09-16 Outpatient [facility] [id number] 3 [place] 00:00:00 00:00:[address] 2021-09-16 2021-09-16 Outpatient [facility] [id number] 326 [place] 00:00:00 00:00:00 NAATLIIA [address] 2021-09-16 2021-09-16 Orders Provider, 1.2.840.1 [id number] 2100 834636 Methodi 00:00:00 00:00:00 Only Unknown 68456.1.[address] 3.430.2.7 Hospit a .3.115485 l .8 2021-09-16 2021-09-16 Orders Provider, 1.2.840.1 [id number] 2099 819212 Methodi 00:00:00 00:00:00 Only Unknown 19554.1.[address] 3.430.2.7 Hospit a .3.338898 l .8 2021-09-15 2021-09-15 Travel 1.2.840.1 1.2.432.195 3792 695776 Methodi 00:00:00 00:00:[address] 3.430.2.7 0.2.7.3.698 Ho spita .3.951000 084.8 l .8 2021-09-15 2021-09-15 Refill Madhu, 1.2.840.1 [id number] 88194 60372 Methodi 00:00:00 00:00:00 Fredi 96802.1.1 347 s t 3.430.2.7 Hospit a .3.084406 l .8 2021-09-02 2021-09-02 [facility], 1.2.840.1 [id number] 42409 01698 Methodi 01:00:00 15:52:49 Encounter Nataliia JanellCarmen 03818.1.[address] 3.430.2.7 Hospit a .3.115604 l .8 2021-09-02 2021-09-02 [facility], 1.2.840.1 [id number] 90372 Methodi 14:00:00 15:44:46 Encounter Nataliia JanellCarmen 49125.1.[address] 3.430.2.7 Hospit a .3.970629 l .8 2021-09-02 2021-09-02 [facility] 1.2.840.1 40373 1011 [id number] Methodi 13:29:41 14:36:53 Encounter Elda Arredondo 49055.1.[address] 3.430.2.7 Hospit a .3.249084 l .8 2021-09-02 2021-09-02 Outpatient [facility] [id number] [address] [place] [address] 00:00:00 00:00:00 NATALIIA [address] 2021-09-02 2021-09-02 Outpatient [facility] [id number] [address] [place] [address] 00:00:00 00:00:00 NATALIIA [address] 2021-09-02 2021-09-02 Outpatient [facility] [id number] [address] [place] [address] 00:00:00 00:00:00 NATALIIA [address] 2021-09-02 2021-09-02 Travel 1.2.840.1 1.2.702.816 9078 203663 Methodi 00:00:00 00:00:[address] 3.430.2.7 0.2.7.3.698 Ho spita .3.046543 084.8 l .8 2021-09-01 2021-09-01 Telephone Mauricio, 1.2.840.1 [id number] Methodi 00:00:00 00:00:00 Nataliia Olivas 77586.1.[address] 3.430.2.7 Hospit a .3.596727 l .8 2021-08-28 2021-08-28 Refill Madhu, 1.2.840.1 [id number] Methodi 00:00:00 00:00:00 Fredi 26369.1.1 805 s t 3.430.2.7 Hospit a .3.716837 l .8 2021-08-28 2021-08-28 Travel 1.2.840.1 1.2.183.753 4696 707266 Methodi 00:00:00 00:00:[address] 3.430.2.7 0.2.7.3.698 Ho spita .3.349449 084.8 l .8 2021-08-26 2021-08-26 [facility] Nataliia Martínez. 1.2.840.1 61649 1011 [id number] Methodi 16:25:00 16:29:33 Chanelle Daley 63212.1.[address] 3.430.2.7 Hospit a .3.989879 l .8 2021-08-26 2021-08-26 Outpatient [facility] [id number] 696 [place] 00:00:00 00:00:00 NATALIIA [address] 2021-08-25 2021-08-25 Telephone Mauricio, 1.2.840.1 [id number] Methodi 00:00:00 00:00:00 Nataliia Olivas 53354.1.[address] 3.430.2.7 Hospit a .3.751631 l .8 2021-08-12 2021-08-12 [facility], 1.2.840.1 [id number] 41297 94188 Methodi 01:15:00 23:59:00 Encounter Nataliia Olivas 20023.1.[address] 3.430.2.7 Hospit a .3.768993 l .8 2021-08-12 2021-08-12 Outpatient [facility] [id number] 695 [place] 00:00:00 00:00:00 NATALIIA [address] 2021-08-11 2021-08-11 Office [facility], 1.2.840.1 [id number] 01305 18180 Methodi 13:00:00 13:20:00 Visit Fredi 72312.1.1 495 [address] t 3.430.2.7 Hospit a .3.529491 l .8 2021-08-11 2021-08-11 Lab [facility], 1.2.840.1 [id number] 24036 44262 Methodi 09:40:00 09:45:00 Fredi 03260.1.1 744 s t 3.430.2.7 Hospit a .3.955722 l .8 2021-08-11 2021-08-11 Outpatient [facility] [id number] 1020 [place] 00:00:00 00:00:00 FREDI [address] 2021-08-11 2021-08-11 Orders Malinda, 1.2.840.1 [id number] Methodi 00:00:00 00:00:00 Only Debora 14998.1.[address] 3.430.2.7 Hospit a .3.617029 l .8 2021-08-11 2021-08-11 Outpatient [facility] [id number] 0150 [place] 00:00:00 00:00:00 FREDI [address] 2021-08-11 2021-08-11 Travel 1.2.840.1 1.2.617.865 2477 224399 Methodi 00:00:00 00:00:[address] 3.430.2.7 0.2.7.3.698 Ho spita .3.236506 084.8 l .8 2021-08-05 2021-08-05 Telephone Madhu, 1.2.840.1 [id number] 301 [id number] Methodi 00:00:00 00:00:00 Fredi 68352.1.1 414 s t 3.430.2.7 Hospit a .3.539284 l .8 2021-07-09 2021-07-09 Outpatient MADHU, [facility] [id number] 4271 [place] 00:00:00 00:00:00 FREDI 572 Met [facility] 2021-07-09 2021-07-09 Outpatient MADHU, [facility] [id number] 3752 [place] 00:00:00 00:00:00 FREDI 321 Met [facility] 2021-07-09 2021-07-09 Outpatient MADHU, [facility] [id number] 9577 [place] 00:00:00 00:00:00 FREDI 446 Met [facility] 2021-06-19 2021-06-20 Outpatient FARZANA HURTADO [facility] 064 [id number] [place] 00:00:00 00:00:00 058 Method i 2021-06-19 2021-06-19 Outpatient MADHU, [facility] [id number] 0567 [place] 00:00:00 00:00:00 FREDI 176 Met [facility] 2021-06-10 2021-06-10 Outpatient OLIVARES, [facility] [id number] [place] 00:00:00 00:00:00 SHILPAN 346 [facility] 2021-06-05 2021-06-05 Outpatient OLIVARES, [facility] [id number] [place] 00:00:00 00:00:00 SHILPAN 014 [facility] i 2021-05-29 2021-05-31 Inpatient DINAKAR, [facility] [id number] [place] 00:00:00 00:00:00 ALISTAIR 298 [facility] 2021-05-29 2021-05-29 Outpatient MADHU, [facility] [id number] [place] 00:00:00 00:00:00 FREDI 946 [facility] 2021-05-29 2021-05-29 Outpatient MADHU, [facility] [id number] [place] 00:00:00 00:00:00 FREDI 043 [facility] 2021-05-22 2021-05-22 Outpatient MADHU, [facility] [id number] [place] 00:00:00 00:00:00 FREDI 817 [facility] 2021-05-08 2021-05-16 Inpatient ARMAND [facility] [id number] [place] 00:00:00 00:00:00 YOVANI, 534 Method i [facility] 2021-05-01 2021-05-01 Outpatient MADHU, [facility] [id number] [place] 00:00:00 00:00:00 FREDI 114 [facility] 2021-05-01 2021-05-01 Outpatient MADHU, [facility] [id number] [place] 00:00:00 00:00:00 FREDI 925 [facility] 2021-04-24 2021-04-24 Outpatient MADHU, [facility] [id number] [place] 00:00:00 00:00:00 FREDI 743 [facility] 2021-04-24 2021-04-24 Outpatient MADHU, [facility] [id number] [place] 00:00:00 00:00:00 FREDI 572 [facility] 2021-04-17 2021-04-18 Outpatient ARMAND [facility] [id number] [place] 00:00:00 00:00:00 YOVANI, 669 Method i [facility] 2021-04-10 2021-04-10 Outpatient MADHU, [facility] [id number] [place] 00:00:00 00:00:00 FREDI 343 [facility] 2021-04-10 2021-04-10 Outpatient MADHU, [facility] [id number] [place] 00:00:00 00:00:00 FREDI 045 [facility] 2021-04-10 2021-04-10 Outpatient MADHU, [facility] [id number] [place] 00:00:00 00:00:00 FREDI 574 [facility] 2021-04-03 2021-04-03 Outpatient MARSHALL [facility] [id number] [place] 00:00:00 00:00:00 SHILPAN [address] 2021-04-03 2021-04-03 Outpatient MADHU [facility] [id number] [place] 00:00:00 00:00:00 FREDI 526 [facility] 2021-03-27 2021-03-30 Inpatient FARZANA HURTADO [facility] [id number] [place] 00:00:00 00:00:00 850 [facility] 2021-03-20 2021-03-20 Outpatient MADHU [facility] [id number] [place] 00:00:00 00:00:00 FREDI 141 [facility] 2021-02-25 2021-03-14 Inpatient SRI, [facility] [id number] [place] 00:00:00 00:00:00 ADARSH [address] 2021-02-25 2021-02-25 Outpatient JILL NEVAREZ [facility] [id number] [place] 00:00:00 00:00:[address] 2021-02-25 2021-02-25 Outpatient JILL NEVAREZ [facility] [id number] [place] 00:00:00 00:00:[address] 2021-02-25 2021-02-25 Outpatient JILL NEVAREZ [facility] [id number] [place] 00:00:00 00:00:[address] 2021-02-25 2021-02-25 Outpatient JILL NEVAREZ [facility] [id number] [place] 00:00:00 00:00:[address] 2021-02-19 2021-02-19 Outpatient JILL NEVAREZ [facility] [id number] [place] 00:00:00 00:00:[address] 2021-02-18 2021-02-18 Outpatient JILL NEVAREZ [facility] [id number] [place] 00:00:00 00:00:[address] 2021-02-18 2021-02-18 Outpatient JILL NEVAREZ [facility] [id number] [place] 00:00:00 00:00:[address] 2021-02-07 2021-02-07 Travel 1.2.840.1 [id number] [facility] 00:00:00 00:00:00 85309.1.1 350.1.13.41 ity of 3.412.2.7 2.2.7.3.698 Te leif .[id number] 084.8 .8 [facility] 2020-11-05 2020-11-05 [facility] 1.2.840.114 [id number] [facility] 09:14:24 10:44:16 Visit Sal Galvan 350.1.13.10 ity [place] 4.2.7.2.686 [facility] [phone] [address] 2020-11-05 2020-11-05 [facility] [id number] [id number] [facility] 09:14:24 10:44:16 Visit Sal Galvan [id number] [place] 4.2.7.2.686 Professio [phone] [address] 2020-11-05 2020-11-05 Outpatient R SAL ELLIS [facility] [id number] [facility] 10:00:00 10:00:00 [facility] Test Description Test Time Test Comments Results Result Comments Source ECG 12 lead 2022-04-28 22:44:00 Test Item Value Reference Range Interpretation Comme nts Ventricular rate (test code = 253) Atrial rate (test code = 255) CT interval (test code = 266) QRSD interval (test code = 260) QT interval (test code = 264) QTC interval (test code = 265) P axis 1 (test code = 267) QRS axis 1 (test code = 268) T wave axis (test code = 270) EKG impression (test code = 273) Normal sinus rhythm-Left ventricul ar hypertrophy with repolarization abnormality-Cannot rule out Septal infarct (cited on or before 23-SEP-2021)-Abnormal ECG-In automated comparison with ECG of 23-SEP-2021 16:28,-No significant change was found- [facility] [id number] 17:45:00 Test Item Value Reference Range Interpretation Comments POC glucose (test code 124 mg/dL 65-99 H Opera tor Name: Valorie = 93459-5) CresencioDevice ID: [id number] able: [facility] 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 [facility] [id number] 12:13:00 Test Item Value Reference Range Interpretation Comments AFB culture No growth Specimen isolate (test after 6 weeks InformationSp ecimen code = 543-9) of Source: Tissue Specimen incubation. Site: Foot: rig ht 5th metatarsal tiss ue [facility] South[facility]ungus [id number] 16:37:00 Test Item Value Reference Range Interpretation Comments Fungus culture No growth Specimen isolate (test after 4 weeks InformationSp ecimen code = 580-1) Source: Tissue Specimen Site: Foot: rig ht 5th metatarsal tiss [facility] [id number] 16:05:25 Test Item Value Reference Range Interpretation Comments Case number (test code = [id number]) Surgical pathology See link below for report (test code = PDF Lab Report [id number]) Result status (test code This is Final Report = [id number]) for [id number] [facility] [id number] 16:55:00 Test Item Value Reference Range Interpretation Comments Anaerobic No anaerobic Specimen culture isolate organisms InformationS pecimen (test code = isolated. Source: TissueS pecimen 88297-5) Site: Foot: rig ht 5th metatarsal tiss ue [facility] South[facility] [id number] 16:55:00 Test Item Value Reference Interpretation Comments Range Tissue culture Corynebacterium A Specimen isolate (test striatumFewThe InformationS pecimen code = 65719-4) performance Source: Tiss ueSpecimen characteristics of Site: [place] t: right 5th this assay on this metatarsa l tissue isolatewere validated by the Microbiology Laboratory at [facility]. This source has not been approved by the U.S. Food and Drug Administration. The results are not intended to be used as the sole means for clinical diagnosis or patient management. The Microbiology Laboratory is authorized under the clinical Laboratory Improvement Amendments of 1988 (CLIA-88) to perform high complexity testing. Lab Abnormal Interpretation (test code = 20246-4) [facility] [id number] 12:22:00 Test Item Value Reference Range Interpretation Comments Aerobic culture No growth Specimen isolate (test after 3 days. InformationSp ecimen code = 21216-8) Source: Bone Specimen Site: Foot: right 5th metatarsal bone [facility] [id number] 20:40:00 Test Item Value Reference Range Interpretation Comments AFB stain No acid fast Specimen (test code = bacilli (AFB) InformationSpe cimen 676-7) seen. Source: TissueS pecimen Site: Foot: rig ht 5th metatarsal tiss ue [facility] [id number] 18:47:00 Test Item Value Reference Range Interpretation Comments Fungus smear No fungi Specimen (test code = observed. InformationSpec imen Source: 1443) TissueSpecimen Site: Foot: right 5th metat arsal tissue [facility] [id number] 18:49:00 Test Item Value Reference Range Interpretation Comments Gram stain No WBC's or Specimen isolate (test organisms seen. Information Specimen code = 1469) Source: TissueS pecimen Site: Foot: rig ht 5th metatarsal tiss ue [facility] HospitalARS-CoV-2 (COVID-19) RNA [Presence] in Respiratory specimen by ELDA with probe [id number] 20:44:16 Test Item Value Reference Range Interpretation Comments SARS-CoV-2 (COVID-19) RNA Not detected [Presence] in Respiratory specimen by ELDA with probe detection (test code = 41120-3) Whether patient is employed in a Unknown healthcare setting (test code = 62658-0) Whether the patient has symptoms Unknown related to condition of interest (test code = 23402-3) Whether the patient was Unknown hospitalized for condition of interest (test code = 80006-4) Whether the patient was admitted Unknown to intensive care unit (ICU) for condition of interest (test code = 09178-3) Whether patient resides in a Unknown congregate care setting (test code = 57679-9) status (test code = Unknown 78076-2) Date and time of symptom onset Unknown (test code = 88024-3) [facility] ONC COURSE [id number] 21:33:41 Test Item Value Reference Range Interpretation Comments Course ID (test code = C1 5706) Course Start Date (test 2021-09-10 @11:44 code = 5707) Treatment Elapsed Days (test code = 5709) Course Intent (test code Curative = 5686) Treatment Dates (test Course End Date: code = 5685) 2021-10-10 @15:33First Treatment Date: 2021-09-16 @10:26Last Treatment Date: 2021-10-09 @15:36 Reference Point ID (test Lt Christofer-Abdomen code = 5710) Dosage Given to Date in Gy (test code = 5711) Plan ID (test code = Lt Christofer Abdo 5713) Plan Name (test code = Lt Christofer Abdo 5714) Fractions Treated to 32 of 32 Date (test code = 5715) Prescribed Dose Per Fraction in Gy (test code = 5716) Prescription Dose in cGy (test code = 5717) [facility] ONC DAILY [id number] 21:14:39 Test Item Value Reference Range Interpretation Comments Course ID (test code = C1 5706) Course Start Date (test 2021-09-10 @11:44 code = 5707) Treatment Elapsed Days (test code = 5709) Course Intent (test code Curative = 5686) Treatment Dates (test First Treatment Date: code = 5685) 2021-09-16 @10:26Last Treatment Date: 2021-10-09 @15:36 Reference Point ID (test Lt Christofer-Abdomen code = 5710) Dosage Given to Date in Gy (test code = 5711) Session Dosage Given in Gy (test code = 5712) Plan ID (test code = Lt Christofer Abdo 5713) Fractions Treated to 32 of 32 Date (test code = 5715) Prescribed Dose Per Fraction in Gy (test code = 5716) Prescription Dose in cGy (test code = 5717) [facility] ONC DAILY [id number] 14:57:00 Test Item Value Reference Range Interpretation Comments Course ID (test code = C1 5706) Course Start Date (test 2021-09-10 @11:44 code = 5707) Treatment Elapsed Days (test code = 5709) Course Intent (test code Curative = 5686) Treatment Dates (test First Treatment Date: code = 5685) 2021-09-16 @10:26Last Treatment Date: 2021-10-09 @09:18 Reference Point ID (test Lt Christofer-Abdomen code = 5710) Dosage Given to Date in Gy (test code = 5711) Session Dosage Given in Gy (test code = 5712) Plan ID (test code = Lt Christofer Abdo 5713) Fractions Treated to 32 Date (test code = 5715) Prescribed Dose Per Fraction in Gy (test code = 5716) Prescription Dose in cGy (test code = 5717) [facility] DAILY [id number] 21:56:06 Test Item Value Reference Range Interpretation Comments Course ID (test code = C1 5706) Course Start Date (test 2021-09-10 @11:44 code = 5707) Treatment Elapsed Days (test code = 5709) Course Intent (test code Curative = 5686) Treatment Dates (test First Treatment Date: code = 5685) 2021-09-16 @10:26Last Treatment Date: 2021-10-08 @16:17 Reference Point ID (test Lt Christofer-Abdomen code = 5710) Dosage Given to Date in Gy (test code = 5711) Session Dosage Given in Gy (test code = 5712) Plan ID (test code = Lt Christofer Abdo 5713) Fractions Treated to Date (test code = 5715) Prescribed Dose Per Fraction in Gy (test code = 5716) Prescription Dose in cGy (test code = 5717) [facility] DAILY [id number] 15:53:44 Test Item Value Reference Range Interpretation Comments Course ID (test code = C1 5706) Course Start Date (test 2021-09-10 @11:44 code = 5707) Treatment Elapsed Days (test code = 5709) Course Intent (test code Curative = 5686) Treatment Dates (test First Treatment Date: code = 5685) 2021-09-16 @10:26Last Treatment Date: 2021-10-08 @10:15 Reference Point ID (test Lt Christofer-Abdomen code = 5710) Dosage Given to Date in Gy (test code = 5711) Session Dosage Given in Gy (test code = 5712) Plan ID (test code = Lt Christofer Abdo 5713) Fractions Treated to Date (test code = 5715) Prescribed Dose Per Fraction in Gy (test code = 5716) Prescription Dose in cGy (test code = 5717) [facility] DAILY [id number] 21:52:05 Test Item Value Reference Range Interpretation Comments Course ID (test code = C1 5706) Course Start Date (test 2021-09-10 @11:44 code = 5707) Treatment Elapsed Days (test code = 5709) Course Intent (test code Curative = 5686) Treatment Dates (test First Treatment Date: code = 5685) 2021-09-16 @10:26Last Treatment Date: 2021-10-07 @16:13 Reference Point ID (test Lt Christofer-Abdomen code = 5710) Dosage Given to Date in Gy (test code = 5711) Session Dosage Given in Gy (test code = 5712) Plan ID (test code = Lt Christofer Abdo 5713) Fractions Treated to Date (test code = 5715) Prescribed Dose Per Fraction in Gy (test code = 5716) Prescription Dose in cGy (test code = 5717) [facility] DAILY [id number] 15:55:54 Test Item Value Reference Range Interpretation Comments Course ID (test code = C1 5706) Course Start Date (test 2021-09-10 @11:44 code = 5707) Treatment Elapsed Days (test code = 5709) Course Intent (test code Curative = 5686) Treatment Dates (test First Treatment Date: code = 5685) 2021-09-16 @10:26Last Treatment Date: 2021-10-07 @10:17 Reference Point ID (test Lt Christofer-Abdomen code = 5710) Dosage Given to Date in Gy (test code = 5711) Session Dosage Given in Gy (test code = 5712) Plan ID (test code = Lt Christofer Abdo 5713) Fractions Treated to Date (test code = 5715) Prescribed Dose Per Fraction in Gy (test code = 5716) Prescription Dose in cGy (test code = 5717) [facility] ONC DAILY [id number] 20:44:38 Test Item Value Reference Range Interpretation Comments Course ID (test code = C1 5706) Course Start Date (test 2021-09-10 @11:44 code = 5707) Treatment Elapsed Days (test code = 5709) Course Intent (test code Curative = 5686) Treatment Dates (test First Treatment Date: code = 5685) 2021-09-16 @10:26Last Treatment Date: 2021-10-06 @15:06 Reference Point ID (test Lt Christofer-Abdomen code = 5710) Dosage Given to Date in Gy (test code = 5711) Session Dosage Given in Gy (test code = 5712) Plan ID (test code = Lt Christofer Abdo 5713) Fractions Treated to Date (test code = 5715) Prescribed Dose Per Fraction in Gy (test code = 5716) Prescription Dose in cGy (test code = 5717) [facility] DAILY [id number] 14:59:06 Test Item Value Reference Range Interpretation Comments Course ID (test code = C1 5706) Course Start Date (test 2021-09-10 @11:44 code = 5707) Treatment Elapsed Days (test code = 5709) Course Intent (test code Curative = 5686) Treatment Dates (test First Treatment Date: code = 5685) 2021-09-16 @10:26Last Treatment Date: 2021-10-06 @09:20 Reference Point ID (test Lt Christofer-Abdomen code = 5710) Dosage Given to Date in Gy (test code = 5711) Session Dosage Given in Gy (test code = 5712) Plan ID (test code = Lt Christofer Abdo 5713) Fractions Treated to Date (test code = 5715) Prescribed Dose Per Fraction in Gy (test code = 5716) Prescription Dose in cGy (test code = 5717) [facility] DAILY [id number] 21:43:17 Test Item Value Reference Range Interpretation Comments Course ID (test code = C1 5706) Course Start Date (test 2021-09-10 @11:44 code = 5707) Treatment Elapsed Days (test code = 5709) Course Intent (test code Curative = 5686) Treatment Dates (test First Treatment Date: code = 5685) 2021-09-16 @10:26Last Treatment Date: 2021-10-03 @16:04 Reference Point ID (test Lt Christofer-Abdomen code = 5710) Dosage Given to Date in Gy (test code = 5711) Session Dosage Given in Gy (test code = 5712) Plan ID (test code = Lt Christofer Abdo 5713) Fractions Treated to Date (test code = 5715) Prescribed Dose Per Fraction in Gy (test code = 5716) Prescription Dose in cGy (test code = 5717) [facility] DAILY [id number] 14:33:22 Test Item Value Reference Range Interpretation Comments Course ID (test code = C1 5706) Course Start Date (test 2021-09-10 @11:44 code = 5707) Treatment Elapsed Days (test code = 5709) Course Intent (test code Curative = 5686) Treatment Dates (test First Treatment Date: code = 5685) 2021-09-16 @10:26Last Treatment Date: 2021-10-03 @08:54 Reference Point ID (test Lt Christofer-Abdomen code = 5710) Dosage Given to Date in Gy (test code = 5711) Session Dosage Given in Gy (test code = 5712) Plan ID (test code = Lt Christofer Abdo 5713) Fractions Treated to Date (test code = 5715) Prescribed Dose Per Fraction in Gy (test code = 5716) Prescription Dose in cGy (test code = 5717) [facility] DAILY [id number] 21:40:11 Test Item Value Reference Range Interpretation Comments Course ID (test code = C1 5706) Course Start Date (test 2021-09-10 @11:44 code = 5707) Treatment Elapsed Days (test code = 5709) Course Intent (test code Curative = 5686) Treatment Dates (test First Treatment Date: code = 5685) 2021-09-16 @10:26Last Treatment Date: 2021-10-02 @16:01 Reference Point ID (test Lt Christofer-Abdomen code = 5710) Dosage Given to Date in Gy (test code = 5711) Session Dosage Given in Gy (test code = 5712) Plan ID (test code = Lt Christofer Abdo 5713) Fractions Treated to Date (test code = 5715) Prescribed Dose Per Fraction in Gy (test code = 5716) Prescription Dose in cGy (test code = 5717) [facility] ONC DAILY [id number] 15:43:23 Test Item Value Reference Range Interpretation Comments Course ID (test code = C1 5706) Course Start Date (test 2021-09-10 @11:44 code = 5707) Treatment Elapsed Days (test code = 5709) Course Intent (test code Curative = 5686) Treatment Dates (test First Treatment Date: code = 5685) 2021-09-16 @10:26Last Treatment Date: 2021-10-02 @10:04 Reference Point ID (test Lt Christofer-Abdomen code = 5710) Dosage Given to Date in Gy (test code = 5711) Session Dosage Given in Gy (test code = 5712) Plan ID (test code = Lt Christofer Abdo 5713) Fractions Treated to Date (test code = 5715) Prescribed Dose Per Fraction in Gy (test code = 5716) Prescription Dose in cGy (test code = 5717) [facility] DAILY [id number] 21:53:05 Test Item Value Reference Range Interpretation Comments Course ID (test code = C1 5706) Course Start Date (test 2021-09-10 @11:44 code = 5707) Treatment Elapsed Days (test code = 5709) Course Intent (test code Curative = 5686) Treatment Dates (test First Treatment Date: code = 5685) 2021-09-16 @10:26Last Treatment Date: 2021-10-01 @16:13 Reference Point ID (test Lt Christofer-Abdomen code = 5710) Dosage Given to Date in Gy (test code = 5711) Session Dosage Given in Gy (test code = 5712) Plan ID (test code = Lt Christofer Abdo 5713) Fractions Treated to Date (test code = 5715) Prescribed Dose Per Fraction in Gy (test code = 5716) Prescription Dose in cGy (test code = 5717) [facility] ONC DAILY [id number] 15:35:40 Test Item Value Reference Range Interpretation Comments Course ID (test code = C1 5706) Course Start Date (test 2021-09-10 @11:44 code = 5707) Treatment Elapsed Days (test code = 5709) Course Intent (test code Curative = 5686) Treatment Dates (test First Treatment Date: code = 5685) 2021-09-16 @10:26Last Treatment Date: 2021-10-01 @09:56 Reference Point ID (test Lt Christofer-Abdomen code = 5710) Dosage Given to Date in Gy (test code = 5711) Session Dosage Given in Gy (test code = 5712) Plan ID (test code = Lt Christofer Abdo 5713) Fractions Treated to Date (test code = 5715) Prescribed Dose Per Fraction in Gy (test code = 5716) Prescription Dose in cGy (test code = 5717) [facility] DAILY [id number] 22:39:47 Test Item Value Reference Range Interpretation Comments Course ID (test code = C1 5706) Course Start Date (test 2021-09-10 @11:44 code = 5707) Treatment Elapsed Days (test code = 5709) Course Intent (test code Curative = 5686) Treatment Dates (test First Treatment Date: code = 5685) 2021-09-16 @10:26Last Treatment Date: 2021-09-30 @17:00 Reference Point ID (test Lt Christofer-Abdomen code = 5710) Dosage Given to Date in Gy (test code = 5711) Session Dosage Given in Gy (test code = 5712) Plan ID (test code = Lt Christofer Abdo 5713) Fractions Treated to Date (test code = 5715) Prescribed Dose Per Fraction in Gy (test code = 5716) Prescription Dose in cGy (test code = 5717) [facility] DAILY [id number] 15:46:43 Test Item Value Reference Range Interpretation Comments Course ID (test code = C1 5706) Course Start Date (test 2021-09-10 @11:44 code = 5707) Treatment Elapsed Days (test code = 5709) Course Intent (test code Curative = 5686) Treatment Dates (test First Treatment Date: code = 5685) 2021-09-16 @10:26Last Treatment Date: 2021-09-30 @10:07 Reference Point ID (test Lt Christofer-Abdomen code = 5710) Dosage Given to Date in Gy (test code = 5711) Session Dosage Given in Gy (test code = 5712) Plan ID (test code = Lt Christofer Abdo 5713) Fractions Treated to Date (test code = 5715) Prescribed Dose Per Fraction in Gy (test code = 5716) Prescription Dose in cGy (test code = 5717) [facility] ONC DAILY [id number] 21:24:42 Test Item Value Reference Range Interpretation Comments Course ID (test code = C1 5706) Course Start Date (test 2021-09-10 @11:44 code = 5707) Treatment Elapsed Days (test code = 5709) Course Intent (test code Curative = 5686) Treatment Dates (test First Treatment Date: code = 5685) 2021-09-16 @10:26Last Treatment Date: 2021-09-29 @15:45 Reference Point ID (test Lt Christofer-Abdomen code = 5710) Dosage Given to Date in Gy (test code = 5711) Session Dosage Given in Gy (test code = 5712) Plan ID (test code = Lt Christofer Abdo 5713) Fractions Treated to Date (test code = 5715) Prescribed Dose Per Fraction in Gy (test code = 5716) Prescription Dose in cGy (test code = 5717) [facility] ONC DAILY [id number] 15:04:20 Test Item Value Reference Range Interpretation Comments Course ID (test code = C1 5706) Course Start Date (test 2021-09-10 @11:44 code = 5707) Treatment Elapsed Days (test code = 5709) Course Intent (test code Curative = 5686) Treatment Dates (test First Treatment Date: code = 5685) 2021-09-16 @10:26Last Treatment Date: 2021-09-29 @09:25 Reference Point ID (test Lt Christofer-Abdomen code = 5710) Dosage Given to Date in Gy (test code = 5711) Session Dosage Given in Gy (test code = 5712) Plan ID (test code = Lt Christofer Abdo 5713) Fractions Treated to Date (test code = 5715) Prescribed Dose Per Fraction in Gy (test code = 5716) Prescription Dose in cGy (test code = 5717) [facility] ONC DAILY [id number] 23:35:11 Test Item Value Reference Range Interpretation Comments Course ID (test code = C1 5706) Course Start Date (test 2021-09-10 @11:44 code = 5707) Treatment Elapsed Days (test code = 5709) Course Intent (test code Curative = 5686) Treatment Dates (test First Treatment Date: code = 5685) 2021-09-16 @10:26Last Treatment Date: 2021-09-26 @17:55 Reference Point ID (test Lt Christofer-Abdomen code = 5710) Dosage Given to Date in Gy (test code = 5711) Session Dosage Given in Gy (test code = 5712) Plan ID (test code = Lt Christofer Abdo 5713) Fractions Treated to Date (test code = 5715) Prescribed Dose Per Fraction in Gy (test code = 5716) Prescription Dose in cGy (test code = 5717) [facility] ONC DAILY [id number] 17:11:08 Test Item Value Reference Range Interpretation Comments Course ID (test code = C1 5706) Course Start Date (test 2021-09-10 @11:44 code = 5707) Treatment Elapsed Days (test code = 5709) Course Intent (test code Curative = 5686) Treatment Dates (test First Treatment Date: code = 5685) 2021-09-16 @10:26Last Treatment Date: 2021-09-26 @11:32 Reference Point ID (test Lt Christofer-Abdomen code = 5710) Dosage Given to Date in Gy (test code = 5711) Session Dosage Given in Gy (test code = 5712) Plan ID (test code = Lt Christofer Abdo 5713) Fractions Treated to Date (test code = 5715) Prescribed Dose Per Fraction in Gy (test code = 5716) Prescription Dose in cGy (test code = 5717) [facility] ED Preliminary Interpretation - Not an [id number] 01:52:08 Test Item Value Reference Range Interpretation Comments DERRICK (test code = DERRICK) Jorge Root MD 09/24/2021 2:17 [facility] [place] Preliminary Interpretation - Not an OrderPerformed by: Jorge Root MDAuthorized by: Jorge Root MD ECG reviewed by ED Physician in the absence of a motor vehicle emissions inspector: yes Interpretation: Interpretation: abnormal Rate: ECG rate: 87 ECG rate assessment: normal Rhythm: Rhythm: sinus rhythm QRS: QRS axis: Normal QRS intervals: NormalST segments: ST segments: NormalT waves: T waves: inverted Other findings: Other findings: prolonged qTc interval Lab Interpretation Abnormal (test code = 55273-3) [facility] ONC DAILY [id number] 21:51:02 Test Item Value Reference Range Interpretation Comments Course ID (test code = C1 5706) Course Start Date (test 2021-09-10 @11:44 code = 5707) Treatment Elapsed Days (test code = 5709) Course Intent (test code Curative = 5686) Treatment Dates (test First Treatment Date: code = 5685) 2021-09-16 @10:26Last Treatment Date: 2021-09-23 @16:11 Reference Point ID (test Lt Christofer-Abdomen code = 5710) Dosage Given to Date in Gy (test code = 5711) Session Dosage Given in Gy (test code = 5712) Plan ID (test code = Lt Christofer Abdo 5713) Fractions Treated to Date (test code = 5715) Prescribed Dose Per Fraction in Gy (test code = 5716) Prescription Dose in cGy (test code = 5717) [facility] ONC DAILY [id number] 16:02:25 Test Item Value Reference Range Interpretation Comments Course ID (test code = C1 5706) Course Start Date (test 2021-09-10 @11:44 code = 5707) Treatment Elapsed Days (test code = 5709) Course Intent (test code Curative = 5686) Treatment Dates (test First Treatment Date: code = 5685) 2021-09-16 @10:26Last Treatment Date: 2021-09-23 @10:22 Reference Point ID (test Lt Chirstofer-Abdomen code = 5710) Dosage Given to Date in Gy (test code = 5711) Session Dosage Given in Gy (test code = 5712) Plan ID (test code = Lt Christofer Abdo 5713) Fractions Treated to Date (test code = 5715) Prescribed Dose Per Fraction in Gy (test code = 5716) Prescription Dose in cGy (test code = 5717) [facility] ONC DAILY [id number] 22:01:04 Test Item Value Reference Range Interpretation Comments Course ID (test code = C1 5706) Course Start Date (test 2021-09-10 @11:44 code = 5707) Treatment Elapsed Days (test code = 5709) Course Intent (test code Curative = 5686) Treatment Dates (test First Treatment Date: code = 5685) 2021-09-16 @10:26Last Treatment Date: 2021-09-22 @16:21 Reference Point ID (test Lt Christofer-Abdomen code = 5710) Dosage Given to Date in Gy (test code = 5711) Session Dosage Given in Gy (test code = 5712) Plan ID (test code = Lt Christofer Abdo 5713) Fractions Treated to Date (test code = 5715) Prescribed Dose Per Fraction in Gy (test code = 5716) Prescription Dose in cGy (test code = 5717) [facility] DAILY [id number] 15:39:51 Test Item Value Reference Range Interpretation Comments Course ID (test code = C1 5706) Course Start Date (test 2021-09-10 @11:44 code = 5707) Treatment Elapsed Days (test code = 5709) Course Intent (test code Curative = 5686) Treatment Dates (test First Treatment Date: code = 5685) 2021-09-16 @10:26Last Treatment Date: 2021-09-22 @10:00 Reference Point ID (test Lt Christofer-Abdomen code = 5710) Dosage Given to Date in Gy (test code = 5711) Session Dosage Given in Gy (test code = 5712) Plan ID (test code = Lt Christofer Abdo 5713) Fractions Treated to Date (test code = 5715) Prescribed Dose Per Fraction in Gy (test code = 5716) Prescription Dose in cGy (test code = 5717) [facility] DAILY [id number] 20:04:30 Test Item Value Reference Range Interpretation Comments Course ID (test code = C1 5706) Course Start Date (test 2021-09-10 @11:44 code = 5707) Treatment Elapsed Days (test code = 5709) Course Intent (test code Curative = 5686) Treatment Dates (test First Treatment Date: code = 5685) 2021-09-16 @10:26Last Treatment Date: 2021-09-19 @14:24 Reference Point ID (test Lt Christofer-Abdomen code = 5710) Dosage Given to Date in Gy (test code = 5711) Session Dosage Given in Gy (test code = 5712) Plan ID (test code = Lt Christofer Abdo 5713) Fractions Treated to 8 Date (test code = 5715) Prescribed Dose Per Fraction in Gy (test code = 5716) Prescription Dose in cGy (test code = 5717) [facility] DAILY [id number] 13:54:24 Test Item Value Reference Range Interpretation Comments Course ID (test code = C1 5706) Course Start Date (test 2021-09-10 @11:44 code = 5707) Treatment Elapsed Days (test code = 5709) Course Intent (test code Curative = 5686) Treatment Dates (test First Treatment Date: code = 5685) 2021-09-16 @10:26Last Treatment Date: 2021-09-19 @08:14 Reference Point ID (test Lt Christofer-Abdomen code = 5710) Dosage Given to Date in Gy (test code = 5711) Session Dosage Given in Gy (test code = 5712) Plan ID (test code = Lt Christofer Abdo 5713) Fractions Treated to Date (test code = 5715) Prescribed Dose Per Fraction in Gy (test code = 5716) Prescription Dose in cGy (test code = 5717) [facility] DAILY [id number] 21:51:57 Test Item Value Reference Range Interpretation Comments Course ID (test code = C1 5706) Course Start Date (test 2021-09-10 @11:44 code = 5707) Treatment Elapsed Days (test code = 5709) Course Intent (test code Curative = 5686) Treatment Dates (test First Treatment Date: code = 5685) 2021-09-16 @10:26Last Treatment Date: 2021-09-18 @16:11 Reference Point ID (test Lt Christofer-Abdomen code = 5710) Dosage Given to Date in Gy (test code = 5711) Session Dosage Given in Gy (test code = 5712) Plan ID (test code = Lt Christofer Abdo 5713) Fractions Treated to 6 Date (test code = 5715) Prescribed Dose Per Fraction in Gy (test code = 5716) Prescription Dose in cGy (test code = 5717) [facility] DAILY [id number] 15:45:23 Test Item Value Reference Range Interpretation Comments Course ID (test code = C1 5706) Course Start Date (test 2021-09-10 @11:44 code = 5707) Treatment Elapsed Days (test code = 5709) Course Intent (test code Curative = 5686) Treatment Dates (test First Treatment Date: code = 5685) 2021-09-16 @10:26Last Treatment Date: 2021-09-18 @10:05 Reference Point ID (test Lt Christofer-Abdomen code = 5710) Dosage Given to Date in Gy (test code = 5711) Session Dosage Given in Gy (test code = 5712) Plan ID (test code = Lt Christofer Abdo 5713) Fractions Treated to 5 32 Date (test code = 5715) Prescribed Dose Per Fraction in Gy (test code = 5716) Prescription Dose in cGy (test code = 5717) [facility] DAILY [id number] 21:45:16 Test Item Value Reference Range Interpretation Comments Course ID (test code = C1 5706) Course Start Date (test 2021-09-10 @11:44 code = 5707) Treatment Elapsed Days (test code = 5709) Course Intent (test code Curative = 5686) Treatment Dates (test First Treatment Date: code = 5685) 2021-09-16 @10:26Last Treatment Date: 2021-09-17 @16:05 Reference Point ID (test Lt Christofer-Abdomen code = 5710) Dosage Given to Date in Gy (test code = 5711) Session Dosage Given in Gy (test code = 5712) Plan ID (test code = Lt Christofer Abdo 5713) Fractions Treated to 32 Date (test code = 5715) Prescribed Dose Per Fraction in Gy (test code = 5716) Prescription Dose in cGy (test code = 5717) [facility] DAILY [id number] 15:53:36 Test Item Value Reference Range Interpretation Comments Course ID (test code = C1 5706) Course Start Date (test 2021-09-10 @11:44 code = 5707) Treatment Elapsed Days (test code = 5709) Course Intent (test code Curative = 5686) Treatment Dates (test First Treatment Date: code = 5685) 2021-09-16 @10:26Last Treatment Date: 2021-09-17 @10:13 Reference Point ID (test Lt Christofer-Abdomen code = 5710) Dosage Given to Date in Gy (test code = 5711) Session Dosage Given in Gy (test code = 5712) Plan ID (test code = Lt Christofer Abdo 5713) Fractions Treated to 3 Date (test code = 5715) Prescribed Dose Per Fraction in Gy (test code = 5716) Prescription Dose in cGy (test code = 5717) [facility] DAILY [id number] 22:16:48 Test Item Value Reference Range Interpretation Comments Course ID (test code = C1 5706) Course Start Date (test 2021-09-10 @11:44 code = 5707) Treatment Elapsed Days (test code = 5709) Course Intent (test code Curative = 5686) Treatment Dates (test First Treatment Date: code = 5685) 2021-09-16 @10:26Last Treatment Date: 2021-09-16 @16:36 Reference Point ID (test Lt Christofer-Abdomen code = 5710) Dosage Given to Date in Gy (test code = 5711) Session Dosage Given in Gy (test code = 5712) Plan ID (test code = Lt Christofer Abdo 5713) Fractions Treated to 2 Date (test code = 5715) Prescribed Dose Per Fraction in Gy (test code = 5716) Prescription Dose in cGy (test code = 5717) [facility] DAILY [id number] 16:08:36 Test Item Value Reference Range Interpretation Comments Course ID (test code = C1 5706) Course Start Date (test 2021-09-10 @11:44 code = 5707) Treatment Elapsed Days (test code = 5709) Course Intent (test code Curative = 5686) Treatment Dates (test First Treatment Date: code = 5685) 2021-09-16 @10:26Last Treatment Date: 2021-09-16 @10:29 Reference Point ID (test Lt Christofer-Abdomen code = 5710) Dosage Given to Date in Gy (test code = 5711) Session Dosage Given in Gy (test code = 5712) Plan ID (test code = Lt Christofer Abdo 5713) Fractions Treated to 1 Date (test code = 5715) Prescribed Dose Per Fraction in Gy (test code = 5716) Prescription Dose in cGy (test code = 5717) [facility] [Presence] in Respiratory specimen by ELDA with probe [id number] 20:30:15 Test Item Value Reference Range Interpretation Comments SARS-CoV-2 (COVID-19) RNA Not detected Not-Detected [Presence] in Respiratory specimen by ELDA with probe detection (test code = 42101-0) Whether patient is employed in a healthcare setting (test code = 68569-6) Whether the patient has symptoms related to condition of interest (test code = 21003-9) Patient was hospitalized because of this condition (test code = 31185-5) Whether the patient was admitted to intensive care unit (ICU) for condition of interest (test code = 83776-4) Whether patient resides in a congregate care setting (test code = 43886-4) [facility] CESPEDESSARS-CoV-2 (COVID-19) RNA [Presence] in Respiratory specimen by ELDA with probe [id number] 20:44:43 Test Item Value Reference Range Interpretation Comments SARS-CoV-2 (COVID-19) RNA Not detected Not-Detected [Presence] in Respiratory specimen by ELDA with probe detection (test code = 68600-1) Whether patient is employed in a healthcare setting (test code = 44582-0) Whether the patient has symptoms related to condition of interest (test code = 62947-5) Patient was hospitalized because of this condition (test code = 91769-4) Whether the patient was admitted to intensive care unit (ICU) for condition of interest (test code = 91330-5) Whether patient resides in a congregate care setting (test code = 16636-1) [facility] CESPEDESSARS-CoV-2 (COVID-19) RNA [Presence] in Respiratory specimen by ELDA with probe [id number] 19:51:11 Test Item Value Reference Range Interpretation Comments SARS-CoV-2 (COVID-19) RNA Not detected Not-Detected [Presence] in Respiratory specimen by ELDA with probe detection (test code = 15005-7) Whether patient is employed in a healthcare setting (test code = 13131-9) Whether the patient has symptoms related to condition of interest (test code = 36009-3) Patient was hospitalized because of this condition (test code = 22490-5) Whether the patient was admitted to intensive care unit (ICU) for condition of interest (test code = 12213-4) Whether patient resides in a congregate care setting (test code = 50202-8) [facility] CESPEDESSARS-CoV-2 (COVID-19) RNA [Presence] in Respiratory specimen by ELDA with probe [id number] 20:11:44 Test Item Value Reference Range Interpretation Comments SARS-CoV-2 (COVID-19) RNA Not detected Not-Detected [Presence] in Respiratory specimen by ELDA with probe detection (test code = 37856-3) Whether patient is employed in a healthcare setting (test code = 68424-9) Whether the patient has symptoms related to condition of interest (test code = 46929-8) Patient was hospitalized because of this condition (test code = 61023-8) Whether the patient was admitted to intensive care unit (ICU) for condition of interest (test code = 53205-9) Whether patient resides in a congregate care setting (test code = 25488-7) [facility] CESPEDESSARS-CoV-2 (COVID-19) RNA [Presence] in Respiratory specimen by ELDA with probe [id number] 14:04:47 Test Item Value Reference Range Interpretation Comments SARS-CoV-2 (COVID-19) RNA Not detected Not-Detected [Presence] in Respiratory specimen by ELDA with probe detection (test code = 98871-3) Whether patient is employed in a healthcare setting (test code = 61889-5) Whether the patient has symptoms related to condition of interest (test code = 36004-9) Patient was hospitalized because of this condition (test code = 21310-1) Whether the patient was admitted to intensive care unit (ICU) for condition of interest (test code = 13226-3) Whether patient resides in a congregate care setting (test code = 38217-0) [facility] STUBBSRS-CoV-2 (COVID-19) RNA [Presence] in Respiratory specimen by ELDA with probe [id number] 17:43:38 Test Item Value Reference Range Interpretation Comments SARS-CoV-2 (COVID-19) RNA Not detected Not-Detected [Presence] in Respiratory specimen by ELDA with probe detection (test code = 40682-6) Whether patient is employed in a healthcare setting (test code = 63276-5) Whether the patient has symptoms related to condition of interest (test code = 13085-0) Patient was hospitalized because of this condition (test code = 13863-5) Whether the patient was admitted to intensive care unit (ICU) for condition of interest (test code = 83397-3) Whether patient resides in a congregate care setting (test code = 58642-9) MORIAH STUBBSRS-CoV-2 (COVID-19) RNA [Presence] in Respiratory specimen by ELDA with probe [id number] 17:43:48 Test Item Value Reference Range Interpretation Comments SARS-CoV-2 (COVID-19) RNA Not detected Not-Detected [Presence] in Respiratory specimen by ELDA with probe detection (test code = 07989-7) Whether patient is employed in a healthcare setting (test code = 12197-4) Whether the patient has symptoms related to condition of interest (test code = 03968-0) Patient was hospitalized because of this condition (test code = 73908-1) Whether the patient was admitted to intensive care unit (ICU) for condition of interest (test code = 06040-3) Whether patient resides in a congregate care setting (test code = 39626-5) MORIAH STUBBSRS-CoV-2 (COVID-19) RNA [Presence] in Respiratory specimen by ELDA with probe [id number] 21:23:33 Test Item Value Reference Range Interpretation Comments SARS-CoV-2 (COVID-19) RNA Not detected Not-Detected [Presence] in Respiratory specimen by ELDA with probe detection (test code = 85058-4) Whether patient is employed in a healthcare setting (test code = 89673-7) Whether the patient has symptoms related to condition of interest (test code = 59188-1) Patient was hospitalized because of this condition (test code = 52245-3) Whether the patient was admitted to intensive care unit (ICU) for condition of interest (test code = 01237-9) Whether patient resides in a congregate care setting (test code = 96558-3) MORIAH CESPEDES
[2022-07-18 11:09] LABS: Absolute Lymphocytes (CBC) 1.4 K/uL (0.7-4.9); Hematocrit 32.4 % (39.6-49.0); MCV 87.9 fL (80-100); MPV 8.1 fL (7.6-11.3); RBC Red Blood Cell Count 3.68 M/uL (4.33-5.43)
[2022-07-18 11:12] LABS: Protime INR 1.23
[2022-07-18 11:27] LABS: Magnesium 3.2 mg/dL (1.6-2.4); Potassium 4.4 mmol/L (3.5-5.1)
--- NOTE | 2022-07-18 12:06 | RAD REPORT ---
EXAM DESCRIPTION: USExtremity Venous Uni Ltd07/18/2022 11:54 am CLINICAL HISTORY: Right leg swelling. COMPARISON: None. FINDINGS: Right common femoral, superficial femoral, popliteal and right posterior tibial veins are compressible and demonstrate augmentation. Doppler demonstrates good flow. Grayscale, color and spectral analysis performed on all vessels IMPRESSION: No evidence of deep venous thrombosis involving the right lower extremity.
--- NOTE | 2022-07-18 12:09 | RAD REPORT ---
EXAM DESCRIPTION: US - Lower Extremity Artery Uni Ltd - 07/18/2022 11:54 am CLINICAL HISTORY: Leg pain COMPARISON: None FINDINGS: The right common femoral, superficial femoral and popliteal arteries demonstrate triphasic waveforms The right posterior tibial and dorsalis pedis arteries demonstrate biphasic waveforms Grayscale, color and spectral analysis performed on all vessels IMPRESSION: Mild distal lower extremity arterial disease
[2022-07-18] MEDS ORDERED: CYCLOBENZAPRINE 10 MG TAB ONE (12:57)
[2022-07-18] MEDS ORDERED: GABAPENTIN 300 MG CAP ONE (12:57)
--- NOTE | 2022-07-18 14:25 | EDPHYS ---
Physician Documentation [facility] Name: Torey Pritchard Age: 67 yrs Sex: Male : 1955 Arrival Date: 07/18/2022 Time: 10:43 Bed 7 Private MD: ED Physician Francisco Monique HPI: 07/18 13:32 This 67 yrs old Male presents to ER via Wheelchair with complaints of Leg Pain. rn 13:32 The patient presents with pain. rn 13:36 The complaints affect the right calf and medial aspect of right calf. Context: The rn problem was sustained at a store, resulted from an unknown cause, the patient can partially bear weight, the patient is able to ambulate. Onset: The symptoms/episode began/occurred just prior to arrival. Modifying factors: The symptoms are alleviated by nothing. the symptoms are aggravated by nothing. Associated signs and symptoms: Pertinent negatives fever, swelling, warmth, weakness. 13:38 Severity of symptoms: At their worst the symptoms were moderate, in the emergency rn department the symptoms have improved. The patient has experienced similar episodes in the past. The patient has not recently seen a physician. Pt reports chronic lymphedema and neuropathy, was waiting in line and began to feel cramping of RLE, moderate pain, lasted approx 20-30 min, drove himself here, improved once got here. NO trauma. No fever. . Historical: - Allergies: 10:51 Haloperidol; ph 10:51 Rocephin; ph - PMHx: 10:51 Cancer; CHF; CVA; Diabetes - NIDDM; kidney disease; lymphedema; neuropathy; PVD; ph - PSHx: 10:51 Vasectomy; ph - Immunization history:: Adult Immunizations unknown. - Social history:: Smoking status: Patient denies any tobacco usage or history of. - Family history:: not pertinent. - Hospitalizations: : No recent hospitalization is reported. ROS: 13:39 Constitutional: Negative for fever, chills, and weight loss, Eyes: Negative for injury, rn pain, redness, and discharge, Neck: Negative for injury, pain, and swelling, Cardiovascular: Negative for chest pain, palpitations, and edema, Respiratory: Negative for shortness of breath, cough, wheezing, and pleuritic chest pain, Abdomen/GI: Negative for abdominal pain, nausea, vomiting, diarrhea, and constipation, Back: Negative for injury and pain, MS/Extremity: + leg pain and cramps Skin: Negative for injury, rash, and discoloration, Neuro: Negative for headache, weakness, numbness, tingling, and seizure. Exam: 13:39 Constitutional: This is a well developed, well nourished patient who is awake, alert, rn and in no acute distress. Head/Face: Normocephalic, atraumatic. Cardiovascular: Regular rate and rhythm. No pulse deficits. Respiratory: No increased work of breathing, no retractions or nasal flaring. Abdomen/GI: Soft, non-tender Back: No spinal tenderness. No costovertebral tenderness. Full range of motion. Skin: Warm, dry with normal turgor. Normal color with no rashes, no lesions, and no evidence of cellulitis. MS/ Extremity: Legs wrapped tightly with bandages for lymphedema, no cyanosis or rash. Neuro: Awake and alert, GCS 15 Vital Signs: 10:47 BP 132 / 58; Pulse 74; Resp 18; Temp 97.7; Pulse Ox 99% on R/A; Weight 79.38 kg; Height ph 5 ft. 11 in. (180.34 cm); 11:00 BP 131 / 56; Pulse 70; Resp 18; Pulse Ox 100% on R/A; db 12:30 BP 115 / 46; Pulse 74; Resp 16; Pulse Ox 100% on R/A; Pain 9/10; db 15:32 BP 124 / 75; Pulse 70; Resp 16; Pulse Ox 100% on R/A; db 10:47 Body Mass Index 24.41 (79.38 kg, 180.34 cm) ph MDM: 10:44 Patient medically screened. rn 14:23 Differential diagnosis: neuropathy, DVT, arterial insufficiency, lymphedema. Data rn reviewed: vital signs, nurses notes, lab test result(s), radiologic studies, doppler, and as a result, I will discharge patient. Counseling: I had a detailed discussion with the patient and/or guardian regarding: the historical points, exam findings, and any diagnostic results supporting the discharge/admit diagnosis, lab results, radiology results, the need for outpatient follow up, to return to the emergency department if symptoms worsen or persist or if there are any questions or concerns that arise at home. Medical screen evaluation completed. EMTALA emergency medical condition absent. Response to treatment: the patient's symptoms have markedly improved after treatment, and as a result, I will discharge patient. Special discussion: I discussed with the patient/guardian in detail that at this point there is no indication for admission to the hospital. It is understood, however, that if the symptoms persist or worsen the patient needs to return immediately for re-evaluation. 07/18 10:55 Order name: Basic Metabolic Panel; Complete Time: 11:42 rn 07/18 10:55 Order name: CBC with Diff; Complete Time: 11:42 rn 07/18 10:55 Order name: NT PRO-BNP; Complete Time: 11:42 rn 07/18 10:55 Order name: PT-INR; Complete Time: 11:42 rn 07/18 10:55 Order name: Extremity Venous Uni Ltd US; Complete Time: 12: rn 07/18 10:55 Order name: Magnesium; Complete Time: 11:42 rn 07/18 10:55 Order name: EKG; Complete Time: 10:56 rn 07/18 10:55 Order name: Cardiac monitoring; Complete Time: 10:58 rn 07/18 10:55 Order name: EKG - Nurse/Tech; Complete Time: 10:58 rn 07/18 10:55 Order name: IV Saline Lock; Complete Time: 10:58 rn 07/18 10:55 Order name: Labs collected and sent; Complete Time: 10:58 rn 07/18 10:55 Order name: Lower Extremity Artery Uni Ltd US; Complete Time: 12:26 rn 07/18 10:55 Order name: O2 Per Protocol; Complete Time: 10:58 rn 07/18 10:55 Order name: O2 Sat Monitoring; Complete Time: 10:58 rn Administered Medications: 13:00 Drug: Gabapentin 300 mg Route: PO; db 15:32 Follow up: Response: No adverse reaction db 13:00 Drug: Flexeril (cyclobenzaprine) 10 mg Route: PO; db 15:32 Follow up: Response: No adverse reaction db Disposition Summary: 07/18/22 14:24 Discharge Ordered Location: Home rn Problem: new rn Symptoms: have improved rn Condition: Stable rn Diagnosis - Pain in right lower leg rn - Polyneuropathy, unspecified rn Followup: rn - With: Private Physician - When: As needed - Reason: Recheck today's complaints, Re-evaluation by your physician Discharge Instructions: - Discharge Summary Sheet rn - Musculoskeletal Pain rn - Peripheral Neuropathy rn Forms: - Medication Reconciliation Form rn - Thank You Letter rn - Antibiotic pcu rn - Prescription Opioid Use rn Prescriptions: - Cyclobenzaprine 10 mg Oral Tablet - take 1 tablet by ORAL route every 8-12 hours As needed; 15 tablet; Refills: 0, rn Product Selection Permitted Signatures: Dispatcher [employer] EDFrancisco Paz MD MD rn Hall, Patricia, RN RN ph Benton, Danielle, RN RN db
--- NOTE | 2022-07-18 14:25 | ER ---
Nurse's Notes [facility] Name: Torey Pritchard Age: 67 yrs Sex: Male : 1955 Arrival Date: 07/18/2022 Time: 10:43 Bed 7 Private MD: Diagnosis: Pain in right lower leg;Polyneuropathy, unspecified Presentation: 07/18 10:47 Chief complaint: Patient states: " I was at [facility] waiting on my prescriptions, eating ph some [employer] when I started having cramping going up my R leg, then the pain got really bad." Pt required wheelchair from parking lot, reports hx of neuropathy, also c/o nausea x 1 week. Coronavirus screen: Vaccine status: Patient reports receiving the 2nd dose of the covid vaccine. Ebola Screen: No symptoms or risks identified at this time. Risk Assessment: Do you want to hurt yourself or someone else? Patient reports no desire to harm self or others. Onset of symptoms was July 18, 2022. 10:47 Method Of Arrival: Wheelchair ph 10:47 Acuity: MARNI 3 ph 10:53 Initial Sepsis Screen: Does the patient meet any 2 criteria? No. Patient's initial ph sepsis screen is negative. Does the patient have a suspected source of infection? No. Patient's initial sepsis screen is negative. Triage Assessment: 10:52 General: Appears in no apparent distress. Behavior is cooperative, appropriate for age, ph Denies fever, feeling ill. Pain: Complains of pain in right leg. Neuro: Level of Consciousness is awake, alert, obeys commands, Oriented to person, place, time, situation. GI: Reports nausea, Patient currently denies abdominal pain, diarrhea, vomiting. Musculoskeletal: Circulation, motion, and sensation intact. Range of motion: intact in all extremities. Historical: - Allergies: 10:51 Haloperidol; ph 10:51 Rocephin; ph - PMHx: 10:51 Cancer; CHF; CVA; Diabetes - NIDDM; kidney disease; lymphedema; neuropathy; PVD; ph - PSHx: 10:51 Vasectomy; ph - Immunization history:: Adult Immunizations unknown. - Social history:: Smoking status: Patient denies any tobacco usage or history of. - Family history:: not pertinent. - Hospitalizations: : No recent hospitalization is reported. Screenin:52 [facility] ED Fall Risk Assessment (Adult) History of falling in the last 3 months, ph including since admission No falls in past 3 months (0 pts) Confusion or Disorientation No (0 pts) Intoxicated or Sedated No (0 pts) Impaired Gait Yes (1 pt) Mobility Assist Device Used Yes (1 pt) Altered Elimination No (0 pt) Score/Fall Risk Level 0 - 2 = Low Risk Oriented to surroundings, Maintained a safe environment, Used ambulatory aids as needed (educated on \\T\\ assisted with). Abuse screen: Denies threats or abuse. Denies injuries from another. Nutritional screening: No deficits noted. Tuberculosis screening: No symptoms or risk factors identified. 15:32 Fall Risk No fall in past 12 months (0 pts). No secondary diagnosis (0 pts). IV access db (20 points). Ambulatory Aid- None/Bed Rest/Nurse Assist (0 pts). Gait- Normal/Bed Rest/Wheelchair (0 pts) Mental Status- Oriented to own ability (0 pts). Total Turner Fall Scale indicates No Risk (0-24 pts). Assessment: 11:35 Reassessment: Patient appears in no apparent distress at this time. Patient and/or db family updated on plan of care and expected duration. Pain level reassessed. Patient is alert, oriented x 3, equal unlabored respirations, skin warm/dry/pink. right leg cramping started this AM while patient was at the store. Denies recent injury. General: Appears in no apparent distress. comfortable, Behavior is calm, cooperative, appropriate for age, quiet. Pain: Complains of pain in right leg. Neuro: No deficits noted. Level of Consciousness is awake, alert, obeys commands, Oriented to person, place, time, situation, Appropriate for age Speech is normal, Facial symmetry appears normal. Cardiovascular: No deficits noted. Respiratory: No deficits noted. GI: No deficits noted. No signs and/or symptoms were reported involving the gastrointestinal system. : No deficits noted. No signs and/or symptoms were reported regarding the genitourinary system. 13:30 Reassessment: Patient appears in no apparent distress at this time. No changes from db previously documented assessment. Patient and/or family updated on plan of care and expected duration. Pain level reassessed. Patient is alert, oriented x 3, equal unlabored respirations, skin warm/dry/pink. 15:33 Reassessment: Patient appears in no apparent distress at this time. Patient and/or db family updated on plan of care and expected duration. Pain level reassessed. Patient is alert, oriented x 3, equal unlabored respirations, skin warm/dry/pink. Patient states feeling better. Patient states symptoms have improved. GI: Bowel sounds present X 4 quads. Reports. Vital Signs: 10:47 BP 132 / 58; Pulse 74; Resp 18; Temp 97.7; Pulse Ox 99% on R/A; Weight 79.38 kg; Height ph 5 ft. 11 in. (180.34 cm); 11:00 BP 131 / 56; Pulse 70; Resp 18; Pulse Ox 100% on R/A; db 12:30 BP 115 / 46; Pulse 74; Resp 16; Pulse Ox 100% on R/A; Pain 9/10; db 15:32 BP 124 / 75; Pulse 70; Resp 16; Pulse Ox 100% on R/A; db 10:47 Body Mass Index 24.41 (79.38 kg, 180.34 cm) ph ED Course: 10:43 Patient arrived in ED. rg4 10:44 Francisco Monique MD is Attending Physician. rn 10:51 Triage completed. ph 10:52 Arm band placed on Patient placed in an exam room. ph 10:53 Patient has correct armband on for positive identification. Bed in low position. Call ph light in reach. Side rails up X 1. 10:55 Initial lab(s) drawn, by me, sent to lab. Inserted saline lock: 20 gauge in right kj1 forearm, using aseptic technique. Blood collected. 11:25 She Johnson, RN is Primary Nurse. db 11:55 Extremity Venous Uni PredictionIO US In Process Unspecified. EDMS 11:56 Lower Extremity Artery Uni Ltd US In Process Unspecified. EDMS 15:32 Pulse ox on. NIBP on. Warm blanket given. db 15:32 No provider procedures requiring assistance completed. IV discontinued, intact, db bleeding controlled, No redness/swelling at site. Administered Medications: 13:00 Drug: Gabapentin 300 mg Route: PO; db 15:32 Follow up: Response: No adverse reaction db 13:00 Drug: Flexeril (cyclobenzaprine) 10 mg Route: PO; db 15:32 Follow up: Response: No adverse reaction db Medication: 10:53 VIS not applicable for this client. ph Outcome: 14:24 Discharge ordered by . rn 15:32 Discharged to home ambulatory. db 15:32 Condition: stable 15:32 Discharge instructions given to patient, Instructed on discharge instructions, follow up and referral plans. Demonstrated understanding of instructions, follow-up care, Prescriptions given X 1. 15:43 Patient left the ED. db Signatures: Dispatcher [employer] EDMS Francisco Monique MD MD rn Hall, Patricia, RN RN ph Garcia, Rubi 4 Mis Tinoco kj1 She Johnson RN RN db
[2022-07-18 15:53] VITALS: TEMP 97.7
[2022-07-18 15:58] VITALS: O2SAT 100
[2022-07-18 16:10] VITALS: BP 124/75
--- NOTE | 2022-07-21 15:20 | EKG ---
Test Date: 2022-07-18 Test Time: 10:58:32 Skein Winder: SIMRAN MEASUREMENT RESULTS: Intervals: Rate: 74 HI: 146 QRSD: 90 QT: 412 QTc: 457 [place]: P: 42 HI: 146 QRS: -20 T: 182 INTERPRETIVE STATEMENTS: Normal sinus rhythm Minimal voltage criteria for LVH, may be normal variant Septal infarct, age undetermined T wave abnormality, consider inferolateral ischemia Abnormal ECG Compared to ECG 04/20/2022 14:06:14 Left ventricular hypertrophy now present Myocardial infarct finding now present T-wave abnormality still present Possible ischemia still present Electronically Signed On 07-21-22 15:16:57 OUTSIDE INSTALLER APPRENTICE by Mono Royal
== END 2022-07-18 15:43 | disposition home or self-care (01) ==
LOC: ER 10:42
DX: E11.42 Type 2 diabetes mellitus with diabetic polyneuropathy (principal); Z88.3 Allergy status to other anti-infective agents; Z88.5 Allergy status to narcotic agent
CPT/HCPCS: 36415; 80048; 83735; 83880; 85025; 85610; 93005; 93926; 93971; 99284

== ENCOUNTER 2023-11-18 07:35 | Inpatient (IN) | payer OTHER ==
--- OUTSIDE RECORDS SUMMARY | 2023-11-18 07:37 | XMS REPORT | Clinical Summary ---
Author Name Unknown Organization [facility] Address [address] [place] [address] Care Team Providers Care Resaw Operator Name Role Phone Unavailable Primary Care Provider Unavailabl e Social History Tobacco Use Types Packs/Day Years Used Date Smoking Tobacco: Never Assessed Sex and Gender Information Value Date Recorded Sex Assigned at Not on file Gender Identity Not on file Sexual Orientation Not on file Job Start Date Occupation Industry Not on file Not on file Not on file Plan of Treatment Not on file
[2023-11-18] MEDS ORDERED: ASPIRIN 81 MG CHEWABLE TABLET ONE (07:51)
[2023-11-18] MEDS ORDERED: NA CHLORIDE 0.9% 1,000 ML ONE (07:51)
[2023-11-18] MEDS ORDERED: ONDANSETRON 4 MG/2 ML VIAL ONE (08:10)
[2023-11-18 08:14] LABS: PT Prothrombin Time 11.9 SECONDS (9.5-12.5); Protime INR 1.08
[2023-11-18 08:16] LABS: Absolute Eosinophils 0.2 K/uL (0-0.5); Absolute Lymphocytes (CBC) 0.8 K/uL (0.7-4.9); Absolute Monocytes 0.4 K/uL (0.1-1.3); Absolute Neutrophil 2.7 K/uL (1.8-8.0); Basophils % 0.9 % (0-1.3); Eosinophils % 4.3 % (0-4.4); Hematocrit 32.9 % (39.6-49.0); MCH 29.7 pg (27.0-35.0); MCHC 33.5 g/dL (32.0-36.0); MCV 88.8 fL (80-100); MPV 8.4 fL (7.6-11.3); Monocytes % 8.7 % (3.3-12.3); Neutrophils % 67.1 % (41.7-73.7); Nucleated Red Blood Cells % 0.1 % (0-0); Platelets 127 thou/uL (152-406); RBC Red Blood Cell Count 3.71 M/uL (4.33-5.43); Red Cell Distribution Width 14.4 % (12.1-15.2)
[2023-11-18 08:22] LABS: ALT/SGPT 43 U/L (16-61); AST/SGOT 23 U/L (15-37); Albumin 3.1 g/dL (3.4-5.0); Albumin/Globulin Ratio 0.9 (1.1-1.8); Alkaline Phosphatase 116 U/L (45-117); Anion Gap 7.9 mEq/L (5.0-15.0); BUN Blood Urea Nitrogen 50 mg/dL (7-18); Bicarbonate 24 mEq/L (21-32); Bilirubin Total 0.2 mg/dL (0.2-1.0); Globulin 3.6 g/dL (2.3-3.5); Glomerular Filtration Rate 31 ml/min (=/>90); Glucose Level 324 mg/dL (74-106); Lipase 41 U/L (13-75); Magnesium 2.9 mg/dL (1.6-2.4); NT PRO-BNP 1525 pg/mL (<125); Potassium 3.9 mEq/L (3.5-5.1); Protein, Total 6.7 g/dL (6.4-8.2); Sodium Level 143 mEq/L (136-145); Troponin High Sensitivity 28.3 pg/mL (<58.9)
[2023-11-18 08:23] LABS: Bilirubin Direct < 0.1 mg/dL (0-0.2); Bilirubin Indirect, Calculated ND mg/dL (0.2-0.8)
--- NOTE | 2023-11-18 09:00 | ER ---
Nurse's Notes [facility] Name: Torey Pritchard Age: 68 yrs Sex: Male : 1955 Arrival Date: 11/18/2023 Time: 07:35 Bed 19 Private MD: Diagnosis: Chest pain, unspecified;Syncope Near;Weakness;Hypertensive heart and chronic kidney disease with heart failure and stage 1 through stage 4 chronic kidney disease, or unspecified chronic kidney disease Presentation: 11/17 07:55 Chief complaint: Patient states: RIB PAIN AFTER FALL AND HYPERGLYCEMIA. Coronavirus bp screen: At this time, the client does not indicate any symptoms associated with coronavirus-19. Ebola Screen: No symptoms or risks identified at this time. Initial Sepsis Screen: Does the patient meet any 2 criteria? No. Patient's initial sepsis screen is negative. Does the patient have a suspected source of infection? No. Patient's initial sepsis screen is negative. Risk Assessment: Do you want to hurt yourself or someone else? Patient reports no desire to harm self or others. Onset of symptoms was November 18, 2023 at 07:00. 07:55 Method Of Arrival: Wheelchair bp 07:55 Acuity: MARNI 3 bp Triage Assessment: 07:58 General: Appears distressed, Behavior is cooperative, appropriate for age, anxious. bp Pain: Complains of pain in chest. EENT: No deficits noted. Cardiovascular: Reports chest pain. Historical: - Allergies: 07:58 Haloperidol; bp 07:58 Rocephin; bp - Home Meds: 07:58 Spironolactone Oral [Active]; Bumetanide Oral [Active]; allopurinol 100 mg Oral tab bp [Active]; gabapentin 600 mg oral tablet 1 tab every day at bedtime [Active]; hydralazine 50 mg oral tablet 1 tab 2 times per day [Active]; rosuvastatin 40 mg oral tablet 1 tab daily [Active]; Farxiga 10 mg oral tablet 1 tab every morning [Active]; Xarelto 2.5 mg oral tablet 1 tab 2 times per day [Active]; febuxostat 40 mg oral tablet 1 tab daily [Active]; 12:57 insulin glargine 100 unit/mL (3 mL) Sub-Q inpn 24 units BID PRN (per pt if BG is above bp 110 in the AM or 'very high' in the PM but is unable to state a cut off) [Active]; - PMHx: 07:58 Cancer; PVD; neuropathy; lymphedema; kidney disease; Diabetes - NIDDM; CVA; CHF; bp - PSHx: 07:58 Vasectomy; bp - Immunization history:: Adult Immunizations up to date. - Infectious Disease History:: Denies. - Social history:: Smoking status: Patient denies any tobacco usage or history of. - Family history:: not pertinent. Screenin:55 [facility] ED Fall Risk Assessment (Adult) History of falling in the last 3 months, bp including since admission Yes- single mechanical fall (1 pt) Confusion or Disorientation No (0 pts) Intoxicated or Sedated No (0 pts) Impaired Gait No (0 pts) Mobility Assist Device Used No (0 pt) Altered Elimination No (0 pt) Score/Fall Risk Level 0 - 2 = Low Risk Oriented to surroundings. Abuse screen: Denies threats or abuse. Denies injuries from another. Nutritional screening: No deficits noted. Tuberculosis screening: No symptoms or risk factors identified. Assessment: 07:55 General: SEE TRIAGE NOTE. bp 08:00 Reassessment: BGL NOTED 300, NOTIFIED. bp 08:43 Reassessment: PT RETURNED FROM CT. bp 09:17 Reassessment: ADMIT INITIATED. bp 12:00 Reassessment: REPORT FAXED TO 216. bp 12:54 Reassessment: PT NICANOR. bp Vital Signs: 07:55 BP 155 / 102; Pulse 81; Resp 16; Temp 98; Pulse Ox 100% ; bp 08:12 BP 189 / 80; Pulse 76; Resp 18; Pulse Ox 100% ; bp 08:43 Pulse 74; Resp 16; Pulse Ox 99% ; bp 09:15 BP 175 / 70; Pulse 66; Resp 11; Pulse Ox 99% ; bp 11:00 BP 171 / 70; Pulse 65; Resp 16; Pulse Ox 100% ; bp 12:00 BP 182 / 81; Pulse 66; Resp 16; Pulse Ox 100% ; bp ED Course: 07:36 Patient arrived in ED. im 07:38 Lam Aleman MD is Attending Physician. roderick 07:43 EKG done, by ED staff. hb 07:46 Client placed on continuous cardiac and pulse oximetry monitoring. NIBP monitoring hb applied. playground monitor on. Pulse ox on. 07:48 David Sheets, RN is Primary Nurse. bp 07:48 Troponin HS Sent. bp 07:48 PT-INR Sent. bp 07:48 NT PRO-BNP Sent. bp 07:48 Magnesium Sent. bp 07:48 LFT's Sent. bp 07:48 CBC with Diff Sent. bp 07:48 Basic Metabolic Panel Sent. bp 07:48 Inserted saline lock: 20 gauge in right forearm, using aseptic technique. Blood bp collected. 07:55 Patient has correct armband on for positive identification. bp 07:57 Triage completed. bp 08:13 Basic Metabolic Panel Sent. bp 08:13 CBC with Diff Sent. bp 08:13 LFT's Sent. bp 08:13 Troponin HS Sent. bp 08:13 PT-INR Sent. bp 08:13 NT PRO-BNP Sent. bp 08:13 Magnesium Sent. bp 08:27 CT Traumagram (Head C Spine CAP wo con) In Process Unspecified. EDMS 08:35 XRAY Chest (1 view) In Process Unspecified. EDMS 08:58 Carlos Darnell is Hospitalizing Provider. roderick 12:55 No provider procedures requiring assistance completed. Patient admitted, IV remains in bp place. O2 via ROOM AIR. 12:56 Provided Education on: N/A. bp Administered Medications: 07:55 Drug: Aspirin PO 162 mg PO once Route: PO; bp 12:57 Follow up: Response: No adverse reaction bp 07:55 Drug: NS 0.9% IV 1000 ml IV at 125 ml/hr continuous Route: IV; Rate: 125 ml/hr; Site: bp right forearm; 12:58 Follow up: IV Status: Order to discontinue infusion; IV Intake: 200ml bp 08:13 Drug: Ondansetron IVP 4 mg IVP once; over 2 minutes Route: IVP; Site: right forearm; bp 12:57 Follow up: Response: No adverse reaction bp Medication: 07:55 VIS not applicable for this client. bp Intake: 12:58 IV: 200ml; Total: 200ml. bp Outcome: 09:00 Decision to Hospitalize by Provider. roderick 12:55 Admitted to Med/surg accompanied by tech, via wheelchair, room 216, with chart, bp 12:55 Condition: stable 12:55 Instructed on the need for admit, 12:58 Patient left the ED. bp Signatures: Dispatcher [employer] Lam Bella MD MD cha Baxter, Heather, RN RN David Soto, CHRISTIAN RN Jody Garvey
--- NOTE | 2023-11-18 09:00 | EDPHYS ---
Physician Documentation [facility] Name: Torey Pritchard Age: 68 yrs Sex: Male : 1955 Arrival Date: 11/18/2023 Time: 07:35 Bed 19 Private MD: ED Physician Lam Aleman HPI: 11/17 08:48 This 68 yrs old Male presents to ER via Wheelchair with complaints of Chest roderick Pain. 08:48 The patient or guardian reports chest pain that is located primarily in the substernal roderick area, anterior chest wall, bilaterally. Onset: just prior to arrival, this morning. The pain radiates to Associated signs and symptoms: Pertinent positives: lightheadedness, nausea, syncope. The chest pain is described as a heaviness. Modifying factors: The symptoms are alleviated by nothing. the symptoms are aggravated by nothing. Severity of pain: At its worst the pain was moderate in the emergency department the pain is unchanged. The patient has experienced similar episodes in the past, several times. Historical: - Allergies: 07:58 Haloperidol; bp 07:58 Rocephin; bp - Home Meds: 07:58 Spironolactone Oral [Active]; Bumetanide Oral [Active]; allopurinol 100 mg Oral tab bp [Active]; gabapentin 600 mg oral tablet 1 tab every day at bedtime [Active]; hydralazine 50 mg oral tablet 1 tab 2 times per day [Active]; rosuvastatin 40 mg oral tablet 1 tab daily [Active]; Farxiga 10 mg oral tablet 1 tab every morning [Active]; Xarelto 2.5 mg oral tablet 1 tab 2 times per day [Active]; febuxostat 40 mg oral tablet 1 tab daily [Active]; 12:57 insulin glargine 100 unit/mL (3 mL) Sub-Q inpn 24 units BID PRN (per pt if BG is above bp 110 in the AM or 'very high' in the PM but is unable to state a cut off) [Active]; - PMHx: 07:58 Cancer; PVD; neuropathy; lymphedema; kidney disease; Diabetes - NIDDM; CVA; CHF; bp - PSHx: 07:58 Vasectomy; bp - Immunization history:: Adult Immunizations up to date. - Infectious Disease History:: Denies. - Social history:: Smoking status: Patient denies any tobacco usage or history of. - Family history:: not pertinent. ROS: 08:48 Constitutional: Negative for fever, chills, and weight loss, Eyes: Negative for injury, roderick pain, redness, and discharge, ENT: Negative for injury, pain, and discharge, Neck: Negative for injury, pain, and swelling, Respiratory: Negative for shortness of breath, cough, wheezing, and pleuritic chest pain, Back: Negative for injury and pain, : Negative for injury, bleeding, discharge, and swelling, MS/Extremity: Negative for injury and deformity, Skin: Negative for injury, rash, and discoloration, Neuro: Negative for headache, weakness, numbness, tingling, and seizure, Psych: Negative for depression, anxiety, suicide ideation, homicidal ideation, and hallucinations, Allergy/Immunology: Negative for hives, rash, and allergies, Endocrine: Negative for neck swelling, polydipsia, polyuria, polyphagia, and marked weight changes, Hematologic/Lymphatic: Negative for swollen nodes, abnormal bleeding, and unusual bruising, 08:48 Cardiovascular: Positive for chest pain, 08:48 Respiratory: Positive for cough, 08:48 Abdomen/GI: Positive for abdominal pain, nausea and vomiting, of the right upper quadrant, left upper quadrant, right lower quadrant and left lower quadrant, Exam: 08:48 Constitutional: This is a well developed, well nourished patient who is awake, alert, roderick and in no acute distress. Head/Face: Normocephalic, atraumatic. Eyes: Pupils equal round and reactive to light, extra-ocular motions intact. Lids and lashes normal. Conjunctiva and sclera are non-icteric and not injected. Cornea within normal limits. Periorbital areas with no swelling, redness, or edema. ENT: Nares patent. No nasal discharge, no septal abnormalities noted. Tympanic membranes are normal and external auditory canals are clear. Oropharynx with no redness, swelling, or masses, exudates, or evidence of obstruction, uvula midline. Mucous membranes moist. Neck: Trachea midline, no thyromegaly or masses palpated, and no cervical lymphadenopathy. Supple, full range of motion without nuchal rigidity, or vertebral point tenderness. No Meningismus. Chest/axilla: Normal chest wall appearance and motion. Nontender with no deformity. No lesions are appreciated. Cardiovascular: Regular rate and rhythm with a normal S1 and S2. No gallops, murmurs, or rubs. Normal PMI, no JVD. No pulse deficits. Respiratory: Lungs have equal breath sounds bilaterally, clear to auscultation and percussion. No rales, rhonchi or wheezes noted. No increased work of breathing, no retractions or nasal flaring. Back: No spinal tenderness. No costovertebral tenderness. Full range of motion. Male : Normal genitalia with no discharge or lesions. Skin: Warm, dry with normal turgor. Normal color with no rashes, no lesions, and no evidence of cellulitis. MS/ Extremity: Pulses equal, no cyanosis. Neurovascular intact. Full, normal range of motion. Neuro: Awake and alert, GCS 15, oriented to person, place, time, and situation. Cranial nerves II-XII grossly intact. Motor strength 5/5 in all extremities. Sensory grossly intact. Cerebellar exam normal. Normal gait. Psych: Awake, alert, with orientation to person, place and time. Behavior, mood, and affect are within normal limits. 08:48 ECG was reviewed by the Attending Physician. Vital Signs: 07:55 BP 155 / 102; Pulse 81; Resp 16; Temp 98; Pulse Ox 100% ; bp 08:12 BP 189 / 80; Pulse 76; Resp 18; Pulse Ox 100% ; bp 08:43 Pulse 74; Resp 16; Pulse Ox 99% ; bp 09:15 BP 175 / 70; Pulse 66; Resp 11; Pulse Ox 99% ; bp 11:00 BP 171 / 70; Pulse 65; Resp 16; Pulse Ox 100% ; bp 12:00 BP 182 / 81; Pulse 66; Resp 16; Pulse Ox 100% ; bp MDM: 07:41 Patient medically screened. roderick 08:53 Differential diagnosis: abnormal EKG, acute myocardial infarction, acute pericarditis, roderick anxiety, chest wall pain, Cholelithiasis esophagitis, gastroesophageal reflux disease (GERD), hiatal hernia, peptic ulcer disease, pleurisy, pulmonary embolus, stable angina, thoracic aortic disection, unstable angina. HEART Score: History: Moderately Suspicious (1), ECG: Non specific repolarization disturbance / LBTB / PM (1), Age: > or = 65 years (2), Risk Factors: > or = 3 Risk factors for atherosclerotic disease (2), [Hypercholesterolemia] [Hypertension] [DM] [+ Family HX] [Obesity] Troponin: < or = 1 x Normal Limit (0). The patient was given aspirin in the Emergency Department. TILA Risk Score: 1 - patient's age is greater or equal to 65 years, 1 - Three or more CAD risk factors, 1- Known CAD, 1 - ASA use in past 7 days, TOTAL SCORE = 4. Data reviewed: vital signs, nurses notes, lab test result(s), EKG, radiologic studies. Consideration of Admission/Observation Patient was admitted/placed on observation. Escalation of care including admission/observation considered. I considered the following discharge prescriptions or medication management in the emergency department Medications were administered in the Emergency Department. See MAR. Independent interpretation of the following test(s) in the Emergency Department EKG: See my EKG interpretation above. Test considered but Not performed: Ultrasound NO 2 D ECHO. 11/17 07:41 Order name: Basic Metabolic Panel; Complete Time: 08:47 roderick 11/17 07:41 Order name: CBC with Diff; Complete Time: 08:47 roderick 11/17 07:41 Order name: LFT's; Complete Time: 08:47 roderick 11/17 07:41 Order name: Magnesium; Complete Time: 08:47 roderick 11/17 07:41 Order name: NT PRO-BNP; Complete Time: 08:47 roderick 11/17 07:41 Order name: PT-INR; Complete Time: 08:47 roderick 11/17 07:41 Order name: Troponin HS; Complete Time: 08:47 roderick 11/17 07:41 Order name: Lipase; Complete Time: 08:47 roderick 11/17 07:41 Order name: Urinalysis w/ reflexes roderick 11/17 07:56 Order name: Glucose, Ancillary Testing; Complete Time: 08:11 EDMS 11/17 10:34 Order name: T4 Free EDMS 11/17 10:34 Order name: Thyroid Stimulating Hormone EDMS 11/17 10:34 Order name: Basic Metabolic Panel EDMS 11/17 10:34 Order name: Basic Metabolic Panel EDMS 11/17 10:34 Order name: CBC with Automated Diff EDMS 11/17 10:34 Order name: CBC with Automated Diff EDMS 11/17 10:34 Order name: Lipid Profile EDMS 11/17 10:34 Order name: Lipid Profile EDMS 11/17 10:34 Order name: Magnesium EDOH 11/17 10:34 Order name: Magnesium EDOH 11/17 10:34 Order name: Phosphorus EDOH 11/17 10:34 Order name: Phosphorus EDOH 11/17 10:34 Order name: Troponin High Sensitivity [facility] 11/17 10:34 Order name: Troponin High Sensitivity [facility] 11/17 10:34 Order name: Troponin High Sensitivity [facility] 11/17 07:41 Order name: XRAY Chest (1 view) [facility] 11/17 08:11 Order name: CT Traumagram (Head C Spine CAP wo con) [facility] 11/17 07:41 Order name: EKG; Complete Time: 07:42 [facility] 11/17 07:41 Order name: Cardiac monitoring; Complete Time: 07:48 [facility] 11/17 07:41 Order name: EKG - Nurse/Tech; Complete Time: 07:46 [facility] 11/17 07:41 Order name: IV Saline Lock; Complete Time: 07:48 [facility] 11/17 07:41 Order name: Labs collected and sent; Complete Time: 07:48 [facility] 11/17 07:41 Order name: O2 Per Protocol; Complete Time: 07:48 [facility] 11/17 07:41 Order name: O2 Sat Monitoring; Complete Time: 07:48 [facility] EC:48 Rate is 71 beats/min. Rhythm is regular. QRS [place] is Normal. CO interval is normal. QRS roderick interval is normal. QT interval is prolonged at 478 msec. No Q waves. T waves are Normal. No ST changes noted. Clinical impression: NSR w/ Non-specific ST/T Changes and No evidence of ischemia. Interpreted by me. Reviewed by me. Administered Medications: 07:55 Drug: Aspirin PO 162 mg PO once Route: PO; bp 12:57 Follow up: Response: No adverse reaction bp 07:55 Drug: NS 0.9% IV 1000 ml IV at 125 ml/hr continuous Route: IV; Rate: 125 ml/hr; Site: bp right forearm; 12:58 Follow up: IV Status: Order to discontinue infusion; IV Intake: 200ml bp 08:13 Drug: Ondansetron IVP 4 mg IVP once; over 2 minutes Route: IVP; Site: right forearm; bp 12:57 Follow up: Response: No adverse reaction bp Disposition Summary: 11/18/23 09:00 Hospitalization Ordered Notes: Hospitalization Status: Inpatient Admission roderick Provider: Carlos Darnell cha Location: Telemetry/MedSurg (Inpatient) roderick Condition: Fair roderick Problem: new roderick Symptoms: have improved roderick Bed/Room Type: Standard roderick Room Assignment: 210(11/18/23 11:49) bd Diagnosis - Chest pain, unspecified roderick - Syncope Near roderick - Weakness roderick - Hypertensive heart and chronic kidney disease with heart failure and stage 1 roderick through stage 4 chronic kidney disease, or unspecified chronic kidney disease Forms: - Medication Reconciliation Form roderick - SBAR form roderick - Leadership Thank You Letter roderick Signatures: Dispatcher [employer] EDMS Keren Delvalle Corey, MD MD cha Peltier, Brian RN RN bp Corrections: (The following items were deleted from the chart) 07:42 07:42 BASIC METABOLIC PANEL+C.LAB.BRZ ordered. EDMS EDMS 07:42 07:42 CBC+H.LAB.BRZ ordered. EDMS EDMS 07:42 07:42 HEPATIC FUNCTION+C.LAB.BRZ ordered. EDMS EDMS 07:42 07:42 MAGNESIUM+C.LAB.BRZ ordered. EDMS EDMS 07:42 07:42 PROBNP+C.LAB.BRZ ordered. EDMS EDMS 07:42 07:42 PROTIME (+INR)+COAG.LAB.BRZ ordered. EDMS EDMS 07:42 07:42 Troponin High Sensitivity+C.LAB.BRZ ordered. EDMS EDMS 07:42 07:42 LIPASE+C.LAB.BRZ ordered. EDMS EDMS 07:42 07:42 Urinalysis+U.LAB.BRZ ordered. EDMS EDMS 11:49 09:00 roderick bd
--- NOTE | 2023-11-18 09:04 | RAD REPORT ---
EXAM DESCRIPTION: Gustavo Single View11/18/2023 8:38 am CLINICAL HISTORY: Chest pain COMPARISON: 2021 FINDINGS: The lungs appear clear of acute infiltrate. The heart is normal size IMPRESSION: No acute abnormalities displayed
--- NOTE | 2023-11-18 09:07 | RAD REPORT ---
EXAM DESCRIPTION: CT - Head C Spine Cap Wo Con - 11/18/2023 8:25 am CLINICAL HISTORY: Head and neck injury with chest and abdominal pain status post fall TECHNIQUE: Computed axial tomography of head, neck, chest, abdomen and pelvis obtained. IV and oral contrast not requested. Coronal and sagittal reconstruction performed. All CT scans are performed using dose optimization technique as appropriate and may include automated exposure control or mA/KV adjustment according to patient size. COMPARISON: CT abdomen 2020 FINDINGS: An intracranial bleed is not seen. The ventricles are normal in caliber. An extra-axial fluid collection is not noted. Chronic sphenoid sinusitis is present A cervical fracture is not seen. No dislocation is noted. Spondylosis cervical spine results in centr al and foraminal stenosis. Slight posterior subluxation C4 on C5 The evaluation of mediastinum, ema, vessels, solid organs and bowel are limited secondary to the lac k of contrast administration. A mediastinal hematoma is not noted. A pleural effusion is not seen. A lung contusion is not present. The liver,spleen, pancreas, adrenals,kidneys and bladder do not demonstrate an acute traumatic injury Ill-defined soft tissue medial to the left kidney extending into the left para-aortic region is small er and less masslike than on 202. A small right renal cyst Small to moderate bilateral inguinal hernias IMPRESSION: No acute intracranial abnormality is seen. A cervical fracture is not visualized. If the patient continues to have symptoms to suggest intracran ial/spinal cord pathology MRI be recommended No acute traumatic abnormality involving the chest, abdomen or pelvis Ill-defined soft tissue medial to the left kidney extending into the left para-aortic region is small er and less masslike than on 202. This may represent treated neoplasm such as lymphoma. This should be correlated clinically
--- NOTE | 2023-11-18 09:44 | P.HP ---
Certification for Inpatient Patient admitted to: Observation With expected LOS: <2 Midnights Patient will require the following post-hospital care: None Practitioner: I am a practitioner with admitting privileges, knowledge of patient current condition, hospital course, and medical plan of care. Services: Services provided to patient in accordance with Admission requirements found in Title 42 Section 412.3 of the Code of Federal Regulations Patient History Date of Service: 11/18/23 Reason for admission: Chest pain r/o ACS History of Present Illness: Torey Pritchard is a 68 year old male with Pmhx PVD, neuropathy, lymph edema, kidney disease, cancer of kidney, diabetesNIDDM, CVA, CHF who presents to the ED with chief complaint of chest pain. Upon further examination he explains he has been with his in room 428 for the last 8 days and is exhausted from the stay as well as returning home he can shower. Lab evaluation shows acute kidney injury, he reports having one kidney working at 15%. Troponins and EKG negative. Initial vitals BP 155 / 102; Pulse 81; Resp 16; Temp 98; Pulse Ox 100%. Laboratory evaluation BUN/creatinine 50/2.24, GFR 31, serum glucose 324,, BNP 1525, troponin 28.3. EKG reports 8 Rate is 71 beats/min. Rhythm is regular. QRS Mathias is Normal. [place] interval is normal. QRS interval is normal. QT interval is prolonged at 478 msec. No Q waves. T waves are Normal. No ST changes noted. Clinical impression: NSR w/ Non-specific ST/T Changes and No evidence of ischemia. CT head C-spine reports " The liver,spleen, pancreas, adrenals,kidneys and bladder do not demonstrate an acute traumatic injury. Ill-defined soft tissue medial to the left kidney extending into the left para-aortic region is smaller and less masslike than on 2020.A small right renal cyst Small to moderate bilateral inguinal hernias. No acute intracranial abnormality is seen." Chest x-ray reports "The lungs appear clear of acute infiltrate. The heart is normal size. IMPRESSION: No acute abnormalities displayed." Torey Pritchard will be admitted to hospitalist service for further evaluation and treatment. Allergies haloperidol Allergy (Severe, Verified 11/21/11 12:00) Shortness of breath Home Medications: Gabapentin 600 mg PO BEDTIME 05/10/21 Acetaminophen/Diphenhydramine [Tylenol Pm Exstr 500-25Mg Cplt] 2 each PO BEDTIME PRN PRN 01/20/22 Hydralazine HCl 50 mg PO BID 01/20/22 Insulin Glargine,Hum.rec.anlog [Basaglar Kwikpen U-100] 24 unit SQ BEDTIME 01/20/22 Insulin Glargine,Hum.rec.anlog [Basaglar Kwikpen U-100] 24 unit SQ DAILY 01/20/22 Aspirin [Everett Chewable] 81 mg PO DAILY 11/18/23 Bumetanide [Bumex] 1 tab PO BID PRN 11/18/23 Cyanocobalamin (Vitamin B-12) [Vitamin B-12] 1 tab PO DAILY 11/18/23 Dapagliflozin Propanediol [Farxiga] 10 mg PO DAILY 11/18/23 Febuxostat 40 mg PO DAILY 11/18/23 Melatonin 1 tab PO BEDTIME 11/18/23 Rivaroxaban [Xarelto] 2.5 mg PO BID 11/18/23 Rosuvastatin Calcium 40 mg PO BEDTIME 11/18/23 Spironolactone [Aldactone*] 25 mg PO DAILY PRN 11/18/23 - Past Medical/Surgical History Diabetic: Yes -: PVD -: HTN -: DM with neuropathy and CKD -: Hyperlipidemia -: Depression -: GERD -: CKD III followed by Dr. Ivey. Hx of HD. -: Prolonged acute kidney failure in setting of chemo -: perinephric mass status post treated with chemo/ablation -: History of TIA -: History of chronic lower extremity edema with recurrent wounds -: Status post right 5th toe amputation -: partial right great toe amputation Psychosocial/ Personal History: Lives at home with - Family History Mother -: Cancer Father -: Lung disease - Social History Alcohol use: No CD- Drugs: No Caffeine use: Yes Review of Systems General: Weakness, Malaise Neurological: Weakness, Other (lightheadedness) Physical Examination - Physical Exam General: Alert, Oriented x3, Acute distress HEENT: Atraumatic, Normocephalic, PERRLA Neck: Supple, JVD not distended Respiratory: Clear to auscultation bilaterally, Normal air movement Cardiovascular: Normal pulses, Regular rate/rhythm Capillary refill: <2 Seconds Gastrointestinal: Normal bowel sounds, Soft and benign, Distended Musculoskeletal: No swelling Integumentary: No rashes Neurological: Normal speech, Normal tone - Studies Laboratory Data (last 24 hrs) 11/18/23 11/18/23 11/18/23 07:45 07:45 07:45 WBC 4.10 L Hgb 11.0 L Hct 32.9 L Plt Count 127 L PT 11.9 INR 1.08 Sodium 143 Potassium 3.9 BUN 50 H Creatinine 2.24 H Glucose 324 H Magnesium 2.9 H Total Bilirubin 0.2 AST 23 ALT 43 Alkaline Phosphatase 116 Lipase 41 Assessment and Plan - Plan Assessment and plan Chest pain rule out ACS in patient with a history of [place] Congestive heart failure -Troponin 28.3, serial pending -EKG negative -BNP 1525 -TSH/free T44.570/0.74 -Aspirin and statin daily -Continue home medications -Continuous telemetry Trauma fall -CT head C-spine reports " The liver,spleen, pancreas, adrenals,kidneys and bladder do not demonstrate an acute traumatic injury. Ill-defined soft tissue medial to the left kidney extending into the left para-aortic region is smaller and less masslike than on 2020.A small right renal cyst Small to moderate bilateral inguinal hernias. No acute intracranial abnormality is seen." -Torey reports falling today -fall precaution -Supportive care Acute on chronic kidney disease -BUN/creatinine 50/2.24, GFR 31 -IV fluids given in the ED Diabetes mellitus- IDDM with hyperglycemia -Serum glucose 324 -Accu-Chek with sliding scale insulin History of hypertension History neuropathy History of CVA History of neuropathy -Continue home medication DVT PPx Xarelto Full code LOS 2 days Discharge Plan: Home Plan to discharge in: 24 Hours - Advance Directives Does patient have a Living Will: No Does patient have a Durable POA for Healthcare: No
[2023-11-18 11:22] LABS: Thyroid Stimulating Hormone 4.57 uIU/mL (0.358-3.740)
[2023-11-18] MEDS: INSULIN REGULAR (HUMAN) 100 UNIT/ML SQ SCH (11:30)
[2023-11-18 14:15] VITALS: BMI 27.6
[2023-11-18] MEDS: HEPARIN 5000 UNIT/ML 1 ML VIAL SQ SCH (16:07)
[2023-11-18 17:26] LABS: Specific Gravity 1.014 (1.005-1.030); Sqamous Epithelial <5 /HPF (None Seen); Urine Bacteria None Seen /HPF (<20); Urine Bilirubin NEGATIVE (Negative); Urine Blood Trace (Negative); Urine Clarity Clear (Clear); Urine Color Light-Yellow (Yellow); Urine Culture Reflex Order NOT NEEDED; Urine Glucose 4+ (Negative); Urine Ketones NEGATIVE (Negative); Urine Microscopic Reflex YN ORDER UMIC; Urine Mucus Slight /HPF (None Seen); Urine Nitrite NEGATIVE (Negative); Urine Protein 2+ (Negative); Urine RBC <5 /HPF (None Seen); Urine Urobilinogen Normal (Normal); Urine WBC <5 /HPF (<5)
[2023-11-18] MEDS ORDERED: SPIRONOLACTONE 25 MG TABLET PO PRN (18:28)
[2023-11-18] MEDS ORDERED: HOME MED 1 EA UNK (Bumetanide [Bumex] 2 MG Tablet) PO PRN (18:28)
[2023-11-18] MEDS ORDERED: BUMETANIDE 1 MG TABLET PO PRN (18:55)
[2023-11-18 19:28] VITALS: O2SAT 100
[2023-11-18] MEDS: ROSUVASTATIN 10 MG TAB PO SCH (20:48)
[2023-11-18] MEDS: HYDRALAZINE HCL 25 MG TABLET PO SCH (20:49)
[2023-11-18] MEDS: MELATONIN 5 MG TABLET PO SCH (20:49)
[2023-11-18] MEDS: GABAPENTIN 300 MG CAP PO SCH (20:49)
[2023-11-18] MEDS ORDERED: HOME MED 1 EA UNK (Hydralazine Hcl [Hydralazine Hcl] 100 MG Tablet) PO SCH (21:00)
[2023-11-18] MEDS ORDERED: HOME MED 1 EA UNK (Melatonin [Melatonin] 10 MG Tab.Subl) PO SCH (21:00)
[2023-11-18] MEDS ORDERED: HOME MED 1 EA UNK (Rosuvastatin Calcium [Rosuvastatin Calcium] 40 MG Tablet) PO SCH (21:00)
[2023-11-19 04:22] LABS: Absolute Basophils 0.1 K/uL (0-0.5); Absolute Eosinophils 0.2 K/uL (0-0.5); Absolute Lymphocytes (CBC) 0.8 K/uL (0.7-4.9); Absolute Monocytes 0.4 K/uL (0.1-1.3); Absolute Neutrophil 4.8 K/uL (1.8-8.0); Basophils % 1.1 % (0-1.3); Eosinophils % 3.2 % (0-4.4); Hematocrit 32.1 % (39.6-49.0); Hemoglobin 10.6 g/dL (13.6-17.9); Lymphocytes % 13.5 % (15.3-44.8); MCH 29.7 pg (27.0-35.0); MCHC 33.1 g/dL (32.0-36.0); MCV 89.6 fL (80-100); MPV 8.1 fL (7.6-11.3); Monocytes % 6.2 % (3.3-12.3); Nucleated Red Blood Cells % 0.1 % (0-0); Platelets 129 thou/uL (152-406); RBC Red Blood Cell Count 3.58 M/uL (4.33-5.43); Red Cell Distribution Width 15.1 % (12.1-15.2)
[2023-11-19 04:49] LABS: Anion Gap 7.1 mEq/L (5.0-15.0); Magnesium 2.7 mg/dL (1.6-2.4); Phosphorus 4.2 mg/dL (2.5-4.9); Potassium 4.1 mEq/L (3.5-5.1)
[2023-11-19] MEDS: ASPIRIN 81 MG CHEWABLE TABLET PO SCH (08:44)
[2023-11-19] MEDS: HOME MED (Dapagliflozin Propanediol [Farxiga] 10 MG Tablet) PO SCH ×2 (08:46→09:00)
[2023-11-19] MEDS: FEBUXOSTAT 40 MG PO SCH ×2 (08:46→09:00)
--- NOTE | 2023-11-19 17:56 | CON ---
Date of Consultation: 11/19/2023 Reason For Consultation: Chest pain. History Of Present Illness: 68-year-old male with history of diabetes, chronic kidney disease, CVA, CHF, peripheral vascular disease, who presented with chest pain who has been with his who was in the hospital for the past 8 days. He has been exhausted and sent to home and started feeling left-s ided chest pain, no radiation, on and off, that lasts for a short period of time and goes away. No a ctive chest pain at the present time. Past Medical History: As outlined above in the HPI. Medications: Refer to reconciliation sheet for detailed list. Allergies: HALOPERIDOL. Family History: No premature coronary artery disease or cancer. Social History: He does not smoke or drink. Does not use any drugs. Review of Systems: All systems reviewed and they were negative except as mentioned in the HPI. Physical Examination: Vital Signs: Reviewed. Head and Neck: Pupils are equal, reactive to light. Intact eye movements. No JVD. No cervical lym phadenopathy. Neck is supple. Thyroid is not enlarged. Lungs: Clear to auscultation bilaterally. No rhonchi, wheezing, or crackles. No accessory muscle u se. Heart: Regular rate and rhythm. No extra sounds. Abdomen: Soft, nontender. Bowel sounds positive. No organomegaly. No masses or hernia. No rigidi ty or rebound. Extremities: No clubbing or cyanosis. Intact pulses. Skin: No rash. No nodule. Neurologic: Alert, awake, oriented x3. No acute focal deficits appreciated. Lymph Nodes: No cervical or axillary lymphadenopathy. Investigations: Troponins x3 are negative. BUN is 38 and creatinine is 1.87. LDL cholesterol is 44 and hemoglobin is 10.6. Assessment And Recommendations: 1.Chest pain. Cardiac enzymes have been negative. The patient has multiple risk factors. Definite ly ischemia needs to be ruled out. Continues to be chest pain free, patient can be released and foll ow up early next week for outpatient stress test and please obtain echocardiogram. 2.Dyslipidemia. Agree with rosuvastatin. 3.Congestive heart failure. I agree with the current regimen of diuresis. Monitor BUN, creatinine, electrolytes. 4.Acute on chronic renal failure. Improved with diuresis. Continue current management. SR/MODL Voice ID: [id number] Report ID: [id number]
--- NOTE | 2023-11-19 18:16 | P.PN ---
Date of Service: 11/19/23 Subjective Feeling some what better Lying comfortably in bed ROS 10 point ROS as noted above, otherwise negative Physical Exam General: AAOx3, NAD, comfortable HEENT: Atraumatic, Normocephalic, PERRLA Neck: Supple, JVD not distended Respiratory: Clear to auscultation bilaterally, Normal air movement, on room air Cardiovascular: Normal pulses, Regular rate/rhythm Capillary refill: <2 Seconds Gastrointestinal: Normal bowel sounds, Soft and benign on palpation, Distended Musculoskeletal: No swelling Integumentary: No rashes Neurological: Normal speech, Normal tone Vitals Reviewed Problem list Chest pain rule out ACS in patient with a history of [place] Congestive heart failure Trauma fall Acute on chronic kidney disease Diabetes mellitus- IDDM with hyperglycemia History of hypertension History neuropathy History of CVA History of neuropathy Assessment and Plan Chest pain rule out ACS in patient with a history of [place] Congestive heart failure -Troponin 28.3, 28.0, 27.5 -EKG negative -BNP 1525 -TSH/free T4 4.570/0.74 -Aspirin and statin daily -Continue home medications -Continuous telemetry -Cardiology consulted -Heart score 6 -ECHO Trauma fall -CT head C-spine reports " The liver,spleen, pancreas, adrenals,kidneys and bladder do not demonstrate an acute traumatic injury. Ill-defined soft tissue medial to the left kidney extending into the left para-aortic region is smaller and less masslike than on 202.A small right renal cyst Small to moderate bilateral inguinal hernias. No acute intracranial abnormality is seen." -Torey reports falling today -fall precaution -Supportive care Acute on chronic kidney disease -BUN/creatinine 50/2.24, GFR 31 -IV fluids given in the ED Diabetes mellitus- IDDM with hyperglycemia -initial Serum glucose 324 -Accu-Chek with sliding scale insulin History of hypertension History neuropathy History of CVA History of neuropathy -Continue home medication DVT PPx Xarelto Full code LOS 2 days
--- NOTE | 2023-11-19 18:45 | P.DS ---
Admission Date: 11/18/23 Discharge Date: 11/19/23 Disposition: ROUTINE DISCHARGE Discharge Condition: FAIR Reason for Admission: Chest pain r/o ACS Brief History of Present Illness: Torey Pritchard is a 68 year old male with Pmhx PVD, neuropathy, lymph edema, kidney disease, cancer of kidney, diabetesNIDDM, CVA, CHF who presents to the ED with chief complaint of chest pain. Lab evaluation showed acute kidney injury, he reports having one kidney working at 15% due to nephrectomy. Troponins and EKG negative. Initial vitals BP 155 / 102; Pulse 81; Resp 16; Temp 98; Pulse Ox 100%. Laboratory evaluation BUN/creatinine 50/2.24, GFR 31, serum glucose 324,, BNP 1525, troponin 28.3. EKG showed no acute ischemic changes. CT head C-spine reports " The liver,spleen, pancreas, adrenals,kidneys and bladder do not demonstrate an acute traumatic injury. Ill-defined soft tissue medial to the left kidney extending into the left para-aortic region is smaller and less masslike than on 2020.A small right renal cyst Small to moderate bilateral inguinal hernias. No acute intracranial abnormality is seen." Chest x-ray reported The lungs appear clear of acute infiltrate. Patient was hospitalized for ACS rule out. Hospital Course: Diagnosis Chest pain ACS ruled out Peripheral vascular disease Diabetes mellitus type 2 Chronic kidney disease stage III. Hypertriglyceridemia Patient admitted to the medical floor, troponin trended negative. He was asymptomatic during the hospital stay. Patient had no chest pain. Lipid profile showed LDL of 44, triglyceride 239. Patient was ambulatory and with stable vitals. Patient has history of atherosclerotic disease. He also has a history of chronic kidney disease related to nephrectomy. Case discussed with cardiology Dr. Royal recommend follow-up in the office for an outpatient stress. He is on aspirin and low-dose Xarelto which are continued on discharge. Lifestyle modifications advised regarding the his diabetes and hyperlipidemia. Vital Signs/Physical Exam: Temp Pulse Resp BP Pulse Ox 97.3 F 72 16 158/70 H 100 11/19/23 15:55 11/19/23 15:55 11/19/23 15:55 11/19/23 15:55 11/19/23 15:55 General: Alert, In no apparent distress, Oriented x3 HEENT: Mucous membr. moist/pink, Sclerae nonicteric Neck: Supple, JVD not distended Respiratory: Clear to auscultation bilaterally, Normal air movement Cardiovascular: Regular rate/rhythm, Normal S1 S2 Gastrointestinal: Normal bowel sounds, Soft and benign, Non-distended, No tenderness Musculoskeletal: No swelling Integumentary: No rashes, No cyanosis Neurological: Normal strength at 5/5 x4 extr, Cranial nerves 3-12 intact Laboratory Data at Discharge: WBC 6.30 thou/uL (4.3-10.9) 11/19/23 04:08 Hgb 10.6 g/dL (13.6-17.9) L 11/19/23 04:08 Hct 32.1 % (39.6-49.0) L 11/19/23 04:08 Plt Count 129 thou/uL (152-406) L 11/19/23 04:08 PT 11.9 SECONDS (9.5-12.5) 11/18/23 07:45 INR 1.08 11/18/23 07:45 Sodium 142 mEq/L (136-145) 11/19/23 04:08 Potassium 4.1 mEq/L (3.5-5.1) 11/19/23 04:08 BUN 38 mg/dL (7-18) H 11/19/23 04:08 Creatinine 1.87 mg/dL (0.70-1.30) H 11/19/23 04:08 Glucose 74 mg/dL (74-106) 11/19/23 04:08 Phosphorus 4.2 mg/dL (2.5-4.9) 11/19/23 04:08 Magnesium 2.7 mg/dL (1.6-2.4) H 11/19/23 04:08 Total Bilirubin 0.2 mg/dL (0.2-1.0) 11/18/23 07:45 AST 23 U/L (15-37) 11/18/23 07:45 ALT 43 U/L (16-61) 11/18/23 07:45 Alkaline Phosphatase 116 U/L (45-117) 11/18/23 07:45 Triglycerides 239 mg/dL (<150) H 11/19/23 04:08 Cholesterol 130 mg/dL (<200) 11/19/23 04:08 HDL Cholesterol 38 mg/dL (40-60) L 11/19/23 04:08 Cholesterol/HDL Ratio 3.42 11/19/23 04:08 Lipase 41 U/L (13-75) 11/18/23 07:45 Home Medications: Gabapentin 600 mg PO BEDTIME 05/10/21 Acetaminophen/Diphenhydramine [Tylenol Pm Exstr 500-25Mg Cplt] 2 each PO BEDTIME PRN PRN 01/20/22 Hydralazine HCl 50 mg PO BID 01/20/22 Insulin Glargine,Hum.rec.anlog [Basaglar Kwikpen U-100] 24 unit SQ BEDTIME 01/20/22 Insulin Glargine,Hum.rec.anlog [Basaglar Kwikpen U-100] 24 unit SQ DAILY 01/20/22 Aspirin [Everett Chewable Aspirin] 81 mg PO DAILY 11/18/23 Bumetanide [Bumex] 1 tab PO BID PRN 11/18/23 Cyanocobalamin (Vitamin B-12) [Vitamin B-12] 1 tab PO DAILY 11/18/23 Dapagliflozin Propanediol [Farxiga] 10 mg PO DAILY 11/18/23 Febuxostat 40 mg PO DAILY 11/18/23 Melatonin 1 tab PO BEDTIME 11/18/23 Rivaroxaban [Xarelto] 2.5 mg PO BID 11/18/23 Rosuvastatin Calcium 40 mg PO BEDTIME 11/18/23 Spironolactone [Aldactone*] 25 mg PO DAILY PRN 11/18/23 Diet: ADA Activity: Ad roberto Followup: Cb Ivey DO [Primary Care Provider] - 1-2 Weeks Mono Royal MD [ACTIVE - CAN ADMIT] - 1 Week (Nuclear stress test recommended. Follow-up at Dr. Royal's office for arrangement and further management.) Time spent managing pt's care (in minutes): 28
[2023-11-19] MEDS: RIVAROXABAN 2.5 MG PO SCH (20:40)
[2023-11-19 21:33] VITALS: BP 193/76; TEMP 97.5
== END 2023-11-19 21:35 | disposition home or self-care (01) | DRG 313 ==
LOC: ER 07:35 → ERHOLD 10:26 → 2ND 11:56 → OBSVTOIN 19:51
PROVIDERS: ADMIT Internal Medicine; ATTEND Internal Medicine
DX: R07.9 Chest pain, unspecified (principal); N17.9 Acute kidney failure, unspecified; I50.9 Heart failure, unspecified; N18.30 Chronic kidney disease, stage 3 unspecified; E11.22 Type 2 diabetes mellitus with diabetic chronic kidney disease; E11.51 Type 2 diabetes mellitus with diabetic peripheral angiopathy without gangrene; E11.40 Type 2 diabetes mellitus with diabetic neuropathy, unspecified; E11.65 Type 2 diabetes mellitus with hyperglycemia; E78.5 Hyperlipidemia, unspecified; E78.1 Pure hyperglyceridemia; N28.1 Cyst of kidney, acquired; K21.9 Gastro-esophageal reflux disease without esophagitis; K40.90 Unilateral inguinal hernia, without obstruction or gangrene, not specified as recurrent; I25.10 Atherosclerotic heart disease of native coronary artery without angina pectoris; I25.2 Old myocardial infarction; Z79.4 Long term (current) use of insulin; Z88.5 Allergy status to narcotic agent; Z98.52 Vasectomy status; Z79.82 Long term (current) use of aspirin; Z79.01 Long term (current) use of anticoagulants; Z86.73 Personal history of transient ischemic attack (TIA), and cerebral infarction without residual deficits; Z79.899 Other long term (current) drug therapy; Z89.411 Acquired absence of right great toe; Z89.421 Acquired absence of other right toe(s)
CPT/HCPCS: 36415; 70450; 71045; 71250; 72125; 80048; 80061; 80076; 81001; 82947; 83690; 83735; 83880; 84100; 84439; 84443; 84484; 85025; 85610; 93005; 96361; 96374; 99285; G0378; J1644; J1815; J2405; J7030

== ENCOUNTER 2024-09-25 15:50 | Emergency (ER) | payer OTHER ==
--- OUTSIDE RECORDS SUMMARY | 2024-09-25 15:52 | XMS REPORT | Clinical Summary ---
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
--- NOTE | 2024-09-25 17:59 | RAD REPORT ---
EXAM: Chest Single View HISTORY: DYSPNEA COMPARISON: 11/18/2023 FINDINGS: LUNGS/PLEURA: The lungs are clear. No pleural effusions or pneumothorax. No pulmonary edema. MEDIASTINUM: The mediastinal silhouette is within normal limits. CARDIAC: The cardiac silhouette is within normal limits. UPPER ABDOMEN: No significant abnormality. BONES: No acute abnormality. LINES/TUBES/OTHER: N/A IMPRESSION: No evidence of acute cardiopulmonary disease.
[2024-09-25 19:35] LABS: Absolute Basophils 0.1 K/uL (0-0.5); Absolute Eosinophils 0.2 K/uL (0-0.5); Absolute Lymphocytes (CBC) 1.3 K/uL (0.7-4.9); Absolute Monocytes 0.6 K/uL (0.1-1.3); Absolute Neutrophil 4.2 K/uL (1.8-8.0); Basophils % 1.3 % (0-1.3); Eosinophils % 3.8 % (0-4.4); Hematocrit 34.6 % (39.6-49.0); Hemoglobin 11.6 g/dL (13.6-17.9); MCH 30.1 pg (27.0-35.0); MCHC 33.5 g/dL (32.0-36.0); MCV 89.7 fL (80-100); MPV 8.1 fL (7.6-11.3); Monocytes % 8.8 % (3.3-12.3); Neutrophils % 66.1 % (41.7-73.7); Nucleated Red Blood Cells % 0.1 % (0-0); Platelets 126 thou/uL (152-406); RBC Red Blood Cell Count 3.86 M/uL (4.33-5.43); Red Cell Distribution Width 15.8 % (12.1-15.2)
[2024-09-25 19:54] LABS: ALT/SGPT 36 U/L (16-61); AST/SGOT 21 U/L (15-37); Albumin 3.2 g/dL (3.4-5.0); Albumin/Globulin Ratio 0.8 (1.1-1.8); Alkaline Phosphatase 95 U/L (45-117); Anion Gap 9.6 mEq/L (5.0-15.0); BUN Blood Urea Nitrogen 61 mg/dL (7-18); Bicarbonate 25 mEq/L (21-32); Bilirubin Total 0.3 mg/dL (0.2-1.0); Glomerular Filtration Rate 31 ml/min (=/>90); Glucose Level 97 mg/dL (74-106); Potassium 4.6 mEq/L (3.5-5.1); Protein, Total 7.2 g/dL (6.4-8.2); Sodium Level 141 mEq/L (136-145); Troponin High Sensitivity 18.2 pg/mL (<58.9)
[2024-09-25 19:56] LABS: Bilirubin Direct < 0.2 mg/dL (0-0.2); Bilirubin Indirect, Calculated 0.1 mg/dL (0.2-0.8)
--- NOTE | 2024-09-25 20:00 | EDPHYS ---
Physician Documentation [facility] Name: Torey Pritchard Age: 69 yrs Sex: Male : 1955 Arrival Date: 09/25/2024 Time: 15:50 Bed DX3 Private MD: ED Physician Travis Lieberman HPI: 09/25 17:26 This 69 yrs old Male presents to ER via Wheelchair with complaints of Pain, containing ms3 fluid. 17:26 69-year-old male with past medical history of cancer, congestive heart failure, CVA, ms3 diabetes, kidney disease, lymphedema, neuropathy, peripheral vascular disease presents to the emergency department under instruction of his oncologist for elevated blood glucose level and his heart skipping beats. Patient denies pain. He denies shortness of breath, nausea, vomiting.. Historical: - Allergies: 16:33 Haloperidol; ap3 16:33 Rocephin; ap3 - PMHx: 16:33 Cancer; CHF; CVA; Diabetes - NIDDM; kidney disease; lymphedema; neuropathy; PVD; ap3 - PSHx: 16:33 Vasectomy; ap3 - Immunization history:: Client reports having NOT received the Covid vaccine. Flu vaccine is not up to date. - Infectious Disease History:: Denies. - Social history:: Smoking status: Patient denies any tobacco usage or history of. ROS: 17:26 Constitutional: Negative for fever, and chills. ms3 17:26 Cardiovascular: Negative for chest pain, and palpitations. 17:26 Abdomen/GI: Negative for abdominal pain, nausea, vomiting, diarrhea, and constipation, MS/Extremity: Negative for injury and deformity, Skin: Negative for injury, rash, and discoloration, 17:26 Respiratory: Positive for shortness of breath, Exam: 17:26 Constitutional: This is a well developed, well nourished patient who is awake, alert, ms3 and in no acute distress. Cardiovascular: Regular rate and rhythm with a normal S1 and S2. No gallops, murmurs, or rubs. Normal PMI, no JVD. No pulse deficits. Respiratory: Lungs have equal breath sounds bilaterally, clear to auscultation and percussion. No rales, rhonchi or wheezes noted. No increased work of breathing, no retractions or nasal flaring. Abdomen/GI: Soft, non-tender, with normal bowel sounds. No distension or tympany. No guarding or rebound. No evidence of tenderness throughout. Skin: Warm, dry with normal turgor. Normal color with no rashes, no lesions, and no evidence of cellulitis. 17:52 ECG was reviewed by the Attending Physician. ms3 Vital Signs: 16:29 BP 169 / 76; Pulse 59; Resp 18; Temp 98; Pulse Ox 100% ; Weight 95.71 kg; Height 5 ft. ap3 11 in. ; Pain 5/10; 19:20 BP 159 / 75; Pulse 57; Resp 18 S; Pulse Ox 98% on R/A; ha1 16:29 Body Mass Index 29.43 (95.71 kg, 180.34 cm) ap3 16:29 Pain Scale: Adult ap3 MDM: 16:43 Medical Screening Exam initiated ms3 17:26 Differential Diagnosis Hyperglycemia versus DKA versus anemia versus pneumonia. ms3 18:48 Transition of care: After a detail discussion of the patient's case, care is ms3 transferred to Travis Lieberman MD. 18:59 Data reviewed: vital signs. ED course: Patient signed out to me by previous physician, ec2 brief arrives today for multiple complaints. Plan to follow-up lab work and reassess, likely discharge home.. 19:59 ED course: Labs are nonactionable, has CKD which is consistent with previous lab work. ec2 Will discharge home. Turn precautions given.. 09/25 16:44 Order name: Basic Metabolic Panel; Complete Time: 19:59 ms3 09/25 16:44 Order name: CBC with Diff; Complete Time: 19:40 ms09/25 16:44 Order name: LFT's; Complete Time: 19:59 ms3 09/25 16:44 Order name: Magnesium; Complete Time: 19:59 ms3 09/25 16:44 Order name: Troponin HS; Complete Time: 19:59 ms3 09/25 16:44 Order name: XRAY Chest (1 view); Complete Time: 18:23 ms09/25 16:44 Order name: EKG; Complete Time: 16:44 ms3 09/25 16:44 Order name: EKG - Nurse/Tech; Complete Time: 20:08 ms3 09/25 16:44 Order name: IV Saline Lock; Complete Time: 19:48 ms3 09/25 16:44 Order name: Labs collected and sent; Complete Time: 19:48 ms3 09/25 16:44 Order name: O2 Per Protocol; Complete Time: 19:48 ms3 09/25 16:44 Order name: O2 Sat Monitoring; Complete Time: 19:48 ms3 EC:52 Rate is 61 beats/min. Rhythm is regular. QRS Alger is Normal. CO interval is normal. QRS ms3 interval is normal. Clinical impression: NSR w/ Non-specific ST/T Changes. Interpreted by me. Reviewed by me. Administered Medications: No medications were administered Disposition Summary: 09/25/24 19:59 Discharge Ordered Notes: Location: Home ec2 Condition: Stable ec2 Diagnosis - Generalized Body Pain ec2 Followup: ec2 - With: Private Physician - When: - Reason: Re-evaluation by your physician Discharge Instructions: - Discharge Summary Sheet ec2 Forms: - Medication Reconciliation Form ec2 - Antibiotic Education ec2 - Prescription Opioid Use ec2 - Patient Portal Instructions ec2 - Leadership Thank You Letter ec2 Signatures: Dispatcher [employer] Elina Paige RN RN ap3 Agapito Lino DO DO ms3 Travis Lieberman MD MD ec2
--- NOTE | 2024-09-25 20:00 | ER ---
Nurse's Notes [facility] Name: Torey Pritchard Age: 69 yrs Sex: Male : 1955 Arrival Date: 09/25/2024 Time: 15:50 Bed DX3 Private MD: Diagnosis: Generalized Body Pain Presentation: 09/25 16:29 Chief complaint: Patient states: he was sent by his cancer doctor because "my sugar is ap3 up, and I need to have a cat scan because my left side around my stomach area was hurting earlier and I have fluids." Patient is currently complaining of shortness of breath and "i feel like my chest is in a cage and that i'm dehydrating. 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 I have both legs wrapped up to my knees with swelling. I am just hurting ma'am. I get big bubbles on my legs if I don't wrap them.". Coronavirus screen: At this time, the client does not indicate any symptoms associated with coronavirus-19. Ebola Screen: No symptoms or risks identified at this time. Initial Sepsis Screen: Does the patient meet any 2 criteria? No. Patient's initial sepsis screen is negative. Does the patient have a suspected source of infection? No. Patient's initial sepsis screen is negative. Risk Assessment: Do you want to hurt yourself or someone else? Patient reports no desire to harm self or others. Onset of symptoms is unknown. 16:29 Method Of Arrival: Wheelchair ap3 16:29 Acuity: MARNI 3 ap3 Triage Assessment: 16:34 General: Appears in no apparent distress. Behavior is calm, cooperative, appropriate ap3 for age. Pain: Complains of pain in chest, right leg and left leg. Neuro: Level of Consciousness is awake, alert, obeys commands, Oriented to person, place, time. Cardiovascular: Patient's skin is warm and dry. Respiratory: Reports chest tightness Airway is patent Respiratory effort is even, unlabored, Respiratory pattern is regular, symmetrical. GI: Reports left sided abdominal pain. Historical: - Allergies: 16:33 Haloperidol; ap3 16:33 Rocephin; ap3 - PMHx: 16:33 Cancer; CHF; CVA; Diabetes - NIDDM; kidney disease; lymphedema; neuropathy; PVD; ap3 - PSHx: 16:33 Vasectomy; ap3 - Immunization history:: Client reports having NOT received the Covid vaccine. Flu vaccine is not up to date. - Infectious Disease History:: Denies. - Social history:: Smoking status: Patient denies any tobacco usage or history of. Screenin:35 Abuse screen: Denies threats or abuse. Nutritional screening: No deficits noted. ap3 Tuberculosis screening: No symptoms or risk factors identified. 19:49 [facility] ED Fall Risk Assessment (Adult) History of falling in the last 3 months, ha1 including since admission Yes- single mechanical fall (1 pt) Confusion or Disorientation No (0 pts) Intoxicated or Sedated No (0 pts) Impaired Gait Yes (1 pt) Mobility Assist Device Used Yes (1 pt) Altered Elimination Score/Fall Risk Level 3 or more points = High Risk Oriented to surroundings, Maintained a safe environment, Educated pt \\T\\ family on fall prevention, incl call for assistance when getting out of bed, Hourly rounding (assess needs \\T\\ fall precautionary measures) done. Assessment: 20:21 Reassessment: Patient and/or family updated on plan of care and expected duration. Pain ha1 level reassessed. Patient is alert, oriented x 3, equal unlabored respirations, skin warm/dry/pink. Vital Signs: 16:29 BP 169 / 76; Pulse 59; Resp 18; Temp 98; Pulse Ox 100% ; Weight 95.71 kg; Height 5 ft. ap3 11 in. ; Pain 5/10; 19:20 BP 159 / 75; Pulse 57; Resp 18 S; Pulse Ox 98% on R/A; ha1 16:29 Body Mass Index 29.43 (95.71 kg, 180.34 cm) ap3 16:29 Pain Scale: Adult ap3 ED Course: 15:56 Patient arrived in ED. al6 16:14 Agapito Lino DO is Attending Physician. ms3 16:33 Triage completed. ap3 16:35 Arm band placed on right wrist. ap3 16:45 EKG done, by ED staff, reviewed by Agapito Lino DO. ap3 17:50 XRAY Chest (1 view) In Process Unspecified. EDMS 18:55 Attending Physician role handed off by Agapito Lino DO ec2 18:55 Travis Lieberman MD is Attending Physician. ec2 19:20 Patient has correct armband on for positive identification. Fall risk band placed. Bed ha1 in low position. Call light in reach. Side rails up X 1. 19:30 Inserted saline lock: 22 gauge in left hand, using aseptic technique. Blood collected. ha1 Flushed with 10 mL NS. 19:48 Basic Metabolic Panel Sent. ha1 19:48 LFT's Sent. ha1 19:48 Magnesium Sent. ha1 19:48 Troponin HS Sent. ha1 20:20 No provider procedures requiring assistance completed. IV discontinued, intact, ha1 bleeding controlled, No redness/swelling at site. Pressure dressing applied. 20:23 Provided Education on: need to follow up with PCP. ha1 Administered Medications: No medications were administered Medication: 20:22 VIS not applicable for this client. ha1 Outcome: 19:59 Discharge ordered by . ec2 20:21 Discharged to home ambulatory, ha1 20:21 Condition: stable 20:21 Discharge instructions given to patient, Instructed on discharge instructions, follow up and referral plans. Demonstrated understanding of instructions, follow-up care, 20:27 Patient left the ED. ha1 Signatures: Dispatcher [employer] EDMS Elina Timmons RN RN ap3 Agapito Lino DO DO ms3 Aleyda Torres RN RN ha1 Travis Lieberman MD MD ec2 Danii Wynn6
[2024-09-25 20:52] VITALS: TEMP 98
[2024-09-25 20:54] VITALS: BP 159/75; O2SAT 98
== END 2024-09-25 20:27 | disposition home or self-care (01) ==
LOC: ER 15:50
DX: R52 Pain, unspecified (principal); R06.02 Shortness of breath; E11.22 Type 2 diabetes mellitus with diabetic chronic kidney disease; N18.9 Chronic kidney disease, unspecified; Z86.73 Personal history of transient ischemic attack (TIA), and cerebral infarction without residual deficits
CPT/HCPCS: 36415; 71045; 80048; 80076; 83735; 84484; 85025; 93005; 99284

== ENCOUNTER 2024-10-05 19:11 | Emergency (ER) | payer OTHER ==
--- OUTSIDE RECORDS SUMMARY | 2024-10-05 19:14 | XMS REPORT | Clinical Summary ---
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
[2024-10-05] MEDS ORDERED: PROMETHAZINE 25 MG TABLET ONE (21:38)
[2024-10-05] MEDS ORDERED: DIPHENHYDRAMINE 25 MG TAB/CAP ONE (21:38)
[2024-10-05] MEDS ORDERED: HYDROCODONE/APAP 5/325 MG TAB ONE (21:38)
--- NOTE | 2024-10-06 00:04 | RAD REPORT ---
EXAM: Head Brain Wo Cont INDICATION: 69-year-old male with headache.. COMPARISON: CT of the head 11/18/2023 TECHNIQUE: TECHNIQUE: Axial CT images of the brain were performed using dose reduction techniques i ncluding automated exposure control and/or adjustment of the mA and/or kV according to patient size, and/or iterative reconstruction techniques. Coronal and sagittal reformatted images were also p erformed. DLP: 827.1. No IV contrast administered. CTD: 38.785. FINDINGS: Brain parenchyma demonstrates no mass effect, shift, ventriculomegaly, or hemorrhage. Mild global atrophy. Normal segundo/white matter differentiation. No extra-axial fluid collection. Osseous structures intact. Moderate subtotal opacification of the right sphenoid sinus, which can be seen with mucosal thickenin g and secretions. Bilateral mastoidal air cells and remainder of the visualized paranasal sinuses are clear. Bilateral aurea bullosa, partially visualized on the right. Partially visualized intraorbital contents demonstrate no acute abnormality. IMPRESSION: 1. No acute brain parenchymal abnormality. 2. Right sphenoid sinus disease. Electronically signed by: Tristen David MD 10/05/2024 11:59 PM [facility] Due to temporary technical issues with the PACS/[employer] reporting system, reports are being edison d by the in-house radiologist without review as a courtesy to ensure prompt reporting the interpreting radiologist is fully responsible for the content of the report. Transcribed Date/Time: 10/06/2024 12:04 AM
--- NOTE | 2024-10-06 00:41 | EDPHYS ---
Physician Documentation [facility] Name: Torey Pritchard Age: 69 yrs Sex: Male : 1955 Arrival Date: 10/05/2024 Time: 19:11 Bed DIS4 Private MD: ED Physician Margarito Hoff HPI: 10/05 20:06 This 69 yrs old Male presents to ER via Unassigned with complaints of sp4 Headache, Numbness Of Face. 10/06 05:28 69-year-old male presents with complaint of headache and facial numbness.. sp4 Historical: - Allergies: 10/05 20:13 Haloperidol; jj7 20:13 Rocephin; jj7 - PMHx: 20:13 Cancer; CHF; PVD; CVA; Diabetes - NIDDM; kidney disease; lymphedema; neuropathy; jj7 - PSHx: 20:13 Vasectomy; jj7 - Immunization history:: Adult Immunizations not up to date, Client reports having NOT received the Covid vaccine. Pneumococcal vaccine is not up to date, Flu vaccine is not up to date. - Infectious Disease History:: Denies. - Social history:: Smoking status: Patient denies any tobacco usage or history of. Patient uses alcohol, occasionally. Patient/guardian denies using street drugs, IV drugs. - Family history:: not pertinent. ROS: 10/06 05:28 Constitutional: Negative for fever, chills, and weight loss, positive for acute sp4 headache and facial numbness All other systems are negative, Exam: 05:28 Constitutional: This is a well developed, well nourished patient who is awake, alert, sp4 and in no acute distress. Head/Face: Normocephalic, atraumatic. Eyes: Pupils equal round and reactive to light, extra-ocular motions intact. Lids and lashes normal. Conjunctiva and sclera are not injected. Cornea within normal limits. Periorbital areas with no swelling, redness, or edema. ENT: Nares patent. No nasal discharge, no septal abnormalities noted. Tympanic membranes are normal and external auditory canals are clear. Oropharynx with no redness, swelling, or masses, exudates, or evidence of obstruction, uvula midline. Mucous membranes moist. Neck: Trachea midline, no thyromegaly or masses palpated, and no cervical lymphadenopathy. Supple, full range of motion without nuchal rigidity, or vertebral point tenderness. Chest/axilla: Normal chest wall appearance and motion. Nontender with no deformity. No lesions are appreciated. Cardiovascular: Regular rate and rhythm with a normal S1 and S2. No gallops, murmurs, or rubs. Normal PMI, no JVD. No pulse deficits. Respiratory: Lungs have equal breath sounds bilaterally, clear to auscultation and percussion. No rales, rhonchi or wheezes noted. No increased work of breathing, no retractions or nasal flaring. Abdomen/GI: Soft, with normal bowel sounds. No distension or tympany. No guarding or rebound. No evidence of tenderness throughout. Back: No spinal tenderness. No costovertebral tenderness. Skin: Warm, dry with normal turgor. Normal color with no rashes, no lesions, and no evidence of cellulitis. MS/ Extremity: Pulses equal, no cyanosis. Neurovascular intact. Full, normal range of motion. Neuro: Awake and alert, GCS 15, oriented to person, place, time, and situation. Cranial nerves II-XII grossly intact. Motor strength 5/5 in all extremities. Sensory grossly intact. Psych: Awake, alert, with orientation to person, place and time. Behavior, mood, and affect are within normal limits Vital Signs: 10/05 20:04 BP 176 / 65; Pulse 65; Resp 17; Temp 97.6; Pulse Ox 100% ; Weight 92.99 kg; Height 5 jj7 ft. 11 in. ; Pain 3/10; 20:30 BP 180 / 72; Pulse 65; Resp 19; Pulse Ox 99% on R/A; ay 22:00 BP 182 / 76; Pulse 60; Resp 16; Pulse Ox 97% on R/A; ay 10/06 00:00 BP 176 / 80; Pulse 66; Resp 17; Pulse Ox 96% on R/A; ay 01:00 BP 156 / 72; Pulse 65; Resp 19; Pulse Ox 98% ; ay 10/05 20:04 Body Mass Index 28.59 (92.99 kg, 180.34 cm) [facility] 10/05 20:04 Pain Scale: Adult [facility] NIH Stroke Scale Scores: 05:28 NIHSS Score: 0 sp4 [place] Coma Score: 05:28 Eye Response: spontaneous(4). Motor Response: obeys commands(6). Verbal Response: sp4 oriented(5). Total: 15. 05:28 Eye Response: spontaneous(4). Motor Response: obeys commands(6). Verbal Response: sp4 oriented(5). Total: 15. MDM: 10/05 20:08 Medical Screening Exam initiated sp4 10/06 00:40 ED course: EXAM: Head Brain Wo Cont INDICATION: 69-year-old male with headache.. sp4 COMPARISON: CT of the head 11/18/2023 TECHNIQUE: TECHNIQUE: Axial CT images of the brain were performed using dose reduction techniques including automated exposure control and/or adjustment of the mA and/or kV according to patient size, and/or iterative reconstruction techniques. Coronal and sagittal reformatted images were also performed. DLP: 827.1. No IV contrast administered. CTDI: 38.785. FINDINGS: Brain parenchyma demonstrates no mass effect, shift, ventriculomegaly, or hemorrhage. Mild global atrophy. Normal segundo/white matter differentiation. No extra-axial fluid collection. Osseous structures intact. Moderate subtotal opacification of the right sphenoid sinus, which can be seen with mucosal thickening and secretions. Bilateral mastoidal air cells and remainder of the visualized paranasal sinuses are clear. Bilateral aurea bullosa, partially visualized on the right. Partially visualized intraorbital contents demonstrate no acute abnormality. IMPRESSION: 1. No acute brain parenchymal abnormality. 2. Right sphenoid sinus disease. . 05:28 Differential diagnosis: migraine, sinusitis, tension headache, uremia, vasomotor sp4 headache. Data reviewed: vital signs, nurses notes, radiologic studies, CT scan. Consideration of Admission/Observation Escalation of care including admission/observation considered. 10/05 23:07 Order name: CT Head Brain wo Cont sp4 10/05 20:07 Order name: Cardiac monitoring sp4 10/05 20:07 Order name: EKG - Nurse/Tech; Complete Time: 20:49 sp4 10/05 20:07 Order name: Labs collected and sent sp4 10/05 20:07 Order name: O2 Per Protocol sp4 10/05 20:07 Order name: O2 Sat Monitoring sp4 Administered Medications: 10/05 22:00 Drug: HYDROcodone-acetaminophen PO 5 mg-325 mg 2 tabs PO once Route: PO; ay 22:46 Follow up: Response: No adverse reaction ay 22:06 Not Given (Patient Refused): [id number] mg PO once ay 22:06 Not Given (Patient Refused): [id number] mg PO once ay Disposition: 10/06 05:45 Chart complete. sp4 Disposition Summary: 10/06/24 00:40 Discharge Ordered Notes: Location: Home sp4 Problem: new sp4 Symptoms: have improved sp4 Condition: Stable sp4 Diagnosis - Acute sphenoid sinusitis, acute onset headache, sp4 Followup: sp4 - With: Private Physician - When: 7 - 10 days - Reason: Recheck today's complaints Discharge Instructions: - Discharge Summary Sheet sp4 - Sinusitis, Adult, [id number] sp4 Forms: - Patient Portal Instructions sp4 Prescriptions: - Augmentin 875-125 mg Oral Tablet - take 1 tablet ORAL route every 12 hours for 10 days; 20 tablet; Refills: 0, sp4 Product Selection Permitted NIH Stroke Scale - NIH Stroke Score Date: 10/06/2024 Time: 05:28 Total Score = 0 10. Dysarthria (speech clarity - read or repeat words) - 0(Normal) 11. Extinction and Inattention (visual/tactile/auditory/spatial/personal) - 0(No abnormality) 1a. Level of Consciousness (LOC) - 0(Alert) 1b. Level of Consciousness (LOC) (Month \T\ Age) - 0(Both) 1c. LOC Commands (Open \T\ Closes Eyes/Tile Installer) - 0(Both) 2. Best Gaze (Lateral Gaze Paresis) - 0(Normal) 3. Visual Field Loss - 0(No visual loss) 4. Facial Palsy - 0(Normal) 5a. Left Arm: Motor (10-second hold) - 0(No drift) 5b. Right Arm: Motor (10-second hold) - 0(No drift) 6a. Left Leg: Motor (5-second hold - always test supine) - 0(No drift) 6b. Right Leg: Motor (5-second hold - always test supine) - 0(No drift) 7. Limb Ataxia (finger/nose \T\ heel/elias - test with eyes open) - 0(Absent) 8. Sensory Loss (pinprick arms/legs/face) - 0(Normal) 9. Best Language: Aphasia (description/naming/reading) - 0(No aphasia) Initials: sp4 Signatures: Dispatcher [employer] EDMS Juliet Huggins RN RN jj7 Margarito Hoff MD MD sp4 Gudelia Manning RN RN ay Corrections: (The following items were deleted from the chart) 10/05 20:29 20:07 IV Saline Lock ordered. sp4 sp4 21:21 20:29 Head Brain Wo Cont+CT.RAD.BRZ ordered. EDMS EDMS
--- NOTE | 2024-10-06 00:41 | ER ---
Nurse's Notes [facility] Name: Torey Pritchard Age: 69 yrs Sex: Male : 1955 Arrival Date: 10/05/2024 Time: 19:11 Bed DIS4 Private MD: Diagnosis: Acute sphenoid sinusitis, acute onset headache, Presentation: 10/05 19:20 Chief complaint:. jj7 20:04 Chief complaint: Patient states: HEADACHE ON RIGHT WHEN HE COUGHS AND VISION IN RIGHT jj7 EYE BLURRY WITH PRESSURE X2 DAYS. RIGHT SIDE OF FACE FEELS WEIRD. Coronavirus screen: At this time, the client does not indicate any symptoms associated with coronavirus-19. Ebola Screen: No symptoms or risks identified at this time. Initial Sepsis Screen: Does the patient meet any 2 criteria? No. Patient's initial sepsis screen is negative. Does the patient have a suspected source of infection? No. Patient's initial sepsis screen is negative. Risk Assessment: Do you want to hurt yourself or someone else? Patient reports no desire to harm self or others. Onset of symptoms was October 04, 2024. 20:04 Method Of Arrival: [facility] 20:04 Acuity: MARNI 3 j7 Triage Assessment: 20:13 Headache History: Denies prior headaches. General: Appears in no apparent distress. jj7 comfortable, Behavior is calm, cooperative, appropriate for age. Pain: Complains of pain in face Pain currently is 3 out of 10 on a pain scale. EENT: Reports blurred vision in outer aspect of conjuctiva of right eye, iris of right eye and inner aspect of conjuctiva of right eye. Neuro: Reports headache in right numbness in right cheek, right ear and right jaw. Historical: - Allergies: 20:13 Haloperidol; jj7 20:13 Rocephin; jj7 - PMHx: 20:13 Cancer; CHF; PVD; CVA; Diabetes - NIDDM; kidney disease; lymphedema; neuropathy; jj7 - PSHx: 20:13 Vasectomy; jj7 - Immunization history:: Adult Immunizations not up to date, Client reports having NOT received the Covid vaccine. Pneumococcal vaccine is not up to date, Flu vaccine is not up to date. - Infectious Disease History:: Denies. - Social history:: Smoking status: Patient denies any tobacco usage or history of. Patient uses alcohol, occasionally. Patient/guardian denies using street drugs, IV drugs. - Family history:: not pertinent. Screenin:30 [facility] ED Fall Risk Assessment (Adult) History of falling in the last 3 months, ay including since admission No falls in past 3 months (0 pts) Confusion or Disorientation No (0 pts) Intoxicated or Sedated No (0 pts) Impaired Gait Yes (1 pt) Mobility Assist Device Used Yes (1 pt) Altered Elimination No (0 pt) Score/Fall Risk Level 0 - 2 = Low Risk Oriented to surroundings, Maintained a safe environment, Educated pt \T\ family on fall prevention, incl call for assistance when getting out of bed. Abuse screen: Denies threats or abuse. Nutritional screening: No deficits noted. Tuberculosis screening: No symptoms or risk factors identified. Assessment: 20:30 General: Appears in no apparent distress. uncomfortable, Behavior is calm, ay uncooperative. Pain: Complains of pain in right face. Neuro: Level of Consciousness is awake, alert, obeys commands, Oriented to person, place, time, situation, Speech is normal. Cardiovascular: Denies chest pain, nausea, shortness of breath, Capillary refill < 3 seconds. Respiratory: Airway is patent Respiratory effort is even, unlabored, Respiratory pattern is regular, symmetrical. Respiratory: Reports cough that is non-productive. GI: Abdomen is round Patient currently denies abdominal pain. : No signs and/or symptoms were reported regarding the genitourinary system. Vital Signs: 20:04 BP 176 / 65; Pulse 65; Resp 17; Temp 97.6; Pulse Ox 100% ; Weight 92.99 kg; Height 5 jj7 ft. 11 in. ; Pain 3/10; 20:30 BP 180 / 72; Pulse 65; Resp 19; Pulse Ox 99% on R/A; ay 22:00 BP 182 / 76; Pulse 60; Resp 16; Pulse Ox 97% on R/A; ay 10/06 00:00 BP 176 / 80; Pulse 66; Resp 17; Pulse Ox 96% on R/A; ay 01:00 BP 156 / 72; Pulse 65; Resp 19; Pulse Ox 98% ; ay 10/05 20:04 Body Mass Index 28.59 (92.99 kg, 180.34 cm) jj7 10/05 20:04 Pain Scale: Adult jj7 [place] Coma Score: 05:28 Eye Response: spontaneous(4). Motor Response: obeys commands(6). Verbal Response: sp4 oriented(5). Total: 15. 05:28 Eye Response: spontaneous(4). Motor Response: obeys commands(6). Verbal Response: sp4 oriented(5). Total: 15. NIH Stroke Scale Scores: 05:28 NIHSS Score: 0 sp4 ED Course: 10/05 19:16 Patient arrived in ED. gm2 20:06 Margarito Hoff MD is Attending Physician. sp4 20:13 Triage completed. jj7 20:13 Arm band placed on right wrist. jj7 20:16 Patient placed in an exam room, on a stretcher. jj7 20:49 EKG done, by ED staff, reviewed by Margarito Hoff MD. hw 21:33 Gudelia Manning, RN is Primary Nurse. ay 23:25 CT Head Brain wo Cont In Process Unspecified. EDMS 10/06 01:00 Patient did not have IV access during this emergency room visit. ay Administered Medications: 10/05 22:00 Drug: HYDROcodone-acetaminophen PO 5 mg-325 mg 2 tabs PO once Route: PO; ay 22:46 Follow up: Response: No adverse reaction ay 22:06 Not Given (Patient Refused): [id number] mg PO once ay 22:06 Not Given (Patient Refused): [id number] mg PO once ay Outcome: 10/06 00:40 Discharge ordered by . sp4 01:12 Discharged to home ambulatory, ay 01:12 Condition: stable 01:12 Discharge instructions given to patient, Instructed on discharge instructions, follow up and referral plans. Demonstrated understanding of instructions, follow-up care, medications, Prescriptions given X 1, 03:11 Patient left the ED. ay NIH Stroke Scale - NIH Stroke Score Date: 10/06/2024 Time: 05:28 Total Score = 0 10. Dysarthria (speech clarity - read or repeat words) - 0(Normal) 11. Extinction and Inattention (visual/tactile/auditory/spatial/personal) - 0(No abnormality) 1a. Level of Consciousness (LOC) - 0(Alert) 1b. Level of Consciousness (LOC) (Month \T\ Age) - 0(Both) 1c. LOC Commands (Open \T\ Closes Eyes/Whipped Topping Finisher) - 0(Both) 2. Best Gaze (Lateral Gaze Paresis) - 0(Normal) 3. Visual Field Loss - 0(No visual loss) 4. Facial Palsy - 0(Normal) 5a. Left Arm: Motor (10-second hold) - 0(No drift) 5b. Right Arm: Motor (10-second hold) - 0(No drift) 6a. Left Leg: Motor (5-second hold - always test supine) - 0(No drift) 6b. Right Leg: Motor (5-second hold - always test supine) - 0(No drift) 7. Limb Ataxia (finger/nose \T\ heel/elias - test with eyes open) - 0(Absent) 8. Sensory Loss (pinprick arms/legs/face) - 0(Normal) 9. Best Language: Aphasia (description/naming/reading) - 0(No aphasia) Initials: sp4 Signatures: Dispatcher [employer] Juliet Perez RN RN jj7 Margarito Hoff MD MD sp4 Zuleyka Morgan gm2 Cherie Del Real Awudu, RN RN ay
[2024-10-06 03:28] VITALS: TEMP 97.6
[2024-10-06 03:32] VITALS: BP 156/72; O2SAT 98
--- NOTE | 2024-10-10 11:20 | EKG ---
Test Date: 2024-10-05 Test Time: 20:42:33 Director Technical: ALYCIA MEASUREMENT RESULTS: Intervals: Rate: 68 DC: 172 QRSD: 90 QT: 458 QTc: 487 [place]: P: 65 DC: 172 QRS: -14 T: 198 INTERPRETIVE STATEMENTS: Normal sinus rhythm Left ventricular hypertrophy with repolarization abnormality Abnormal ECG Compared to ECG 09/25/2024 16:41:51 Early repolarization now present Sinus arrhythmia no longer present ST (T wave) deviation no longer present Possible ischemia no longer present Prolonged QT interval no longer present Electronically Signed On 10-10-24 11:05:13 CDT by Jeet Bennett
== END 2024-10-06 03:11 | disposition home or self-care (01) ==
LOC: ER 19:11
DX: J01.30 Acute sphenoidal sinusitis, unspecified (principal); Z28.310 Unvaccinated for COVID-19
CPT/HCPCS: 70450; 93005; 99284; Q0169

== ENCOUNTER 2025-04-25 20:07 | Emergency (ER) | payer OTHER ==
--- OUTSIDE RECORDS SUMMARY | 2025-04-25 20:09 | XMS REPORT | Clinical Summary ---
Author Name Unknown Organization [facility] Address [address] [place] [address] Care Team Providers Care Jewelry Bench Worker Name Role Phone Unavailable Primary Care Provider [...]
[2025-04-25] MEDS ORDERED: ACETAMINOPHEN 325 MG TABLET ONE (20:34)
--- NOTE | 2025-04-25 21:40 | RAD REPORT ---
EXAMINATION: XR Elbow Right 3 View CLINICAL INDICATION: Male, 69 years old. trauma RIGHT TECHNIQUE: 3 view radiographs of the right elbow were obtained. COMPARISON: No prior exam. FINDINGS: Bony spur at the tip of the olecranon, with linear lucency at its base, could relate to a f ractured enthesophyte. No other evidence of fracture or dislocation. Normal alignment. No joint effusion. No evidence of arthropathy. Small spur at the lateral epicondyle, could relate to enthesopa thy at the common extensor tendon origin. Soft tissues are unremarkable. IMPRESSION: Possible fractured enthesophyte at the tip of the olecranon, however without overlying soft tissue ab normalities, could be of subacute to chronic age.
--- NOTE | 2025-04-25 21:47 | RAD REPORT ---
EXAM: CT brain without contrast HISTORY: TRAUMA COMPARISON: 02/23/2025 TECHNIQUE: Multiple contiguous axial images were obtained and a CT of the brain without contrast. Sag ittal and coronal reformats were performed. FINDINGS: No evidence of hydrocephalus, intracranial hemorrhage, or extra-axial fluid collection. The brain is normal in morphology. The calvarium is intact. Stable small sclerotic lesion along the left greater sphenoid wing. Polypoid al mucosal thickening with air-fluid level along the right sphenoid sinus. Mastoid air cells are essentially clear. IMPRESSION: No evidence of acute intracranial abnormality. EXAM: CT of the cervical spine without contrast HISTORY: TRAUMA COMPARISON: None TECHNIQUE: Multiple contiguous axial images were obtained in a CT of the cervical spine without contr ast. Sagittal and coronal reformats were performed. FINDINGS: The vertebral bodies demonstrate normal height and alignment. No evidence of acute fracture or subluxation.. No degenerative changes are present. No prevertebral soft tissue swelling is seen. The posterior facets are well aligned. Normal alignment of the skull base with the cervical spine is seen. The lung apices are unremarkable. IMPRESSION: No evidence of acute osseous abnormality of the cervical spine.
--- NOTE | 2025-04-25 21:54 | ER ---
Nurse's Notes [facility] Name: Torey Pritchard Age: 69 yrs Sex: Male : 1955 Arrival Date: 04/25/2025 Time: 20:07 Bed 10 Private MD: Diagnosis: Closed head injury, scalp hematoma, multiple skin tears and abrasions to the left arm, elbow contusion Presentation: 04/25 20:00 Care prior to arrival: None. Mechanism of Injury: Fall. Trauma event details: Injury rg5 occurred in the [facility]. 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 PT TAKING XARELTO, DENIES LOC. Coronavirus screen: At this time, the client does not indicate any symptoms associated with coronavirus-19. Ebola Screen: No symptoms or risks identified at this time. Initial Sepsis Screen: Does the patient meet any 2 criteria? No. Patient's initial sepsis screen is negative. Does the patient have a suspected source of infection? No. Patient's initial sepsis screen is negative. Risk Assessment: Do you want to hurt yourself or someone else? Patient reports no desire to harm self or others. Onset of symptoms was April 25, 2025. 20:16 Method Of Arrival: Ambulatory dd2 20:16 Acuity: MARNI 3 dd2 Triage Assessment: 20:16 General: Appears uncomfortable, Behavior is cooperative, appropriate for age, anxious. dd2 Pain: Complains of pain in right frontal area, right side of the back of head, right hip, right hand and left arm, RT SHOULDER. Derm: Wound noted dorsal aspect of left forearm. Musculoskeletal: Reports pain in posterior aspect of right shoulder, left arm and right hip. Historical: - Allergies: 20:16 Haloperidol (Anaphylaxis); dd2 20:16 Rocephin; dd2 - PMHx: 20:16 Cancer; CHF; CVA; Diabetes - NIDDM; kidney disease; lymphedema; neuropathy; PVD; dd2 - PSHx: 20:16 Vasectomy; dd2 - Immunization history:: Adult Immunizations up to date. - Infectious Disease History:: Denies. - Social history:: Smoking status: Patient/guardian denies using tobacco, but has a distant history of tobacco abuse. Screenin:10 [facility] ED Fall Risk Assessment (Adult) History of falling in the last 3 months, rg5 including since admission Yes- single mechanical fall (1 pt) Confusion or Disorientation No (0 pts) Intoxicated or Sedated No (0 pts) Impaired Gait Yes (1 pt) Mobility Assist Device Used Yes (1 pt) Altered Elimination No (0 pt) Score/Fall Risk Level 3 or more points = High Risk Oriented to surroundings, Maintained a safe environment, Educated pt \T\ family on fall prevention, incl call for assistance when getting out of bed, Hourly rounding (assess needs \T\ fall precautionary measures) done, Used ambulatory aids as needed (educated on \T\ assisted with). Abuse screen: Denies threats or abuse. Nutritional screening: No deficits noted. Tuberculosis screening: No symptoms or risk factors identified. Primary Survey: 20:10 NO uncontrolled hemorrhage observed. rg5 20:10 A: The client is awake and alert. The airway is patent. The client is alert. Airway: rg5 patent. Breathing/Chest: Spontaneous respiratory effort, equal unlabored respirations, breath sounds clear bilaterally, regular pattern, symmetrical chest rise and fall. Circulation: No external hemorrhage present. Regular and strong central pulse, skin warm/dry/normal color. Disability Client is alert. Exposure/Environment: All clothing and personal items were removed. Forensic evidence collection is not deemed to be indicated at this time. Items placed in patient belonging bag. 21:00 Reassessment Alertness and Airway: Awake and alert. The airway is patent. Airway Patent rg5 Breathing: Spontaneous respiratory effort, equal unlabored respirations, breath sounds clear bilaterally, regular pattern with symmetrical chest rise and fall. Circulation: No external hemorrhage noted. Regular and strong central pulse, skin warm/dry/normal color. Disability: Pupils Pupils are equal, round, reactive to light and accomodation. Alert. Assessment: 20:10 General: Appears in no apparent distress. Behavior is calm, cooperative, appropriate rg5 for age. Pain: Complains of pain in face, right arm and left arm, head, hip Quality of pain is described as aching. Neuro: Level of Consciousness is awake, alert, obeys commands, Oriented to person, place, time, situation. Cardiovascular: Patient's skin is warm and dry. Respiratory: Airway is patent Trachea midline Respiratory effort is even, unlabored, Respiratory pattern is regular, symmetrical. GI: Abdomen is round non-distended. : No signs and/or symptoms were reported regarding the genitourinary system. EENT: No signs and/or symptoms were reported regarding the EENT system. Derm: Skin is fragile, Skin is dry, Skin is normal. Musculoskeletal: Circulation, motion, and sensation intact. Range of motion: intact in all extremities. Injury Description: Abrasion sustained to dorsal aspect of left forearm. 21:26 Reassessment: No changes from previously documented assessment. Patient and/or family rg5 updated on plan of care and expected duration. Pain level reassessed. Patient is alert, oriented x 3, equal unlabored respirations, skin warm/dry/pink. Vital Signs: 20:16 BP 151 / 71; Pulse 92; Resp 17; Temp 98.2; Pulse Ox 100% on R/A; Pain 8/10; dd2 21:25 BP 149 / 72; Pulse 89; Resp 18; Pulse Ox 100% ; rg5 20:16 Pain Scale: Adult dd2 [place] Coma Score: 20:10 Eye Response: spontaneous(4). Motor Response: obeys commands(6). Verbal Response: rg5 oriented(5). Total: 15. Trauma Score (Adult): 20:10 Eye Response: spontaneous(1); Verbal Response: oriented(1); Motor Response: obeys rg5 commands(2); Systolic BP: > 89 mm Hg(4); Respiratory Rate: 10 to 29 per min(4); [place] Score: 15; Trauma Score: 12 ED Course: 20:08 Patient arrived in ED. mr 20:09 Michaela Jolley MD is Attending Physician. sp3 20:10 Patient has correct armband on for positive identification. rg5 20:10 Patient maintains SpO2 saturation greater than 95% on room air. rg5 20:16 Arm band placed on right wrist. dd2 20:21 Triage completed. dd2 20:25 Parish Garsia, CHRISTIAN is Primary Nurse. rg5 21:00 Elbow Right 3 View XRAY In Process Unspecified. EDMS 21:10 CT Head C Spine In Process Unspecified. EDMS 22:00 No provider procedures requiring assistance completed. Patient did not have IV access rg5 during this emergency room visit. Administered Medications: 20:46 Drug: Acetaminophen PO 650 mg PO once Route: PO; rg5 21:45 Follow up: Response: No adverse reaction; Pain is decreased rg5 Medication: 20:10 VIS not applicable for this client. rg5 Intake: 20:10 PO: 0ml; Total: 0ml. rg5 Outcome: 21:53 Discharge ordered by . sp3 22:00 Discharged to home via wheelchair, rg5 22:00 Condition: stable 22:00 Discharge instructions given to patient, Instructed on discharge instructions, Demonstrated understanding of instructions, Prescriptions given X 1, 22:23 Patient left the ED. rg5 Signatures: Dispatcher [employer] EDMS Betzaida Enriquez, Reg Reg mr Michaela Jolley MD MD sp3 Parish Garsia RN RN rg5 ZO EVANS RN RN dd2
--- NOTE | 2025-04-25 21:54 | EDPHYS ---
Physician Documentation [facility] Name: Torey Pritchard Age: 69 yrs Sex: Male : 1955 Arrival Date: 04/25/2025 Time: 20:07 Bed 10 Private MD: ED Physician Michaela Jolley HPI: 04/25 20:35 This 69 yrs old Male presents to ER via Ambulatory with complaints of Fall Injury, Skin sp3 Tear(s), Pain All Over. 20:35 69-year-old male with history of diabetes, neuropathy, cancer history, CHF, on Xarelto sp3 presents with mechanical fall while he was checking the mail. Patient landed on his left arm multiple skin abrasions and tears on the forearm, scalp hematoma, right elbow injury. Patient denies LOC. ROS negative for neck pain, chest pain, shortness of breath, medical prodrome prior to the event, abdominal pain, nausea, vomiting, diarrhea, syncope, near syncope, lower extremity injury, or any other signs or symptoms on ROS at this time.. Historical: - Allergies: 20:16 Haloperidol (Anaphylaxis); dd2 20:16 Rocephin; dd2 - PMHx: 20:16 Cancer; CHF; CVA; Diabetes - NIDDM; kidney disease; lymphedema; neuropathy; PVD; dd2 - PSHx: 20:16 Vasectomy; dd2 - Immunization history:: Adult Immunizations up to date. - Infectious Disease History:: Denies. - Social history:: Smoking status: Patient/guardian denies using tobacco, but has a distant history of tobacco abuse. ROS: 20:37 Constitutional: Negative for fever, chills, and weight loss, Eyes: Negative for injury, sp3 pain, redness, and discharge, Neck: Negative for injury, pain, and swelling, Cardiovascular: Negative for chest pain, palpitations, and edema, Respiratory: Negative for shortness of breath, cough, wheezing, and pleuritic chest pain, Abdomen/GI: Negative for abdominal pain, nausea, vomiting, diarrhea, and constipation, Back: Negative for injury and pain, Psych: Negative for depression, anxiety, suicide ideation, homicidal ideation, and hallucinations, Allergy/Immunology: Negative for hives, rash, and allergies, Endocrine: Negative for neck swelling, polydipsia, polyuria, polyphagia, and marked weight changes, Hematologic/Lymphatic: Negative for swollen nodes, abnormal bleeding, and unusual bruising, 20:37 All other systems are negative, Exam: 20:37 Constitutional: This is a well developed, well nourished patient who is awake, alert, sp3 and in no acute distress. Eyes: Pupils equal round and reactive to light, extra-ocular motions intact. Lids and lashes normal. Conjunctiva and sclera are non-icteric and not injected. Cornea within normal limits. Periorbital areas with no swelling, redness, or edema. ENT: Nares patent. No nasal discharge, no septal abnormalities noted. External auditory canals are clear. Oropharynx with no redness, swelling, or masses, exudates, or evidence of obstruction, uvula midline. Mucous membranes moist. Neck: Trachea midline, no thyromegaly or masses palpated, and no cervical lymphadenopathy. Supple, full range of motion without nuchal rigidity, or vertebral point tenderness. No Meningismus. Chest/axilla: Normal chest wall appearance and motion. Nontender with no deformity. No lesions are appreciated. Cardiovascular: Regular rate and rhythm with a normal S1 and S2. No gallops, murmurs, or rubs. Normal PMI, no JVD. No pulse deficits. Respiratory: Lungs have equal breath sounds bilaterally, clear to auscultation and percussion. No rales, rhonchi or wheezes noted. No increased work of breathing, no retractions or nasal flaring. Abdomen/GI: Soft, non-tender, with normal bowel sounds. No distension or tympany. No guarding or rebound. No evidence of tenderness throughout. Back: No spinal tenderness. No costovertebral tenderness. Full range of motion. Neuro: Awake and alert, GCS 15, oriented to person, place, time, and situation. Cranial nerves II-XII grossly intact. Motor strength 5/5 in all extremities. Sensory grossly intact. Cerebellar exam normal. Normal gait. Psych: Awake, alert, with orientation to person, place and time. Behavior, mood, and affect are within normal limits. 20:37 Head/face: Right parietal scalp hematoma mild in nature approximately 2 cm. 20:37 Musculoskeletal/extremity: Road rash type skin tears and abrasions to the left forearm dorsal laterally. Right elbow olecranon hematoma noted with mild abrasion there as well.. Vital Signs: 20:16 BP 151 / 71; Pulse 92; Resp 17; Temp 98.2; Pulse Ox 100% on R/A; Pain 8/10; dd2 21:25 BP 149 / 72; Pulse 89; Resp 18; Pulse Ox 100% ; rg5 20:16 Pain Scale: Adult dd2 [place] Score: 20:10 Eye Response: spontaneous(4). Motor Response: obeys commands(6). Verbal Response: rg5 oriented(5). Total: 15. Trauma Score (Adult): 20:10 Eye Response: spontaneous(1); Verbal Response: oriented(1); Motor Response: obeys rg5 commands(2); Systolic BP: > 89 mm Hg(4); Respiratory Rate: 10 to 29 per min(4); [place] Score: 15; Trauma Score: 12 MDM: 20:10 Medical Screening Exam initiated sp3 20:39 Data reviewed: vital signs, nurses notes, radiologic studies. ED course: 69-year-old sp3 male with PMH above now with mechanical fall with injury to the head, left forearm and right elbow. Differential diagnosis includes scalp hematoma, closed head injury, concussion, intracranial hemorrhage, blood rash to left forearm, olecranon contusion versus fracture, right elbow abrasion, among others. Workup will include CT scan of the head and C-spine, right elbow x-ray and wound care. No sutures needed on any of his wounds. Disposition pending workup and patient course of probable discharge home if workup negative.. 04/25 20:19 Order name: CT Head C Spine; Complete Time: 21:50 sp3 04/25 20:41 Order name: Elbow Right 3 View XRAY; Complete Time: 21:50 sp3 04/25 20:41 Order name: Wound Care; Complete Time: 20:42 sp3 Administered Medications: 20:46 Drug: Acetaminophen PO 650 mg PO once Route: PO; rg5 21:45 Follow up: Response: No adverse reaction; Pain is decreased rg5 Disposition Summary: 04/25/25 21:53 Discharge Ordered Notes: Location: Home sp3 Condition: Stable sp3 Diagnosis - Closed head injury, scalp hematoma, multiple skin tears and abrasions to the left sp3 arm, elbow contusion Followup: sp3 - With: Private Physician - When: Upon discharge from the Emergency Department - Reason: Continuance of care Discharge Instructions: - Discharge Summary Sheet sp3 - Abrasion sp3 - Head Injury, Adult sp3 - Elbow Contusion sp3 Forms: - Medication Reconciliation Form sp3 - Antibiotic Education sp3 - Prescription Opioid Use sp3 - Patient Portal Instructions sp3 - Leadership Thank You Letter sp3 Prescriptions: - Tramadol 50 mg Oral Tablet - take 1 tablet ORAL route every 8 hours as needed; 12 tablet; Refills: 0, sp3 Product Selection Permitted Signatures: Dispatcher [employer] EDMichaela Miramontes MD MD sp3 Parish Garsia, RN RN rg5 ZO EVANS RN RN dd2
[2025-04-25 22:57] VITALS: TEMP 98.2; O2SAT 100
[2025-04-25 22:58] VITALS: BP 149/72
== END 2025-04-25 22:23 | disposition home or self-care (01) ==
LOC: ER 20:07
DX: S00.03XA Contusion of scalp, initial encounter (principal); S50.02XA Contusion of left elbow, initial encounter; S40.812A Abrasion of left upper arm, initial encounter; W18.30XA Fall on same level, unspecified, initial encounter
CPT/HCPCS: 70450; 72125; 99283

== ENCOUNTER 2025-05-02 16:02 | Emergency (ER) | payer OTHER ==
--- OUTSIDE RECORDS SUMMARY | 2025-05-02 16:37 | XMS REPORT | Clinical Summary ---
Author Name Unknown Organization [facility] [place] Address [address] [place] [address] Care Team Providers Care Stone [employer] Name Role Phone Unavailable Primary Care Provider [...]
[2025-05-02] MEDS ORDERED: ONDANSETRON 4 MG/2 ML VIAL ONE (16:51)
[2025-05-02] MEDS ORDERED: DIAZEPAM 10 MG/2 ML INJ SYRINGE ONE (16:51)
[2025-05-02] MEDS ORDERED: MORPHINE 4 MG/ML SYR ONE (16:52)
[2025-05-02] MEDS ORDERED: NA CHLORIDE 0.9% 1,000 ML ONE (16:52)
--- NOTE | 2025-05-02 18:16 | ER ---
Nurse's Notes [facility] Name: Toery Pritchard Age: 69 yrs Sex: Male : 1955 Arrival Date: 05/02/2025 Time: 16:02 Bed 7 Private MD: Diagnosis: Low back pain Presentation: 05/02 16:25 Chief complaint: EMS states: BACK PAIN X 2 WEEKS. REPORTS TAKING CODEINE AND TRAMADOL db AND TICANIBANE. STATES PAIN IS NOT BETTER. Coronavirus screen: Client denies travel out of the [place] in the last 14 days. At this time, the client does not indicate any symptoms associated with coronavirus-19. Ebola Screen: Patient negative for fever greater than or equal to 101.5 degrees Fahrenheit, and additional compatible Ebola Virus Disease symptoms Patient denies exposure to infectious person. Patient denies travel to an Ebola-affected area in the 21 days before illness onset. No symptoms or risks identified at this time. Initial Sepsis Screen: Does the patient meet any 2 criteria? No. Patient's initial sepsis screen is negative. Does the patient have a suspected source of infection? No. Patient's initial sepsis screen is negative. Risk Assessment: Do you want to hurt yourself or someone else? Patient reports no desire to harm self or others. Onset of symptoms was May 02, 2025. Care prior to arrival: Glucose check: 120. 16:25 Method Of Arrival: EMS: [facility] db 16:25 Acuity: MARNI 3 db Triage Assessment: 16:48 General: Appears in no apparent distress. uncomfortable, Behavior is calm, cooperative. db Pain: Complains of pain in back. Neuro: Level of Consciousness is awake, alert, obeys commands, Oriented to person, place, time, situation. Historical: - Allergies: 16:48 Haloperidol (Anaphylaxis); db 16:48 Rocephin; db - PMHx: 16:48 Cancer; CVA; Diabetes - NIDDM; kidney disease; lymphedema; neuropathy; CHF; PVD; db - PSHx: 16:48 Vasectomy; db - Immunization history:: Adult Immunizations unknown. - Infectious Disease History:: Denies. - Social history:: Smoking status: unknown. Screenin:55 [facility] ED Fall Risk Assessment (Adult) History of falling in the last 3 months, db including since admission Yes- single mechanical fall (1 pt) Confusion or Disorientation No (0 pts) Intoxicated or Sedated No (0 pts) Impaired Gait Yes (1 pt) Mobility Assist Device Used Yes (1 pt) Altered Elimination No (0 pt) Score/Fall Risk Level 3 or more points = High Risk Oriented to surroundings, Maintained a safe environment. Abuse screen: Denies threats or abuse. Denies injuries from another. Nutritional screening: No deficits noted. Tuberculosis screening: No symptoms or risk factors identified. Assessment: 17:00 Reassessment: Patient appears in no apparent distress at this time. Patient and/or db family updated on plan of care and expected duration. Pain level reassessed. Patient is alert, oriented x 3, equal unlabored respirations, skin warm/dry/pink. General: Appears in no apparent distress. uncomfortable, Behavior is calm, cooperative. 17:10 Reassessment: Patient appears in no apparent distress at this time. Patient and/or db family updated on plan of care and expected duration. Pain level reassessed. NOTIFIED PROVIDER PT BECAME SLEEPY AND SEDATED AFTER VALIUM ADMINISTRATION AND RECEIVED PARTIAL DOSE OF MORPHINE. PT PLACED ON NC. AROUSES TO STIMULI. 17:41 Reassessment: Patient appears in no apparent distress at this time. Patient and/or db family updated on plan of care and expected duration. Pain level reassessed. Patient is alert, oriented x 3, equal unlabored respirations, skin warm/dry/pink. Patient states feeling better. Patient states symptoms have improved. 18:00 Reassessment: Patient appears in no apparent distress at this time. Patient and/or db family updated on plan of care and expected duration. Pain level reassessed. Patient is alert, oriented x 3, equal unlabored respirations, skin warm/dry/pink. Patient states feeling better. Patient states symptoms have improved. Neuro: Level of Consciousness is awake, alert, obeys commands, Oriented to person, place, time, situation. Respiratory: Airway is patent Respiratory effort is even, unlabored, Respiratory pattern is regular, symmetrical. Vital Signs: 16:25 BP 172 / 80; Pulse 91; Resp 18; Temp 97.9(O); Pulse Ox 97% ; Weight 91.5 kg; db 17:00 BP 173 / 85; Pulse 97; Resp 14; Pulse Ox 100% on 4 lpm NC; db 17:10 BP 161 / 77; Pulse 80; Resp 14; Pulse Ox 100% on 4 lpm NC; db 18:00 BP 182 / 85; Pulse 81; Resp 16; Pulse Ox 100% on R/A; db 18:30 BP 169 / 81; Pulse 79; Resp 16; Pulse Ox 100% on R/A; db ED Course: 16:25 Patient arrived in ED. bd 16:25 Arm band placed on Patient placed in an exam room. db 16:29 Anastacio Hernandez FNP-C is PHCP. dr5 16:29 Agapito Lino DO is Attending Physician. dr5 16:39 She Johnson, CHRISTIAN is Primary Nurse. db 16:48 Triage completed. db 17:00 Inserted saline lock: 22 gauge in right forearm, using aseptic technique. Blood db collected. Flushed with 10 mL NS. 17:16 Patient has correct armband on for positive identification. Bed in low position. Call db light in reach. Side rails up X2. Client placed on continuous cardiac and pulse oximetry monitoring. NIBP monitoring applied. property assessment monitor on. Pulse ox on. NIBP on. Pillow given. 18:56 Provided Education on: DISCHARGE AND FOLLOWUP. db 18:56 No provider procedures requiring assistance completed. IV discontinued, intact, db bleeding controlled, No redness/swelling at site. Administered Medications: 17:00 Drug: Diazepam IVP 5 mg IVP once Route: IVP; Site: right forearm; db 18:56 Follow up: Response: No adverse reaction; Pain is decreased db 17:00 Drug: morphine IVP or IV 4 mg IVP once over 4 mins Route: IVP; Infused Over: 4 mins; db Site: right forearm; 18:57 Follow up: Response: No adverse reaction; Pain is decreased db 17:00 Drug: Ondansetron IVP 4 mg IVP once; over 2 minutes Route: IVP; Site: right forearm; db 18:57 Follow up: Response: No adverse reaction db 17:00 Drug: NS 0.9% IV 1000 ml IV at 1000 ml once; to be given as a bolus over 60 minutes db Route: IV; Rate: 1000 ml; Site: right forearm; 18:56 Follow up: Response: No adverse reaction; IV Status: Completed infusion; IV Intake: db 1000ml Medication: 18:56 VIS not applicable for this client. db Intake: 18:56 IV: 1000ml; Total: 1000ml. db Outcome: 18:15 Discharge ordered by . dr5 18:56 Discharged to home via wheelchair, with family, db 18:56 Condition: stable 18:56 Discharge instructions given to patient, family, Instructed on discharge instructions, follow up and referral plans. Prescriptions given X 2, 18:57 Patient left the ED. db Signatures: Keren Delvalle Danielle RN RN db Anastacio Hernandez, TOOL LIAISON-C TOOL LIAISON-Cdr5
--- NOTE | 2025-05-02 18:16 | EDPHYS ---
Physician Documentation [facility] Name: Torey Pritchard Age: 69 yrs Sex: Male : 1955 Arrival Date: 05/02/2025 Time: 16:02 Bed 7 Private MD: ED Physician Agapito Lino HPI: 05/02 19:53 This 69 yrs old Male presents to ER via EMS with complaints of Back Pain. dr5 19:53 The patient presents with pain that is chronic. The symptoms are located in the low dr5 back. Patient is a 69-year-old male with history of cancer, CVA, diabetes, kidney disease, edema, neuropathy, CHF coming in with chronic low back pain that radiates down left leg. Patient reports that he has an appointment on Wednesday with spinal doctor. Patient reports he is here for pain medication. Patient denies numbness or tingling to bilateral lower legs, numbness, bowel or bladder incontinence. Patient also denies new trauma.. Historical: - Allergies: 16:48 Haloperidol (Anaphylaxis); db 16:48 Rocephin; db - PMHx: 16:48 Cancer; CVA; Diabetes - NIDDM; kidney disease; lymphedema; neuropathy; CHF; PVD; db - PSHx: 16:48 Vasectomy; db - Immunization history:: Adult Immunizations unknown. - Infectious Disease History:: Denies. - Social history:: Smoking status: unknown. ROS: 19:53 Constitutional: as per hpi dr5 Exam: 19:53 Constitutional: This is a well developed, well nourished patient who is awake, alert, dr5 and in no acute distress. Head/Face: Normocephalic, atraumatic. Eyes: Pupils equal round and reactive to light, extra-ocular motions intact. Lids and lashes normal. Conjunctiva and sclera are non-icteric and not injected. Cornea within normal limits. Periorbital areas with no swelling, redness, or edema. Neck: Trachea midline, no thyromegaly or masses palpated, and no cervical lymphadenopathy. Supple, full range of motion without nuchal rigidity, or vertebral point tenderness. No Meningismus. Chest/axilla: Normal chest wall appearance and motion. Nontender with no deformity. No lesions are appreciated. Cardiovascular: Regular rate and rhythm with a normal S1 and S2. Normal PMI, no JVD. No pulse deficits. Respiratory: Lungs have equal breath sounds bilaterally, clear to auscultation. No rales, rhonchi or wheezes noted. No increased work of breathing, no retractions or nasal flaring. Back: No spinal tenderness. No costovertebral tenderness. Full range of motion. Mild tenderness to palpation of left lower back. Positive straight leg raise on left side. Skin: Warm, dry with normal turgor. Normal color with no rashes, no lesions, and no evidence of cellulitis. MS/ Extremity: Pulses equal, no cyanosis. Neurovascular intact. Full, normal range of motion. Neuro: Awake and alert, GCS 15, oriented to person, place, time, and situation. Cranial nerves II-XII grossly intact. Motor strength 5/5 in all extremities. Sensory grossly intact. Cerebellar exam normal. Normal gait. 19:57 Neuro: Exam negative for acute changes, Orientation: is normal, dr5 Vital Signs: 16:25 BP 172 / 80; Pulse 91; Resp 18; Temp 97.9(O); Pulse Ox 97% ; Weight 91.5 kg; db 17:00 BP 173 / 85; Pulse 97; Resp 14; Pulse Ox 100% on 4 lpm NC; db 17:10 BP 161 / 77; Pulse 80; Resp 14; Pulse Ox 100% on 4 lpm NC; db 18:00 BP 182 / 85; Pulse 81; Resp 16; Pulse Ox 100% on R/A; db 18:30 BP 169 / 81; Pulse 79; Resp 16; Pulse Ox 100% on R/A; db MDM: 16:29 Medical Screening Exam initiated dr5 19:53 Differential diagnosis: arthritis, Osteoarthritis spinal injury, sprain. Data reviewed: dr5 vital signs, nurses notes, old medical records, Reviewed old ER medical records. Consideration of Admission/Observation Escalation of care including admission/observation considered. Escalation considered patient's pain is improved.. I considered the following discharge prescriptions or medication management in the emergency department I discussed and recommended Over The Counter medications, Medications were administered in the Emergency Department. See MAR. Test considered but Not performed: CT: CT considered but recently completed. Care significantly affected by the following chronic conditions: Cancer, CVA, diabetes, kidney disease, lymphedema, neuropathy,. Care significantly affected by the following Social Determinants of Health: Poor access to healthcare and/or lack of insurance, Poor access to transportation, Problems related to employment. Counseling: I had a detailed discussion with the patient and/or guardian regarding the historical points, exam findings, and any diagnostic results supporting the discharge/admit diagnosis, the presence of at least one elevated blood pressure reading (>120/80) during this emergency department visit, the need for outpatient follow up, for definitive care, a family practitioner, to return to the emergency department if symptoms worsen or persist or if there are any questions or concerns that arise at home. Medication response: Morphine, diazepam. Response to treatment: the patient's symptoms have resolved after treatment, the patient's condition has returned to base line, the patient is now symptom free. Special discussion: I discussed with the patient/guardian in detail that at this point there is no indication for admission to the hospital. It is understood, however, that if the symptoms persist or worsen the patient needs to return immediately for re-evaluation. Based on the history and exam findings, there is no indication for further emergent testing or inpatient evaluation. Orthopedic. ED course: Patient reports he is much better after medication. Will have patient follow-up with spinal doctor on Wednesday. All questions answered. Strict ER precautions given. Patient is agreeable to plan.. 05/02 16:46 Order name: IV Start; Complete Time: 17:17 dr5 Administered Medications: 17:00 Drug: Diazepam IVP 5 mg IVP once Route: IVP; Site: right forearm; db 18:56 Follow up: Response: No adverse reaction; Pain is decreased db 17:00 Drug: morphine IVP or IV 4 mg IVP once over 4 mins Route: IVP; Infused Over: 4 mins; db Site: right forearm; 18:57 Follow up: Response: No adverse reaction; Pain is decreased db 17:00 Drug: Ondansetron IVP 4 mg IVP once; over 2 minutes Route: IVP; Site: right forearm; db 18:57 Follow up: Response: No adverse reaction db 17:00 Drug: NS 0.9% IV 1000 ml IV at 1000 ml once; to be given as a bolus over 60 minutes db Route: IV; Rate: 1000 ml; Site: right forearm; 18:56 Follow up: Response: No adverse reaction; IV Status: Completed infusion; IV Intake: db 1000ml Disposition Summary: 05/02/25 18:15 Discharge Ordered Notes: Location: Home dr5 Condition: Stable dr5 Diagnosis - Low back pain dr5 Followup: dr5 - With: Emergency Department - When: As needed - Reason: Worsening of condition Followup: dr5 - With: Private Physician - When: 1 - 2 days - Reason: Recheck today's complaints, Continuance of care, Re-evaluation by your physician Discharge Instructions: - Discharge Summary Sheet dr5 - Chronic Back Pain dr5 Forms: - Medication Reconciliation Form dr5 - Patient Portal Instructions dr5 - Leadership Thank You Letter dr5 Prescriptions: - Ibuprofen 800 mg Oral Tablet - take 1 tablet ORAL route every 12 hours As needed take with food; 20 tablet; dr5 Refills: 0, Product Selection Permitted - Tramadol 50 mg Oral Tablet - take 1 tablet ORAL route every 8 hours as needed; 12 tablet; Refills: 0, dr5 Product Selection Permitted Signatures: She Johnson, RN RN Anastacio Rowley, LIQUOR GALLERY OPERATOR-C LIQUOR GALLERY OPERATOR-Cdr5
[2025-05-02 19:29] VITALS: TEMP 97.9
[2025-05-02 19:31] VITALS: O2SAT 100
[2025-05-02 19:36] VITALS: BP 169/81
== END 2025-05-02 18:57 | disposition home or self-care (01) ==
LOC: ER 16:02
DX: M54.50 Low back pain, unspecified (principal); E11.9 Type 2 diabetes mellitus without complications; I50.9 Heart failure, unspecified; Z85.9 Personal history of malignant neoplasm, unspecified; Z86.73 Personal history of transient ischemic attack (TIA), and cerebral infarction without residual deficits; I89.0 Lymphedema, not elsewhere classified; G89.29 Other chronic pain
CPT/HCPCS: 96361; 96375; 96374; 99285; J3360; J2405; J7030